=== PATIENT | male | born 1950 | race Hispanic/Latino ===

== ENCOUNTER 2020-05-21 23:24 | Inpatient (IN) | payer MEDICARE ==
[~2020-05-21] VITALS: Ht 182.9 cm; Wt 118.0 kg
[2020-05-22 01:16] LABS: ABG BASE EXCESS 4.6 mmol/L (-2.0-3.0); ABG HCO3 26.5 mmol/L (21.0-28.0); ABG OXYGEN SATURATION 94.3 % (95.0-99.0); ABG PCO2 32 mmHg (35-48)
[2020-05-22 01:19] LABS: CREATININE 1.8 mg/dL (0.5-1.5); POTASSIUM 3.6 mmol/L (3.5-5.1)
[2020-05-22 01:21] LABS: INR 0.93 (0.85-1.15); PARTIAL THROMBOPLASTIN TIME 30.8 SEC (26.3-35.5); PROTHROMBIN TIME 10.1 SEC (9.6-11.6)
[2020-05-22 01:22] LABS: EOSINOPHILS % (AUTO) 0.2 % (0.0-8.0); HEMATOCRIT 43.2 % (42-54); LYMPHOCYTES % (AUTO) 16.3 % (21.0-51.0); MEAN CORPUSCULAR HGB CONC 34.5 g/dL (32.0-36.0); MEAN CORPUSCULAR VOLUME 86.9 fL (79-99); MONOCYTES % (AUTO) 6.4 % (3.0-13.0); NEUTROPHILS % (AUTO) 76.7 % (40.0-77.0); PLATELET COUNT (AUTO) 128 K/uL (130-400); RED BLOOD CELL COUNT(AUTO) 4.97 MIL/uL (4.50-6.20); RED CELL DISTRIBUTION WIDTH 13.4 % (11.0-15.5); WHITE BLOOD COUNT (AUTO) 4.7 K/uL (4.8-10.8)
[2020-05-22 01:23] LABS: ALBUMIN 3.4 g/dL (3.5-5.0); BILIRUBIN,TOTAL 0.7 mg/dL (0.2-1.0); TOTAL PROTEIN, SERUM 7.1 g/dL (6.0-8.3)
[2020-05-22 01:35] LABS: B-TYPE NATRIURETIC PEPTIDE 15 pg/mL (0-100)
[2020-05-22] MEDS ORDERED: CEFTRIAXONE SODIUM 1 GM ONE ×3 (01:58→23:23)
[2020-05-22] MEDS ORDERED: AZITHROMYCIN 500MG+NS 250ML 250 ML IV ONE (01:58)
[2020-05-22] MEDS ORDERED: ONDANSETRON HCL 4 MG/2 ML VIAL IV PRN (02:15)
[2020-05-22] MEDS: CEFTRIAXONE SODIUM 1 GM IVP SCH ×2 (02:15→14:15)
[2020-05-22] MEDS: AZITHROMYCIN 500MG+NS 250ML 250 ML IV SCH (02:15)
[2020-05-22 06:50] LABS: HEMATOCRIT 41.7 % (42-54); MEAN CORPUSCULAR HEMOGLOBIN 29.9 pg (27.0-33.0); MEAN CORPUSCULAR HGB CONC 34.3 g/dL (32.0-36.0); MEAN CORPUSCULAR VOLUME 87.2 fL (79-99); RED BLOOD CELL COUNT(AUTO) 4.78 MIL/uL (4.50-6.20); RED CELL DISTRIBUTION WIDTH 13.5 % (11.0-15.5); WHITE BLOOD COUNT (AUTO) 4.3 K/uL (4.8-10.8)
[2020-05-22 07:09] LABS: ALBUMIN 3.2 g/dL (3.5-5.0); BILIRUBIN,TOTAL 0.6 mg/dL (0.2-1.0); CREATININE 1.7 mg/dL (0.5-1.5); CRP QUANTITATIVE 63.8 mg/L (0.00-9.0); POTASSIUM 3.5 mmol/L (3.5-5.1); TOTAL PROTEIN, SERUM 6.5 g/dL (6.0-8.3)
[2020-05-22] MEDS ORDERED: FAMOTIDINE/PF 20 MG/2 ML VIAL IV ONE (08:52)
[2020-05-22] MEDS: FAMOTIDINE/PF 20 MG/2 ML VIAL IV SCH (09:00)
[2020-05-22] MEDS ORDERED: ERGOCALCIFEROL (VITAMIN D2) 50,000 UNIT CAPSULE PO ONE (09:00)
[2020-05-22] MEDS: ASCORBIC ACID 500 MG TAB PO SCH (09:00)
[2020-05-22] MEDS: ZINC SULFATE 220 CAPSULE PO SCH (09:00)
[2020-05-22 09:26] LABS: APPEARANCE,URINE Clear (CLEAR); BILIRUBIN,URINE Negative (NEGATIVE); COLOR,URINE Dark Yellow (YELLOW); GLUCOSE, URINE (UA) Negative (NEGATIVE); KETONES,URINE Negative (NEGATIVE); LEUKOCYTE ESTERASE ,URINE Negative (NEGATIVE); NITRATE,URINE Negative (NEGATIVE); OCCULT BLOOD,URINE Negative (NEGATIVE); PROTEIN,URINE Trace mg/dL (NEGATIVE)
[2020-05-22] MEDS ORDERED: ENOXAPARIN SODIUM 40 MG/0.4 ML SYRINGE SQ SCH (09:30)
[2020-05-22] MEDS ORDERED: METHYLPREDNISOLONE SOD SUCC 40MG/ML 1ML ONE ×2 (10:31→23:23)
[2020-05-22] MEDS ORDERED: ENOXAPARIN SODIUM 40 MG/0.4 ML SYRINGE SQ ONE (10:48)
--- NOTE | 2020-05-22 13:34 | NUR ---
CM NOTE/ASSESSMENT SPOKE TO PATIENT VIA CELL PHONE- STATES PRIOR TO THIS ILLNESS HE WAS ACTIVE, INDPENDENT , NO DME OR SERVICES, DRIVES, RETIRED--LIVES WITH SPOUSE SENTHIL WHO IS SITLL WORKING- BOTH ARE IN THE ER FOR POSSIBLE COVID, STATES SPOUSE ALSO INDPENDENT/ACTIVE. DCP IS HOME CM TO FOLLOW IF SERVICE OR EQUIPMENT NEEDED ON DC
[2020-05-22] MEDS: METHYLPREDNISOLONE SOD SUCC 40MG/ML 1ML IVP SCH ×2 (14:00→21:00)
[2020-05-22] MEDS: ENOXAPARIN SODIUM 60 MG/0.6 ML SQ SCH (16:30)
[2020-05-23 02:00] VITALS: BP 150/88
[2020-05-23] MEDS: CEFTRIAXONE SODIUM 1 GM IVP SCH ×2 (02:15→15:17)
[2020-05-23] MEDS: AZITHROMYCIN 500MG+NS 250ML 250 ML IV SCH (02:15)
[2020-05-23 07:47] LABS: BILIRUBIN,TOTAL 0.5 mg/dL (0.2-1.0); CREATININE 1.6 mg/dL (0.5-1.5); CRP QUANTITATIVE 43.9 mg/L (0.00-9.0); POTASSIUM 3.8 mmol/L (3.5-5.1); TOTAL PROTEIN, SERUM 6.7 g/dL (6.0-8.3)
[2020-05-23 08:00] VITALS: BP 137/86
[2020-05-23 08:29] LABS: HEMATOCRIT 41.6 % (42-54); MEAN CORPUSCULAR HEMOGLOBIN 30.3 pg (27.0-33.0); MEAN CORPUSCULAR HGB CONC 34.6 g/dL (32.0-36.0); MEAN CORPUSCULAR VOLUME 87.4 fL (79-99); RED BLOOD CELL COUNT(AUTO) 4.76 MIL/uL (4.50-6.20); RED CELL DISTRIBUTION WIDTH 13.2 % (11.0-15.5); WHITE BLOOD COUNT (AUTO) 5.3 K/uL (4.8-10.8)
[2020-05-23] MEDS: ENOXAPARIN SODIUM 60 MG/0.6 ML SQ SCH (09:48)
[2020-05-23] MEDS: ZINC SULFATE 220 CAPSULE PO SCH (09:48)
[2020-05-23] MEDS: ASCORBIC ACID 500 MG TAB PO SCH (09:48)
[2020-05-23] MEDS: FAMOTIDINE/PF 20 MG/2 ML VIAL IV SCH (09:48)
[2020-05-23] MEDS: METHYLPREDNISOLONE SOD SUCC 40MG/ML 1ML IVP SCH ×3 (09:48→21:23)
[2020-05-23 11:00] VITALS: BP 124/77
[2020-05-23 16:00] VITALS: BP 116/68
[2020-05-23 20:00] VITALS: BP 137/86
[2020-05-23] MEDS: ACETAMINOPHEN 325 MG TAB PO PRN (21:24)
[2020-05-23 21:29] VITALS: BP 137/86
[2020-05-24] VITALS: BP 132/77
[2020-05-24] MEDS: CEFTRIAXONE SODIUM 1 GM IVP SCH ×2 (02:55→13:09)
[2020-05-24] MEDS: AZITHROMYCIN 500MG+NS 250ML 250 ML IV SCH (02:55)
[2020-05-24 04:00] VITALS: BP 111/72
[2020-05-24] MEDS: ASCORBIC ACID 500 MG TAB PO SCH (07:36)
[2020-05-24] MEDS: METHYLPREDNISOLONE SOD SUCC 40MG/ML 1ML IVP SCH ×3 (07:36→20:38)
[2020-05-24] MEDS: ZINC SULFATE 220 CAPSULE PO SCH (07:36)
[2020-05-24] MEDS: ENOXAPARIN SODIUM 60 MG/0.6 ML SQ SCH (07:37)
[2020-05-24] MEDS: FAMOTIDINE/PF 20 MG/2 ML VIAL IV SCH (07:37)
--- NOTE | 2020-05-24 07:45 | NUR ---
ASSESSMENT PT IS AAOX3 DENIES CP DENIES SOB WHILE AT REST, BREATHING PATTERN IS EVEN AND UNLABORED. NO VISIBLE SIGNS OF DISTRESS NOTED. O2 VIA NC AT 4LPM. SITTING UPRIGHT IN BED, WATCHING TV, AM MEDS GIVEN CALL LIGHT WITHIN REACH.
[2020-05-24 08:53] LABS: HEMATOCRIT 40.5 % (42-54); MEAN CORPUSCULAR HEMOGLOBIN 29.3 pg (27.0-33.0); MEAN CORPUSCULAR HGB CONC 34.3 g/dL (32.0-36.0); MEAN CORPUSCULAR VOLUME 85.3 fL (79-99); RED BLOOD CELL COUNT(AUTO) 4.75 MIL/uL (4.50-6.20); RED CELL DISTRIBUTION WIDTH 12.9 % (11.0-15.5)
--- NOTE | 2020-05-24 09:00 | NUR ---
1 UNIT CONVALESCENT PLASMA STARTED CONTINUING TO MONITOR.
[2020-05-24 09:26] LABS: ALANINE AMINOTRANSFERASE 42 U/L (12-78); ALBUMIN 2.9 g/dL (3.5-5.0); ASPARTATE AMINOTRANSFERASE 36 U/L (10-37); BILIRUBIN,TOTAL 0.5 mg/dL (0.2-1.0); CARBON DIOXIDE 25 mmol/L (21-32); CHLORIDE 106 mmol/L (101-111); CREATININE 1.6 mg/dL (0.5-1.5); GLOMERULAR FILTR. RATE CALC 46 mL/min (>60); GLUCOSE,RANDOM 206 mg/dL (70-105); LACTATE DEHYDROGENASE 254 U/L (81-234); POTASSIUM 3.6 mmol/L (3.5-5.1); SODIUM SERUM 141 mmol/L (136-145); TOTAL PROTEIN, SERUM 6.6 g/dL (6.0-8.3); UREA NITROGEN, BLOOD 35 mg/dL (7-18)
[2020-05-24 11:00] VITALS: BP 137/78
--- NOTE | 2020-05-24 11:15 | NUR ---
1ST UNIT CONV PLASMA FINISHED NO REACTIONS NOTED. VS WNL.
--- NOTE | 2020-05-24 11:45 | NUR ---
2ND UNIT CONV PLASMA STARTED CONTINUING TO MONITOR
--- NOTE | 2020-05-24 13:46 | NUR ---
2ND UNIT CONV PLASMA FINISHED NO TRANSFUSION REACTIONS NOTED. TOLERATED WELL. V/S WL.
[2020-05-24 16:00] VITALS: BP 128/74
--- NOTE | 2020-05-24 17:00 | NUR ---
STATUS RESTING IN BED NO VISIBLE SIGNS OF DISTRESS NOTED. REMAINS ON O2 VIA NC. CALL LIGHT WITHIN REACH.
[2020-05-24] MEDS: ACETAMINOPHEN 325 MG TAB PO PRN ×2 (18:08→22:16)
[2020-05-24 20:04] VITALS: BP 134/58
[2020-05-24 23:28] VITALS: BP 129/73
[2020-05-25] MEDS: CEFTRIAXONE SODIUM 1 GM IVP SCH ×2 (01:51→14:17)
[2020-05-25] MEDS: AZITHROMYCIN 500MG+NS 250ML 250 ML IV SCH (01:51)
[2020-05-25] MEDS: ACETAMINOPHEN 325 MG TAB PO PRN ×2 (02:46→07:04)
[2020-05-25 04:12] VITALS: BP 128/69
[2020-05-25 08:00] VITALS: BP 136/80
[2020-05-25 08:06] LABS: BASOPHILS % (AUTO) 0.1 % (0.0-5.0); HEMATOCRIT 39.4 % (42-54); MEAN CORPUSCULAR HEMOGLOBIN 29.3 pg (27.0-33.0); MEAN CORPUSCULAR HGB CONC 34.5 g/dL (32.0-36.0); MEAN CORPUSCULAR VOLUME 84.9 fL (79-99); MONOCYTES % (AUTO) 2.6 % (3.0-13.0); NEUTROPHILS % (AUTO) 91.3 % (40.0-77.0); PLATELET COUNT (AUTO) 175 K/uL (130-400); RED BLOOD CELL COUNT(AUTO) 4.64 MIL/uL (4.50-6.20); WHITE BLOOD COUNT (AUTO) 13.1 K/uL (4.8-10.8)
[2020-05-25 08:53] LABS: ALBUMIN 2.8 g/dL (3.5-5.0); BILIRUBIN,TOTAL 0.6 mg/dL (0.2-1.0); CREATININE 1.4 mg/dL (0.5-1.5); CRP QUANTITATIVE 49.2 mg/L (0.00-9.0); POTASSIUM 3.5 mmol/L (3.5-5.1); TOTAL PROTEIN, SERUM 6.5 g/dL (6.0-8.3)
[2020-05-25] MEDS: ASCORBIC ACID 500 MG TAB PO SCH (08:59)
[2020-05-25] MEDS: ZINC SULFATE 220 CAPSULE PO SCH (08:59)
[2020-05-25] MEDS: FAMOTIDINE/PF 20 MG/2 ML VIAL IV SCH (09:00)
[2020-05-25] MEDS: ENOXAPARIN SODIUM 60 MG/0.6 ML SQ SCH ×2 (09:00→20:08)
[2020-05-25] MEDS: METHYLPREDNISOLONE SOD SUCC 40MG/ML 1ML IVP SCH ×2 (09:00→14:17)
--- NOTE | 2020-05-25 09:30 | NUR ---
ASSESSMENT PT IS AAOX3 DENIES CP. SITTING UPRIGHT IN BED. AM MEDS GIVEN, STATES HE FEELS SOB ON EXERTION, STATES HE HAS A BAD COUGH. ROBITUSSIN AND CEPACOL GIVEN. PT REMAINS ON O2 VIA NC 3LPM. CALL LIGHT WITHIN REACH.
[2020-05-25] MEDS: BENZOCAINE/MENTH/CETYLPYRD CL 1 EACH LOZENGE MM PRN ×2 (09:47→18:23)
[2020-05-25] MEDS: GUAIFENESIN-DM 200/20 MG 10 ML PO PRN ×2 (09:48→18:23)
[2020-05-25] MEDS: TRAMADOL HCL 50 MG TABLET PO PRN ×2 (10:47→17:09)
[2020-05-25 11:00] VITALS: BP 130/75
[2020-05-25 16:00] VITALS: BP 129/77
--- NOTE | 2020-05-25 18:49 | NUR ---
DR KEBEDE ROUNDED ORDERS RECEIVED
[2020-05-25] MEDS: DEXAMETHASONE 4 MG TAB PO SCH (20:07)
[2020-05-25] MEDS: ACETAMINOPHEN-CODEINE 300/30MG TAB PO PRN (20:08)
[2020-05-25 20:32] VITALS: BP 135/76
[2020-05-26] VITALS (7 sets, daily range): BP systolic 116–166; BP diastolic 61–89
[2020-05-26] MEDS: ACETAMINOPHEN-CODEINE 300/30MG TAB PO PRN ×2 (02:27→08:34)
--- NOTE | 2020-05-26 03:00 | NUR ---
PT C/O HEADACHE. TYLENOL CODEINE GIVEN. CONSTANT PAIN. DOES NOT WANT REGULAR TYLENOL.
[2020-05-26 07:57] LABS: BASOPHILS % (AUTO) 0.1 % (0.0-5.0); HEMATOCRIT 39.5 % (42-54); LYMPHOCYTES % (AUTO) 3.9 % (21.0-51.0); MEAN CORPUSCULAR HEMOGLOBIN 29.3 pg (27.0-33.0); MEAN CORPUSCULAR HGB CONC 34.4 g/dL (32.0-36.0); MEAN CORPUSCULAR VOLUME 85.1 fL (79-99); MONOCYTES % (AUTO) 2.1 % (3.0-13.0); NEUTROPHILS % (AUTO) 92.3 % (40.0-77.0); PLATELET COUNT (AUTO) 179 K/uL (130-400); RED BLOOD CELL COUNT(AUTO) 4.64 MIL/uL (4.50-6.20); WHITE BLOOD COUNT (AUTO) 14.6 K/uL (4.8-10.8)
[2020-05-26] MEDS: ASCORBIC ACID 500 MG TAB PO SCH (08:33)
[2020-05-26] MEDS: FAMOTIDINE/PF 20 MG/2 ML VIAL IV SCH (08:33)
[2020-05-26] MEDS: ENOXAPARIN SODIUM 60 MG/0.6 ML SQ SCH ×2 (08:34→20:45)
[2020-05-26] MEDS: ZINC SULFATE 220 CAPSULE PO SCH (08:34)
[2020-05-26] MEDS: DEXAMETHASONE 4 MG TAB PO SCH (09:34)
[2020-05-26 09:42] LABS: ALBUMIN 2.4 g/dL (3.5-5.0); BILIRUBIN,TOTAL 0.7 mg/dL (0.2-1.0); CREATININE 1.3 mg/dL (0.5-1.5); CRP QUANTITATIVE 147.1 mg/L (0.00-9.0); POTASSIUM 3.8 mmol/L (3.5-5.1); TOTAL PROTEIN, SERUM 6.8 g/dL (6.0-8.3)
[2020-05-26] MEDS: INSULIN HUMULIN R 100 UNIT/ML 3ML SQ SCH ×3 (11:30→20:29)
[2020-05-26] MEDS: BENZOCAINE/MENTH/CETYLPYRD CL 1 EACH LOZENGE MM PRN (13:53)
[2020-05-26] MEDS ORDERED: [UNRECOGNIZED DRUG - OTHER] MISC SCH (18:30)
[2020-05-26] MEDS: DEXAMETHASONE SOD PHOSPHATE 4 MG/ML 1ML VIAL IVP SCH (20:44)
[2020-05-27 03:00] VITALS: BP 113/68
[2020-05-27 04:58] LABS: BASOPHILS % (AUTO) 0.2 % (0.0-5.0); EOSINOPHILS % (AUTO) 0.2 % (0.0-8.0); HEMATOCRIT 39.2 % (42-54); LYMPHOCYTES % (AUTO) 4.4 % (21.0-51.0); MEAN CORPUSCULAR HEMOGLOBIN 29.7 pg (27.0-33.0); MEAN CORPUSCULAR HGB CONC 34.7 g/dL (32.0-36.0); MEAN CORPUSCULAR VOLUME 85.6 fL (79-99); MONOCYTES % (AUTO) 2.5 % (3.0-13.0); NEUTROPHILS % (AUTO) 90.5 % (40.0-77.0); PLATELET COUNT (AUTO) 187 K/uL (130-400); RED BLOOD CELL COUNT(AUTO) 4.58 MIL/uL (4.50-6.20); RED CELL DISTRIBUTION WIDTH 13.1 % (11.0-15.5); WHITE BLOOD COUNT (AUTO) 13.3 K/uL (4.8-10.8)
[2020-05-27 05:09] LABS: ALBUMIN 2.3 g/dL (3.5-5.0); CREATININE 1.1 mg/dL (0.5-1.5); POTASSIUM 3.6 mmol/L (3.5-5.1); TOTAL PROTEIN, SERUM 6.2 g/dL (6.0-8.3)
[2020-05-27 05:45] LABS: CRP QUANTITATIVE 213.4 mg/L (0.00-9.0)
[2020-05-27] MEDS: INSULIN HUMULIN R 100 UNIT/ML 3ML SQ SCH ×4 (06:08→20:01)
[2020-05-27] MEDS: ZINC SULFATE 220 CAPSULE PO SCH (07:49)
[2020-05-27] MEDS: FAMOTIDINE/PF 20 MG/2 ML VIAL IV SCH (07:49)
[2020-05-27] MEDS: ENOXAPARIN SODIUM 60 MG/0.6 ML SQ SCH ×2 (07:49→20:16)
[2020-05-27] MEDS: DEXAMETHASONE SOD PHOSPHATE 4 MG/ML 1ML VIAL IVP SCH ×2 (07:49→20:16)
[2020-05-27] MEDS: ASCORBIC ACID 500 MG TAB PO SCH (07:49)
[2020-05-27 08:00] VITALS: BP 131/60
[2020-05-27 11:30] VITALS: BP 133/62
[2020-05-27 15:30] VITALS: BP 130/69
[2020-05-27 19:00] VITALS: BP 136/74
[2020-05-27 23:00] VITALS: BP 123/64
[2020-05-28 03:00] VITALS: BP 144/85
[2020-05-28 05:31] LABS: BASOPHILS % (AUTO) 0.3 % (0.0-5.0); HEMATOCRIT 41.2 % (42-54); LYMPHOCYTES % (AUTO) 5.5 % (21.0-51.0); MEAN CORPUSCULAR HEMOGLOBIN 28.7 pg (27.0-33.0); MEAN CORPUSCULAR VOLUME 84.6 fL (79-99); MONOCYTES % (AUTO) 3.8 % (3.0-13.0); NEUTROPHILS % (AUTO) 85.8 % (40.0-77.0); PLATELET COUNT (AUTO) 228 K/uL (130-400); RED BLOOD CELL COUNT(AUTO) 4.87 MIL/uL (4.50-6.20); WHITE BLOOD COUNT (AUTO) 11.2 K/uL (4.8-10.8)
[2020-05-28 05:38] LABS: CREATININE 1.1 mg/dL (0.5-1.5); CRP QUANTITATIVE 140.2 mg/L (0.00-9.0); POTASSIUM 3.8 mmol/L (3.5-5.1)
[2020-05-28 05:58] LABS: HEMOGLOBIN A1C 6.3 % (4.0-6.0)
[2020-05-28] MEDS: INSULIN HUMULIN R 100 UNIT/ML 3ML SQ SCH ×4 (06:37→20:58)
[2020-05-28 08:00] VITALS: BP 156/86
[2020-05-28] MEDS: FAMOTIDINE/PF 20 MG/2 ML VIAL IV SCH (08:59)
[2020-05-28] MEDS: ZINC SULFATE 220 CAPSULE PO SCH (08:59)
[2020-05-28] MEDS: ASCORBIC ACID 500 MG TAB PO SCH (09:00)
[2020-05-28] MEDS: ENOXAPARIN SODIUM 60 MG/0.6 ML SQ SCH ×2 (09:00→21:00)
[2020-05-28] MEDS: METHYLPREDNISOLONE SOD SUCC 125MG/2ML VIAL IVP SCH ×3 (09:03→23:54)
[2020-05-28] MEDS ORDERED: INSULIN GLARGINE 100 UNITS/ML 10 ML VIAL SQ SCH (09:30)
[2020-05-28 12:00] VITALS: BP 158/95
--- NOTE | 2020-05-28 12:52 | NUR ---
RD NOTIFICATION Pt admitted with SOB, positive COVID-19. Pt with Heart healthy diet order in place. Attempt to call Pt - No answer. Unknown PO intake. Pt with decreased appetite, Loss of Taste, GBW and fatigue as per EMR. S/p Plasma Tx. Previous smoker. Obesity Class II. Elevated BG, A1C (6.3). Moderated PCM. Recommend Glucerna TID Recommend ProMod QD Recommend 500mg Vitamin C (BID) RD to continue to monitor. Please notify as additional nutrition concerns arise. Thank you.
[2020-05-28 16:00] VITALS: BP 142/65
[2020-05-28 19:30] VITALS: BP 150/83
[2020-05-28] MEDS: INSULIN GLARGINE 100 UNITS/ML 10 ML VIAL SQ SCH (20:57)
[2020-05-28 23:00] VITALS: BP 156/73
[2020-05-29 03:10] VITALS: BP 153/66
[2020-05-29 04:44] LABS: BASOPHILS % (AUTO) 0.2 % (0.0-5.0); HEMATOCRIT 41.3 % (42-54); LYMPHOCYTES % (AUTO) 6.8 % (21.0-51.0); MEAN CORPUSCULAR HEMOGLOBIN 29.7 pg (27.0-33.0); MEAN CORPUSCULAR HGB CONC 34.6 g/dL (32.0-36.0); MEAN CORPUSCULAR VOLUME 85.7 fL (79-99); MONOCYTES % (AUTO) 4.3 % (3.0-13.0); NEUTROPHILS % (AUTO) 84.4 % (40.0-77.0); PLATELET COUNT (AUTO) 263 K/uL (130-400); RED BLOOD CELL COUNT(AUTO) 4.82 MIL/uL (4.50-6.20); RED CELL DISTRIBUTION WIDTH 12.9 % (11.0-15.5); WHITE BLOOD COUNT (AUTO) 11.3 K/uL (4.8-10.8)
[2020-05-29 05:14] LABS: ALBUMIN 2.2 g/dL (3.5-5.0); CREATININE 1.3 mg/dL (0.5-1.5); CRP QUANTITATIVE 57.3 mg/L (0.00-9.0); POTASSIUM 3.8 mmol/L (3.5-5.1); TOTAL PROTEIN, SERUM 6.2 g/dL (6.0-8.3)
[2020-05-29] MEDS: INSULIN HUMULIN R 100 UNIT/ML 3ML SQ SCH (06:26)
[2020-05-29] MEDS: INSULIN GLARGINE 100 UNITS/ML 10 ML VIAL SQ SCH ×3 (06:27→21:37)
[2020-05-29 08:00] VITALS: BP 144/73
[2020-05-29] MEDS ORDERED: REMDESIVIR (INVESTIGATIONAL) 100 MG in SODIUM CHLORIDE 0.9% 250 ML IV SCH (08:30)
[2020-05-29] MEDS: ZINC SULFATE 220 CAPSULE PO SCH (08:59)
[2020-05-29] MEDS: METHYLPREDNISOLONE SOD SUCC 125MG/2ML VIAL IVP SCH ×2 (08:59→17:02)
[2020-05-29] MEDS: ASCORBIC ACID 500 MG TAB PO SCH (08:59)
[2020-05-29] MEDS: FAMOTIDINE/PF 20 MG/2 ML VIAL IV SCH (08:59)
[2020-05-29] MEDS: ENOXAPARIN SODIUM 60 MG/0.6 ML SQ SCH ×2 (09:00→21:35)
[2020-05-29] MEDS ORDERED: REMDESIVIR (INVESTIGATIONAL) 200 MG/250 ML NS IV SCH (09:15)
[2020-05-29] MEDS: INSULIN LISPRO 100 UNIT/ML 3ML SQ SCH ×5 (11:49→21:38)
[2020-05-29 11:50] VITALS: BP 169/95
--- NOTE | 2020-05-29 14:00 | NUR ---
SPOKE EXTENSIVELY WITH PATIENT ABOUT HIS DIET AND WHAT WE COULD GET HIM SO THAT HE WILL EAT SOMETHING. HE STATED THAT IT TAKES TOO MUCH EFFORT TO EAT AND HAS FOUND RELIEF TO HIS MOUTH FROM THINGS COLD. SO I WAS ABLE TO ORDER SOME CLEAR ICE CREAM WELL POPCICLES AND APPLES SAUCE. ORDERED SOFT DIET WITH THESE SPECIFICS ORDERED FROM DIETARY. Addendum: 05/29/20 at 1644 by JACKIE JUARES RN RN Amended: Links added.
[2020-05-29] MEDS ORDERED: COMPOUND IV REFRIGERATED 1 EACH IVSOLN MISC PRN (14:15)
[2020-05-29 16:00] VITALS: BP 160/93
[2020-05-29 20:12] VITALS: BP 156/89
[2020-05-30 00:12] VITALS: BP 150/92
[2020-05-30] MEDS: METHYLPREDNISOLONE SOD SUCC 125MG/2ML VIAL IVP SCH ×4 (00:33→23:52)
[2020-05-30 04:12] VITALS: BP 155/94
[2020-05-30] MEDS: INSULIN LISPRO 100 UNIT/ML 3ML SQ SCH ×7 (06:35→20:54)
[2020-05-30 07:33] LABS: BASOPHILS % (AUTO) 0.2 % (0.0-5.0); HEMATOCRIT 43.3 % (42-54); LYMPHOCYTES % (AUTO) 5.1 % (21.0-51.0); MEAN CORPUSCULAR HEMOGLOBIN 29.2 pg (27.0-33.0); MEAN CORPUSCULAR HGB CONC 33.9 g/dL (32.0-36.0); MEAN CORPUSCULAR VOLUME 85.9 fL (79-99); MONOCYTES % (AUTO) 3.7 % (3.0-13.0); NEUTROPHILS % (AUTO) 87.6 % (40.0-77.0); PLATELET COUNT (AUTO) 318 K/uL (130-400); RED BLOOD CELL COUNT(AUTO) 5.04 MIL/uL (4.50-6.20); RED CELL DISTRIBUTION WIDTH 13.2 % (11.0-15.5); WHITE BLOOD COUNT (AUTO) 15.8 K/uL (4.8-10.8)
[2020-05-30] MEDS: ASCORBIC ACID 500 MG TAB PO SCH (07:47)
[2020-05-30] MEDS: FAMOTIDINE/PF 20 MG/2 ML VIAL IV SCH (07:47)
[2020-05-30] MEDS: ENOXAPARIN SODIUM 60 MG/0.6 ML SQ SCH ×2 (07:47→20:59)
[2020-05-30] MEDS: ZINC SULFATE 220 CAPSULE PO SCH (07:47)
[2020-05-30] MEDS: REMDESIVIR (INVESTIGATIONAL) 100 MG/250ML NS IV SCH (07:48)
[2020-05-30 08:00] VITALS: BP 147/87
--- NOTE | 2020-05-30 08:00 | NUR ---
EDUCATED PATIENT ON PRONE POSITION AND IT'S BENEFITS FOR EFFECTIVE BREATHING PATTERN AND OXIGENATION. PATIENT WAS ABLE TO STAY IN PRONE POSITION FOR 5 MINUTES, THEN HE MOVED BACK TO HIS SIDE STATING AND BEING IN PRONE POSITION IN TOO UNCOMFORTABLE FOR HIM. PATIENT VERBALIZED UNDERSTANDING OF ALL EDUCATION GIVEN VIA TEACH BACK. WILL CONTINUE TO MONITOR CLOSELY.
[2020-05-30 08:04] LABS: CREATININE 1.5 mg/dL (0.5-1.5); CRP QUANTITATIVE 29.5 mg/L (0.00-9.0)
[2020-05-30] MEDS ORDERED: ENAL20TA PO (10:19)
[2020-05-30] MEDS ORDERED: HYDR12.54 PO (10:19)
[2020-05-30] MEDS ORDERED: ATOR10 PO (10:19)
[2020-05-30] MEDS ORDERED: OMEP-420 PO (10:19)
[2020-05-30] MEDS ORDERED: ALLO300T2 PO (10:19)
[2020-05-30 11:18] VITALS: BP 151/79
[2020-05-30 15:50] VITALS: BP 138/87
[2020-05-30 20:34] VITALS: BP 147/71
[2020-05-30] MEDS: INSULIN GLARGINE 100 UNITS/ML 10 ML VIAL SQ SCH (20:53)
[2020-05-30] MEDS ORDERED: ENALAPRIL MALEATE 10 MG TABLET PO SCH (21:00)
[2020-05-31 00:23] VITALS: BP 144/72
[2020-05-31 04:53] VITALS: BP 144/86
[2020-05-31 05:57] LABS: HEMATOCRIT 41.3 % (42-54); MEAN CORPUSCULAR HGB CONC 35.1 g/dL (32.0-36.0); MEAN CORPUSCULAR VOLUME 85.3 fL (79-99); PLATELET COUNT (AUTO) 288 K/uL (130-400); RED BLOOD CELL COUNT(AUTO) 4.84 MIL/uL (4.50-6.20); RED CELL DISTRIBUTION WIDTH 13.2 % (11.0-15.5); WHITE BLOOD COUNT (AUTO) 18.2 K/uL (4.8-10.8)
[2020-05-31 05:59] LABS: ALBUMIN 2.3 g/dL (3.5-5.0); BILIRUBIN,TOTAL 1.1 mg/dL (0.2-1.0); CREATININE 1.3 mg/dL (0.5-1.5); CRP QUANTITATIVE 16.3 mg/L (0.00-9.0); POTASSIUM 3.7 mmol/L (3.5-5.1); TOTAL PROTEIN, SERUM 5.9 g/dL (6.0-8.3)
[2020-05-31] MEDS: INSULIN LISPRO 100 UNIT/ML 3ML SQ SCH ×7 (06:25→21:21)
[2020-05-31 07:33] LABS: BAND NEUTROPHILS % (MANUAL) 2 % (0-2); LYMPHOCYTES % (MANUAL) 3 % (22-44); MAN.DIFF COMMENT-IMPRESSION MANUAL DIFFERENTIAL; MONOCYTES % (MANUAL) 4 % (2-9); SEGMENTED NEUTROPHILS % 91 % (40-70)
[2020-05-31 07:34] LABS: PLATELET MORPHOLOGY COMMENT ADEQUATE
[2020-05-31 08:00] VITALS: BP 136/81
[2020-05-31] MEDS: ALLOPURINOL 300 MG TABLET PO SCH (09:12)
[2020-05-31] MEDS: ASCORBIC ACID 500 MG TAB PO SCH (09:12)
[2020-05-31] MEDS: ZINC SULFATE 220 CAPSULE PO SCH (09:12)
[2020-05-31] MEDS: ENOXAPARIN SODIUM 60 MG/0.6 ML SQ SCH ×2 (09:12→21:18)
[2020-05-31] MEDS: HYDROCHLOROTHIAZIDE 25 MG TABLET PO SCH (09:12)
[2020-05-31] MEDS: METHYLPREDNISOLONE SOD SUCC 125MG/2ML VIAL IVP SCH ×3 (09:13→23:41)
[2020-05-31] MEDS: FAMOTIDINE/PF 20 MG/2 ML VIAL IV SCH (09:13)
[2020-05-31] MEDS: REMDESIVIR (INVESTIGATIONAL) 100 MG/250ML NS IV SCH (09:13)
[2020-05-31 11:28] VITALS: BP 146/66
[2020-05-31 16:00] VITALS: BP 143/95
[2020-05-31 20:00] VITALS: BP 145/93
[2020-05-31] MEDS: ENALAPRIL MALEATE 10 MG TABLET PO SCH (21:17)
[2020-05-31] MEDS: INSULIN GLARGINE 100 UNITS/ML 10 ML VIAL SQ SCH (21:19)
[2020-06-01] VITALS (7 sets, daily range): BP systolic 125–160; BP diastolic 68–100
[2020-06-01 05:30] LABS: BASOPHILS % (AUTO) 0.2 % (0.0-5.0); HEMATOCRIT 41.8 % (42-54); LYMPHOCYTES % (AUTO) 3.6 % (21.0-51.0); MEAN CORPUSCULAR HEMOGLOBIN 28.9 pg (27.0-33.0); MEAN CORPUSCULAR VOLUME 85.1 fL (79-99); MONOCYTES % (AUTO) 2.6 % (3.0-13.0); NEUTROPHILS % (AUTO) 90.2 % (40.0-77.0); PLATELET COUNT (AUTO) 282 K/uL (130-400); RED BLOOD CELL COUNT(AUTO) 4.91 MIL/uL (4.50-6.20); RED CELL DISTRIBUTION WIDTH 13.2 % (11.0-15.5); WHITE BLOOD COUNT (AUTO) 18.3 K/uL (4.8-10.8)
[2020-06-01 06:01] LABS: ALANINE AMINOTRANSFERASE 59 U/L (12-78); ALBUMIN 2.3 g/dL (3.5-5.0); ASPARTATE AMINOTRANSFERASE 21 U/L (10-37); BILIRUBIN,TOTAL 1.3 mg/dL (0.2-1.0); CARBON DIOXIDE 23 mmol/L (21-32); CHLORIDE 107 mmol/L (101-111); CREATININE 1.2 mg/dL (0.5-1.5); GLOMERULAR FILTR. RATE CALC 64 mL/min (>60); GLUCOSE,RANDOM 248 mg/dL (70-105); LACTATE DEHYDROGENASE 461 U/L (81-234); POTASSIUM 3.8 mmol/L (3.5-5.1); SODIUM SERUM 141 mmol/L (136-145); TOTAL PROTEIN, SERUM 5.9 g/dL (6.0-8.3); UREA NITROGEN, BLOOD 41 mg/dL (7-18)
[2020-06-01] MEDS: INSULIN LISPRO 100 UNIT/ML 3ML SQ SCH ×7 (06:21→20:56)
[2020-06-01] MEDS: ZINC SULFATE 220 CAPSULE PO SCH (09:17)
[2020-06-01] MEDS: FAMOTIDINE/PF 20 MG/2 ML VIAL IV SCH (09:17)
[2020-06-01] MEDS: HYDROCHLOROTHIAZIDE 25 MG TABLET PO SCH (09:17)
[2020-06-01] MEDS: ENALAPRIL MALEATE 10 MG TABLET PO SCH ×2 (09:17→20:53)
[2020-06-01] MEDS: ASCORBIC ACID 500 MG TAB PO SCH (09:17)
[2020-06-01] MEDS: ALLOPURINOL 300 MG TABLET PO SCH (09:17)
[2020-06-01] MEDS: METHYLPREDNISOLONE SOD SUCC 125MG/2ML VIAL IVP SCH ×3 (09:17→23:33)
[2020-06-01] MEDS: ENOXAPARIN SODIUM 60 MG/0.6 ML SQ SCH ×2 (09:18→20:53)
[2020-06-01] MEDS: REMDESIVIR (INVESTIGATIONAL) 100 MG/250ML NS IV SCH (09:19)
[2020-06-01] MEDS: INSULIN GLARGINE 100 UNITS/ML 10 ML VIAL SQ SCH (20:54)
[2020-06-02 03:26] VITALS: BP 142/67
[2020-06-02 04:55] LABS: BASOPHILS % (AUTO) 0.1 % (0.0-5.0); HEMATOCRIT 41.4 % (42-54); MEAN CORPUSCULAR HEMOGLOBIN 29.8 pg (27.0-33.0); MEAN CORPUSCULAR HGB CONC 34.8 g/dL (32.0-36.0); MEAN CORPUSCULAR VOLUME 85.5 fL (79-99); NEUTROPHILS % (AUTO) 92.4 % (40.0-77.0); PLATELET COUNT (AUTO) 241 K/uL (130-400); RED BLOOD CELL COUNT(AUTO) 4.84 MIL/uL (4.50-6.20); RED CELL DISTRIBUTION WIDTH 13.2 % (11.0-15.5); WHITE BLOOD COUNT (AUTO) 13.8 K/uL (4.8-10.8)
[2020-06-02 05:19] LABS: ALANINE AMINOTRANSFERASE 53 U/L (12-78); ALBUMIN 2.2 g/dL (3.5-5.0); ASPARTATE AMINOTRANSFERASE 19 U/L (10-37); BILIRUBIN,TOTAL 1.3 mg/dL (0.2-1.0); CARBON DIOXIDE 23 mmol/L (21-32); CHLORIDE 105 mmol/L (101-111); CREATININE 1.1 mg/dL (0.5-1.5); GLOMERULAR FILTR. RATE CALC 71 mL/min (>60); GLUCOSE,RANDOM 237 mg/dL (70-105); LACTATE DEHYDROGENASE 434 U/L (81-234); POTASSIUM 3.8 mmol/L (3.5-5.1); SODIUM SERUM 139 mmol/L (136-145); TOTAL PROTEIN, SERUM 5.6 g/dL (6.0-8.3); UREA NITROGEN, BLOOD 36 mg/dL (7-18)
[2020-06-02] MEDS: INSULIN LISPRO 100 UNIT/ML 3ML SQ SCH ×7 (07:30→20:33)
[2020-06-02 08:27] VITALS: BP 132/87
[2020-06-02] MEDS: FAMOTIDINE/PF 20 MG/2 ML VIAL IV SCH (09:33)
[2020-06-02] MEDS: METHYLPREDNISOLONE SOD SUCC 125MG/2ML VIAL IVP SCH ×3 (09:33→23:21)
[2020-06-02] MEDS: ZINC SULFATE 220 CAPSULE PO SCH (09:33)
[2020-06-02] MEDS: ENOXAPARIN SODIUM 60 MG/0.6 ML SQ SCH ×2 (09:33→20:29)
[2020-06-02] MEDS: ENALAPRIL MALEATE 10 MG TABLET PO SCH ×2 (09:34→20:30)
[2020-06-02] MEDS: ALLOPURINOL 300 MG TABLET PO SCH (09:34)
[2020-06-02] MEDS: ASCORBIC ACID 500 MG TAB PO SCH (09:34)
[2020-06-02] MEDS: HYDROCHLOROTHIAZIDE 25 MG TABLET PO SCH (09:36)
[2020-06-02 11:55] VITALS: BP 121/68
[2020-06-02] MEDS: REMDESIVIR (INVESTIGATIONAL) 100 MG/250ML NS IV SCH (13:04)
--- NOTE | 2020-06-02 14:33 | NUR ---
PHONE CALL Family updated.
[2020-06-02 16:11] VITALS: BP 134/66
[2020-06-02 20:00] VITALS: BP 134/85
[2020-06-02] MEDS: INSULIN GLARGINE 100 UNITS/ML 10 ML VIAL SQ SCH (20:32)
[2020-06-02 23:52] VITALS: BP 174/88
[2020-06-03 04:00] VITALS: BP 123/69
[2020-06-03 05:42] LABS: BASOPHILS % (AUTO) 0.1 % (0.0-5.0); HEMATOCRIT 42.4 % (42-54); LYMPHOCYTES % (AUTO) 2.9 % (21.0-51.0); MEAN CORPUSCULAR HEMOGLOBIN 29.1 pg (27.0-33.0); MEAN CORPUSCULAR VOLUME 85.7 fL (79-99); MONOCYTES % (AUTO) 2.5 % (3.0-13.0); NEUTROPHILS % (AUTO) 91.9 % (40.0-77.0); PLATELET COUNT (AUTO) 250 K/uL (130-400); RED BLOOD CELL COUNT(AUTO) 4.95 MIL/uL (4.50-6.20); RED CELL DISTRIBUTION WIDTH 13.2 % (11.0-15.5); WHITE BLOOD COUNT (AUTO) 15.6 K/uL (4.8-10.8)
[2020-06-03 06:06] LABS: ALANINE AMINOTRANSFERASE 46 U/L (12-78); ALBUMIN 2.2 g/dL (3.5-5.0); ASPARTATE AMINOTRANSFERASE 18 U/L (10-37); BILIRUBIN,TOTAL 1.3 mg/dL (0.2-1.0); CARBON DIOXIDE 26 mmol/L (21-32); CHLORIDE 105 mmol/L (101-111); CREATININE 1.1 mg/dL (0.5-1.5); GLOMERULAR FILTR. RATE CALC 71 mL/min (>60); GLUCOSE,RANDOM 263 mg/dL (70-105); LACTATE DEHYDROGENASE 406 U/L (81-234); POTASSIUM 4.1 mmol/L (3.5-5.1); SODIUM SERUM 138 mmol/L (136-145); TOTAL PROTEIN, SERUM 5.6 g/dL (6.0-8.3); UREA NITROGEN, BLOOD 41 mg/dL (7-18)
[2020-06-03] MEDS: INSULIN LISPRO 100 UNIT/ML 3ML SQ SCH ×7 (06:19→20:55)
[2020-06-03 08:00] VITALS: BP 128/76
[2020-06-03] MEDS: FAMOTIDINE/PF 20 MG/2 ML VIAL IV SCH (09:18)
[2020-06-03] MEDS: METHYLPREDNISOLONE SOD SUCC 125MG/2ML VIAL IVP SCH ×3 (09:18→23:36)
[2020-06-03] MEDS: ASCORBIC ACID 500 MG TAB PO SCH (09:20)
[2020-06-03] MEDS: ALLOPURINOL 300 MG TABLET PO SCH (09:20)
[2020-06-03] MEDS: ZINC SULFATE 220 CAPSULE PO SCH (09:20)
[2020-06-03] MEDS: ENALAPRIL MALEATE 10 MG TABLET PO SCH ×2 (09:20→20:48)
[2020-06-03] MEDS: ENOXAPARIN SODIUM 60 MG/0.6 ML SQ SCH ×2 (09:21→20:47)
[2020-06-03] MEDS: HYDROCHLOROTHIAZIDE 25 MG TABLET PO SCH (09:21)
[2020-06-03 12:08] VITALS: BP 123/62
--- NOTE | 2020-06-03 14:50 | NUR ---
SPOKE WITH DR. REYNOSO VIA TELEMEDICINE RE:PT. STATUS AND QUESTIONS ANSWERED; VERBALIZED UNDERSTANDING.
[2020-06-03 16:28] VITALS: BP 147/88
[2020-06-03] MEDS ORDERED: INSULIN LISPRO 100 UNIT/ML 3ML SQ SCH (17:00)
[2020-06-03 19:30] VITALS: BP 133/72
[2020-06-03] MEDS: INSULIN GLARGINE 100 UNITS/ML 10 ML VIAL SQ SCH (20:53)
[2020-06-04] VITALS: BP 132/77
[2020-06-04 04:00] VITALS: BP 126/74
[2020-06-04 05:38] LABS: HEMATOCRIT 42.9 % (42-54); MEAN CORPUSCULAR HEMOGLOBIN 29.2 pg (27.0-33.0); MEAN CORPUSCULAR HGB CONC 33.8 g/dL (32.0-36.0); MEAN CORPUSCULAR VOLUME 86.3 fL (79-99); PLATELET COUNT (AUTO) 246 K/uL (130-400); RED BLOOD CELL COUNT(AUTO) 4.97 MIL/uL (4.50-6.20); RED CELL DISTRIBUTION WIDTH 13.2 % (11.0-15.5)
[2020-06-04 05:48] LABS: LYMPHOCYTES % (MANUAL) 4 % (22-44); MAN.DIFF COMMENT-IMPRESSION MANUAL DIFFERENTIAL; MONOCYTES % (MANUAL) 3 % (2-9); PLATELET MORPHOLOGY COMMENT ADEQUATE; SEGMENTED NEUTROPHILS % 93 % (40-70)
[2020-06-04 05:50] LABS: ALANINE AMINOTRANSFERASE 49 U/L (12-78); ALBUMIN 2.2 g/dL (3.5-5.0); ASPARTATE AMINOTRANSFERASE 14 U/L (10-37); BILIRUBIN,TOTAL 1.3 mg/dL (0.2-1.0); CARBON DIOXIDE 23 mmol/L (21-32); CHLORIDE 102 mmol/L (101-111); CREATININE 1.2 mg/dL (0.5-1.5); GLOMERULAR FILTR. RATE CALC 64 mL/min (>60); GLUCOSE,RANDOM 281 mg/dL (70-105); LACTATE DEHYDROGENASE 358 U/L (81-234); POTASSIUM 3.8 mmol/L (3.5-5.1); SODIUM SERUM 136 mmol/L (136-145); TOTAL PROTEIN, SERUM 5.4 g/dL (6.0-8.3); UREA NITROGEN, BLOOD 38 mg/dL (7-18)
[2020-06-04] MEDS: INSULIN LISPRO 100 UNIT/ML 3ML SQ SCH ×6 (06:29→21:25)
[2020-06-04 08:15] VITALS: BP 117/78
[2020-06-04] MEDS: ENALAPRIL MALEATE 10 MG TABLET PO SCH ×2 (09:41→21:20)
[2020-06-04] MEDS: METHYLPREDNISOLONE SOD SUCC 125MG/2ML VIAL IVP SCH ×2 (09:42→17:13)
[2020-06-04] MEDS: HYDROCHLOROTHIAZIDE 25 MG TABLET PO SCH (09:42)
[2020-06-04] MEDS: ASCORBIC ACID 500 MG TAB PO SCH (09:42)
[2020-06-04] MEDS: ALLOPURINOL 300 MG TABLET PO SCH (09:42)
[2020-06-04] MEDS: FAMOTIDINE/PF 20 MG/2 ML VIAL IV SCH (09:42)
[2020-06-04] MEDS: ENOXAPARIN SODIUM 60 MG/0.6 ML SQ SCH ×2 (09:42→21:22)
[2020-06-04] MEDS: ZINC SULFATE 220 CAPSULE PO SCH (09:42)
--- NOTE | 2020-06-04 11:30 | NUR ---
UPDATED DR. SALMON, AT NURSE'S STATION, ON PT. STATUS AND PULSE OXIMETRY ON NRB. VERBALIZED UNDERSTANDING. NO NEW ORDERS RECEIVED AT THIS TIME.
--- NOTE | 2020-06-04 11:45 | NUR ---
PHONE CALL Patient's , Trudi Preciado was updated and given opportunity to ask questions.
[2020-06-04 12:22] VITALS: BP 103/71
--- NOTE | 2020-06-04 16:22 | NUR ---
SPOKE WITH DR. REYNOSO VIA TELEMEDICINE. UPDATED ON STATUS AND QUESTIONS ANSWERED.
[2020-06-04 16:31] VITALS: BP 111/70
[2020-06-04] MEDS ORDERED: INSULIN LISPRO 100 UNIT/ML 3ML SQ SCH (17:00)
--- NOTE | 2020-06-04 18:49 | NUR ---
UPDATED PT.'S DAUGHTER, SUZAN, ON PT.'S STATUS. QUESTIONS ANSWERED AND VERBALIZED UNDERSTANDING.
[2020-06-04 19:51] VITALS: BP 120/65
[2020-06-04] MEDS: INSULIN GLARGINE 100 UNITS/ML 10 ML VIAL SQ SCH (21:25)
[2020-06-05] VITALS (7 sets, daily range): BP systolic 115–129; BP diastolic 64–78
[2020-06-05] MEDS: METHYLPREDNISOLONE SOD SUCC 125MG/2ML VIAL IVP SCH (01:40)
[2020-06-05] MEDS: ENOXAPARIN SODIUM 60 MG/0.6 ML SQ SCH ×2 (10:16→21:47)
[2020-06-05] MEDS: ZINC SULFATE 220 CAPSULE PO SCH (10:17)
[2020-06-05] MEDS: ASCORBIC ACID 500 MG TAB PO SCH (10:17)
[2020-06-05] MEDS: ALLOPURINOL 300 MG TABLET PO SCH (10:17)
[2020-06-05] MEDS: ENALAPRIL MALEATE 10 MG TABLET PO SCH ×2 (10:18→21:46)
[2020-06-05] MEDS: FAMOTIDINE/PF 20 MG/2 ML VIAL IV SCH ×2 (10:19→10:26)
[2020-06-05] MEDS: HYDROCHLOROTHIAZIDE 25 MG TABLET PO SCH (10:19)
[2020-06-05] MEDS: METHYLPREDNISOLONE SOD SUCC 40MG/ML 1ML IVP SCH ×2 (10:37→17:30)
[2020-06-05] MEDS: INSULIN LISPRO 100 UNIT/ML 3ML SQ SCH ×6 (11:22→21:49)
[2020-06-05] MEDS: INSULIN GLARGINE 100 UNITS/ML 10 ML VIAL SQ SCH (21:49)
[2020-06-06] VITALS (7 sets, daily range): BP systolic 103–130; BP diastolic 60–73
[2020-06-06] MEDS: METHYLPREDNISOLONE SOD SUCC 40MG/ML 1ML IVP SCH ×3 (01:41→18:04)
[2020-06-06] MEDS: INSULIN LISPRO 100 UNIT/ML 3ML SQ SCH ×6 (06:28→21:03)
[2020-06-06 08:24] LABS: BASOPHILS % (AUTO) 0.1 % (0.0-5.0); EOSINOPHILS % (AUTO) 0.1 % (0.0-8.0); HEMATOCRIT 43.6 % (42-54); LYMPHOCYTES % (AUTO) 2.6 % (21.0-51.0); MEAN CORPUSCULAR HEMOGLOBIN 29.7 pg (27.0-33.0); MEAN CORPUSCULAR HGB CONC 34.6 g/dL (32.0-36.0); MEAN CORPUSCULAR VOLUME 85.8 fL (79-99); MONOCYTES % (AUTO) 3.2 % (3.0-13.0); NEUTROPHILS % (AUTO) 92.9 % (40.0-77.0); PLATELET COUNT (AUTO) 206 K/uL (130-400); RED BLOOD CELL COUNT(AUTO) 5.08 MIL/uL (4.50-6.20); RED CELL DISTRIBUTION WIDTH 13.4 % (11.0-15.5); WHITE BLOOD COUNT (AUTO) 17.7 K/uL (4.8-10.8)
[2020-06-06 08:51] LABS: LACTATE DEHYDROGENASE 335 U/L (81-234)
[2020-06-06 08:58] LABS: CRP QUANTITATIVE < 2.00 mg/L (0.00-9.0)
[2020-06-06] MEDS: ENALAPRIL MALEATE 10 MG TABLET PO SCH ×2 (09:00→19:58)
[2020-06-06] MEDS: HYDROCHLOROTHIAZIDE 25 MG TABLET PO SCH (10:18)
[2020-06-06] MEDS: ALLOPURINOL 300 MG TABLET PO SCH (10:18)
[2020-06-06] MEDS: ZINC SULFATE 220 CAPSULE PO SCH (10:18)
[2020-06-06] MEDS: ASCORBIC ACID 500 MG TAB PO SCH (10:18)
[2020-06-06] MEDS: ENOXAPARIN SODIUM 60 MG/0.6 ML SQ SCH ×2 (10:19→20:59)
[2020-06-06] MEDS: INSULIN GLARGINE 100 UNITS/ML 10 ML VIAL SQ SCH (21:01)
[2020-06-07] MEDS: METHYLPREDNISOLONE SOD SUCC 40MG/ML 1ML IVP SCH ×4 (00:52→21:03)
[2020-06-07 03:00] VITALS: BP 120/69
[2020-06-07 06:03] LABS: BASOPHILS % (AUTO) 0.1 % (0.0-5.0); HEMATOCRIT 45.5 % (42-54); LYMPHOCYTES % (AUTO) 2.8 % (21.0-51.0); MEAN CORPUSCULAR HEMOGLOBIN 29.4 pg (27.0-33.0); MEAN CORPUSCULAR HGB CONC 33.4 g/dL (32.0-36.0); MONOCYTES % (AUTO) 3.5 % (3.0-13.0); NEUTROPHILS % (AUTO) 92.2 % (40.0-77.0); PLATELET COUNT (AUTO) 192 K/uL (130-400); RED BLOOD CELL COUNT(AUTO) 5.17 MIL/uL (4.50-6.20); RED CELL DISTRIBUTION WIDTH 13.5 % (11.0-15.5); WHITE BLOOD COUNT (AUTO) 15.5 K/uL (4.8-10.8)
[2020-06-07] MEDS: INSULIN LISPRO 100 UNIT/ML 3ML SQ SCH ×8 (06:10→21:06)
[2020-06-07 06:28] LABS: CREATININE 1.1 mg/dL (0.5-1.5); POTASSIUM 4.6 mmol/L (3.5-5.1)
[2020-06-07 06:45] LABS: B-TYPE NATRIURETIC PEPTIDE 22 pg/mL (0-100)
[2020-06-07 07:30] VITALS: BP 125/81
[2020-06-07] MEDS: FAMOTIDINE/PF 20 MG/2 ML VIAL IV SCH (08:54)
[2020-06-07] MEDS: ASCORBIC ACID 500 MG TAB PO SCH (08:55)
[2020-06-07] MEDS: ENALAPRIL MALEATE 10 MG TABLET PO SCH ×2 (08:55→21:05)
[2020-06-07] MEDS: ALLOPURINOL 300 MG TABLET PO SCH (08:55)
[2020-06-07] MEDS: ZINC SULFATE 220 CAPSULE PO SCH (08:55)
[2020-06-07] MEDS: HYDROCHLOROTHIAZIDE 25 MG TABLET PO SCH (08:56)
[2020-06-07] MEDS: ENOXAPARIN SODIUM 60 MG/0.6 ML SQ SCH ×2 (08:57→21:03)
[2020-06-07 11:00] VITALS: BP 128/75
--- NOTE | 2020-06-07 11:43 | NUR ---
PHYSICIAN ROUNDS DR ISAURO BOX ROUNDED ON PATIENT
--- NOTE | 2020-06-07 14:44 | NUR ---
Family status update Daughter and on phone, updated them on patient status, o2 sat, labs and medications.
[2020-06-07 15:30] VITALS: BP 125/71
[2020-06-07 19:00] VITALS: BP 116/60
[2020-06-07] MEDS: INSULIN GLARGINE 100 UNITS/ML 10 ML VIAL SQ SCH (21:05)
[2020-06-07 23:00] VITALS: BP 114/65
[2020-06-08 03:00] VITALS: BP 125/75
[2020-06-08 05:39] LABS: BASOPHILS % (AUTO) 0.1 % (0.0-5.0); EOSINOPHILS % (AUTO) 0.1 % (0.0-8.0); HEMATOCRIT 44.3 % (42-54); LYMPHOCYTES % (AUTO) 2.5 % (21.0-51.0); MEAN CORPUSCULAR HEMOGLOBIN 29.8 pg (27.0-33.0); MEAN CORPUSCULAR HGB CONC 33.9 g/dL (32.0-36.0); MEAN CORPUSCULAR VOLUME 88.1 fL (79-99); MONOCYTES % (AUTO) 3.4 % (3.0-13.0); NEUTROPHILS % (AUTO) 92.7 % (40.0-77.0); PLATELET COUNT (AUTO) 172 K/uL (130-400); RED BLOOD CELL COUNT(AUTO) 5.03 MIL/uL (4.50-6.20); RED CELL DISTRIBUTION WIDTH 13.8 % (11.0-15.5); WHITE BLOOD COUNT (AUTO) 15.5 K/uL (4.8-10.8)
[2020-06-08] MEDS: INSULIN LISPRO 100 UNIT/ML 3ML SQ SCH ×8 (05:52→21:13)
[2020-06-08 05:55] LABS: CREATININE 1.2 mg/dL (0.5-1.5); POTASSIUM 4.3 mmol/L (3.5-5.1)
[2020-06-08 07:30] VITALS: BP 116/68
[2020-06-08] MEDS: ENALAPRIL MALEATE 10 MG TABLET PO SCH ×2 (08:06→21:11)
[2020-06-08] MEDS: HYDROCHLOROTHIAZIDE 25 MG TABLET PO SCH (08:07)
[2020-06-08] MEDS: ALLOPURINOL 300 MG TABLET PO SCH (08:08)
[2020-06-08] MEDS: FAMOTIDINE/PF 20 MG/2 ML VIAL IV SCH (08:08)
[2020-06-08] MEDS: ASCORBIC ACID 500 MG TAB PO SCH (08:08)
[2020-06-08] MEDS: ZINC SULFATE 220 CAPSULE PO SCH (08:09)
[2020-06-08] MEDS: ENOXAPARIN SODIUM 60 MG/0.6 ML SQ SCH ×2 (08:22→21:11)
[2020-06-08] MEDS: METHYLPREDNISOLONE SOD SUCC 40MG/ML 1ML IVP SCH ×2 (08:22→21:11)
[2020-06-08 11:30] VITALS: BP 105/51
[2020-06-08 15:30] VITALS: BP 114/74
[2020-06-08 20:00] VITALS: BP 119/68
[2020-06-08] MEDS: INSULIN GLARGINE 100 UNITS/ML 10 ML VIAL SQ SCH (21:13)
[2020-06-09] VITALS (7 sets, daily range): BP systolic 105–132; BP diastolic 66–77
[2020-06-09 04:46] LABS: BASOPHILS % (AUTO) 0.2 % (0.0-5.0); EOSINOPHILS % (AUTO) 0.1 % (0.0-8.0); HEMATOCRIT 46.8 % (42-54); LYMPHOCYTES % (AUTO) 1.9 % (21.0-51.0); MEAN CORPUSCULAR HGB CONC 34.2 g/dL (32.0-36.0); MEAN CORPUSCULAR VOLUME 87.8 fL (79-99); MONOCYTES % (AUTO) 3.4 % (3.0-13.0); NEUTROPHILS % (AUTO) 93.4 % (40.0-77.0); PLATELET COUNT (AUTO) 135 K/uL (130-400); RED BLOOD CELL COUNT(AUTO) 5.33 MIL/uL (4.50-6.20); RED CELL DISTRIBUTION WIDTH 13.7 % (11.0-15.5); WHITE BLOOD COUNT (AUTO) 19.4 K/uL (4.8-10.8)
[2020-06-09 05:52] LABS: B-TYPE NATRIURETIC PEPTIDE 20 pg/mL (0-100)
[2020-06-09] MEDS: INSULIN LISPRO 100 UNIT/ML 3ML SQ SCH ×7 (05:55→19:57)
[2020-06-09 06:10] LABS: CREATININE 1.1 mg/dL (0.5-1.5); POTASSIUM 4.4 mmol/L (3.5-5.1)
--- NOTE | 2020-06-09 08:00 | NUR ---
AM ASSESSMENT PT AWAKE AND ALERT, DENIES CHEST PAIN, NO LABORED RESPIRATIONS. O2 PER NON-REBREATHER, O2 SAT 92%. CALL LIGHT WITHIN REACH.
[2020-06-09] MEDS: ENALAPRIL MALEATE 10 MG TABLET PO SCH ×2 (08:45→20:39)
[2020-06-09] MEDS: ALLOPURINOL 300 MG TABLET PO SCH (08:45)
[2020-06-09] MEDS: METHYLPREDNISOLONE SOD SUCC 40MG/ML 1ML IVP SCH ×2 (08:45→20:38)
[2020-06-09] MEDS: ZINC SULFATE 220 CAPSULE PO SCH (08:45)
[2020-06-09] MEDS: ASCORBIC ACID 500 MG TAB PO SCH (08:45)
[2020-06-09] MEDS: HYDROCHLOROTHIAZIDE 25 MG TABLET PO SCH (08:45)
[2020-06-09] MEDS: FAMOTIDINE/PF 20 MG/2 ML VIAL IV SCH (08:45)
[2020-06-09] MEDS: ENOXAPARIN SODIUM 60 MG/0.6 ML SQ SCH ×2 (08:46→20:39)
[2020-06-09] MEDS: LACTULOSE 20 GM/30 ML UDCUP PO PRN (18:01)
[2020-06-09] MEDS: INSULIN GLARGINE 100 UNITS/ML 10 ML VIAL SQ SCH (20:41)
[2020-06-10 04:15] VITALS: BP 117/73
[2020-06-10 04:59] LABS: BASOPHILS % (AUTO) 0.1 % (0.0-5.0); EOSINOPHILS % (AUTO) 0.1 % (0.0-8.0); LYMPHOCYTES % (AUTO) 2.5 % (21.0-51.0); MEAN CORPUSCULAR HEMOGLOBIN 29.7 pg (27.0-33.0); MEAN CORPUSCULAR HGB CONC 34.3 g/dL (32.0-36.0); MEAN CORPUSCULAR VOLUME 86.4 fL (79-99); MONOCYTES % (AUTO) 3.3 % (3.0-13.0); NEUTROPHILS % (AUTO) 92.8 % (40.0-77.0); PLATELET COUNT (AUTO) 166 K/uL (130-400); RED BLOOD CELL COUNT(AUTO) 5.09 MIL/uL (4.50-6.20); RED CELL DISTRIBUTION WIDTH 13.5 % (11.0-15.5); WHITE BLOOD COUNT (AUTO) 17.7 K/uL (4.8-10.8)
[2020-06-10] MEDS: INSULIN LISPRO 100 UNIT/ML 3ML SQ SCH ×7 (05:25→20:42)
[2020-06-10 05:29] LABS: ALBUMIN 2.1 g/dL (3.5-5.0); BILIRUBIN,TOTAL 1.4 mg/dL (0.2-1.0); CRP QUANTITATIVE 14.6 mg/L (0.00-9.0); POTASSIUM 4.1 mmol/L (3.5-5.1); TOTAL PROTEIN, SERUM 5.6 g/dL (6.0-8.3)
[2020-06-10 08:00] VITALS: BP 115/63
[2020-06-10] MEDS ORDERED: DEXAMETHASONE SOD PHOSPHATE 4 MG/ML 1ML VIAL IM SCH (09:00)
[2020-06-10] MEDS: ALLOPURINOL 300 MG TABLET PO SCH (09:37)
[2020-06-10] MEDS: FAMOTIDINE/PF 20 MG/2 ML VIAL IV SCH (09:37)
[2020-06-10] MEDS: ENALAPRIL MALEATE 10 MG TABLET PO SCH ×2 (09:37→20:42)
[2020-06-10] MEDS: ZINC SULFATE 220 CAPSULE PO SCH (09:37)
[2020-06-10] MEDS: ASCORBIC ACID 500 MG TAB PO SCH (09:37)
[2020-06-10] MEDS: HYDROCHLOROTHIAZIDE 25 MG TABLET PO SCH (09:37)
[2020-06-10] MEDS: ENOXAPARIN SODIUM 60 MG/0.6 ML SQ SCH ×2 (09:38→20:41)
[2020-06-10] MEDS: DEXAMETHASONE 4 MG TAB PO SCH ×3 (09:42→20:41)
[2020-06-10 12:00] VITALS: BP 121/76
[2020-06-10] MEDS: LACTULOSE 20 GM/30 ML UDCUP PO PRN (12:51)
[2020-06-10] MEDS: ZOSYN 3.375GM+NS 50ML 50 ML IV SCH ×2 (12:51→20:40)
[2020-06-10 15:30] VITALS: BP 103/70
--- NOTE | 2020-06-10 18:41 | NUR ---
AAOx4. RESTING QUIETLY IN BED AT THIS TIME. COVID+, ISOLATION PRECAUTIONS MAINTAINED. RESPIRATIONS EVEN AND UNLABORED AT REST. O2 AT 12L NRB, O2 SAT 93-94%. STRONLY ENCOURAGED TO PRONE THROUGHOUT THE DAY BUT STATED IT HURTS AND IS VERY UNCOMFORTABLE. PT REPORTS DECREASED APPETITE. PRN LACTULOSE ADMINISTERED FOR NO BM IN 5 DAYS PER PATIENT, NO RESULTS. WILL CONT TO MONITOR. SAFETY MEASURES IN PLACE.
[2020-06-10 20:11] VITALS: BP 111/64
[2020-06-10] MEDS ORDERED: INSULIN GLARGINE 100 UNITS/ML 10 ML VIAL SQ SCH (21:00)
[2020-06-10 23:20] VITALS: BP 121/65
[2020-06-11 03:53] VITALS: BP 109/61
[2020-06-11 05:11] LABS: BASOPHILS % (AUTO) 0.2 % (0.0-5.0); EOSINOPHILS % (AUTO) 0.1 % (0.0-8.0); HEMATOCRIT 43.8 % (42-54); LYMPHOCYTES % (AUTO) 3.2 % (21.0-51.0); MEAN CORPUSCULAR HEMOGLOBIN 29.8 pg (27.0-33.0); MEAN CORPUSCULAR HGB CONC 34.5 g/dL (32.0-36.0); MEAN CORPUSCULAR VOLUME 86.4 fL (79-99); MONOCYTES % (AUTO) 2.8 % (3.0-13.0); NEUTROPHILS % (AUTO) 92.5 % (40.0-77.0); PLATELET COUNT (AUTO) 148 K/uL (130-400); RED BLOOD CELL COUNT(AUTO) 5.07 MIL/uL (4.50-6.20); RED CELL DISTRIBUTION WIDTH 13.6 % (11.0-15.5); WHITE BLOOD COUNT (AUTO) 16.1 K/uL (4.8-10.8)
[2020-06-11] MEDS: INSULIN LISPRO 100 UNIT/ML 3ML SQ SCH ×6 (05:22→20:26)
[2020-06-11 05:32] LABS: CREATININE 1.1 mg/dL (0.5-1.5); CRP QUANTITATIVE 14.9 mg/L (0.00-9.0); POTASSIUM 4.4 mmol/L (3.5-5.1)
[2020-06-11] MEDS: ZOSYN 3.375GM+NS 50ML 50 ML IV SCH ×3 (05:47→20:29)
[2020-06-11] MEDS: FAMOTIDINE/PF 20 MG/2 ML VIAL IV SCH (07:30)
[2020-06-11] MEDS: DEXAMETHASONE 4 MG TAB PO SCH ×2 (07:31→13:12)
[2020-06-11] MEDS: ASCORBIC ACID 500 MG TAB PO SCH (07:31)
[2020-06-11] MEDS: ENALAPRIL MALEATE 10 MG TABLET PO SCH ×2 (07:31→20:25)
[2020-06-11] MEDS: ZINC SULFATE 220 CAPSULE PO SCH (07:31)
[2020-06-11] MEDS: ALLOPURINOL 300 MG TABLET PO SCH (07:31)
[2020-06-11] MEDS: HYDROCHLOROTHIAZIDE 25 MG TABLET PO SCH (07:32)
[2020-06-11] MEDS: ENOXAPARIN SODIUM 60 MG/0.6 ML SQ SCH ×2 (07:32→20:31)
[2020-06-11 08:00] VITALS: BP 127/74
--- NOTE | 2020-06-11 08:00 | NUR ---
ASSESSMENT PT IS AAOX3 DENIES CP DENIES SOB DENIES NV WHILE AT REST. SITTING UPRIGHT IN BED, HOB UP AT 35 DEGREES. CURRENTLY ON NONREBREATHER MASK 12LPM. AM MEDS GIVEN AND TOLERATED. CALL LIGHT WITHIN REACH.
[2020-06-11] MEDS ORDERED: MAGNESIUM CITRATE 296 ML SOLUTION PO SCH (10:30)
--- NOTE | 2020-06-11 10:30 | NUR ---
PT HAS NOT HAD BM MAG CITRATE PO GIVEN.
[2020-06-11 11:30] VITALS: BP 112/72
--- NOTE | 2020-06-11 15:26 | NUR ---
DC Plan Met with patient to inform of MD recommendation for LTACH. Patient in agreement to plan and gave verbal consent. CM offered to call Trudi and update of plan. Patient gave CM permission to update . CM spoke to Trudi who is also in agreement to plan. Referral faxed with confirmation received. Possible dc tomorrow if patient remains afebrile. Addendum: 06/11/20 at 1533 by DANNY TURPIN CM Amended: Links added.
[2020-06-11 16:50] VITALS: BP 118/61
[2020-06-11] MEDS: METFORMIN HCL 500 MG TABLET PO SCH (17:17)
--- NOTE | 2020-06-11 17:30 | NUR ---
DR REYNOSO CALLED UPDATES GIVEN. OK TO GIVE OTC FLEETS ENEMA
--- NOTE | 2020-06-11 18:30 | NUR ---
FLEETS GIVEN PATIENT HOLDING FLEETS
[2020-06-11 21:39] VITALS: BP 116/71
[2020-06-12 01:18] VITALS: BP 117/54
[2020-06-12 04:24] VITALS: BP 114/70
[2020-06-12] MEDS: ZOSYN 3.375GM+NS 50ML 50 ML IV SCH ×2 (05:06→12:06)
[2020-06-12 05:16] LABS: HEMATOCRIT 44.1 % (42-54); MEAN CORPUSCULAR HEMOGLOBIN 29.3 pg (27.0-33.0); MEAN CORPUSCULAR HGB CONC 33.3 g/dL (32.0-36.0); PLATELET COUNT (AUTO) 143 K/uL (130-400); RED BLOOD CELL COUNT(AUTO) 5.01 MIL/uL (4.50-6.20); RED CELL DISTRIBUTION WIDTH 13.9 % (11.0-15.5); WHITE BLOOD COUNT (AUTO) 15.6 K/uL (4.8-10.8)
[2020-06-12 05:41] LABS: CREATININE 1.2 mg/dL (0.5-1.5); MAGNESIUM 2.5 mg/dL (1.80-2.40); PHOSPHORUS 4.1 mg/dL (2.5-4.9); POTASSIUM 4.2 mmol/L (3.5-5.1)
[2020-06-12] MEDS: INSULIN LISPRO 100 UNIT/ML 3ML SQ SCH ×3 (05:49→16:30)
[2020-06-12 07:30] VITALS: BP 111/72
[2020-06-12] MEDS: FAMOTIDINE/PF 20 MG/2 ML VIAL IV SCH (07:41)
[2020-06-12] MEDS: ENALAPRIL MALEATE 10 MG TABLET PO SCH (07:42)
[2020-06-12] MEDS: METFORMIN HCL 500 MG TABLET PO SCH ×3 (07:42→17:09)
[2020-06-12] MEDS: HYDROCHLOROTHIAZIDE 25 MG TABLET PO SCH (07:42)
[2020-06-12] MEDS: ZINC SULFATE 220 CAPSULE PO SCH (07:42)
[2020-06-12] MEDS: ASCORBIC ACID 500 MG TAB PO SCH (07:43)
[2020-06-12] MEDS: ALLOPURINOL 300 MG TABLET PO SCH (07:43)
[2020-06-12] MEDS: ENOXAPARIN SODIUM 60 MG/0.6 ML SQ SCH (07:44)
--- NOTE | 2020-06-12 08:00 | NUR ---
ASSESSMENT PT IS AAOX3 DENIES CP DENIES SOB WHILE SITTING UPRIGHT IN BED CURRENTLY ON NON REBREATHER MASK. BREATHING PATTERN IS EVEN AND UNLABORED WHILE AT REST. AM MEDS GIVEN. CALL LIGHT WITHIN REACH. PT STATES HE HAD BM LAST NIGHT AFTER FLEETS ENEMA AND STATES HE FEELS MUCH RELIEF.
[2020-06-12 08:02] LABS: LYMPHOCYTES % (MANUAL) 4 % (22-44); MAN.DIFF COMMENT-IMPRESSION MANUAL DIFFERENTIAL; MONOCYTES % (MANUAL) 2 % (2-9); PLATELET MORPHOLOGY COMMENT ADEQUATE; SEGMENTED NEUTROPHILS % 94 % (40-70)
[2020-06-12] MEDS ORDERED: DEXAMETHASONE 4 MG TAB PO SCH (09:00)
--- NOTE | 2020-06-12 10:56 | NUR ---
RD FOLLOW UP Pt tolerating GI Soft/[place] diet order, No report of GI distress, PO intake at 75%. Improved Work of breathing.Continues with NRB per EMR. S/p Plasma Tx, Remdesivir, Vit C, Zinc, Piperacillin in place. WBC 15.6, Mg 2.50, Alb 2.1. Recommend Ensure QD Recommend continue current diet order RD to continue to monitor. Please notify as additional nutrition concerns arise. Thank you.
[2020-06-12 11:30] VITALS: BP 105/54
--- NOTE | 2020-06-12 13:58 | NUR ---
DC Plan Trudi aware of dc plan. Informed CM attempted to notify patient, but informed by nurse patient requested to be left alone. aware of transport today. EMS set up and scheduled for 1729. MOT completed and in chart. CD Addendum: 06/12/20 at 1359 by DANNY TURPIN CM Amended: Links added.
--- NOTE | 2020-06-12 14:28 | NUR ---
REPORT GIVEN TO SARAH OSCAR AT [facility] AWAITING EMS [facility]
--- NOTE | 2020-06-12 17:00 | NUR ---
CALLED EMS AGAIN EMS STATES PATIENT REMAINS ON LIST FOR TRANSPORT
--- NOTE | 2020-06-12 18:11 | NUR ---
EMS PICKED UP PATIENT ALL BELONGINGS TAKEN WITH EMS, DC PACKET TAKEN WELL
== END 2020-06-12 18:00 | DRG 177 ==
LOC: EDH 23:24 → EDHIP 05-22 02:05 → 4DH 05-23 00:51 → 2AH 05-26 18:40
PROVIDERS: ADMIT Internal Medicine; ATTEND Internal Medicine
PROC: 30233K1 Transfusion of Nonautologous Frozen Plasma into Peripheral Vein, Percutaneous Approach (ICD-10-PCS; principal; 2020-05-24)
DX: U07.1 COVID-19 (principal); J96.01 Acute respiratory failure with hypoxia; J12.89 Other viral pneumonia; E87.1 Hypo-osmolality and hyponatremia; N17.9 Acute kidney failure, unspecified; I10 Essential (primary) hypertension; E87.6 Hypokalemia; D72.828 Other elevated white blood cell count; E11.65 Type 2 diabetes mellitus with hyperglycemia; E66.01 Morbid (severe) obesity due to excess calories; E78.00 Pure hypercholesterolemia, unspecified; E78.5 Hyperlipidemia, unspecified; E87.8 Other disorders of electrolyte and fluid balance, not elsewhere classified; K21.9 Gastro-esophageal reflux disease without esophagitis; Z68.35 Body mass index [BMI] 35.0-35.9, adult; Z79.4 Long term (current) use of insulin; Z87.891 Personal history of nicotine dependence; Z99.81 Dependence on supplemental oxygen
CPT/HCPCS: 0099U; 36415; 36430; 36600; 71045; 80048; 80053; 81003; 82550; 82728; 82803; 82948; 83036; 83605; 83615; 83735; 83880; 84100; 84145; 84484; 85025; 85027; 85378; 85384; 85610; 85730; 86140; 86850; 86900; 86901; 86927; 87804; 93005; G0378; J0456; J0696; J1100; J1650; J1815; J2405; J2543; J2920; J2930; J3490; J7050; J8540; P9017; U0003

== ENCOUNTER 2025-03-21 12:38 | Inpatient (IN) | payer MEDICARE ==
[~2025-03-21] VITALS: Ht 182.9 cm; Wt 131.5 kg
[~2025-03-21 12:38] MED LIST: ALLO300T2 PO; ATOR10 PO; ENAL-91 PO; HYDR12.54 PO; OMEP-420 PO
[2025-03-21 13:04] LABS: BASOPHILS # (AUTO) 0.03 K/uL (0.00-0.20); BASOPHILS % (AUTO) 0.2 % (0.0-5.0); EOSINOPHILS # (AUTO) 0.23 K/uL (0.00-0.70); EOSINOPHILS % (AUTO) 1.7 % (0.0-8.0); HEMATOCRIT 40.7 % (42-54); IMMATURE GRANULOCYTE ABSOLUTE 0.07 K/uL (0-1); LYMPHOCYTES # (AUTO) 1.4 K/uL (1.0-4.8); LYMPHOCYTES % (AUTO) 10.5 % (21.0-51.0); MEAN CORPUSCULAR HEMOGLOBIN 29.5 pg (27.0-33.0); MEAN CORPUSCULAR HGB CONC 33.7 g/dL (32.0-36.0); MEAN CORPUSCULAR VOLUME 87.5 fL (79-99); MONOCYTES % (AUTO) 7.7 % (3.0-13.0); NEUTROPHILS # (AUTO) 10.8 K/uL (1.8-7.7); NEUTROPHILS % (AUTO) 79.4 % (40.0-77.0); PLATELET COUNT (AUTO) 287 K/uL (130-400); RED BLOOD CELL COUNT(AUTO) 4.65 MIL/uL (4.50-6.20); RED CELL DISTRIBUTION WIDTH 13.7 % (11.0-15.5); WHITE BLOOD COUNT (AUTO) 13.6 K/uL (4.8-10.8)
[2025-03-21] MEDS ORDERED: LACTATED RINGERS 1000ML 1,000 ML IV STA (13:13)
[2025-03-21 13:15] LABS: ALBUMIN 3.4 g/dL (3.5-5.0); CREATININE 1.6 mg/dL (0.5-1.3); POTASSIUM 3.6 mmol/L (3.5-5.1)
[2025-03-21 13:17] LABS: TOTAL PROTEIN, SERUM 7.3 g/dL (6.0-8.3)
[2025-03-21] MEDS: LACTATED RINGERS 1000ML 1,000 ML IV ONE (13:26)
[2025-03-21] MEDS ORDERED: IOHEXOL-350 75 ML VIAL IV ONE (13:43)
--- NOTE | 2025-03-21 14:17 | HMCIMG ---
CT ABDOMEN/PELVIS W/CONTRAST HISTORY: Abdominal pain COMPARISON: 10/11/2012 TECHNIQUE: Multiple sequential axial images of the abdomen and pelvis were obtained from the dome of the diaphragm through symphysis pubis. Patient was not given contrast through intravenous route. Oral contrast was not given. FINDINGS: No pleural effusion is seen bilaterally. There is no evidence of parenchymal disease or pulmonary nodule of the visualized lower lungs. Degenerative changes of the thoracolumbar spine are present. The heart is not enlarged. Coronary artery calcifications are seen. Gallbladder is distended. Liver is enlarged measuring 18 cm. There is left renal cyst measuring 10 cm. There is roughening and cyst measures 6.3 cm. There is right adrenal mass measuring 6 x 5.4 cm. There are extensive retroperitoneal adenopathy and mesenteric adenopathy. Neoplastic process is suspected. There are perinephric nodular densities bilaterally. The liver, spleen, adrenal glands and pancreas are unremarkable. There is no evidence of hydronephrosis bilaterally. No evidence of renal stone is seen. Fecal material is seen in the colon. There are normal size retroperitoneal and mesenteric lymph nodes. No ascites is seen. Atherosclerotic changes are present. Pelvic sidewalls are symmetric bilaterally. Bladder is poorly distended. There is left inguinal hernia with fat content. IMPRESSION: 1. Right adrenal mass measuring 6 x 5.4 cm. 2. Retroperitoneal and mesenteric adenopathy suspicious for neoplastic process. Nodular densities are seen bilaterally. Bilateral renal cysts. 3. Distended gallbladder. CT was performed with one or more following dose reduction techniques: automated exposure control, adjustment of the mA and kv according to patient's size, or use of a iterative reconstruction technique.
--- NOTE | 2025-03-21 14:37 | HMCIMG ---
CHEST 1VW HISTORY: Chest pain COMPARISON: None FINDINGS: A frontal projection of the chest was obtained. Mild bilateral pulmonary infiltrates are seen may be related to mild pulmonary vascular congestion with possible superimposed pneumonitis. The heart is borderline enlarged. Degenerative changes are seen. No evidence of aortic calcification is seen. IMPRESSION: 1. Mild bilateral pulmonary infiltrates are seen may be related to mild pulmonary vascular congestion with possible superimposed pneumonitis.
[2025-03-21] MEDS: morPHINE 2 MG SYG IVP STA (14:46)
--- NOTE | 2025-03-21 15:36 | NUR ---
[facility] TO REQUEST MEDICAL RECORDS FROM [facility] [place]
--- NOTE | 2025-03-21 15:40 | ERN ---
ED Note History of Present Illness Stated Complaint: ABDOOMINAL PAIN Chief Complaint: Abdominal Pain Time Seen by MD: 12:51 Time Seen by Midlevel: 12:55 Dictation: 74-YEAR-OLD MALE WITH A HISTORY OF HYPERTENSION, DIABETES, CHOLESTEROL, GERD AND A PROSTATE CANCER WITH TURP COMING IN COMPLAINING OF GENERALIZED BODY WEAKNESS, LOSS OF APPETITE, AND LOWER ABDOMINAL PAIN. PATIENT STATES HE WAS ADMITTED YESTERDAY WEEKEND TO [facility] FOR SAME COMPLAINTS, THEY DID A COLONOSCOPY AND IT WAS NORMAL AND CT SCAN SHOWED A MASS ON HIS ADRENAL GLANDS WHERE THEY DID A BIOPSY AND THEY ARE PENDING THE OFFICIAL RESULTS. STATES THEY WERE TAKING TOO LONG AT [facility] SO DECIDED TO LEAVE AMA ON TUESDAY. IN HIS HERE TODAY FOR RE-EVALUATION OF SAME COMPLAINTS. Allergies: Coded Allergies: No Known Drug Allergies (Verified Adverse Reaction, Unknown, 05/22/20) Home Meds Reported Medications Aspirin (ASPIRIN 81MG CHEW TAB) 81 Mg Tab.chew, 1 TAB PO DAILY for 30 Days, #30 TAB 0 Refills 03/21/25 Metformin HCl (Metformin HCl) 500 Mg Tablet, 1 TAB PO BID for 30 Days, #60 TAB 0 Refills 03/21/25 Pioglitazone HCl (Pioglitazone HCl) 30 Mg Tablet, 1 TAB PO DAILY for 30 Days, #30 TAB 0 Refills 03/21/25 Amlodipine Besylate (Amlodipine Besylate) 10 Mg Tablet, 10 MG PO DAILY for 30 Days, #30 TAB 0 Refills 03/21/25 Metoprolol Succinate (Metoprolol Succinate) 100 Mg Tab.er.24h, 100 MG PO AM, TAB 03/21/25 Valsartan (Valsartan) 160 Mg Tablet, 1 TAB PO DAILY for 30 Days, #30 TAB 0 Refills 03/21/25 Atorvastatin Calcium (LIPITOR) 20 Mg Tab, 20 MG PO HS, TAB 05/30/20 Omeprazole (Omeprazole) 20 Mg Tab.rap.dr, 20 MG PO DAILY 05/30/20 Enalapril Maleate (Enalapril Maleate) 20 Mg Tablet, 20 MG PO BID, TAB 05/30/20 Allopurinol (Allopurinol) 300 Mg Tablet, 300 MG PO DAILY, TAB 05/30/20 Hydrochlorothiazide (Hydrochlorothiazide) 12.5 Mg Tablet, 12.5 MG PO DAILY, TAB 7/10/20 Past Medical History Past Medical History: Diabetes-Type II, GERD, High Cholesterol, Hypertension Surgical History: Other Surgical History Other: BIOPSY , COLONOSCOPY, Review of System Dictation CONSTITUTIONAL: NEGATIVE FOR FEVER,CHILLS, AND WEIGHT LOSS EYES: NEGATIVE FOR INJURY, PAIN,REDNESS, AND DISCHARGE ENT: NEGATIVE FOR INJURY,PAIN OR SWELLING CARDIOVASCULAR: NEGATIVE FOR CHEST PAIN, PALPITATIONS, AND EDEMA RESPIRATORY: NEGATIVE FOR SHORTNESS OF BREATH, COUGH, AND WHEEZING, ABDOMEN/GI: COMPLAINING OF LOWER ABDOMINAL PAIN, NO NAUSEA, NO VOMITING, NO DIARRHEA, AND NO CONSTIPATION BACK: NEGATIVE FOR INJURY AND PAIN : NEGATIVE FOR INJURY, BLEEDING AND DISCHARGE MS/EXTREMITY: NEGATIVE FOR INJURY AND DEFORMITY SKIN: NEGATIVE FOR RASH, AND DISCOLORATION NEURO: NEGATIVE FOR HEADACHE, WEAKNESS, NUMBNESS, TINGLING, AND SEIZURE PSYCH: NEGATIVE FOR SUICIDE IDEATION, HOMICIDAL IDEATION, AND HALLUCINATIONS Review of Systems: was completed Initial Vital Sign VS Vital Signs Date Time Temp Pulse Resp B/P (MAP) Pulse Ox O2 Delivery O2 Flow Rate FiO2 03/21/25 12:40 98.8 97 20 103/61 96 Room Air 0 03/21/25 13:04 21 Physical Exam Dictation GENERAL: AWAKE, ALERT, NAD HEAD/FACE: NORMOCEPHALIC, ATRAUMATIC EYES: PERRL, EOMI, VISION AT BASELINE ENT: ORAL CAVITY CLEAR, TMS CLEAR, NO SIGNS OF INFECTION NECK: TRACHEA MIDLINE, SUPPLE, NO NUCHAL RIGIDITY CARDIOVASCULAR: RRR, NORMAL S1/S2, NO MRGS, NO JVD RESPIRATORY: CTAB, NO RESPIRATORY DISTRESS, NO RALES OR WHEEZES ABDOMEN: SOFT, NON-TENDER, NON-DISTENDED, NORMAL BOWEL SOUNDS, NO GUARDING OR REBOUND. SKIN: WARM, DRY, NORMAL TURGOR, NO RASH MS/EXTREMITY: PULSES EQUAL, NO CYANOSIS, NEUROVASCULAR INTACT, FROM NEURO: COAX4, GCS 15, STRENGTH 5/5, CN 2-12 INTACT, NORMAL CEREBELLAR EXAM, NORMAL GAIT, PSYCH: NORMAL BEHAVIOR, MOOD, AND AFFECT NORMAL Results (Laboratory/Radiology) Laboratory/Radiology Laboratory Tests Test 03/21/25 12:54 03/21/25 16:10 03/21/25 16:44 03/21/25 16:47 White Blood Count 13.6 K/uL (4.8-10.8) H Red Blood Count 4.65 MIL/uL (4.50-6.20) Hemoglobin 13.7 g/dL (14.0-18.0) L Hematocrit 40.7 % (42-54) L Mean Corpuscular Volume 87.5 fL (79-99) Mean Corpuscular Hemoglobin 29.5 pg (27.0-33.0) Mean Corpuscular Hemoglobin Concent 33.7 g/dL (32.0-36.0) Red Cell Distribution Width 13.7 % (11.0-15.5) Platelet Count 287 K/uL (130-400) Mean Platelet Volume 10.6 fL (7.5-10.5) H Immature Granulocyte % (Auto) 0.5 % (0-1) Neutrophils (%) (Auto) 79.4 % (40.0-77.0) H Lymphocytes (%) (Auto) 10.5 % (21.0-51.0) L Monocytes (%) (Auto) 7.7 % (3.0-13.0) Eosinophils (%) (Auto) 1.7 % (0.0-8.0) Basophils (%) (Auto) 0.2 % (0.0-5.0) Neutrophils # (Auto) 10.8 K/uL (1.8-7.7) H Lymphocytes # (Auto) 1.4 K/uL (1.0-4.8) Monocytes # (Auto) 1.0 K/uL (0.1-1.0) Eosinophils # (Auto) 0.23 K/uL (0.00-0.70) Basophils # (Auto) 0.03 K/uL (0.00-0.20) Absolute Immature Granulocyte (auto 0.07 K/uL (0-1) Nucleated Red Blood Cells 0.0 % (0.0-0.19) Sodium Level 136 mmol/L (136-145) Potassium Level 3.6 mmol/L (3.5-5.1) Chloride Level 100 mmol/L (101-111) L Carbon Dioxide Level 30 mmol/L (21-32) Blood Urea Nitrogen 22 mg/dL (7-18) H Creatinine 1.6 mg/dL (0.5-1.3) H Glomerular Filtration Rate Calc 46 mL/min (>90) Random Glucose 115 mg/dL (70-105) H Lactic Acid Level 2.2 mmol/L (0.8-2.5) 1.7 mmol/L (0.8-2.5) Total Calcium 16.3 mg/dL (8.5-10.1) *H Total Bilirubin 1.0 mg/dL (0.2-1.0) Aspartate Amino Transf (AST/SGOT) 42 U/L (10-37) H Alanine Aminotransferase (ALT/SGPT) 64 U/L (12-78) Alkaline Phosphatase 72 U/L (50-136) Total Creatine Kinase 64 U/L (21-232) # Troponin I High Sensitivity 73 ng/L (4-75) Total Protein 7.3 g/dL (6.0-8.3) Albumin 3.4 g/dL (3.5-5.0) L Lipase 12 U/L (16-77) L Procalcitonin 0.27 ng/mL (0.05-0.5) Influenza Type A Antigen Negative For Type A Influenza Type B Antigen Negative For Type B SARS-CoV-2 Antigen (Rapid) PRESUMPTIVE NEGATIVE Whole Blood Glucose 110 MG/DL (70-110) Test 03/21/25 17:57 03/21/25 19:29 03/22/25 04:27 03/22/25 04:58 Urine Color LIGHT-YELLOW (YELLOW) Urine Appearance CLEAR (CLEAR) Urine pH 5.5 (5.0-8.0) Urine Specific [place] 1.032 (1.001-1.031) Urine Protein 30 mg/dL (NEGATIVE) H Urine Glucose (UA) NEGATIVE mg/dL (NEGATIVE) Urine Ketones NEGATIVE mg/dL (NEGATIVE) Urine Occult Blood NEGATIVE (NEGATIVE) Urine Nitrate NEGATIVE (NEGATIVE) Urine Bilirubin NEGATIVE mg/dL (NEGATIVE) Urine Urobilinogen 0.2 mg/dL (0.2-1.0) Urine Leukocyte Esterase NEGATIVE Kai/uL Urine RBC 2-5 /HPF (0-1) H Urine WBC 6-10 /HPF (0-1) H Urine Squamous Epithelial Cells RARE /HPF (0-2) Urine Bacteria RARE /HPF (None Seen) Whole Blood Glucose 98 MG/DL (70-110) 100 MG/DL (70-110) White Blood Count 9.5 K/uL (4.8-10.8) # Red Blood Count 4.16 MIL/uL (4.50-6.20) L Hemoglobin 12.4 g/dL (14.0-18.0) L Hematocrit 36.7 % (42-54) L Mean Corpuscular Volume 88.2 fL (79-99) Mean Corpuscular Hemoglobin 29.8 pg (27.0-33.0) Mean Corpuscular Hemoglobin Concent 33.8 g/dL (32.0-36.0) Red Cell Distribution Width 13.5 % (11.0-15.5) Platelet Count 210 K/uL (130-400) # Mean Platelet Volume 10.7 fL (7.5-10.5) H Immature Granulocyte % (Auto) 0.6 % (0-1) Neutrophils (%) (Auto) 79.0 % (40.0-77.0) H Lymphocytes (%) (Auto) 10.0 % (21.0-51.0) L Monocytes (%) (Auto) 8.3 % (3.0-13.0) Eosinophils (%) (Auto) 1.8 % (0.0-8.0) Basophils (%) (Auto) 0.3 % (0.0-5.0) Neutrophils # (Auto) 7.5 K/uL (1.8-7.7) Lymphocytes # (Auto) 1.0 K/uL (1.0-4.8) Monocytes # (Auto) 0.8 K/uL (0.1-1.0) Eosinophils # (Auto) 0.17 K/uL (0.00-0.70) Basophils # (Auto) 0.03 K/uL (0.00-0.20) Absolute Immature Granulocyte (auto 0.06 K/uL (0-1) Nucleated Red Blood Cells 0.0 % (0.0-0.19) White Cell Morphology Comment See comments Prothrombin Time 11.5 SEC (9.6-11.6) Prothromb Time International Ratio 1.09 (0.85-1.15) Sodium Level 140 mmol/L (136-145) Potassium Level 3.5 mmol/L (3.5-5.1) Chloride Level 104 mmol/L (101-111) Carbon Dioxide Level 29 mmol/L (21-32) Blood Urea Nitrogen 23 mg/dL (7-18) H Creatinine 1.8 mg/dL (0.5-1.3) H Glomerular Filtration Rate Calc 40 mL/min (>90) Random Glucose 98 mg/dL (70-105) Hemoglobin A1c 5.6 % (4.0-6.0) Estimated Average Glucose (eAG) 114 mg/dL (70-126) Lactic Acid Level 1.7 mmol/L (0.8-2.5) Total Calcium 15.1 mg/dL (8.5-10.1) *H Magnesium Level 1.30 mg/dL (1.80-2.40) L Total Bilirubin 0.9 mg/dL (0.2-1.0) Direct Bilirubin 0.2 mg/dL (0.0-0.3) Aspartate Amino Transf (AST/SGOT) 30 U/L (10-37) Alanine Aminotransferase (ALT/SGPT) 46 U/L (12-78) # Alkaline Phosphatase 64 U/L (50-136) Ammonia < 10 umol/L (11-32) L Total Creatine Kinase 36 U/L (21-232) # C-Reactive Protein, Quantitative 26.40 mg/L (0.5-3.0) H B-Type Natriuretic Peptide 98 pg/mL (0-100) Total Protein 6.0 g/dL (6.0-8.3) Albumin 2.8 g/dL (3.5-5.0) L Procalcitonin 0.27 ng/mL (0.05-0.5) Labs Reviewed?: Yes X-RAY Comment: [place] [id number] [address] IMAGING REPORT Signed PATIENT: PAVEL SOLOMON MR#: [id number] : 1950 SEX: M AGE: 74 LOCATION: [facility] ORDER 47 STATUS: [facility] REPORT#: [id number] SERVICE 46 REASON: chest pain ORDERING PHYSICIAN: JYOTHI MERCHANT DO PROCEDURE: CXR1VW - CHEST 1VW CHEST 1VW HISTORY: Chest pain COMPARISON: None FINDINGS: A frontal projection of the chest was obtained. Mild bilateral pulmonary infiltrates are seen may be related to mild pulmonary vascular congestion with possible superimposed pneumonitis. The heart is borderline enlarged. Degenerative changes are seen. No evidence of aortic calcification is seen. IMPRESSION: 1. Mild bilateral pulmonary infiltrates are seen may be related to mild pulmonary vascular congestion with possible superimposed pneumonitis. DICTATED BY: NARAYAN OLSEN MD DATE: 03/21/251433 ELECTRONICALLY SIGNED BY: NARAYAN OLSEN MD DATE: 03/21/251436 CT Scan Comment: [place] [id number] [place] [address] IMAGING REPORT Signed PATIENT: PAVEL SOLOMON MR#: [id number] : 1950 SEX: M AGE: 74 LOCATION: [facility] ORDER 1248 STATUS: REG REPORT#: [id number] SERVICE 46 REASON: Abdominal Pain ORDERING PHYSICIAN: JYOTHI MERCHANT DO PROCEDURE: ABD PEL W - CT ABDOMEN/PELVIS W/CONTRAST CT ABDOMEN/PELVIS W/CONTRAST HISTORY: Abdominal pain COMPARISON: 10/11/2012 TECHNIQUE: Multiple sequential axial images of the abdomen and pelvis were obtained from the dome of the diaphragm through symphysis pubis. Patient was not given contrast through intravenous route. Oral contrast was not given. FINDINGS: No pleural effusion is seen bilaterally. There is no evidence of parenchymal disease or pulmonary nodule of the visualized lower lungs. Degenerative changes of the thoracolumbar spine are present. The heart is not enlarged. Coronary artery calcifications are seen. Gallbladder is distended. Liver is enlarged measuring 18 cm. There is left renal cyst measuring 10 cm. There is roughening and cyst measures 6.3 cm. There is right adrenal mass measuring 6 x 5.4 cm. There are extensive retroperitoneal adenopathy and mesenteric adenopathy. Neoplastic process is suspected. There are perinephric nodular densities bilaterally. The liver, spleen, adrenal glands and pancreas are unremarkable. There is no evidence of hydronephrosis bilaterally. No evidence of renal stone is seen. Fecal material is seen in the colon. There are normal size retroperitoneal and mesenteric lymph nodes. No ascites is seen. Atherosclerotic changes are present. Pelvic sidewalls are symmetric bilaterally. Bladder is poorly distended. There is left inguinal hernia with fat content. IMPRESSION: 1. Right adrenal mass measuring 6 x 5.4 cm. 2. Retroperitoneal and mesenteric adenopathy suspicious for neoplastic process. Nodular densities are seen bilaterally. Bilateral renal cysts. 3. Distended gallbladder. CT was performed with one or more following dose reduction techniques: automated exposure control, adjustment of the mA and kv according to patient's size, or use of a iterative reconstruction technique. DICTATED BY: NARAYAN OLSEN MD DATE: 03/21/25 141 ELECTRONICALLY SIGNED BY: NARAYAN OLSEN MD DATE: 03/21/25 141 ED Course ED Course Orders Procedure Category Date Status Time Cbc With Differential LAB 03/21/25 Complete 12:47 Comprehensive LAB 03/21/25 Complete Metabolic Panel 12:47 Troponin I High LAB 03/21/25 Complete Sensitivity 12:47 Ct Abdomen/Pelvis CT 03/21/25 Resulted W/Contrast 12:47 Creatine Kinase, Total LAB 03/21/25 Complete 12:47 Chest 1vw RAD 03/21/25 Resulted 12:47 Lipase LAB 03/21/25 Complete 12:47 Basic Metabolic Panel LAB 03/21/25 Complete 12:47 Lactic Acid LAB 03/21/25 Complete 12:47 Procalcitonin LAB 03/21/25 Complete 12:47 Lactated Ringers PHA 03/21/25 Complete 1000ml (Lactated 13:13 Lactated Ringers PHA 03/21/25 Complete 1000ml (Lactated 13:30 Iohexol (Omnipaque) PHA 03/21/25 Complete 13:43 Morphine 2mg Syg PHA 03/21/25 Complete (Morphine 2mg Syg) 14:27 *Nursing CPOE 03/21/25 Transmitted Communication: 15:33 Initiate DENISA 03/21/25 In Process Hyperglycemia Protoco 15:31 Insulin Regular, PHA 03/21/25 In Process Human 3ml (Humulin R 16:30 Initiate Hypoglycemia DENISA 03/21/25 In Process Protocol 15:31 Dextrose 50%-Water PHA 03/21/25 In Process (D50w) 16:00 Glucagon 1mg Kit PHA 03/21/25 In Process (Glucagon 1mg Kit) 16:00 Magnesium 2gm Premix PHA 03/21/25 In Process 50ml (Magnesium 2gm 16:00 B-Type Natriuretic LAB 03/22/25 Complete Peptide 04:00 Cbc With Differential LAB 03/22/25 Complete 04:00 Covid19 (Sars Antigen LAB 03/21/25 Complete Rapid) 15:31 Creatine Kinase, Total LAB 03/22/25 Complete 04:00 Hemoglobin A1c LAB 03/22/25 Complete 04:00 Hepatic Function Panel LAB 03/22/25 Complete 04:00 Influenza Type A & B, LAB 03/21/25 Complete Rapid 15:31 Lactic Acid LAB 03/22/25 Complete 04:00 Procalcitonin LAB 03/22/25 Complete 04:00 Prothrombin Time With LAB 03/22/25 Complete INR 04:00 Vital Signs(Adult CPOE 03/21/25 Transmitted Hospitalist) 15:31 Daily Weights CPOE 03/21/25 Transmitted 15:31 I&O Q Shift CPOE 03/21/25 Transmitted 15:31 Fever: Blood Cx X 2 CPOE 03/21/25 Transmitted 15:31 Diphenhydramine Hcl PHA 03/21/25 In Process (Benadryl Inj) 16:00 Acetaminophen 325 Tab PHA 03/21/25 In Process (Tylenol 325mg Tab 16:00 Acetaminophen 325 Tab PHA 03/21/25 In Process (Tylenol 325mg Tab 16:00 Ondansetron 4mg Inj PHA 03/21/25 In Process (Zofran 4mg Inj) 16:00 Zolpidem Tartrate 5 PHA 03/21/25 In Process Mg Tab (Ambien) 16:00 Mag/Alum/Simeth 30ml PHA 03/21/25 In Process (Maalox Plus 30ml) 16:00 Lactulose 20 Gm/30 Ml PHA 03/21/25 In Process Udcup (Constulose 16:00 Nitroglycerin 0.4mg PHA 03/21/25 In Process Sl Tab (Nitrostat) 16:00 Guaifenesin-Dm PHA 03/21/25 In Process 200/20mg 10ml 16:00 Famotidine 20mg Vial PHA 03/21/25 Complete (Pepcid 20mg Vial) 16:00 Nurse To Enter Home CPOE 03/21/25 Transmitted Medication 15:31 Admit Orders ADM 03/21/25 Transmitted 15:31 Activity: Ad Alma CPOE 03/21/25 Transmitted 15:31 Heart Healthy Diet DIET 03/21/25 Transmitted Dinner Heparin 5,000 Unit PHA 03/21/25 In Process Vial (Heparin 5,000 U 21:00 Apply Scds CPOE 03/21/25 Transmitted 15:31 Acetaminophen 325 Tab PHA 03/21/25 Complete (Tylenol 325mg Tab 16:00 Ketorolac PHA 03/21/25 In Process Tromethamine 15mg/Ml 16:00 Oxycodone/Acetamin PHA 03/21/25 Complete 5/325mg Tab (Percocet 16:00 Morphine 2mg Syg PHA 03/21/25 In Process (Morphine 2mg Syg) 16:00 Urinalysis LAB 03/21/25 Complete W/Microscopic 15:31 Blood Cult SUDEEP 03/21/25 In Process 15:31 Culture Urine SUDEEP 03/21/25 In Process 15:31 Case Management CM 03/21/25 Transmitted Evaluation 15:31 Pt Eval Request PT 03/21/25 Transmitted 15:31 Zosyn 3.375gm+Ns 50ml PHA 03/21/25 In Process (Zosyn 3.375gm+Ns 21:00 0.9%Nacl 1000ml (Ns PHA 03/21/25 In Process 1000ml) 16:00 Hydralazine 20mg Inj PHA 03/21/25 In Process (Apresoline 20mg In 16:00 Gastroenterology CONPHYSVC 03/21/25 Transmitted Consult 15:31 Admit Orders ADM 03/21/25 Transmitted 15:40 Famotidine 20mg Vial PHA 03/22/25 In Process (Pepcid 20mg Vial) 09:00 Lactic Acid (Removed) LAB 03/21/25 Complete 16:10 Oncology Consult CONPHYSVC 03/21/25 Transmitted 17:52 Urology Consult CONPHYSVC 03/21/25 Transmitted 18:02 Dietary Cons For DIETOTHR 03/21/25 Transmitted Malnutrition 18:02 Ammonia LAB 03/22/25 Complete 04:00 Basic Metabolic Panel LAB 03/22/25 Complete 04:00 Magnesium LAB 03/22/25 Complete 04:00 Echo 2-D Complete ECHO 03/22/25 Taken 15:31 Crp Quantitative LAB 03/22/25 Complete 08:02 Vitamin D, 25-Hydroxy LAB 03/22/25 In Process 08:02 Parathyroid Hormone LAB 03/22/25 In Process (Intact) 08:02 Pharmacy PHA 03/22/25 Complete Communication 09:00 Parathyroid Related LAB 03/22/25 Logged Peptide 09:15 Calcitonin 400 Unit PHA 03/22/25 Logged Vial (Miacalcin 400 09:30 Current Medications Medications (Trade) Dose Ordered Sig/Katie Route PRN Reason Start Time Stop Time Status Last Admin Dose Admin Iohexol (Omnipaque) 75 ml STK-MED ONCE IV 03/21/25 13:43 03/21/25 13:43 DC Lactated Ringer's 1,000 ml @ 0 mls/hr Q0M ONCE IV 03/21/25 13:30 03/21/25 13:31 DC 03/21/25 13:26 Lactated Ringer's 1,000 ml @ 100 mls/hr Q10H STAT IV 03/21/25 13:13 03/21/25 13:22 DC Morphine Sulfate (morPHINE 2MG SYG) 2 mg ONCE STAT IVP 03/21/25 14:27 03/21/25 14:31 DC 03/21/25 14:46 Vital Signs Date Time Temp Pulse Resp B/P (MAP) Pulse Ox O2 Delivery O2 Flow Rate FiO2 03/22/25 08:32 98.1 102 20 139/58 95 Room Air 03/22/25 03:26 98.6 60 20 149/73 93 Room Air 03/22/25 00:30 96 Room Air* 0 03/22/25 00:00 98.2 90 22 148/80 96 Room Air 03/21/25 23:07 98.2 85 18 133/55 96 Room Air* 0 03/21/25 20:00 98.8 88 18 128/60 96 Room Air* 0 03/21/25 17:28 80 18 130/65 97 Room Air* 0 03/21/25 14:51 91 14 134/79 94 Room Air* 0 03/21/25 13:04 97 14 110/62 95 Room Air* 0 03/21/25 12:40 98.8 97 20 103/61 96 Room Air 0 Medical Decision Making MDM MDM: 74-YEAR-OLD MALE WITH A HISTORY OF HYPERTENSION, DIABETES, CHOLESTEROL, GERD AND A PROSTATE CANCER WITH TURP COMING IN COMPLAINING OF GENERALIZED BODY WEAKNESS, LOSS OF APPETITE, AND LOWER ABDOMINAL PAIN. PATIENT STATES HE WAS ADMITTED YESTERDAY WEEKEND TO [facility] FOR SAME COMPLAINTS, THEY DID A COLONOSCOPY AND IT WAS NORMAL AND CT SCAN SHOWED A MASS ON HIS ADRENAL GLANDS WHERE THEY DID A BIOPSY AND THEY ARE PENDING THE OFFICIAL RESULTS. STATES THEY WERE TAKING TOO LONG AT [facility] SO DECIDED TO LEAVE AMA ON THURSDAY. IN HIS HERE TODAY FOR RE-EVALUATION OF SAME COMPLAINTS.CBC SHOWS LEUKOCYTOSIS OF 13, MILD NORMOCYTIC ANEMIA HEMOGLOBIN IS 13 HEMATOCRIT IS 40. NO THROMBOCYTOPENIA. CHEMISTRY SHOWS ELEVATED BUN AND CREATININE, COULD BE RELATED TO DEHYDRATION, LACTIC LEVEL WITHIN NORMAL RANGE. AND HYPERCALCEMIA AT 16.3. LR IN HIS SHE HAD IN THE EMERGENCY ROOM, 1 L. NO TRANSAMINITIS AND LIPASE WITHIN NORMAL RANGE. CT SCAN SHOWS RETROPERITONEAL OR MESENTERIC ADENOPATHY SUSPICIOUS FOR NEOPLASTIC PROCESS. IN A RIGHT ADRENAL MASS MEASURING SIX BY ICE 5.4 CM. DIFFERENTIAL DIAGNOSIS: METASTASIS, SBO, DEHYDRATION, RATIONALE: TESTS CONSIDERED AND ORDERED SECONDARY TO SHARED DECISION MAKING INCLUDE: LABS, ECG AND RADIOLOGY PREVIOUS OUTSIDE RECORDS REVIEWED: OLD ER VISITS. RISK OF COMPLICATION AND/OR MORBIDITY OR MORTALITY OF PATIENT MANAGEMENT: NONE MEDICATIONS-PER MEDICATION RECONCILIATION NEED FOR HOSPITALIZATION: PATIENT DOES MEET CRITERIA FOR HOSPITALIZATION. NEED FOR EMERGENCY MAJOR/MINOR SURGERY: NO THERE ARE NO SOCIAL CONCERNS WITH THIS PATIENT. PRESCRIPTION DRUG MANAGEMENT PRESCRIPTIONS WILL INCLUDE SYMPTOMATIC CARE PATIENT'S PRIOR EXTERNAL MEDICAL RECORDS FROM OTHER ER VISITS WERE REVIEWED BY ME INDICATED. PRIOR TESTING AND RESULTS FROM PREVIOUS VISITS WERE REVIEWED. PRIOR TESTS WERE TAKEN INTO ACCOUNT WITH MEDICAL DECISION MAKING AND RESOURCE UTILIZATION, INDEPENDENT HISTORIAN/HISTORIANS WERE USED TO OBTAIN COMPLETE MEDICAL HISTORY. I INDEPENDENTLY INTERPRETED THE TEST THAT WERE PERFORMED, RESULTS WERE REVIEWED BY ME AND CONSIDERED FINDINGS ON RADIOLOGY IF ORDERED. MEDICAL MANAGEMENT AND EXAMINATION INTERPRETATION DISCUSSIONS WERE HAD BY ME WITH OTHER QUALIFIED HEALTHCARE PROFESSIONALS INDICATED FOR THE PATIENT'S CARE. DX & DISP Disposition: Inpatient Departure Impression: Primary Impression: Generalized weakness Additional Impressions: Dehydration, Hypercalcemia, Metastasis of unknown origin Condition: Stable Referrals: INESSA GARCIA (PCP) Time of Disposition: 15:38 I have reviewed the case, and I agree with, Diagnosis and Plan I performed a substantive portion of the visit. I have reviewed and personally made and approve the management plan that is documented in the notes by myself with LO/resident. I acknowledged full responsibility for the patient's management plan. THONG EASLEY NP March 21, 2025 15:40 JYOTHI MERCHANT DO March 22, 2025 09:24
--- NOTE | 2025-03-21 15:45 | NUR ---
GI CONSULT: PATIENT REPORT GIVEN TO STACIE VALDIVIA
--- NOTE | 2025-03-21 15:51 | NUR ---
ONCOLOGY CONSULT: PATIENT REPORT GIVEN TO DR RIVERA
[2025-03-21] MEDS ORDERED: hydrALAZine 20MG/ML VIAL IV PRN (16:00)
[2025-03-21] MEDS ORDERED: oxyCODONE/aceTAMIN 5/325MG TAB PO PRN (16:00)
[2025-03-21] MEDS ORDERED: NITROGLYCERIN 0.4 MG SL TAB SL PRN (16:00)
[2025-03-21] MEDS ORDERED: acetaMINOPHEN 325 MG TAB PO PRN ×2 (16:00)
[2025-03-21] MEDS ORDERED: FAMOTIDINE 20MG VIAL IV PRN (16:00)
[2025-03-21] MEDS ORDERED: MAG/ALUM/SIMETH 30 ML UDCUP PO PRN (16:00)
[2025-03-21] MEDS ORDERED: ZOLPidem TARTrate 5 MG TAB PO PRN (16:00)
[2025-03-21] MEDS ORDERED: ondanSETRON 4MG INJ IV PRN (16:00)
[2025-03-21] MEDS ORDERED: DEXTROSE 50%-WATER 50 ML DISP.SYRIN IV PRN (16:00)
[2025-03-21] MEDS ORDERED: GLUCAGON 1MG KIT 1 MG ML IM PRN (16:00)
[2025-03-21] MEDS ORDERED: guaiFENesin-DM 200/20MG 10ML PO PRN (16:00)
[2025-03-21] MEDS: INSULIN humuLIN R 100 UNIT/ML 3ML SQ SCH (16:30)
[2025-03-21] MEDS: 0.9%NACL 1000ML 1,000 ML IV SCH (16:36)
[2025-03-21 16:41] LABS: COVID19 (SARS ANTIGEN RAPID) PRESUMPTIVE NEGATIVE (NEGATIVE); INFLUENZA TYPE A Negative For Type A (NEGATIVE); INFLUENZA TYPE B Negative For Type B (NEGATIVE)
[2025-03-21 18:12] LABS: APPEARANCE,URINE CLEAR (CLEAR); BACTERIA,URINE RARE /HPF (None Seen); BILIRUBIN,URINE NEGATIVE (NEGATIVE); COLOR,URINE LIGHT-YELLOW (YELLOW); GLUCOSE, URINE (UA) NEGATIVE (NEGATIVE); KETONES,URINE NEGATIVE (NEGATIVE); LEUKOCYTE ESTERASE ,URINE NEGATIVE Leu/uL (NEGATIVE); MUCUS,URINE RARE LPF (None Seen); NITRATE,URINE NEGATIVE (NEGATIVE); OCCULT BLOOD,URINE NEGATIVE (NEGATIVE); PH,URINE 5.5 (5.0-8.0); PROTEIN,URINE 30 mg/dL (NEGATIVE); SQUAMOUS EPITHELIAL CELL,UR RARE /HPF (0-2); UROBILINOGEN,URINE 0.2 mg/dL (0.2-1.0)
--- NOTE | 2025-03-21 18:24 | HP ---
[facility] HISTORY AND PHYSICAL Date of Service: March 21, 2025 Time of Service: 18:07 PCP:Dr Jade Eduardo Admitting: Dr Williamson, Allergies: No Allergy Information Available, No Known Drug Allergies HISTORY OF PRESENT ILLNESS: [ Patient is 74 years old male with a past medical history of hypertension, diabetes, cholesterol, GERD, prostate cancer with to, obstructive sleep apnea, COVID, who came to emergency department with a complaining of generalized body weakness, loss of appetite and lower abdominal pain since last hospitalization or at [facility] in [place]. Patient's was sleeps all the information were obtained from the daughter at the bedside. As per daughter he was admitted to [facility] for the same complaint stated above. During hospitalization it was found that patient had bilateral renal masses versus cyst, right adrenal mass. 03/13/2025 CTA was performed and showed an adrenal mass and then on 03/13/2025 biopsy was performed of lymph nodes and was sent for the pathology. 03/14/2025 colonoscopy was performed by GI and supposedly was negative. The family and the patient was frustrated with the care at [facility] and for patient to be on clear liquid diet for about five days days decided to go home and day left against medical advice. Patient went home and on the next day became very weak and he lost and appetite. Daughter stated that by looking just as how he looks you could tell that he eats a lot but then now he eats almost nothing and they were concerned that he has been doing nothing but sleeping. They decided to bring patient to the hospital here at [facility] even if the primary doctor does not come here. Family member also requested to consult , instead of who was taking care of the patient at [facility]. As per surgical pathology report of the biopsy from [facility] comment said (diffuse groups of malignant cells are identified with fibrosis and lymphoid tissue. They are arranged into small nests. There is a high nuclear systolic plasma thick ratio. Hyperchromatic nuclei and large nuclei bolus. The infiltrated fibrosis stoma shows mucinoid changes. The lymphoid tissue appear mature. Possible for immuno peroxidase CD45. Immunoperoxidase epithelial markers markers CK7 and CK20 are negative. Lung marker TTF one and prostate PSA are negative. Neuroendocrine markers chromogranin and synaptophysin are also negative. Proliferative markers Ki-67 is positive with a moderate to high act. The biopsy will be submitted to reference lab for consultation. An additional report we will follow. Specimen source lymph nodes biopsy Most recent vital signs temperature 98.8� pulse 80 respiration 18 blood pressure 130/65. Patient is on room air satting 97%. WBC 13.6 hemoglobin 13.7 hemato crit 40.7 platelets 287. Sodium 136 potassium 3.6 CO2 30 BUN 22 creatinine 1.6 GFR 46 random glucose 115 lactic 2.2 total calcium 16.3 bilirubin 1.0 AST 42 ALT 64 CK 64 troponin 3.4 lipase 12 procalcitonin negative lactic acid repeated 1.7.. CT abdomen/pelvis showed right adrenal mass measuring 6 x 5.4 cm. Retroperitoneal and mesenteric adenopathy suspicious for neoplastic process. Nodular density are seen bilaterally. Bilateral renal cyst. Distended gallbladder. Chest x-ray showed mild bilateral pulmonary infiltrate are seen may be related to bilateral pulmonary vascular congestion with a possible superimposed pneumonitis. Patient will be admitted under hospitalist care for further evaluation/recommendations. A.m. labs] REVIEW OF SYSTEMS CONSTITUTIONAL: Denies fevers, chills, or night sweats. No unintentional weight loss reported. NEUROLOGICAL: Denies headache, amaurosis fugax, motor weakness, sensory deficit, vertigo/spinning sensation, gait abnormalities, or tremors. ENT: No hearing loss, otalgia, otorrhea, rhinitis, rhinorrhea, hoarseness, or sore throat. CARDIOVASCULAR: Denies any exertional angina, dyspnea on exertion, orthopnea, paroxysmal nocturnal dyspnea, palpitations, life-threatening arrhythmias, claudication. PULMONARY: Denies any shortness of breath, cough, phlegm/sputum, hemoptysis, pleuritic chest pain. SLEEP: Denies morning headaches, daytime somnolence or napping. Denies difficulty falling asleep, staying asleep, waking from sleep. Denies knowledge of snoring. Patient complains of constant weakness/sleepiness GASTROINTESTINAL: Denies any type of dysphagia to either liquids or solids. Denies nausea, vomiting, pyrosis, early satiety, diarrhea, constipation, or changes in stool consistency or caliber. Denies coffee-ground emesis, hematemesis, hematochezia, or melanotic stools. Patient complains of abdominal pain GENITOURINARY: Denies frequency, urgency, nocturia, hematuria or incontinence (Storage/Irritative symptoms.) Low urinary stream, straining to void, urinary intermittency or hesitancy, splitting of the voiding stream, terminal dribbling. ENDOCRINOLOGIC: Denies polyuria, polydipsia, polyphagia or heat/cold intolerances. HEMATOLOGIC: Denies thrombophilia/previous clots, or coagulopathy/bleeding disorders. ONCOLOGIC: Denies personal history of malignancy. DERMATOLOGIC: Denies rashes or pruritus. PSYCHIATRIC: Denies any suicidal or homicidal ideation. Denies hallucinations. PAST MEDICAL HISTORY: [ Hypertension, hyperlipidemia, COVID, diabetes, right adrenal mass, bilateral renal cysts, GERD, Coronary Artery Disease, hyperlipidemia, BPH, obesity] PAST SURGICAL HISTORY: [ 03/13 biopsy performed of lymph nodes, 03/14 colonoscopy] PAST SOCIAL HISTORY: [ Patient stated that he quit smoking about 16 years ago. Patient denies any alcohol use. Patient denied any drug use ] FAMILY HISTORY: [ Patient lives at home with the family members and the daughter.] Coded Allergies: No Known Drug Allergies (Verified Adverse Reaction, Unknown, 05/22/20) PHYSICAL EXAM GENERAL APPEARANCE: The patient is awake, alert, and oriented, in no acute cardiopulmonary distress. NEUROLOGICAL: Cranial nerves II-XII grossly intact. Motor is 5/5 in bilateral upper and lower extremities proximal to distal. No sensory deficits. HEENT: Face is symmetric. Pupils are equal and reactive. Extraocular movements are intact. NECK: Supple. No JVD. No thyromegaly. No submental, submandibular, pre- /postauricular, occipital or supraclavicular lymphadenopathy. CHEST: Normal chest expansion. No Telemetry. LUNGS: Absence of any rales, rhonchi or any wheezing. CARDIOVASCULAR: Regular. S1 and S2 normal. No appreciable rubs, murmurs or gallops. ABDOMEN: Soft, nontender, and nondistended. There is no rebound, voluntary guarding, or rigidity. : Deferred. No Gonzáles. EXTREMITIES: Non-edematous and not cyanotic. No clubbing. Good capillary refill. SKIN: No skin breakdown. Vital Sign (Last 24 Hours) 03/21/25 03/21/25 12:40 17:28 Temp 98.8 Pulse 80 Resp 18 B/P (MAP) 130/65 Pulse Ox 97 O2 Delivery Room Air* O2 Flow Rate 0 FiO2 21 LABS: Laboratory: Test 03/21/25 16:47 03/21/25 16:44 03/21/25 16:10 03/21/25 12:54 Range/Units Lactic Acid Level 1.7 0.8-2.5 mmol/L Whole Blood Glucose 110 70-110 MG/DL Influenza Type A Antigen Negative For Type A NEGATIVE Influenza Type B Antigen Negative For Type B NEGATIVE SARS-CoV-2 Antigen (Rapid) PRESUMPTIVE NEGATIVE NEGATIVE White Blood Count 13.6 H 4.8-10.8 K/uL Red Blood Count 4.65 4.50-6.20 MIL/uL Hemoglobin 13.7 L 14.0-18.0 g/dL Hematocrit 40.7 L 42-54 % Mean Corpuscular Volume 87.5 79-99 fL Mean Corpuscular Hemoglobin 29.5 27.0-33.0 pg Mean Corpuscular Hemoglobin Concent 33.7 32.0-36.0 g/dL Red Cell Distribution Width 13.7 11.0-15.5 % Platelet Count 287 130-400 K/uL Mean Platelet Volume 10.6 H 7.5-10.5 fL Immature Granulocyte % (Auto) 0.5 0-1 % Neutrophils (%) (Auto) 79.4 H 40.0-77.0 % Lymphocytes (%) (Auto) 10.5 L 21.0-51.0 % Monocytes (%) (Auto) 7.7 3.0-13.0 % Eosinophils (%) (Auto) 1.7 0.0-8.0 % Basophils (%) (Auto) 0.2 0.0-5.0 % Neutrophils # (Auto) 10.8 H 1.8-7.7 K/uL Lymphocytes # (Auto) 1.4 1.0-4.8 K/uL Monocytes # (Auto) 1.0 0.1-1.0 K/uL Eosinophils # (Auto) 0.23 0.00-0.70 K/uL Basophils # (Auto) 0.03 0.00-0.20 K/uL Absolute Immature Granulocyte (auto 0.07 0-1 K/uL Nucleated Red Blood Cells 0.0 0.0-0.19 % Sodium Level 136 136-145 mmol/L Potassium Level 3.6 3.5-5.1 mmol/L Chloride Level 100 L 101-111 mmol/L Carbon Dioxide Level 30 21-32 mmol/L Blood Urea Nitrogen 22 H 7-18 mg/dL Creatinine 1.6 H 0.5-1.3 mg/dL Glomerular Filtration Rate Calc 46 >90 mL/min Random Glucose 115 H 70-105 mg/dL Total Calcium 16.3 *H 8.5-10.1 mg/dL Total Bilirubin 1.0 0.2-1.0 mg/dL Aspartate Amino Transf (AST/SGOT) 42 H 10-37 U/L Alanine Aminotransferase (ALT/SGPT) 64 12-78 U/L Alkaline Phosphatase 72 50-136 U/L Total Creatine Kinase 64 # 21-232 U/L Troponin I High Sensitivity 73 4-75 ng/L Total Protein 7.3 6.0-8.3 g/dL Albumin 3.4 L 3.5-5.0 g/dL Lipase 12 L 16-77 U/L Procalcitonin 0.27 0.05-0.5 ng/mL Current Medications Medications (Trade) Dose Ordered Sig/Katie Route PRN Reason Start Time Stop Time Status Last Admin Dose Admin Acetaminophen (TYLenol 325MG TAB) 650 mg Q4H PRN PO MILD PAIN (1-3) 03/21/25 16:00 04/20/25 15:59 Acetaminophen (TYLenol 325MG TAB) 650 mg Q6H PRN PO MILD PAIN (1-3) 03/21/25 16:00 03/21/25 15:51 DC Acetaminophen (TYLenol 325MG TAB) 650 mg Q6H PRN PO TEMPERATURE GREATER THAN 101.5 03/21/25 16:00 04/20/25 15:59 Al Hydroxide/Mg Hydroxide (MAALox PLUS 30ML) 30 ml Q6H PRN PO INDIGESTION 03/21/25 16:00 04/20/25 15:59 Dextrose (D50w) 50 ml AD PRN IV HYPOGLYCEMIA PROTOCOL 03/21/25 16:00 04/20/25 15:59 Diphenhydramine HCl (BENAdryl INJ) 25 mg Q6H PRN IV SEVERE ITCHING/RASH 03/21/25 16:00 04/20/25 15:59 Famotidine (Pepcid 20mg Vial) 20 mg BID PRN IV NAUSEA/VOMITING 03/21/25 16:00 03/21/25 15:51 DC Famotidine (Pepcid 20mg Vial) 20 mg DAILY IV 03/22/25 09:00 04/21/25 08:59 Glucagon (Glucagon 1mg Kit) 1 mg AD PRN IM HYPOGLYCEMIA PROTOCOL 03/21/25 16:00 04/20/25 15:59 Guaifenesin/ Dextromethorphan (RobiTUSSin DM 200/20MG 10ML) 10 ml Q4H PRN PO COUGH 03/21/25 16:00 04/20/25 15:59 Heparin Sodium (Porcine) (HEParin 5,000 UNIT VIAL) 5,000 unit BID SQ 03/21/25 21:00 04/20/25 20:59 Hydralazine HCl (APRESOLine 20MG INJ) 10 mg Q6H PRN IV For:SBP above 160;DBP above 90 03/21/25 16:00 04/20/25 15:59 Insulin Human Regular (humuLIN R 100 UNIT/ML 3ML) INSULIN SLIDING SCAL... ACHS SQ 03/21/25 16:30 04/20/25 16:29 Ketorolac Tromethamine (toRADol) 15 mg Q8H PRN IV MODERATE PAIN (4-6) 03/21/25 16:00 03/26/25 15:59 Lactated Ringer's 1,000 ml @ 100 mls/hr Q10H STAT IV 03/21/25 13:13 03/21/25 13:22 DC Lactulose (Constulose 20gm/ 30ml Udcup) 20 gm BID PRN PO CONSTIPATION 03/21/25 16:00 04/20/25 15:59 Magnesium Sulfate 50 ml @ 0 mls/hr PROTOCOL PRN IV other 03/21/25 16:00 04/20/25 15:59 Morphine Sulfate (morPHINE 2MG SYG) 1 mg Q4H PRN IVP SEVERE PAIN (7-10) 03/21/25 16:00 03/28/25 15:59 Morphine Sulfate (morPHINE 2MG SYG) 2 mg ONCE STAT IVP 03/21/25 14:27 03/21/25 14:31 DC 03/21/25 14:46 2 MG Nitroglycerin (Nitrostat) 0.4 mg PROTOCOL PRN SL CHEST PAIN 03/21/25 16:00 04/20/25 15:59 Ondansetron HCl (zoFRAN 4MG INJ) 4 mg Q6H PRN IV NAUSEA/VOMITING 03/21/25 16:00 04/20/25 15:59 Oxycodone/ Acetaminophen (perCOCET) 1 tab Q6H PRN PO SEVERE PAIN (7-10) 03/21/25 16:00 03/28/25 15:59 Piperacillin Sod/ Tazobactam Sod 50 ml @ 12.5 mls/hr ZOSY8 IV 03/21/25 21:00 03/31/25 20:59 Sodium Chloride 1,000 ml @ 100 mls/hr Q10H IV 03/21/25 16:00 04/20/25 15:59 03/21/25 16:36 100 MLS/HR Zolpidem Tartrate (AmbIEN) 5 mg HS PRN PO INSOMNIA 03/21/25 16:00 04/20/25 15:59 DIAGNOSTICS / RADIOLOGY: [ ] ASSESSMENT: [ Intractable abdominal pain POA Acute dehydration POA Failure to thrive POA Acute metabolic encephalopathy POA Severe malnutrition POA Acute kidney injury POA Uncontrolled hypertension POA Leukocytosis WBC 13.6 POA Multifactorial anemia POA Uncontrolled diabetes mellitus type 2 with hypoglycemia POA Hyperlipidemia POA Right adrenal mass measuring 6 x 5.[address] abdomen/pelvis Bilateral renal cysts as per CT abdomen/pelvis Retroperitoneal and mesenteric adenopathy suspicious for neoplastic process per CT abdomen/pelvis POA Prostate cancer POA Recent lymph node biopsy 03/13/2025 GERD POA Coronary Artery Disease POA Morbid obesity POA History of COVID POA ] PLAN: [ Admit to: Medical-surgical Consults: GI, oncologist, urologist Antibiotics: Zosyn Tests: 2D echo NEURO: Minimize central acting medications as possible. Fall Precautions. Well lighted room through the day and minimize interruptions through the night to prevent acute delirium. PULMONARY: Chest x-ray mild bilateral pulmonary infiltrate are seen may be related to mild pulmonary vascular congestion with possible superimposed pneumonitis Supplemental 02 as needed BiPAP as necessary, for respiratory distress Titrate Fio2 to keep Spo2 > or = 90% DuoNeb�s and CPT as needed IS hourly while awake for pulmonary hygiene Out of bed to chair as tolerated VAP Bundle Maintain aspiration precautions at all times CARDIOVASCULAR: Follow hemodynamics. Vital signs per facility protocol GI & NUTRITION: CT abdomen/pelvis showed right adrenal mass measuring 6 x 5.4 cm. Retroperitoneal mesenteric adenopathy suspicious for neoplastic process. Nodular density as seen bilateral. Bilateral renal cysts. Distended gallbladder. Continue nutritional support Aspirations precautions Prokinetic agents and laxatives as needed KIDNEYS & ELECTROLYTES: Strict monitoring of intake and output Daily weights Avoid nephrotoxic agents Monitor electrolytes and replace as needed Goal urine output of 30mL/hr or 0.5mL/kg/hr Medications to be dosed according to renal function. Avoid contrast if possible ENDOCRINE: Maintain blood glucose between 100-180 at all times. Insulin sliding scale for blood glucose management Hypoglycemia and hyperglycemia protocol in place INFECTIOUS DISEASE: Trend temperature, WBC and procalcitonin level Follow cultures, deescalate antibiotics as soon as possible. Panculture if new onset fever HEMATOLOGY & COAGULATION: Monitor H&H. Keep Hgb > 7 Transfuse 1 unit of PRBC for Hgb < 7 Transfuse 1 pack of platelets of platelets < 20, 000 Watch for any signs and symptoms of bleeding SKIN: Pressure ulcer prevention per facility protocol Specialty mattress as needed Treatment plan discussed with patient and family at the bedside Medications to be reconciled once obtained by patient and/or family and available to be reconciled in computer p.r.n. medication for pain nausea and vomiting Questions were answered We will continue to monitor the patient closely Latin American Studies Director for disposition Rehab: PT/OT GI: PPI DVT: SCD's Code Status: Full Resuscitation Disposition: TBD Prognosis: Guarded ] ADDENDUM: ATTENDING PHYSICIAN ATTESTATION: I have reviewed the [facility]'s plan. I have independently seen, reviewed the chart and made my own assessment of the patient. See my addendum for updates to the [facility] MD CARLOS Levy KATARZYNA B [employer] March 21, 2025 18:24 AAMIR WILLIAMSON MD April 07, 2025 16:06
[2025-03-21] MEDS: ketOROlac 15MG/ML VIAL (15MG/ML) IV PRN (19:36)
--- NOTE | 2025-03-21 20:41 | CONS ---
GASTROENTEROLOGY CONSULTATION NOTE Date of Consultation: March 21, 2025 Time of Consultation: 20:41 History of Present Illness: This is a 74-year-old male with past medical history of hypertension, diabetes, hyperlipidemia, GERD, prostate cancer, obstructive sleep apnea, COVID who presented due to generalized body weakness, poor appetite and lower abdominal pain. Patient was apparently seen at [facility] in [place] and found to have bilateral renal masses versus cysts with right adrenal mass. On 03/13/2025 a CTA performed revealing adrenal mass and biopsy was done of the lymph nodes. 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 On 03/14/2025 he underwent a colonoscopy by Dr. Caraballo which revealed only internal hemorrhoids. Pathology from lymph node biopsy: -Metastatic undifferentiated malignant neoplasm within lymphoid and fibrous tissue. -The few groups of malignant cells are identified within fibrous and lymphoid tissue. There are arranged into small nests. There is a high nuclear cytoplasmic ratio,, hyperchromatic nucleus and large nucleolus. The infiltrated fibrous stroma shows mucinoid changes. The lymphoid tissue appear mature positive for immunoperoxidase CD45. Immunoperoxidase epithelial markers markers CK7 and CK20 are negative. Lung marker TTF-1 and prostate PSA are negative. Neuroendocrine markers chromogranin and synaptophysin are also negative. Proliferative marker Ki-67 is positive with a moderate to high activity Review of Systems: CONSTITUTIONAL: No malaise or change in sensation of wellbeing. ENMT: No rhinorrhea, otorrhea, sinus pain, ear ache. CARDIOVASCULAR: No angina, palpitations, orthopnea or paroxysmal dyspnea. RESPIRATORY: No SOB. GASTROINTESTINAL: No abdominal pain, nausea, vomiting, diarrhea, hematemesis, melena or change in the patient's habitual bowel movements consistency/number. GENITOURINARY: No dysuria, hematuria or change in bladder continence. MUSCULOSKELETAL: No new muscle pain or decrease in muscular strength. No new joint swelling, redness or tenderness. SKIN: No new rash. Past Medical History: [ ] Past Surgical History: [ ] Past Social History: [ ] Family History: [ ] Coded Allergies: No Known Drug Allergies (Verified Adverse Reaction, Unknown, 05/22/20) Physical Exam: GEN: Awake, alert, oriented in person, time and place, and in no acute distress. HEENT: No sinus tenderness. Tympanic membranes were not examined. No rhinorrhea. Oral pharyngeal mucosa is pink, moist and within normal limits. Neck is supple with no cervical lymphadenopathy, thyromegaly or JVD. CHEST: Inspection, palpation and percussion of the chest were unremarkable. Lung auscultation revealed normal breath sounds bilaterally. CARDIAC: PMI is within normal limits. Heart sounds are regular. Normal S1, S2. No gallop or murmur. ABD: Soft, non-tender and not distended. No peritoneal signs on palpation. No organomegaly. Normal bowel sounds. EXT: No cyanosis or clubbing. No edema. SKIN: Intact. No rashes. JOINTS: No evidence of synovitis or acute arthritis. NEURO: Alert and oriented to name, place and person. Cranial nerve examination is unremarkable. No focal motor deficits. Normal speech. Gait is normal. Strength is normal. Vital Sign (Last 24 Hours) 03/21/25 03/21/25 12:40 17:28 Temp 98.8 Pulse 80 Resp 18 B/P (MAP) 130/65 Pulse Ox 97 O2 Delivery Room Air* O2 Flow Rate 0 FiO2 21 Laboratory: [ ] Laboratory: Test 03/21/25 19:29 03/21/25 17:57 03/21/25 16:47 03/21/25 16:10 Range/Units Whole Blood Glucose 98 70-110 MG/DL Urine Color LIGHT-YELLOW YELLOW Urine Appearance CLEAR CLEAR Urine pH 5.5 5.0-8.0 Urine Specific [place] 1.032 H 1.001-1.031 Urine Protein 30 H NEGATIVE mg/dL Urine Glucose (UA) NEGATIVE NEGATIVE mg/dL Urine Ketones NEGATIVE NEGATIVE mg/dL Urine Occult Blood NEGATIVE NEGATIVE Urine Nitrate NEGATIVE NEGATIVE Urine Bilirubin NEGATIVE NEGATIVE mg/dL Urine Urobilinogen 0.2 0.2-1.0 mg/dL Urine Leukocyte Esterase NEGATIVE NEGATIVE Kai/uL Urine RBC 2-5 H 0-1 /HPF Urine WBC 6-10 H 0-1 /HPF Urine Squamous Epithelial Cells RARE 0-2 /HPF Urine Bacteria RARE None Seen /HPF Lactic Acid Level 1.7 0.8-2.5 mmol/L Influenza Type A Antigen Negative For Type A NEGATIVE Influenza Type B Antigen Negative For Type B NEGATIVE SARS-CoV-2 Antigen (Rapid) PRESUMPTIVE NEGATIVE NEGATIVE Test 03/21/25 12:54 Range/Units White Blood Count 13.6 H 4.8-10.8 K/uL Red Blood Count 4.65 4.50-6.20 MIL/uL Hemoglobin 13.7 L 14.0-18.0 g/dL Hematocrit 40.7 L 42-54 % Mean Corpuscular Volume 87.5 79-99 fL Mean Corpuscular Hemoglobin 29.5 27.0-33.0 pg Mean Corpuscular Hemoglobin Concent 33.7 32.0-36.0 g/dL Red Cell Distribution Width 13.7 11.0-15.5 % Platelet Count 287 130-400 K/uL Mean Platelet Volume 10.6 H 7.5-10.5 fL Immature Granulocyte % (Auto) 0.5 0-1 % Neutrophils (%) (Auto) 79.4 H 40.0-77.0 % Lymphocytes (%) (Auto) 10.5 L 21.0-51.0 % Monocytes (%) (Auto) 7.7 3.0-13.0 % Eosinophils (%) (Auto) 1.7 0.0-8.0 % Basophils (%) (Auto) 0.2 0.0-5.0 % Neutrophils # (Auto) 10.8 H 1.8-7.7 K/uL Lymphocytes # (Auto) 1.4 1.0-4.8 K/uL Monocytes # (Auto) 1.0 0.1-1.0 K/uL Eosinophils # (Auto) 0.23 0.00-0.70 K/uL Basophils # (Auto) 0.03 0.00-0.20 K/uL Absolute Immature Granulocyte (auto 0.07 0-1 K/uL Nucleated Red Blood Cells 0.0 0.0-0.19 % Sodium Level 136 136-145 mmol/L Potassium Level 3.6 3.5-5.1 mmol/L Chloride Level 100 L 101-111 mmol/L Carbon Dioxide Level 30 21-32 mmol/L Blood Urea Nitrogen 22 H 7-18 mg/dL Creatinine 1.6 H 0.5-1.3 mg/dL Glomerular Filtration Rate Calc 46 >90 mL/min Random Glucose 115 H 70-105 mg/dL Total Calcium 16.3 *H 8.5-10.1 mg/dL Total Bilirubin 1.0 0.2-1.0 mg/dL Aspartate Amino Transf (AST/SGOT) 42 H 10-37 U/L Alanine Aminotransferase (ALT/SGPT) 64 12-78 U/L Alkaline Phosphatase 72 50-136 U/L Total Creatine Kinase 64 # 21-232 U/L Troponin I High Sensitivity 73 4-75 ng/L Total Protein 7.3 6.0-8.3 g/dL Albumin 3.4 L 3.5-5.0 g/dL Lipase 12 L 16-77 U/L Procalcitonin 0.27 0.05-0.5 ng/mL Current Medications Medications (Trade) Dose Ordered Sig/Katie Route PRN Reason Start Time Stop Time Status Last Admin Dose Admin Acetaminophen (TYLenol 325MG TAB) 650 mg Q4H PRN PO MILD PAIN (1-3) 03/21/25 16:00 04/20/25 15:59 Acetaminophen (TYLenol 325MG TAB) 650 mg Q6H PRN PO MILD PAIN (1-3) 03/21/25 16:00 03/21/25 15:51 DC Acetaminophen (TYLenol 325MG TAB) 650 mg Q6H PRN PO TEMPERATURE GREATER THAN 101.5 03/21/25 16:00 04/20/25 15:59 Al Hydroxide/Mg Hydroxide (MAALox PLUS 30ML) 30 ml Q6H PRN PO INDIGESTION 03/21/25 16:00 04/20/25 15:59 Dextrose (D50w) 50 ml AD PRN IV HYPOGLYCEMIA PROTOCOL 03/21/25 16:00 04/20/25 15:59 Diphenhydramine HCl (BENAdryl INJ) 25 mg Q6H PRN IV SEVERE ITCHING/RASH 03/21/25 16:00 04/20/25 15:59 Famotidine (Pepcid 20mg Vial) 20 mg BID PRN IV NAUSEA/VOMITING 03/21/25 16:00 03/21/25 15:51 DC Famotidine (Pepcid 20mg Vial) 20 mg DAILY IV 03/22/25 09:00 04/21/25 08:59 Glucagon (Glucagon 1mg Kit) 1 mg AD PRN IM HYPOGLYCEMIA PROTOCOL 03/21/25 16:00 04/20/25 15:59 Guaifenesin/ Dextromethorphan (RobiTUSSin DM 200/20MG 10ML) 10 ml Q4H PRN PO COUGH 03/21/25 16:00 04/20/25 15:59 Heparin Sodium (Porcine) (HEParin 5,000 UNIT VIAL) 5,000 unit BID SQ 03/21/25 21:00 04/20/25 20:59 Hydralazine HCl (APRESOLine 20MG INJ) 10 mg Q6H PRN IV For:SBP above 160;DBP above 90 03/21/25 16:00 04/20/25 15:59 Insulin Human Regular (humuLIN R 100 UNIT/ML 3ML) INSULIN SLIDING SCAL... ACHS SQ 03/21/25 16:30 04/20/25 16:29 Ketorolac Tromethamine (toRADol) 15 mg Q8H PRN IV MODERATE PAIN (4-6) 03/21/25 16:00 03/26/25 15:59 03/21/25 19:36 15 MG Lactated Ringer's 1,000 ml @ 100 mls/hr Q10H STAT IV 03/21/25 13:13 03/21/25 13:22 DC Lactulose (Constulose 20gm/ 30ml Udcup) 20 gm BID PRN PO CONSTIPATION 03/21/25 16:00 04/20/25 15:59 Magnesium Sulfate 50 ml @ 0 mls/hr PROTOCOL PRN IV other 03/21/25 16:00 04/20/25 15:59 Morphine Sulfate (morPHINE 2MG SYG) 1 mg Q4H PRN IVP SEVERE PAIN (7-10) 03/21/25 16:00 03/28/25 15:59 Morphine Sulfate (morPHINE 2MG SYG) 2 mg ONCE STAT IVP 03/21/25 14:27 03/21/25 14:31 DC 03/21/25 14:46 2 MG Nitroglycerin (Nitrostat) 0.4 mg PROTOCOL PRN SL CHEST PAIN 03/21/25 16:00 04/20/25 15:59 Ondansetron HCl (zoFRAN 4MG INJ) 4 mg Q6H PRN IV NAUSEA/VOMITING 03/21/25 16:00 04/20/25 15:59 Oxycodone/ Acetaminophen (perCOCET) 1 tab Q6H PRN PO SEVERE PAIN (7-10) 03/21/25 16:00 03/28/25 15:59 Piperacillin Sod/ Tazobactam Sod 50 ml @ 12.5 mls/hr ZOSY8 IV 03/21/25 21:00 03/31/25 20:59 Sodium Chloride 1,000 ml @ 100 mls/hr Q10H IV 03/21/25 16:00 04/20/25 15:59 03/21/25 16:36 100 MLS/HR Zolpidem Tartrate (AmbIEN) 5 mg HS PRN PO INSOMNIA 03/21/25 16:00 04/20/25 15:59 Diagnostics / Radiology: [COPY/PASTE HERE IF NO REPORTS PLEASE DELETE SECTION] Assessment: [ ] Plan: No plan for further endoscopy Follow oncology recommendations AZALEA RICHARDSON COPIER FIELD SERVICE TECHNICIAN March 21, 2025 20:41
[2025-03-21] MEDS: ZOSYN 3.375GM+NS 50ML 50 ML IV SCH (20:57)
[2025-03-21] MEDS: HEParin 5,000 UNIT VIAL SQ SCH (20:58)
[2025-03-21] MEDS ORDERED: METF-444 PO (21:37)
[2025-03-21] MEDS ORDERED: PIOG30TA70 PO (21:37)
[2025-03-21] MEDS ORDERED: VALS160T29 PO (21:37)
[2025-03-21] MEDS ORDERED: AMLO-258 PO (21:37)
[2025-03-21] MEDS ORDERED: ASPI-1005 PO (21:37)
[2025-03-21] MEDS ORDERED: METO-409 PO (21:37)
[2025-03-22] VITALS (9 sets, daily range): BP systolic 120–153; BP diastolic 58–80; PULSE 60–106; RESP 20–22; TEMP 97.9–98.6; O2SAT 95–96
--- NOTE | 2025-03-22 00:05 | NUR ---
INFORMED DAUGHTER STEFANO VIA PHONE CALL THAT PT IS TO BE TRANSFERRED TO ROOM 303
--- NOTE | 2025-03-22 00:06 | NUR ---
TRANSFERRED PT TO FLOOR
--- NOTE | 2025-03-22 00:30 | NUR ---
PATIENT ARRIVED TO FLOOR AAOX2, IV FLUIDS INFUSING.
[2025-03-22 04:35] LABS: BASOPHILS # (AUTO) 0.03 K/uL (0.00-0.20); BASOPHILS % (AUTO) 0.3 % (0.0-5.0); EOSINOPHILS # (AUTO) 0.17 K/uL (0.00-0.70); EOSINOPHILS % (AUTO) 1.8 % (0.0-8.0); HEMATOCRIT 36.7 % (42-54); IMMATURE GRANULOCYTE ABSOLUTE 0.06 K/uL (0-1); MEAN CORPUSCULAR HEMOGLOBIN 29.8 pg (27.0-33.0); MEAN CORPUSCULAR HGB CONC 33.8 g/dL (32.0-36.0); MEAN CORPUSCULAR VOLUME 88.2 fL (79-99); MONOCYTES # (AUTO) 0.8 K/uL (0.1-1.0); MONOCYTES % (AUTO) 8.3 % (3.0-13.0); NEUTROPHILS # (AUTO) 7.5 K/uL (1.8-7.7); PLATELET COUNT (AUTO) 210 K/uL (130-400); RED BLOOD CELL COUNT(AUTO) 4.16 MIL/uL (4.50-6.20); RED CELL DISTRIBUTION WIDTH 13.5 % (11.0-15.5); WHITE BLOOD COUNT (AUTO) 9.5 K/uL (4.8-10.8)
[2025-03-22 04:48] LABS: INR 1.09 (0.85-1.15); PROTHROMBIN TIME 11.5 SEC (9.6-11.6)
[2025-03-22 04:49] LABS: ALANINE AMINOTRANSFERASE 46 U/L (12-78); ALBUMIN 2.8 g/dL (3.5-5.0); AMMONIA < 10 umol/L (11-32); ASPARTATE AMINOTRANSFERASE 30 U/L (10-37); BILIRUBIN,DIRECT 0.2 mg/dL (0.0-0.3); BILIRUBIN,TOTAL 0.9 mg/dL (0.2-1.0); CARBON DIOXIDE 29 mmol/L (21-32); CHLORIDE 104 mmol/L (101-111); CREATINE KINASE, TOTAL 36 U/L (21-232); CREATININE 1.8 mg/dL (0.5-1.3); GLOMERULAR FILTR. RATE CALC 40 mL/min (>90); GLUCOSE,RANDOM 98 mg/dL (70-105); POTASSIUM 3.5 mmol/L (3.5-5.1); SODIUM SERUM 140 mmol/L (136-145); UREA NITROGEN, BLOOD 23 mg/dL (7-18)
[2025-03-22 04:53] LABS: HEMOGLOBIN A1C 5.6 % (4.0-6.0)
[2025-03-22] MEDS: MAGNESIUM 2GM PREMIX 50ML 50 ML IV PRN (06:35)
--- NOTE | 2025-03-22 08:50 | PN ---
GASTROENTEROLOGY PROGRESS NOTE Date of Visit: March 22, 2025 Time of Visit: 08:50 Events / Notes: [ ] Review of Systems: CONSTITUTIONAL: No malaise or change in sensation of wellbeing. ENMT: No rhinorrhea, otorrhea, sinus pain, ear ache. CARDIOVASCULAR: No angina, palpitations, orthopnea or paroxysmal dyspnea. RESPIRATORY: No SOB. GASTROINTESTINAL: No abdominal pain, nausea, vomiting, diarrhea, hematemesis, melena or change in the patient's habitual bowel movements consistency/number. GENITOURINARY: No dysuria, hematuria or change in bladder continence. MUSCULOSKELETAL: No new muscle pain or decrease in muscular strength. No new joint swelling, redness or tenderness. SKIN: No new rash. Physical Exam: GEN: Awake, alert, oriented in person, time and place, and in no acute distress. HEENT: No sinus tenderness. Tympanic membranes were not examined. No rhinorrhea. Oral pharyngeal mucosa is pink, moist and within normal limits. Neck is supple with no cervical lymphadenopathy, thyromegaly or JVD. CHEST: Inspection, palpation and percussion of the chest were unremarkable. Lung auscultation revealed normal breath sounds bilaterally. CARDIAC: PMI is within normal limits. Heart sounds are regular. Normal S1, S2. No gallop or murmur. ABD: Soft, non-tender and not distended. No peritoneal signs on palpation. No organomegaly. Normal bowel sounds. EXT: No cyanosis or clubbing. No edema. SKIN: Intact. No rashes. JOINTS: No evidence of synovitis or acute arthritis. NEURO: Alert and oriented to name, place and person. Cranial nerve examination is unremarkable. No focal motor deficits. Normal speech. Gait is normal. Strength is normal. Vital Signs (last 8hr) Date Time Temp Pulse Resp B/P (MAP) Pulse Ox O2 Delivery O2 Flow Rate FiO2 03/22/25 08:32 98.1 102 20 139/58 95 Room Air 03/22/25 03:26 98.6 60 20 149/73 93 Room Air Laboratory: [ ] Laboratory: Test 03/22/25 04:58 03/22/25 04:27 03/21/25 17:57 03/21/25 16:10 Range/Units Whole Blood Glucose 100 70-110 MG/DL White Blood Count 9.5 # 4.8-10.8 K/uL Red Blood Count 4.16 L 4.50-6.20 MIL/uL Hemoglobin 12.4 L 14.0-18.0 g/dL Hematocrit 36.7 L 42-54 % Mean Corpuscular Volume 88.2 79-99 fL Mean Corpuscular Hemoglobin 29.8 27.0-33.0 pg Mean Corpuscular Hemoglobin Concent 33.8 32.0-36.0 g/dL Red Cell Distribution Width 13.5 11.0-15.5 % Platelet Count 210 # 130-400 K/uL Mean Platelet Volume 10.7 H 7.5-10.5 fL Immature Granulocyte % (Auto) 0.6 0-1 % Neutrophils (%) (Auto) 79.0 H 40.0-77.0 % Lymphocytes (%) (Auto) 10.0 L 21.0-51.0 % Monocytes (%) (Auto) 8.3 3.0-13.0 % Eosinophils (%) (Auto) 1.8 0.0-8.0 % Basophils (%) (Auto) 0.3 0.0-5.0 % Neutrophils # (Auto) 7.5 1.8-7.7 K/uL Lymphocytes # (Auto) 1.0 1.0-4.8 K/uL Monocytes # (Auto) 0.8 0.1-1.0 K/uL Eosinophils # (Auto) 0.17 0.00-0.70 K/uL Basophils # (Auto) 0.03 0.00-0.20 K/uL Absolute Immature Granulocyte (auto 0.06 0-1 K/uL Nucleated Red Blood Cells 0.0 0.0-0.19 % White Cell Morphology Comment See comments Prothrombin Time 11.5 9.6-11.6 SEC Prothromb Time International Ratio 1.09 0.85-1.15 Sodium Level 140 136-145 mmol/L Potassium Level 3.5 3.5-5.1 mmol/L Chloride Level 104 101-111 mmol/L Carbon Dioxide Level 29 21-32 mmol/L Blood Urea Nitrogen 23 H 7-18 mg/dL Creatinine 1.8 H 0.5-1.3 mg/dL Glomerular Filtration Rate Calc 40 >90 mL/min Random Glucose 98 70-105 mg/dL Hemoglobin A1c 5.6 4.0-6.0 % Estimated Average Glucose (eAG) 114 70-126 mg/dL Lactic Acid Level 1.7 0.8-2.5 mmol/L Total Calcium 15.1 *H 8.5-10.1 mg/dL Magnesium Level 1.30 L 1.80-2.40 mg/dL Total Bilirubin 0.9 0.2-1.0 mg/dL Direct Bilirubin 0.2 0.0-0.3 mg/dL Aspartate Amino Transf (AST/SGOT) 30 10-37 U/L Alanine Aminotransferase (ALT/SGPT) 46 # 12-78 U/L Alkaline Phosphatase 64 50-136 U/L Ammonia < 10 L 11-32 umol/L Total Creatine Kinase 36 # 21-232 U/L C-Reactive Protein, Quantitative 26.40 H 0.5-3.0 mg/L B-Type Natriuretic Peptide 98 0-100 pg/mL Total Protein 6.0 6.0-8.3 g/dL Albumin 2.8 L 3.5-5.0 g/dL Procalcitonin 0.27 0.05-0.5 ng/mL Urine Color LIGHT-YELLOW YELLOW Urine Appearance CLEAR CLEAR Urine pH 5.5 5.0-8.0 Urine Specific Robinson 1.032 H 1.001-1.031 Urine Protein 30 H NEGATIVE mg/dL Urine Glucose (UA) NEGATIVE NEGATIVE mg/dL Urine Ketones NEGATIVE NEGATIVE mg/dL Urine Occult Blood NEGATIVE NEGATIVE Urine Nitrate NEGATIVE NEGATIVE Urine Bilirubin NEGATIVE NEGATIVE mg/dL Urine Urobilinogen 0.2 0.2-1.0 mg/dL Urine Leukocyte Esterase NEGATIVE NEGATIVE Kai/uL Urine RBC 2-5 H 0-1 /HPF Urine WBC 6-10 H 0-1 /HPF Urine Squamous Epithelial Cells RARE 0-2 /HPF Urine Bacteria RARE None Seen /HPF Influenza Type A Antigen Negative For Type A NEGATIVE Influenza Type B Antigen Negative For Type B NEGATIVE SARS-CoV-2 Antigen (Rapid) PRESUMPTIVE NEGATIVE NEGATIVE Test 03/21/25 12:54 Range/Units Troponin I High Sensitivity 73 4-75 ng/L Lipase 12 L 16-77 U/L Current Medications Medications (Trade) Dose Ordered Sig/Katie Route PRN Reason Start Time Stop Time Status Last Admin Dose Admin Acetaminophen (TYLenol 325MG TAB) 650 mg Q4H PRN PO MILD PAIN (1-3) 03/21/25 16:00 04/20/25 15:59 Acetaminophen (TYLenol 325MG TAB) 650 mg Q6H PRN PO MILD PAIN (1-3) 03/21/25 16:00 03/21/25 15:51 DC Acetaminophen (TYLenol 325MG TAB) 650 mg Q6H PRN PO TEMPERATURE GREATER THAN 101.5 03/21/25 16:00 04/20/25 15:59 Al Hydroxide/Mg Hydroxide (MAALox PLUS 30ML) 30 ml Q6H PRN PO INDIGESTION 03/21/25 16:00 04/20/25 15:59 Dextrose (D50w) 50 ml AD PRN IV HYPOGLYCEMIA PROTOCOL 03/21/25 16:00 04/20/25 15:59 Diphenhydramine HCl (BENAdryl INJ) 25 mg Q6H PRN IV SEVERE ITCHING/RASH 03/21/25 16:00 04/20/25 15:59 Famotidine (Pepcid 20mg Vial) 20 mg BID PRN IV NAUSEA/VOMITING 03/21/25 16:00 03/21/25 15:51 DC Famotidine (Pepcid 20mg Vial) 20 mg DAILY IV 03/22/25 09:00 04/21/25 08:59 Glucagon (Glucagon 1mg Kit) 1 mg AD PRN IM HYPOGLYCEMIA PROTOCOL 03/21/25 16:00 04/20/25 15:59 Guaifenesin/ Dextromethorphan (RobiTUSSin DM 200/20MG 10ML) 10 ml Q4H PRN PO COUGH 03/21/25 16:00 04/20/25 15:59 Heparin Sodium (Porcine) (HEParin 5,000 UNIT VIAL) 5,000 unit BID SQ 03/21/25 21:00 04/20/25 20:59 03/21/25 20:58 5,000 UNIT Hydralazine HCl (APRESOLine 20MG INJ) 10 mg Q6H PRN IV For:SBP above 160;DBP above 90 03/21/25 16:00 04/20/25 15:59 Insulin Human Regular (humuLIN R 100 UNIT/ML 3ML) INSULIN SLIDING SCAL... ACHS SQ 03/21/25 16:30 04/20/25 16:29 Ketorolac Tromethamine (toRADol) 15 mg Q8H PRN IV MODERATE PAIN (4-6) 03/21/25 16:00 03/26/25 15:59 03/22/25 05:13 15 MG Lactated Ringer's 1,000 ml @ 100 mls/hr Q10H STAT IV 03/21/25 13:13 03/21/25 13:22 DC Lactulose (Constulose 20gm/ 30ml Udcup) 20 gm BID PRN PO CONSTIPATION 03/21/25 16:00 04/20/25 15:59 Magnesium Sulfate 50 ml @ 0 mls/hr PROTOCOL PRN IV other 03/21/25 16:00 04/20/25 15:59 03/22/25 06:35 50 MLS/HR Morphine Sulfate (morPHINE 2MG SYG) 1 mg Q4H PRN IVP SEVERE PAIN (7-10) 03/21/25 16:00 03/28/25 15:59 Morphine Sulfate (morPHINE 2MG SYG) 2 mg ONCE STAT IVP 03/21/25 14:27 03/21/25 14:31 DC 03/21/25 14:46 2 MG Nitroglycerin (Nitrostat) 0.4 mg PROTOCOL PRN SL CHEST PAIN 03/21/25 16:00 04/20/25 15:59 Ondansetron HCl (zoFRAN 4MG INJ) 4 mg Q6H PRN IV NAUSEA/VOMITING 03/21/25 16:00 04/20/25 15:59 Oxycodone/ Acetaminophen (perCOCET) 1 tab Q6H PRN PO SEVERE PAIN (7-10) 03/21/25 16:00 03/28/25 15:59 Pharmacy Profile Note (Pharmacy Communication) 1 each AD MISC 03/22/25 09:00 03/29/25 08:59 UNV Piperacillin Sod/ Tazobactam Sod 50 ml @ 12.5 mls/hr ZOSY8 IV 03/21/25 21:00 03/31/25 20:59 03/22/25 05:07 12.5 MLS/HR Sodium Chloride 1,000 ml @ 100 mls/hr Q10H IV 03/21/25 16:00 04/20/25 15:59 03/22/25 02:00 100 MLS/HR Zolpidem Tartrate (AmbIEN) 5 mg HS PRN PO INSOMNIA 03/21/25 16:00 04/20/25 15:59 Diagnostics / Radiology: [COPY/PASTE HERE IF NO REPORTS PLEASE DELETE SECTION] Assessment: [ ] Plan: No plan for further endoscopy Follow oncology recommendations AZALEA RICHARDSON SILO ERECTOR March 22, 2025 08:50
[2025-03-22] MEDS ORDERED: PHARMACY COMMUNICATION MISC SCH (09:00)
--- NOTE | 2025-03-22 09:02 | CONS ---
REFERRING PHYSICIAN: ____ REASON FOR REFERRAL: Second opinion about metastatic cancer. HISTORY OF PRESENT ILLNESS: A 74-year-old male with hypertension, diabetes, high cholesterol, prostate cancer and COPD, presented to [facility] with weight loss and abdominal pain. He had a CT scan that apparently showed adrenal metastasis. He had a CT-guided biopsy that showed some kind of malignancy. He had all kinds of tests he said over 7-8 days, colonoscopy and other tests. I do not know what was done, I have no records, but he left against medical advice because he felt like they were not taking care of him. He came to this hospital for second opinion to get his disease under control. I do not have any path report verbally that it was malignant, but what it was is unknown to me and nothing is available to me at the moment. Obviously, that is going to be critical. I did review what I know thus far with him and tell him, I will come back and see him once I get everything together pathologically. PAST MEDICAL HISTORY: Hypertension, hyperlipidemia, COVID, diabetes, adrenal metastasis, kidney cyst, GERD, coronary artery disease, hyperlipidemia, and obesity. PAST SURGICAL HISTORY: He has had colonoscopy and CT-guided biopsy. MEDICATIONS: See intake sheet. ALLERGIES: None known. FAMILY HISTORY: Negative for malignancy. SOCIAL HISTORY: He lives with his family. He does not smoke or drink. He did smoke up to 16 years ago. REVIEW OF SYSTEMS: HEENT: Negative. CARDIOVASCULAR: No chest pain, palpitations, or PND. PULMONARY: Have a cough. GASTROINTESTINAL: ____ for abdominal pain. GENITOURINARY: Hematuria. NEUROLOGIC: Weakness and sleepiness. PHYSICAL EXAMINATION: GENERAL: Shows an older man. VITAL SIGNS: Blood pressure 130/65, pulse 80, respirations 20. HEENT: Benign. CHEST: Clear. ABDOMEN: Soft. EXTREMITIES: Show no edema. NEUROLOGIC: Awake and oriented. LABORATORY DATA: Lab reviewed. IMAGING STUDIES: He had a CT here, which showed a right adrenal mass, 6 x 5 cm, retroperitoneal nodes. IMPRESSION: Some kind of adrenal cancer, metastatic, stage 4. I do not have the pathology as number of differentials, distended gallbladder, prostate cancer. Other problems as listed. PLAN: I told him the curry is going to be the pathology and also get him on nutritional support. I agree with your IV fluids and supportive care. Dietitian to see. I will come back and see him. I will go to [facility] myself, get the pathology and come back. TID: [id number] RECEIPT: [id number]
[2025-03-22] MEDS: FAMOTIDINE 20MG VIAL IV SCH (09:09)
[2025-03-22] MEDS: CALCITONIN 400 UNIT VIAL SQ ONE (11:23)
--- NOTE | 2025-03-22 11:59 | NUR ---
Discharge Planning: New admission, failure to thrive, hx of prostate cancer. Pending urology consult with Dr. Thakkar. [place] [facility] [place]
--- NOTE | 2025-03-22 13:10 | NUR ---
Nutritional Note: Pt at bedside, pt sleeping at time of visit. Pt reported pt has not been eating more than 25% of meals since 09 of March. Pt did wake up at time of visit and was upset at questions being asked and wanted salt and icecream. Pt tried Glucerna a few days ago and then became nauseated and vomited as per pt spouse. Pt reported wt loss, amount unknown. Pt showing s/s of severe malnutrition secondary to poor energy intake and reported wt loss amount unknown, advance cancer diagnosis and signs of functional decline. Recommend: -Thiamine 100mg for 5-7days due to prolonged por oral intake. -Liberalized diet, remove heart healthy restrictions unless medically necessary -If unable to meet needs orally evaluate for enteral nutrition NGT vs PEG if GI tract functional and safe - Electrolyte replacements per protocol -Magic Cup 4oz w/ PM tray: Provides 9gm pro/ 290kcal and 20 vitamins and minerals. [place] to serve with meals as a means of adding calories and protein for unintended weight loss. -Monitor feeding tolerance, %, wt, and labs -If No BM >3days consider bowel stimulant. -No fish or jello on diet order. -Schedule outpatient RD f/u for long-term nutrition care. - Notify RD if additional nutrition concerns arise. SEE RD Nutritional Assessment for additional assessment information. Addendum: 03/22/25 at [address] Amended: Links added.
--- NOTE | 2025-03-22 14:40 | HMCSR ---
APPROVED REPORT EXAM: Two-dimensional and M-mode echocardiogram with Doppler and color Doppler. INDICATION ICD: Congetive heart failure 2D Dimensions RVDd3.4 cmLVEF(%)76.2 (>50%)LVED Vol(simp.)68.0 mL IVSd1.1 (0.7-1.1cm)FS(%)45 %LVES Vol(simp.)27.0 mL LVDd4.4 (3.8-5.6cm)LA (2D)4.0 (1.6-4.0cm)LVEF(%, simp.)60 % PWd1.7 (0.7-1.1cm)Ao Root(2D)3.4 (2.0-3.7cm)LA ESV INDEX (BP)16.43 mL/m2 LVDs2.4 (2.5-4.0cm)LVOT diam2.4 (1.8-2.4cm) IVC diam2.5 cm Deformation Strain Apical 4-13.4 % Apical 2-10.9 % Apical 3-18.5 % Global Strain-14.3 % M-Mode Dimensions EPSS1.0 cm LA (MM)5.1 (1.6-4.0cm) Ao Root(MM)3.5 (2.0-3.7cm) Aortic Valve AoV Vmax1.4 m/Haris Peak GR8.2 mmHgLVOT Vmax1.1 m/s AoV VTI0.2 mAo Mean GR5.3 mmHgLVOT VTI0.15 m JOEY (VMAX)3.40 cm2AVA (VTI) 3.4 cm2 Mitral Valve MV E Ztew229.9 cm/sDECEL Snum526 ms MV A Vmax54.7 cm/s E/A ratio2.0 TDI E/E' Klinzf97.8E/E' Eqkxxpi47.8 Lateral E' Peak V8.02 cm/s Pulmonary Valve PV Vmax1.4 m/sPV VTI0.19 mPV Mean GR3.8 mmHg PV Peak GR7.9 mmHg Tricuspid Valve RAP (EST) 8 mmHgRVSP8.0 mmHg Left Ventricle The left ventricle is normal size. Hyperdynamic left ventricular wall motion noted. No regional wall motion abnormalities noted. There is moderate left ventricular wall thickness. LVEF is 60-65%. The LV diastolic function was unable to be assessed due to atrial arrhythmia. Right Ventricle The right ventricle is normal size. There is mild right ventricular wall thickness. Right ventricular systolic function could not be assessed. Atria The left atrium size is normal. The right atrium size is normal. Aortic Valve The aortic valve appears to open well. No aortic regurgitation is present. There is no aortic valvula r stenosis. Mitral Valve Mitral valve is not well visualized. There is no mitral valve regurgitation noted. There is no mitral valve stenosis. Tricuspid Valve The tricuspid valve leaflets appear normal. There is trace of tricuspid valve regurgitation noted. Pulmonic Valve Pulmonic valve is not well visualized. There is no pulmonic valvular regurgitation. Great Vessels The aortic root is normal in size. The IVC is normal in size and collapses <50% with inspiration. Pericardium Epircardial fat noted. Other Information Quality : Technically difficult challenging study due to body habitus Conclusion LVEF is 60-65%. Hyperdynamic left ventricular wall motion noted. No regional wall motion abnormalities noted. The right ventricle is normal size. The aortic root is normal in size.
[2025-03-22 15:13] LABS: CREATININE 1.8 mg/dL (0.5-1.3); POTASSIUM 3.2 mmol/L (3.5-5.1)
--- NOTE | 2025-03-22 17:13 | EKG ---
[facility] Test Date: 2025-03-22 Test Time: 16:10:09 Pat Name: PAVEL SOLOMON Department: [facility] Room: 303 1 Gender: M Photographic Hand Developer: [id number] : 1950 Requested By: LILO REYES Order Number: [id number] Reading MD: Josue Bean Measurements Intervals [place] Rate: 99 P: 96 MI: 238 QRS: -54 QRSD: 110 T: 74 QT: 346 QTc: 444 Interpretive Statements Sinus rhythm with 1st degree AV block with premature supraventricular complexes Pulmonary disease pattern Left anterior fascicular block Compared to ECG 05/22/2020 01:25:56 Atrial premature complex(es) now present First degree AV block now present Electronically Signed On 03-23-2025 12:28:36 CDT by Josue Bean Please click the below link to view image of tracing.
--- NOTE | 2025-03-22 17:30 | PN ---
[facility] PROGRESS NOTE Date of Service: March 22, 2025 Time of Service: 16:46 SUBJECTIVE: 74 years old male with a past medical history of hypertension, diabetes, cholesterol, GERD, prostate cancer with TURP(2008 with normal subsequent PSA levels), obstructive sleep apnea, severe COVID infection, presented to emergency department with complaints of generalized body weakness, loss of appetite and lower abdominal pain since December 2024. He was recently admitted to [facility]. During hospitalization it was found that patient had bilateral renal masses versus cyst, right adrenal mass. 03/13/2025 CTA was performed which showed an adrenal mass, ?lymphadenopathy and a lymph node biopsy was performed . On 03/14/2025 he underwent colonoscopy which was supposedly negative. Patient left against medical advice from the above said hospital . The patient he has been experiencing loss of appetite, dysphagia, dryness of mouth, decrease in body weight, occasional shortness of breath, in creased lethargy since December of this year. As per surgical pathology report of the biopsy from [facility] "Diffuse groups of malignant cells are identified with fibrosis and lymphoid tissue. They are arranged into small nests. There is a high nuclear systolic plasma thick ratio. Hyperchromatic nuclei and large nuclei bolus. The infiltrated fibrosis stoma shows mucinoid changes. The lymphoid tissue appear mature. Possible for immuno peroxidase CD45. Immunoperoxidase epithelial markers markers CK7 and CK20 are negative. Lung marker TTF one and prostate PSA are negative. Neuroendocrine markers chromogranin and synaptophysin are also negative. Proliferative markers Ki-67 is positive . The biopsy will be submitted to reference lab([place]) for consultation. An additional report will follow. Specimen source lymph nodes biopsy" At the time of presentation:vital signs temperature 98.8� pulse 80 respiration 18 blood pressure 130/65. Patient is on room air saturating at 97%. Labs at the time of presentation: WBC 13.6 hemoglobin 13.7 hematocrit 40.7 platelets 287. Sodium 136 potassium 3.6 CO2 30 BUN 22 creatinine 1.6 GFR 46 random glucose 115 lactic 2.2 total calcium 16.3 bilirubin 1.0 AST 42 ALT 64 CK 64 troponin 3.4 lipase 12 procalcitonin negative lactic acid repeated 1.7. CT abdomen/pelvis showed right adrenal mass measuring 6 x 5.4 cm. Retroperitoneal and mesenteric adenopathy suspicious for neoplastic process. Nodular density are seen bilaterally. Bilateral renal cyst. Distended gal lbladder. Chest x-ray showed mild bilateral pulmonary infiltrate are seen may be related to bilateral pulmonary vascular congestion with a possible superimposed pneumonitis. We will admit him for further evaluation and management. 03/22/2025: Patient is seen resting in his room. He appeared drowsy, but is arousable on verbal stimulation, alert oriented x3 and is perceiving and answering questions adequately. He Stated that he feels very tired. His calcium levels remain elevated. We will do PTH level to rule out hyperparathyroidism, vitamin-D25 hydroxy level to rule out hypervitaminosis D, [id number] dihydroxy level to rule out sarcoidosis, parathyroid related peptide. We will check PSA levels, TSH levels. He is being treated with calcitonin and reduced doses of pamidronate given his renal insufficiency. Oncology recommendations appreciated. Nephrology on board. Plan is to monitor calcium levels, keep patient in telemetry. If all the tests are negative, we will consider workup for multiple myeloma. REVIEW OF SYSTEMS CONSTITUTIONAL: Denies fevers, chills, or night sweats. unintentional weight loss reported. NEUROLOGICAL: Denies headache, amaurosis fugax, motor weakness, sensory def icit, vertigo/spinning sensation, gait abnormalities, or tremors. ENT: No hearing loss, otalgia, otorrhea, rhinitis, rhinorrhea, hoarseness, or sore throat. CARDIOVASCULAR: Denies any exertional angina, dyspnea on exertion, orthopnea, paroxysmal nocturnal dyspnea, palpitations, life-threatening arrhythmias, claudication. PULMONARY: Denies any shortness of breath, cough, phlegm/sputum, hemoptysis, pleuritic chest pain. SLEEP: Denies morning headaches, daytime somnolence or napping. Denies difficulty falling asleep, staying asleep, waking from sleep. Denies knowledge of snoring. Patient complains of constant weakness/sleepiness GASTROINTESTINAL: Patient complains of dry mouth and difficulty to swallow at times Denies nausea, vomiting, pyrosis, early satiety, diarrhea, constipation, or changes in stool consistency or caliber. Denies coffee-ground emesis, hematemesis, hematochezia, or melanotic stools. Patient complains of abdominal pain GENITOURINARY: Denies frequency, urgency, nocturia, hematuria or incontinence (Storage/Irritative symptoms.) Low urinary stream, straining to void, urinary intermittency or hesitancy, splitting of the voiding stream, terminal dribbling. ENDOCRINOLOGIC: Denies polyuria, polydipsia, polyphagia or heat/cold intolerances. HEMATOLOGIC: Denies thrombophilia/previous clots, or coagulopathy/bleeding disorders. ONCOLOGIC: Patient has a history of prostate cancer status post TURP DERMATOLOGIC: Denies rashes or pruritus. PSYCHIATRIC: Denies any suicidal or homicidal ideation. Denies hallucinations. PHYSICAL EXAM GENERAL APPEARANCE: Patient appears lethargic The patient is awake, alert, and oriented, in no acute cardiopulmonary distress. NEUROLOGICAL: Cranial nerves II-XII grossly intact. Motor is 5/5 in bilateral upper and lower extremities proximal to distal. No sensory deficits. HEENT: Face is symmetric. Pupils are equal and reactive. Extraocular movements are intact. Dry oral mucosa dry lips NECK: Supple. No JVD. No thyromegaly. No submental, submandibular, pre- /postauricular, occipital or supraclavicular lymphadenopathy. CHEST: Normal chest expansion. No Telemetry. LUNGS: Absence of any rales, rhonchi or any wheezing. CARDIOVASCULAR: Regular. S1 and S2 normal. No appreciable rubs, murmurs or gallops. ABDOMEN: Soft, tender on left upper quadrant mildly distended. There is no rebound, voluntary guarding, or rigidity. : Deferred. No Gonzáles. EXTREMITIES: Non-edematous and not cyanotic. No clubbing. Good capillary refill. SKIN: No skin breakdown. Vital Signs (last 8hr) Date Time Temp Pulse Resp B/P (MAP) Pulse Ox O2 Delivery O2 Flow Rate FiO2 03/22/25 16:36 98.1 106 20 141/60 93 Room Air 03/22/25 12:05 98.1 91 20 129/73 93 Room Air LABS: Laboratory: Test 03/22/25 16:00 03/22/25 14:40 03/22/25 04:27 03/21/25 17:57 Range/Units Whole Blood Glucose 119 H 70-110 MG/DL Sodium Level 138 136-145 mmol/L Potassium Level 3.2 L 3.5-5.1 mmol/L Chloride Level 104 101-111 mmol/L Carbon Dioxide Level 27 21-32 mmol/L Blood Urea Nitrogen 23 H 7-18 mg/dL Creatinine 1.8 H 0.5-1.3 mg/dL Glomerular Filtration Rate Calc 40 >90 mL/min Random Glucose 115 H 70-105 mg/dL Total Calcium 15.1 *H 8.5-10.1 mg/dL White Blood Count 9.5 # 4.8-10.8 K/uL Red Blood Count 4.16 L 4.50-6.20 MIL/uL Hemoglobin 12.4 L 14.0-18.0 g/dL Hematocrit 36.7 L 42-54 % Mean Corpuscular Volume 88.2 79-99 fL Mean Corpuscular Hemoglobin 29.8 27.0-33.0 pg Mean Corpuscular Hemoglobin Concent 33.8 32.0-36.0 g/dL Red Cell Distribution Width 13.5 11.0-15.5 % Platelet Count 210 # 130-400 K/uL Mean Platelet Volume 10.7 H 7.5-10.5 fL Immature Granulocyte % (Auto) 0.6 0-1 % Neutrophils (%) (Auto) 79.0 H 40.0-77.0 % Lymphocytes (%) (Auto) 10.0 L 21.0-51.0 % Monocytes (%) (Auto) 8.3 3.0-13.0 % Eosinophils (%) (Auto) 1.8 0.0-8.0 % Basophils (%) (Auto) 0.3 0.0-5.0 % Neutrophils # (Auto) 7.5 1.8-7.7 K/uL Lymphocytes # (Auto) 1.0 1.0-4.8 K/uL Monocytes # (Auto) 0.8 0.1-1.0 K/uL Eosinophils # (Auto) 0.17 0.00-0.70 K/uL Basophils # (Auto) 0.03 0.00-0.20 K/uL Absolute Immature Granulocyte (auto 0.06 0-1 K/uL Nucleated Red Blood Cells 0.0 0.0-0.19 % White Cell Morphology Comment See comments Prothrombin Time 11.5 9.6-11.6 SEC Prothromb Time International Ratio 1.09 0.85-1.15 Hemoglobin A1c 5.6 4.0-6.0 % Estimated Average Glucose (eAG) 114 70-126 mg/dL Lactic Acid Level 1.7 0.8-2.5 mmol/L Magnesium Level 1.30 L 1.80-2.40 mg/dL Total Bilirubin 0.9 0.2-1.0 mg/dL Direct Bilirubin 0.2 0.0-0.3 mg/dL Aspartate Amino Transf (AST/SGOT) 30 10-37 U/L Alanine Aminotransferase (ALT/SGPT) 46 # 12-78 U/L Alkaline Phosphatase 64 50-136 U/L Ammonia < 10 L 11-32 umol/L Total Creatine Kinase 36 # 21-232 U/L C-Reactive Protein, Quantitative 26.40 H 0.5-3.0 mg/L B-Type Natriuretic Peptide 98 0-100 pg/mL Total Protein 6.0 6.0-8.3 g/dL Albumin 2.8 L 3.5-5.0 g/dL Vitamin D 25-Hydroxy 29.9 30.0-100.0 ng/mL Procalcitonin 0.27 0.05-0.5 ng/mL Parathyroid Hormone (Intact) 5.2 15-65 pg/mL Urine Color LIGHT-YELLOW YELLOW Urine Appearance CLEAR CLEAR Urine pH 5.5 5.0-8.0 Urine Specific Wendell 1.032 H 1.001-1.031 Urine Protein 30 H NEGATIVE mg/dL Urine Glucose (UA) NEGATIVE NEGATIVE mg/dL Urine Ketones NEGATIVE NEGATIVE mg/dL Urine Occult Blood NEGATIVE NEGATIVE Urine Nitrate NEGATIVE NEGATIVE Urine Bilirubin NEGATIVE NEGATIVE mg/dL Urine Urobilinogen 0.2 0.2-1.0 mg/dL Urine Leukocyte Esterase NEGATIVE NEGATIVE Kai/uL Urine RBC 2-5 H 0-1 /HPF Urine WBC 6-10 H 0-1 /HPF Urine Squamous Epithelial Cells RARE 0-2 /HPF Urine Bacteria RARE None Seen /HPF Test 03/21/25 16:10 03/21/25 12:54 Range/Units Influenza Type A Antigen Negative For Type A NEGATIVE Influenza Type B Antigen Negative For Type B NEGATIVE SARS-CoV-2 Antigen (Rapid) PRESUMPTIVE NEGATIVE NEGATIVE Troponin I High Sensitivity 73 4-75 ng/L Lipase 12 L 16-77 U/L Current Medications Medications (Trade) Dose Ordered Sig/Katie Route PRN Reason Start Time Stop Time Status Last Admin Dose Admin Acetaminophen (TYLenol 325MG TAB) 650 mg Q4H PRN PO MILD PAIN (1-3) 03/21/25 16:00 04/20/25 15:59 Acetaminophen (TYLenol 325MG TAB) 650 mg Q6H PRN PO MILD PAIN (1-3) 03/21/25 16:00 03/21/25 15:51 DC Acetaminophen (TYLenol 325MG TAB) 650 mg Q6H PRN PO TEMPERATURE GREATER THAN 101.5 03/21/25 16:00 04/20/25 15:59 Al Hydroxide/Mg Hydroxide (MAALox PLUS 30ML) 30 ml Q6H PRN PO INDIGESTION 03/21/25 16:00 04/20/25 15:59 Dextrose (D50w) 50 ml AD PRN IV HYPOGLYCEMIA PROTOCOL 03/21/25 16:00 04/20/25 15:59 Diphenhydramine HCl (BENAdryl INJ) 25 mg Q6H PRN IV SEVERE ITCHING/RASH 03/21/25 16:00 04/20/25 15:59 Famotidine (Pepcid 20mg Vial) 20 mg BID PRN IV NAUSEA/VOMITING 03/21/25 16:00 03/21/25 15:51 DC Famotidine (Pepcid 20mg Vial) 20 mg DAILY IV 03/22/25 09:00 04/21/25 08:59 03/22/25 09:09 20 MG Glucagon (Glucagon 1mg Kit) 1 mg AD PRN IM HYPOGLYCEMIA PROTOCOL 03/21/25 16:00 04/20/25 15:59 Guaifenesin/ Dextromethorphan (RobiTUSSin DM 200/20MG 10ML) 10 ml Q4H PRN PO COUGH 03/21/25 16:00 04/20/25 15:59 Heparin Sodium (Porcine) (HEParin 5,000 UNIT VIAL) 5,000 unit BID SQ 03/21/25 21:00 04/20/25 20:59 03/22/25 09:14 5,000 UNIT Hydralazine HCl (APRESOLine 20MG INJ) 10 mg Q6H PRN IV For:SBP above 160;DBP above 90 03/21/25 16:00 04/20/25 15:59 Insulin Human Regular (humuLIN R 100 UNIT/ML 3ML) INSULIN SLIDING SCAL... ACHS SQ 03/21/25 16:30 04/20/25 16:29 Ketorolac Tromethamine (toRADol) 15 mg Q8H PRN IV MODERATE PAIN (4-6) 03/21/25 16:00 03/26/25 15:59 03/22/25 14:20 15 MG Lactated Ringer's 1,000 ml @ 100 mls/hr Q10H STAT IV 03/21/25 13:13 03/21/25 13:22 DC Lactulose (Constulose 20gm/ 30ml Udcup) 20 gm BID PRN PO CONSTIPATION 03/21/25 16:00 04/20/25 15:59 Magnesium Sulfate 50 ml @ 0 mls/hr PROTOCOL PRN IV other 03/21/25 16:00 04/20/25 15:59 03/22/25 06:35 50 MLS/HR Morphine Sulfate (morPHINE 2MG SYG) 1 mg Q4H PRN IVP SEVERE PAIN (7-10) 03/21/25 16:00 03/28/25 15:59 Morphine Sulfate (morPHINE 2MG SYG) 2 mg ONCE STAT IVP 03/21/25 14:27 03/21/25 14:31 DC 03/21/25 14:46 2 MG Nitroglycerin (Nitrostat) 0.4 mg PROTOCOL PRN SL CHEST PAIN 03/21/25 16:00 04/20/25 15:59 Ondansetron HCl (zoFRAN 4MG INJ) 4 mg Q6H PRN IV NAUSEA/VOMITING 03/21/25 16:00 04/20/25 15:59 Oxycodone/ Acetaminophen (perCOCET) 1 tab Q6H PRN PO SEVERE PAIN (7-10) 03/21/25 16:00 03/22/25 08:52 DC Pharmacy Profile Note (Pharmacy Communication) 1 each AD MISC 03/22/25 09:00 03/22/25 08:52 DC Piperacillin Sod/ Tazobactam Sod 50 ml @ 12.5 mls/hr ZOSY8 IV 03/21/25 21:00 03/31/25 20:59 03/22/25 12:52 12.5 MLS/HR Sodium Chloride 1,000 ml @ 125 mls/hr Q8H IV 03/21/25 16:00 04/20/25 15:59 03/22/25 12:13 100 MLS/HR Zolpidem Tartrate (AmbIEN) 5 mg HS PRN PO INSOMNIA 03/21/25 16:00 04/20/25 15:59 DIAGNOSTICS / RADIOLOGY: PROCEDURE: ECHO CMP - ECHO 2-D COMPLETE APPROVED REPORT EXAM: Two-dimensional and M-mode echocardiogram with Doppler and color Doppler. INDICATION ICD: Congetive heart failure 2D Dimensions RVDd 3.4 cm LVEF(%) 76.2 (>50%) LVED Vol(simp.) 68.0 mL IVSd 1.1 (0.7-1.1cm) FS(%) 45 % LVES Vol(simp.) 27.0 mL LVDd 4.4 (3.8-5.6cm) LA (2D) 4.0 (1.6-4.0cm) LVEF(%, simp.) 60 % PWd 1.7 (0.7-1.1cm) Ao Root(2D) 3.4 (2.0-3.7cm) LA ESV INDEX (BP) 16.43 mL/m2 LVDs 2.4 (2.5-4.0cm) LVOT diam 2.4 (1.8-2.4cm) IVC diam 2.5 cm Deformation Strain Apical 4 -13.4 % Apical 2 -10.9 % Apical 3 -18.5 % Global Strain -14.3 % M-Mode Dimensions EPSS 1.0 cm LA (MM) 5.1 (1.6-4.0cm) Ao Root(MM) 3.5 (2.0-3.7cm) Aortic Valve AoV Vmax 1.4 m/s Ao Peak GR 8.2 mmHg LVOT Vmax 1.1 m/s AoV VTI 0.2 m Ao Mean GR 5.3 mmHg LVOT VTI 0.15 m JOEY (VMAX) 3.40 cm2 JOEY (VTI) 3.4 cm2 Mitral Valve MV E Vmax 110.9 cm/s DECEL Time 113 ms MV A Vmax 54.7 cm/s E/A ratio 2.0 TDI E/E' Medial 13.8 E/E' Lateral 13.8 Lateral E' Peak V 8.02 cm/s Pulmonary Valve PV Vmax 1.4 m/s PV VTI 0.19 m PV Mean GR 3.8 mmHg PV Peak GR 7.9 mmHg Tricuspid Valve RAP (EST) 8 mmHg RVSP 8.0 mmHg Left Ventricle The left ventricle is normal size. Hyperdynamic left ventricular wall motion noted. No regional wall motion abnormalities noted. There is moderate left ventricular wall thickness. LVEF is 60-65%. The LV diastolic function was unable to be assessed due to atrial arrhythmia. Right Ventricle The right ventricle is normal size. There is mild right ventricular wall thickness. Right ventricular systolic function could not be assessed. Atria The left atrium size is normal. The right atrium size is normal. Aortic Valve The aortic valve appears to open well. No aortic regurgitation is present. There is no aortic valvular stenosis. Mitral Valve Mitral valve is not well visualized. There is no mitral valve regurgitation noted. There is no mitral valve stenosis. Tricuspid Valve The tricuspid valve leaflets appear normal. There is trace of tricuspid valve regurgitation noted. Pulmonic Valve Pulmonic valve is not well visualized. There is no pulmonic valvular regurgitation. Great Vessels The aortic root is normal in size. The IVC is normal in size and collapses <50% with inspiration. Pericardium Epircardial fat noted. Other Information Quality : Technically difficult challenging study due to body habitus Conclusion LVEF is 60-65%. Hyperdynamic left ventricular wall motion noted. No regional wall motion abnormalities noted. The right ventricle is normal size. The aortic root is normal in size. DICTATED BY: MAISHA HOLLOWAY MD DATE: 03/22/25 0710 ELECTRONICALLY SIGNED BY: MAISHA HOLLOWAY MD PROCEDURE: ABD PEL W - CT ABDOMEN/PELVIS W/CONTRAST CT ABDOMEN/PELVIS W/CONTRAST HISTORY: Abdominal pain COMPARISON: 10/11/2012 TECHNIQUE: Multiple sequential axial images of the abdomen and pelvis were obtained from the dome of the diaphragm through symphysis pubis. Patient was not given contrast through intravenous route. Oral contrast was not given. FINDINGS: No pleural effusion is seen bilaterally. There is no evidence of parenchymal disease or pulmonary nodule of the visualized lower lungs. Degenerative changes of the thoracolumbar spine are present. The heart is not enlarged. Coronary artery calcifications are seen. Gallbladder is distended. Liver is enlarged measuring 18 cm. There is left renal cyst measuring 10 cm. There is roughening and cyst measures 6.3 cm. There is right adrenal mass measuring 6 x 5.4 cm. There are extensive retroperitoneal adenopathy and mesenteric adenopathy. Neoplastic process is suspected. There are perinephric nodular densities bilaterally. The liver, spleen, adrenal glands and pancreas are unremarkable. There is no evidence of hydronephrosis bilaterally. No evidence of renal stone is seen. Fecal material is seen in the colon. There are normal size retroperitoneal and mesenteric lymph nodes. No ascites is seen. Atherosclerotic changes are present. Pelvic sidewalls are symmetric bilaterally. Bladder is poorly distended. There is left inguinal hernia with fat content. IMPRESSION: 1. Right adrenal mass measuring 6 x 5.4 cm. 2. Retroperitoneal and mesenteric adenopathy suspicious for neoplastic process. Nodular densities are seen bilaterally. Bilateral renal cysts. 3. Distended gallbladder. CT was performed with one or more following dose reduction techniques: automated exposure control, adjustment of the mA and kv according to patient's size, or use of a iterative reconstruction technique. DICTATED BY: NARAYAN OLSEN MD DATE: 03/21/251410 ELECTRONICALLY SIGNED BY: NARAYAN OLSEN MD DATE: 03/21/25 141 ASSESSMENT: Hypercalcemia POA Right adrenal mass measuring 6 x 5.[address] abdomen/pelvis Retroperitoneal and mesenteric adenopathy suspicious for neoplastic process per CT abdomen/pelvis POARecent lymph node biopsy 03/13/2025 Intractable abdominal pain POA Acute dehydration POA Failure to thrive POA Acute metabolic encephalopathy POA Severe malnutrition POA Acute kidney injury POA Uncontrolled hypertension POA Leukocytosis WBC 13.6 POA Multifactorial anemia POA Bilateral renal cysts as per CT abdomen/pelvis Chronic Problem: Uncontrolled diabetes mellitus type 2 with hypoglycemia POA Hyperlipidemia POA History of Prostate cancer POA GERD POA Coronary Artery Disease POA Morbid obesity POA History of COVID POA PLAN: Admitted to medical floor Hypercalcemia POA Right adrenal mass measuring 6 x 5.[address] abdomen/pelvis Retroperitoneal and mesenteric adenopathy suspicious for neoplastic process per CT abdomen/pelvis POA Recent lymph node biopsy 03/13/2025 Intractable abdominal pain POA Hypercalcemia possibly secondary to underlying unknown malignancy Continue calcitonin and pamidronate Patient has first-degree AV block-possibly secondary to hypercalcemia: we will repeat EKG Oncology recommendations appreciated;Pending lymph node biopsy records from elsewhere Continue telemetry Failure to thrive POA Acute metabolic encephalopathy POA Severe malnutrition POA Acute kidney injury POA Acute dehydration POA Patient with history of dysphagia, dry mouth, decreased appetite, weight loss Continue IV fluids We will request Nephrology consultation We will be monitoring the labs Strict I/O chart Chest x-ray mild bilateral pulmonary infiltrate are seen may be related to mild pulmonary vascular congestion with possible superimposed pneumonitis-obtain a CT chest. Other: Supplemental 02 as needed BiPAP as necessary, for respiratory distress Titrate Fio2 to keep Spo2 > or = 90% DuoNeb�s and CPT as needed Maintain aspiration precautions at all times Vital signs per facility protocol Prokinetic agents and laxatives as needed Daily weights Avoid nephrotoxic agents Monitor electrolytes and replace as needed Goal urine output of 30mL/hr or 0.5mL/kg/hr Medications to be dosed according to renal function. Avoid contrast if possible Maintain blood glucose between 100-180 at all times. Insulin sliding scale for blood glucose management Hypoglycemia and hyperglycemia protocol in place Trend temperature, WBC and procalcitonin level Follow cultures, deescalate antibiotics as soon as possible. Panculture if new onset fever Monitor H&H. Keep Hgb > 7 Pressure ulcer prevention per facility protocol Specialty mattress as needed Treatment plan discussed with patient and family at the bedside Medications to be reconciled once obtained by patient and/or family and available to be reconciled in computer p.r.n. medication for pain nausea and vomiting Back Pad Inspector for disposition Rehab: PT/OT GI: PPI DVT: SCD's Code Status: Full Resuscitation Disposition: TBD Prognosis: Guarded ATTESTATION BY PHYSICIAN I have seen and examined the patient. I reviewed the documentation, medical decision making, and treatment plan as noted by the resident provider above. I agree with the findings and plan of care. LILO JACOBO MD, MD March 22, 2025 17:30
--- NOTE | 2025-03-22 17:30 | NUR ---
Discharge Planning: Pt. states he lives with his spouse Trudi Jose. Contact number is . PCP is Dr. Jayce Haskins in [place], and preferred pharmacy is [facility]. Pt. states he is independent with ADL's. States he has a walker and a cane at home that he does not use. No home health or provider services. DCP is for home depending on patient's progress. No d/c needs at this time. Addendum: 03/22/25 at 1733 by STEPHANIE DAVILA RN CM Amended: Links added.
[2025-03-22] MEDS: PAMIDRONATE DISODIUM 90MG VIAL 90 MG in 0.9%NACL 1000ML 1,000 ML IV ONE (17:36)
[2025-03-22] MEDS ORDERED: PoTASSium chloRIDE 10MEQ/100ML 100 ML IV PRN (18:00)
[2025-03-22] MEDS: PoTASSium chloRIDE 20MEQ ER 20 MEQ ERTAB PO PRN (18:22)
--- NOTE | 2025-03-22 19:09 | HMCIMG ---
CT CHEST W/O CONTRAST HISTORY: Hypercalcemia COMPARISON: 03/21/2005 TECHNIQUE: Multiple sequential axial images of the chest were obtained from the thoracic inlet through upper abdomen. Patient was not given contrast through intravenous route. FINDINGS: Tiny bilateral pleural effusions are seen. There are mild interstitial fibrosis. Coronary arterial calcifications are seen. There is retroperitoneal adenopathy There is no evidence of pneumothorax. There are normal size mediastinal and hilar lymph nodes. The heart is not enlarged. Degenerative changes of the thoracolumbar spine are present. There is right adrenal mass not completely well visualized. IMPRESSION: 1. Tiny bilateral pleural effusions. Mild interstitial fibrosis. Right adrenal mass. CT was performed with one or more following dose reduction techniques: automated exposure control, adjustment of the mA and kv according to patient's size, or use of a iterative reconstruction technique.
--- NOTE | 2025-03-22 22:30 | NUR ---
RADIOLOGY TO RADIOLOGY FOR VQ SCAN ORDERED VIA BED
--- NOTE | 2025-03-22 23:15 | NUR ---
RADIOLOGY BACK FROM RADIOLOGY VIA BED, VQSCAN
--- NOTE | 2025-03-22 23:35 | CONS ---
REASON FOR CONSULTATION: Renal failure, electrolyte problem. HISTORY OF PRESENT ILLNESS: The patient is admitted from the Emergency Room. The patient has underlying diabetes, hypertension, hyperlipidemia, and prostate cancer. The patient has underlying weakness, complaining of abdominal pain. The patient mass was found, right adrenal mass. The patient apparently was getting workup in [facility] for these things. The patient has been followed by oncologist because of abdominal masses. The patient has bilateral renal cysts detected. PAST MEDICAL HISTORY: Diabetes, hypertension, hyperlipidemia, COVID infection, right adrenal mass, renal cyst, GERD, coronary artery disease, hyperlipidemia, BPH, and obesity. PAST SURGICAL HISTORY: Lymph node biopsy, colonoscopy reported. SOCIAL HISTORY: No smoking, alcohol now. Quit smoking several years back. No drug abuse. FAMILY HISTORY: Not pertinent. ALLERGIES: No allergies. REVIEW OF SYSTEMS: CONSTITUTIONAL: Has weakness. No fevers, chills, or rigors. HEENT: With no headache, oral ulcer, sore throat, or difficulty swallowing. No new vision complaints. RESPIRATORY: No cough, expectoration, hemoptysis, or pleuritic pain. CARDIOVASCULAR: Has no orthopnea or PND. GASTROINTESTINAL: Negative for nausea, vomiting, or diarrhea reported. GENITOURINARY: Negative for dysuria or hematuria. DERMATOLOGIC: No rashes, pruritus, or skin lesion. NEUROLOGIC: No seizure or syncope. ENDOCRINE: No polyuria, polydipsia, or polyphagia. PSYCHIATRIC: Negative for anxiety or depression at this time. PHYSICAL EXAMINATION: GENERAL: Lying in bed. VITAL SIGNS: Blood pressure is 130/65, pulse is 80, respiratory rate is 80, afebrile. HEENT: Head is atraumatic, normocephalic. Pupils are round and reactive. Sclerae are anicteric. Conjunctivae are not pale. Oral mucosa is not dry. NECK: Without masses or bruits. Thyroid is palpable. Neck has no bruits. CHEST: Shows equal thoracic percussion note being resonant in all areas. CARDIAC: Regular rhythm. No rub, no S3 or S4, no parasternal heave. ABDOMEN: No guarding, tenderness. Bowel sounds are normoactive. No free fluid. EXTREMITIES: With no edema and no cyanosis or clubbing. BACK: No tenderness or back deformities. LYMPHATIC: With no lymph node swelling in neck or axillary area. LABORATORY DATA: Labs have been reviewed in detail. Hemoglobin is 12.4, hematocrit is 36. Low potassium of 3.2 and old records have been reviewed. Serologies are reviewed. COVID is negative. Influenza negative. Urine has shown mild proteinuria. We have reviewed the calcium level, is high up to 15.1. PTH is low up to 5.2. IMAGING STUDIES: Reviewed personally. Chest CT has been done with no acute findings, with mild interstitial infiltrate and pleural effusion. Echocardiogram has shown normal ejection fraction of 60-65% and old records have been reviewed. [facility] records have been reviewed. On CT scan, right adrenal mass is there. There is some lymphadenopathy present. There are renal cysts detected bilateral. Old records have been reviewed. We have discussed with the team members and imaging studies are personally reviewed. PROBLEMS: * The patient has acute renal failure. * Severe hypercalcemia. * Right adrenal mass with retroperitoneal lymph nodes and mesenteric lymph nodes. * The patient has abdominal pain. * Encephalopathy. * Hypertension. * Diabetes with possibly nephropathy. * Polycystic bilateral renal cyst disease. * Anemia. * The patient has multiple other comorbidities as described above. The patient is critically ill. PLAN: * This patient is being admitted and the patient's plan will be, I have reviewed the labs, x-rays, imaging studies, and echocardiogram personally, interpreted. * The patient will get IV hydration with possibly normal saline. * Has been given pamidronate and calcitonin. * Calcium levels should be closely monitored. * Oncology evaluation is in progress. * Nonsteroidal drug to be avoided. Doses of medicine to be adjusted. * IV Dilaudid 0.5 mg q. 6 can be used for pain. * The patient will continue with supportive care. Continue follow up on renal function. Urine output to be monitored. Intake, output, weight to be monitored. Please avoid contrast and nonsteroidal drug. The patient can get PTH-related peptide, as well as vitamin D level and ionized calcium. We will be following up on renal function, electrolytes, and overall status. Previous records, external records, [facility] records have been reviewed and I will suggest to have a closely monitor on all these issues. Condition is critical and guarded. Thank you for this patient. TID: [id number] RECEIPT: [id number]
[2025-03-22 23:47] LABS: CREATININE,URINE RANDOM 162.47 mg/dL (30-135)
--- NOTE | 2025-03-23 00:24 | HMCIMG ---
NM PULMONARY/LUNG VQ SCAN HISTORY: Shortness of breath COMPARISON: None TECHNIQUE: Ventilation study was performed with 5 mCi of Xenon gas through inhalation route. Perfusion lung imaging study was performed with 5 mCi of technetium macroaggregated through intravenous route. FINDINGS: There is no evidence of segmental or subsegmental perfusion defect. Nonsegmental perfusion defects are also present. IMPRESSION: 1. Low probability for pulmonary embolus.
[2025-03-23 04:00] VITALS: BP 143/75; PULSE 95; RESP 20; TEMP 98.5
[2025-03-23 04:37] LABS: BASOPHILS # (AUTO) 0.03 K/uL (0.00-0.20); BASOPHILS % (AUTO) 0.3 % (0.0-5.0); EOSINOPHILS # (AUTO) 0.08 K/uL (0.00-0.70); EOSINOPHILS % (AUTO) 0.9 % (0.0-8.0); HEMATOCRIT 34.2 % (42-54); IMMATURE GRANULOCYTE ABSOLUTE 0.06 K/uL (0-1); LYMPHOCYTES # (AUTO) 0.8 K/uL (1.0-4.8); LYMPHOCYTES % (AUTO) 8.5 % (21.0-51.0); MEAN CORPUSCULAR HEMOGLOBIN 29.9 pg (27.0-33.0); MEAN CORPUSCULAR HGB CONC 34.8 g/dL (32.0-36.0); MEAN CORPUSCULAR VOLUME 85.9 fL (79-99); MONOCYTES # (AUTO) 0.8 K/uL (0.1-1.0); MONOCYTES % (AUTO) 8.4 % (3.0-13.0); NEUTROPHILS # (AUTO) 7.4 K/uL (1.8-7.7); NEUTROPHILS % (AUTO) 81.2 % (40.0-77.0); PLATELET COUNT (AUTO) 212 K/uL (130-400); RED BLOOD CELL COUNT(AUTO) 3.98 MIL/uL (4.50-6.20); RED CELL DISTRIBUTION WIDTH 13.3 % (11.0-15.5); WHITE BLOOD COUNT (AUTO) 9.2 K/uL (4.8-10.8)
[2025-03-23 04:58] LABS: ALBUMIN 2.8 g/dL (3.5-5.0); BILIRUBIN,TOTAL 0.9 mg/dL (0.2-1.0); CREATININE 1.9 mg/dL (0.5-1.3); MAGNESIUM 1.6 mg/dL (1.80-2.40); PHOSPHORUS 1.3 mg/dL (2.5-4.9); POTASSIUM 3.4 mmol/L (3.5-5.1); TOTAL PROTEIN, SERUM 6.1 g/dL (6.0-8.3); URIC ACID 9.1 mg/dL (2.6-7.2)
[2025-03-23 07:59] VITALS: BP 150/91; PULSE 102; RESP 20; TEMP 98
[2025-03-23 08:00] VITALS: O2SAT 95
[2025-03-23] MEDS: Vitamin B Complex/Vit C/Folic Acid PO SCH (09:47)
--- NOTE | 2025-03-23 10:15 | PN ---
NEPHROLOGY PROGRESS NOTE Date/Time Patient Seen: March 23, 2025 SUBJECTIVE: This is a 74 years old male with a past medical history of hypertension, diabetes, cholesterol, GERD, prostate cancer with to, obstructive sleep apnea, COVID. He presented to the emergency department with a complaining of generalized body weakness, loss of appetite and lower abdominal pain. The patient was found to have adrenal mass, right adrenal mass. The patient has been followed by oncologist because of abdominal masses. The patient has bilateral renal cysts detected. He was noted with hypercalcemia and renal failure Renal function remains elevated He has received one dose of has been ordered and calcitonin. Calcium level today is 14.6 mg/dL He continues on gentle IV hydration Continues to be followed by Oncology. Nurse and family at the bedside reports loss of appetite and altered mental status. He was seen in the medical floor Family at the bedside REVIEW OF SYSTEMS: Unable to obtain due to patient's status Vital Signs (last 8hr) Date Time Temp Pulse Resp B/P (MAP) Pulse Ox O2 Delivery O2 Flow Rate FiO2 03/23/25 07:59 98.1 102 20 150/91 95 Room Air 03/23/25 04:00 98.4 95 20 143/75 94 Room Air PHYSICAL EXAM: GENERAL: Lethargic, pale. No acute distress. Well-nourished. EYES: EOMI. Anicteric. HENT: Moist mucous membranes. No scleral icterus. No cervical lymphadenopathy. LUNGS: Clear to auscultation bilaterally. No accessory muscle use. CARDIOVASCULAR: Regular rate and rhythm. No murmur. No JVD. ABDOMEN: Soft, non-tender and non-distended. No palpable masses. EXTREMITIES: No edema. Non-tender. SKIN: No rashes or lesions. Warm. NEUROLOGIC: No focal neurological deficits. CN II-XII grossly intact, but not individually tested. PSYCHIATRIC: Cooperative. Appropriate mood and affect. Current Medications Medications (Trade) Dose Ordered Sig/Katie Route PRN Reason Start Time Stop Time Status Last Admin Dose Admin Acetaminophen (TYLenol 325MG TAB) 650 mg Q4H PRN PO MILD PAIN (1-3) 03/21/25 16:00 04/20/25 15:59 Acetaminophen (TYLenol 325MG TAB) 650 mg Q6H PRN PO MILD PAIN (1-3) 03/21/25 16:00 03/21/25 15:51 DC Acetaminophen (TYLenol 325MG TAB) 650 mg Q6H PRN PO TEMPERATURE GREATER THAN 101.5 03/21/25 16:00 04/20/25 15:59 Al Hydroxide/Mg Hydroxide (MAALox PLUS 30ML) 30 ml Q6H PRN PO INDIGESTION 03/21/25 16:00 04/20/25 15:59 Dextrose (D50w) 50 ml AD PRN IV HYPOGLYCEMIA PROTOCOL 03/21/25 16:00 04/20/25 15:59 Diphenhydramine HCl (BENAdryl INJ) 25 mg Q6H PRN IV SEVERE ITCHING/RASH 03/21/25 16:00 04/20/25 15:59 Famotidine (Pepcid 20mg Vial) 20 mg BID PRN IV NAUSEA/VOMITING 03/21/25 16:00 03/21/25 15:51 DC Famotidine (Pepcid 20mg Vial) 20 mg DAILY IV 03/22/25 09:00 04/21/25 08:59 03/23/25 09:47 20 MG Glucagon (Glucagon 1mg Kit) 1 mg AD PRN IM HYPOGLYCEMIA PROTOCOL 03/21/25 16:00 04/20/25 15:59 Guaifenesin/ Dextromethorphan (RobiTUSSin DM 200/20MG 10ML) 10 ml Q4H PRN PO COUGH 03/21/25 16:00 04/20/25 15:59 Heparin Sodium (Porcine) (HEParin 5,000 UNIT VIAL) 5,000 unit BID SQ 03/21/25 21:00 04/20/25 20:59 03/23/25 09:54 5,000 UNIT Hydralazine HCl (APRESOLine 20MG INJ) 10 mg Q6H PRN IV For:SBP above 160;DBP above 90 03/21/25 16:00 04/20/25 15:59 Insulin Human Regular (humuLIN R 100 UNIT/ML 3ML) INSULIN SLIDING SCAL... ACHS SQ 03/21/25 16:30 04/20/25 16:29 Ketorolac Tromethamine (toRADol) 15 mg Q8H PRN IV MODERATE PAIN (4-6) 03/21/25 16:00 03/26/25 15:59 03/23/25 04:02 15 MG Lactated Ringer's 1,000 ml @ 100 mls/hr Q10H STAT IV 03/21/25 13:13 03/21/25 13:22 DC Lactulose (Constulose 20gm/ 30ml Udcup) 20 gm BID PRN PO CONSTIPATION 03/21/25 16:00 04/20/25 15:59 Magnesium Sulfate 50 ml @ 0 mls/hr PROTOCOL PRN IV other 03/21/25 16:00 04/20/25 15:59 03/23/25 06:09 25 MLS/HR Morphine Sulfate (morPHINE 2MG SYG) 1 mg Q4H PRN IVP SEVERE PAIN (7-10) 03/21/25 16:00 03/28/25 15:59 Morphine Sulfate (morPHINE 2MG SYG) 2 mg ONCE STAT IVP 03/21/25 14:27 03/21/25 14:31 DC 03/21/25 14:46 2 MG Nitroglycerin (Nitrostat) 0.4 mg PROTOCOL PRN SL CHEST PAIN 03/21/25 16:00 04/20/25 15:59 Ondansetron HCl (zoFRAN 4MG INJ) 4 mg Q6H PRN IV NAUSEA/VOMITING 03/21/25 16:00 04/20/25 15:59 Oxycodone/ Acetaminophen (perCOCET) 1 tab Q6H PRN PO SEVERE PAIN (7-10) 03/21/25 16:00 03/22/25 08:52 DC Pharmacy Profile Note (Pharmacy Communication) 1 each AD MISC 03/22/25 09:00 03/22/25 08:52 DC Piperacillin Sod/ Tazobactam Sod 50 ml @ 12.5 mls/hr ZOSY8 IV 03/21/25 21:00 03/31/25 20:59 03/23/25 04:04 12.5 MLS/HR Potassium Chloride 100 ml @ 100 mls/hr AD PRN IV POTASSIUM PROTOCOL 03/22/25 18:00 04/21/25 17:59 Potassium Chloride (K-Dur/Klor-Con 20meq) 10 meq AD PRN PO POTASSIUM PROTOCOL 03/22/25 18:30 04/21/25 18:29 03/23/25 06:08 10 MEQ Potassium Chloride (KCl 10% Elixir 20meq/15ml) 10 meq AD PRN PO POTASSIUM PROTOCOL 03/22/25 18:30 04/21/25 18:29 Sodium Chloride 1,000 ml @ 125 mls/hr Q8H IV 03/21/25 16:00 04/20/25 15:59 03/23/25 03:57 125 MLS/HR Vitamin B Complex/ Vit C/Folic Acid (Nephrovite Tablet) 1 cap DAILY PO 03/23/25 09:00 04/22/25 08:59 03/23/25 09:47 1 CAP Zolpidem Tartrate (AmbIEN) 5 mg HS PRN PO INSOMNIA 03/21/25 16:00 04/20/25 15:59 LABORATORY: [ ] Hematology Labs: Test 03/23/25 04:21 03/22/25 04:27 Range/Units White Blood Count 9.2 4.8-10.8 K/uL Red Blood Count 3.98 L 4.50-6.20 MIL/uL Hemoglobin 11.9 L 14.0-18.0 g/dL Hematocrit 34.2 L 42-54 % Mean Corpuscular Volume 85.9 79-99 fL Mean Corpuscular Hemoglobin 29.9 27.0-33.0 pg Mean Corpuscular Hemoglobin Concent 34.8 32.0-36.0 g/dL Red Cell Distribution Width 13.3 11.0-15.5 % Platelet Count 212 130-400 K/uL Mean Platelet Volume 10.6 H 7.5-10.5 fL Immature Granulocyte % (Auto) 0.7 0-1 % Neutrophils (%) (Auto) 81.2 H 40.0-77.0 % Lymphocytes (%) (Auto) 8.5 L 21.0-51.0 % Monocytes (%) (Auto) 8.4 3.0-13.0 % Eosinophils (%) (Auto) 0.9 0.0-8.0 % Basophils (%) (Auto) 0.3 0.0-5.0 % Neutrophils # (Auto) 7.4 1.8-7.7 K/uL Lymphocytes # (Auto) 0.8 L 1.0-4.8 K/uL Monocytes # (Auto) 0.8 0.1-1.0 K/uL Eosinophils # (Auto) 0.08 0.00-0.70 K/uL Basophils # (Auto) 0.03 0.00-0.20 K/uL Absolute Immature Granulocyte (auto 0.06 0-1 K/uL Nucleated Red Blood Cells 0.0 0.0-0.19 % White Cell Morphology Comment See comments Chemistry Labs: Test 03/23/25 05:15 03/23/25 04:21 03/22/25 15:00 03/22/25 14:40 Range/Units Whole Blood Glucose 109 70-110 MG/DL Sodium Level 140 136-145 mmol/L Potassium Level 3.4 L 3.5-5.1 mmol/L Chloride Level 106 101-111 mmol/L Carbon Dioxide Level 27 21-32 mmol/L Blood Urea Nitrogen 24 H 7-18 mg/dL Creatinine 1.9 H 0.5-1.3 mg/dL Glomerular Filtration Rate Calc 37 >90 mL/min Random Glucose 120 H 70-105 mg/dL Lactic Acid Level 1.8 0.8-2.5 mmol/L Uric Acid 9.1 H 2.6-7.2 mg/dL Total Calcium 14.6 *H 8.5-10.1 mg/dL Phosphorus Level 1.3 L 2.5-4.9 mg/dL Magnesium Level 1.60 L 1.80-2.40 mg/dL Total Bilirubin 0.9 0.2-1.0 mg/dL Aspartate Amino Transf (AST/SGOT) 29 10-37 U/L Alanine Aminotransferase (ALT/SGPT) 41 12-78 U/L Alkaline Phosphatase 60 50-136 U/L C-Reactive Protein, Quantitative 25.60 H 0.5-3.0 mg/L Total Protein 6.1 6.0-8.3 g/dL Albumin 2.8 L 3.5-5.0 g/dL Troponin I High Sensitivity 66 4-75 ng/L Thyroid Stimulating Hormone (TSH) 2.11 0.36-3.74 uIU/mL Test 03/22/25 04:27 03/21/25 12:54 Range/Units Hemoglobin A1c 5.6 4.0-6.0 % Estimated Average Glucose (eAG) 114 70-126 mg/dL Direct Bilirubin 0.2 0.0-0.3 mg/dL Ammonia < 10 L 11-32 umol/L Total Creatine Kinase 36 # 21-232 U/L B-Type Natriuretic Peptide 98 0-100 pg/mL Vitamin D 25-Hydroxy 29.9 30.0-100.0 ng/mL Procalcitonin 0.27 0.05-0.5 ng/mL Parathyroid Hormone (Intact) 5.2 15-65 pg/mL Lipase 12 L 16-77 U/L Coagulation Labs: Test 03/22/25 04:27 Range/Units Prothrombin Time 11.5 9.6-11.6 SEC Prothromb Time International Ratio 1.09 0.85-1.15 DIAGNOSTICS / RADIOLOGY: REASON: SOB , HYPERCALCEMIA, H/O PROSTATE CA ORDERING PHYSICIAN: LILO REYES MD PROCEDURE: PULM VQ - NM PULMONARY/LUNG VQ SCAN NM PULMONARY/LUNG VQ SCAN HISTORY: Shortness of breath COMPARISON: None TECHNIQUE: Ventilation study was performed with 5 mCi of Xenon gas through inhalation route. Perfusion lung imaging study was performed with 5 mCi of technetium macroaggregated through intravenous route. FINDINGS: There is no evidence of segmental or subsegmental perfusion defect. Nonsegmental perfusion defects are also present. IMPRESSION: 1. Low probability for pulmonary embolus. DICTATED BY: NARAYAN OLSEN MD DATE: 03/23/25 0019 REASON: HYPERCALCEMIA, LUNG INFILTRATES ON CXR ORDERING PHYSICIAN: LILO REYES MD PROCEDURE: CHEST WO - CT CHEST W/O CONTRAST CT CHEST W/O CONTRAST HISTORY: Hypercalcemia COMPARISON: 03/21/2005 TECHNIQUE: Multiple sequential axial images of the chest were obtained from the thoracic inlet through upper abdomen. Patient was not given contrast through intravenous route. FINDINGS: Tiny bilateral pleural effusions are seen. There are mild interstitial fibrosis. Coronary arterial calcifications are seen. There is retroperitoneal adenopathy There is no evidence of pneumothorax. There are normal size mediastinal and hilar lymph nodes. The heart is not enlarged. Degenerative changes of the thoracolumbar spine are present. There is right adrenal mass not completely well visualized. IMPRESSION: 1. Tiny bilateral pleural effusions. Mild interstitial fibrosis. Right adrenal mass. CT was performed with one or more following dose reduction techniques: automated exposure control, adjustment of the mA and kv according to patient's size, or use of a iterative reconstruction technique. DICTATED BY: NARAYAN OLSEN MD DATE: 03/22/25 190 REASON: chf ORDERING PHYSICIAN: IGNACIO GONZALEZ APRN PROCEDURE: ECHO CMP - ECHO 2-D COMPLETE APPROVED REPORT EXAM: Two-dimensional and M-mode echocardiogram with Doppler and color Doppler. INDICATION ICD: Congetive heart failure 2D Dimensions RVDd 3.4 cm LVEF(%) 76.2 (>50%) LVED Vol(simp.) 68.0 mL IVSd 1.1 (0.7-1.1cm) FS(%) 45 % LVES Vol(simp.) 27.0 mL LVDd 4.4 (3.8-5.6cm) LA (2D) 4.0 (1.6-4.0cm) LVEF(%, simp.) 60 % PWd 1.7 (0.7-1.1cm) Ao Root(2D) 3.4 (2.0-3.7cm) LA ESV INDEX (BP) 16.43 mL/m2 LVDs 2.4 (2.5-4.0cm) LVOT diam 2.4 (1.8-2.4cm) IVC diam 2.5 cm Deformation Strain Apical 4 -13.4 % Apical 2 -10.9 % Apical 3 -18.5 % Global Strain -14.3 % M-Mode Dimensions EPSS 1.0 cm LA (MM) 5.1 (1.6-4.0cm) Ao Root(MM) 3.5 (2.0-3.7cm) Aortic Valve AoV Vmax 1.4 m/s Ao Peak GR 8.2 mmHg LVOT Vmax 1.1 m/s AoV VTI 0.2 m Ao Mean GR 5.3 mmHg LVOT VTI 0.15 m JOEY (VMAX) 3.40 cm2 JOEY (VTI) 3.4 cm2 Mitral Valve MV E Vmax 110.9 cm/s DECEL Time 113 ms MV A Vmax 54.7 cm/s E/A ratio 2.0 TDI E/E' Medial 13.8 E/E' Lateral 13.8 Lateral E' Peak V 8.02 cm/s Pulmonary Valve PV Vmax 1.4 m/s PV VTI 0.19 m PV Mean GR 3.8 mmHg PV Peak GR 7.9 mmHg Tricuspid Valve RAP (EST) 8 mmHg RVSP 8.0 mmHg Left Ventricle The left ventricle is normal size. Hyperdynamic left ventricular wall motion noted. No regional wall motion abnormalities noted. There is moderate left ventricular wall thickness. LVEF is 60-65%. The LV diastolic function was unable to be assessed due to atrial arrhythmia. Right Ventricle The right ventricle is normal size. There is mild right ventricular wall thickness. Right ventricular systolic function could not be assessed. Atria The left atrium size is normal. The right atrium size is normal. Aortic Valve The aortic valve appears to open well. No aortic regurgitation is present. There is no aortic valvular stenosis. Mitral Valve Mitral valve is not well visualized. There is no mitral valve regurgitation noted. There is no mitral valve stenosis. Tricuspid Valve The tricuspid valve leaflets appear normal. There is trace of tricuspid valve regurgitation noted. Pulmonic Valve Pulmonic valve is not well visualized. There is no pulmonic valvular re gurgitation. Great Vessels The aortic root is normal in size. The IVC is normal in size and collapses <50% with inspiration. Pericardium Epircardial fat noted. Other Information Quality : Technically difficult challenging study due to body habitus Conclusion LVEF is 60-65%. Hyperdynamic left ventricular wall motion noted. No regional wall motion abnormalities noted. The right ventricle is normal size. The aortic root is normal in size. DICTATED BY: MAISHA HOLLOWAY MD DATE: 03/22/25 0710 REASON: chest pain ORDERING PHYSICIAN: JYOTHI MERCHANT DO PROCEDURE: CXR1VW - CHEST 1VW CHEST 1VW HISTORY: Chest pain COMPARISON: None FINDINGS: A frontal projection of the chest was obtained. Mild bilateral pulmonary infiltrates are seen may be related to mild pulmonary vascular congestion with possible superimposed pneumonitis. The heart is borderline enlarged. Degenerative changes are seen. No evidence of aortic calcification is seen. IMPRESSION: 1. Mild bilateral pulmonary infiltrates are seen may be related to mild pulmonary vascular congestion with possible superimposed pneumonitis. DICTATED BY: NARAYAN OLSEN MD DATE: 03/21/25 1434 REASON: Abdominal Pain ORDERING PHYSICIAN: JYOTHI MERCHANT DO PROCEDURE: ABD PEL W - CT ABDOMEN/PELVIS W/CONTRAST CT ABDOMEN/PELVIS W/CONTRAST HISTORY: Abdominal pain COMPARISON: 10/11/2012 TECHNIQUE: Multiple sequential axial images of the abdomen and pelvis were obtained from the dome of the diaphragm through symphysis pubis. Patient was not given contrast through intravenous route. Oral contrast was not given. FINDINGS: No pleural effusion is seen bilaterally. There is no evidence of parenchymal disease or pulmonary nodule of the visualized lower lungs. Degenerative changes of the thoracolumbar spine are present. The heart is not enlarged. Coronary artery calcifications are seen. Gallbladder is distended. Liver is enlarged measuring 18 cm. There is left renal cyst measuring 10 cm. There is roughening and cyst measures 6.3 cm. There is right adrenal mass measuring 6 x 5.4 cm. There are extensive retroperitoneal adenopathy and mesenteric adenopathy. Neoplastic process is suspected. There are perinephric nodular densities bilaterally. The liver, spleen, adrenal glands and pancreas are unremarkable. There is no evidence of hydronephrosis bilaterally. No evidence of renal stone is seen. Fecal material is seen in the colon. There are normal size retroperitoneal and mesenteric lymph nodes. No ascites is seen. Atherosclerotic changes are present. Pelvic sidewalls are symmetric bilaterally. Bladder is poorly distended. There is left inguinal hernia with fat content. IMPRESSION: 1. Right adrenal mass measuring 6 x 5.4 cm. 2. Retroperitoneal and mesenteric adenopathy suspicious for neoplastic process. Nodular densities are seen bilaterally. Bilateral renal cysts. 3. Distended gallbladder. CT was performed with one or more following dose reduction techniques: automated exposure control, adjustment of the mA and kv according to patient's size, or use of a iterative reconstruction technique. DICTATED BY: NARAYAN OLSEN MD DATE: 03/21/25 1411 ASSESSMENT: Hypercalcemia Right adrenal mass measuring 6 x 5.[address] abdomen/pelvis Retroperitoneal and mesenteric adenopathy suspicious for neoplastic process per CT abdomen/pelvis POARecent lymph node biopsy 03/13/2025 Intractable abdominal pain POA Acute dehydration POA Failure to thrive POA Acute metabolic encephalopathy POA Severe malnutrition POA Acute kidney injury POA Uncontrolled hypertension POA Leukocytosis WBC 13.6 POA Multifactorial anemia POA Bilateral renal cysts as per CT abdomen/pelvis Uncontrolled diabetes mellitus type 2 Hyperlipidemia POA History of Prostate cancer POA GERD POA Coronary Artery Disease POA Morbid obesity POA PLAN: Labs, diagnostic, radiologic exams reviewed and interpreted by myself and supervising physician. We have reviewed external records in detail Increase normal saline to 150 mL/hr Give one dose of Lasix 40 mg IV Start thiamine and Nephro-Ramya daily. Start calcitonin 400 mcg subQ b.i.d. Frequent BNP q.12 hours with ionized calcium Please obtain pathology results from [facility] Require close monitoring of renal function and electrolytes Order CBC, CMP, ionized calcium, uric acid, and electrolytes in am BiPAP as necessary, for respiratory distress Monitor blood pressure adjust medication doses as needed Avoid hypotensive episodes May use Dilaudid 0.5 mg IV every 6 hours as needed for severe pain Monitor blood sugars Strict intake, output, and daily weight should be monitored Please renally adjust medications Avoid nephrotoxic and nonsteroidal drugs Avoid contrast if possible Will continue to monitor renal function, anemia, electrolytes Treatment plan discussed with patient Questions were answered We have discussed with the other team physicians in detail about the care plan We will continue to monitor the patient closely ATTESTATION BY PHYSICIAN I have seen and examined the patient. I reviewed the documentation, medical decision making, and treatment plan as noted by the mid-level provider above. I agree with the findings and plan of care. LELAND BAEZ MD, [facility] March 23, 2025 10:15
--- NOTE | 2025-03-23 10:25 | NUR ---
Pt refused PT today. Vesna from nursing was notified.
[2025-03-23] MEDS: morPHINE 2 MG SYG IVP PRN (11:15)
[2025-03-23 11:52] VITALS: BP 135/65; PULSE 100; RESP 20; TEMP 98.1
[2025-03-23 12:42] LABS: ABG BASE EXCESS 2.5 mmol/L (-2.0-3.0); ABG HCO3 25.5 mmol/L (21.0-28.0); ABG OXYGEN SATURATION 93.7 % (94.0-98.0); ABG PCO2 35 mmHg (35-48); ABG PH 7.483 (7.350-7.450); PO2, ARTERIAL BG 62.7 mmHg (83.0-108.0); VENT MODE, BG RA (ROOM AIR)
--- NOTE | 2025-03-23 12:43 | NUR ---
NURSE WILL BRING PATIENT TO CT DEPT FOR CT EXAM.
--- NOTE | 2025-03-23 13:37 | HMCIMG ---
CT HEAD/BRAIN W/O CONTRAST HISTORY: Altered mental status COMPARISON: None TECHNIQUE: Multiple sequential axial images of the head were obtained from the base of the skull through vertex. Patient was not given contrast through intravenous route. FINDINGS: The ventricles and extraventricular CSF spaces are dilated consistent with cerebral atrophy. Nonspecific white matter changes seen. There is no midline shift, mass effect or herniation. No acute intracranial bleed is seen. Visualized portion of the paranasal sinuses are grossly within normal limits. IMPRESSION: 1. No acute intracranial bleed is seen. 2. Atrophy with white matter changes. CT was performed with one or more following dose reduction techniques: automated exposure control, adjustment of the mA and kv according to patient's size, or use of a iterative reconstruction technique.
[2025-03-23] MEDS: THIAMINE HCL 100 MG/ML 2ML VIAL IVP SCH (15:09)
[2025-03-23] MEDS: furoSEMIDE 40MG VIAL IV ONE (15:11)
[2025-03-23] MEDS: CALCITONIN 400 UNIT VIAL SQ SCH (15:27)
--- NOTE | 2025-03-23 16:06 | PN ---
[facility] PROGRESS NOTE Date of Service: March 23, 2025 Time of Service: 16:05 SUBJECTIVE: 74 years old male with a past medical history of hypertension, diabetes, cholesterol, GERD, prostate cancer with TURP(2008 with normal subsequent PSA levels), obstructive sleep apnea, severe COVID infection, presented to emergency department with complaints of generalized body weakness, loss of appetite and lower abdominal pain since December 2024. He was recently admitted to [facility]. During hospitalization it was found that patient had bilateral renal masses versus cyst, right adrenal mass. 03/13/2025 CTA was performed which showed an adrenal mass, ?lymphadenopathy and a lymph node biopsy was performed . On 03/14/2025 he underwent colonoscopy which was supposedly negative. Patient left against medical advice from the above said hospital . The patient he has been experiencing loss of appetite, dysphagia, dryness of mouth, decrease in body weight, occasional shortness of breath, in creased lethargy since December of this year. As per surgical pathology report of the biopsy from [facility] "Diffuse groups of malignant cells are identified with fibrosis and lymphoid tissue. They are arranged into small nests. There is a high nuclear systolic plasma thick ratio. Hyperchromatic nuclei and large nuclei bolus. The infiltrated fibrosis stoma shows mucinoid changes. The lymphoid tissue appear mature. Possible for immuno peroxidase CD45. Immunoperoxidase epithelial markers markers CK7 and CK20 are negative. Lung marker TTF one and prostate PSA are negative. Neuroendocrine markers chromogranin and synaptophysin are also negative. Proliferative markers Ki-67 is positive . The biopsy will be submitted to reference lab([place]) for consultation. An additional report will follow. Specimen source lymph nodes biopsy" At the time of presentation:vital signs temperature 98.8� pulse 80 respiration 18 blood pressure 130/65. Patient is on room air saturating at 97%. Labs at the time of presentation: WBC 13.6 hemoglobin 13.7 hematocrit 40.7 platelets 287. Sodium 136 potassium 3.6 CO2 30 BUN 22 creatinine 1.6 GFR 46 random glucose 115 lactic 2.2 total calcium 16.3 bilirubin 1.0 AST 42 ALT 64 CK 64 troponin 3.4 lipase 12 procalcitonin negative lactic acid repeated 1.7. CT abdomen/pelvis showed right adrenal mass measuring 6 x 5.4 cm. Retroperitoneal and mesenteric adenopathy suspicious for neoplastic process. Nodular density are seen bilaterally. Bilateral renal cyst. Distended gal lbladder. Chest x-ray showed mild bilateral pulmonary infiltrate are seen may be related to bilateral pulmonary vascular congestion with a possible superimposed pneumonitis. We will admit him for further evaluation and management. 03/22/2025: Patient is seen resting in his room. He appeared drowsy, but is arousable on verbal stimulation, alert oriented x3 and is perceiving and answering questions adequately. He Stated that he feels very tired. His calcium levels remain elevated. We will do PTH level to rule out hyperparathyroidism, vitamin-D25 hydroxy level to rule out hypervitaminosis D, [id number] dihydroxy level to rule out sarcoidosis, parathyroid related peptide. We will check PSA levels, TSH levels. He is being treated with calcitonin and reduced doses of pamidronate given his renal insufficiency. Oncology recommendations appreciated. Nephrology on board. Plan is to monitor calcium levels, keep patient in telemetry. If all the tests are negative, we will consider workup for multiple myeloma. 03/23/25 patient was seen and examined. Case discussed with RN and family by the bedside. He is hallucinating and confused he was calcium levels remain elevated. Nephrology ordered calcitonin he is continuing with IV fluids. REVIEW OF SYSTEMS CONSTITUTIONAL: Denies fevers, chills, or night sweats. unintentional weight loss reported. NEUROLOGICAL: Denies headache, amaurosis fugax, motor weakness, sensory deficit, vertigo/spinning sensation, gait abnormalities, or tremors. ENT: No hearing loss, otalgia, otorrhea, rhinitis, rhinorrhea, hoarseness, or sore throat. CARDIOVASCULAR: Denies any exertional angina, dyspnea on exertion, orthopnea, paroxysmal nocturnal dyspnea, palpitations, life-threatening arrhythmias, claudication. PULMONARY: Denies any shortness of breath, cough, phlegm/sputum, hemoptysis, pleuritic chest pain. SLEEP: Denies morning headaches, daytime somnolence or napping. Denies difficulty falling asleep, staying asleep, waking from sleep. Denies knowledge of snoring. Patient complains of constant weakness/sleepiness GASTROINTESTINAL: Patient complains of dry mouth and difficulty to swallow at times Denies nausea, vomiting, pyrosis, early satiety, diarrhea, constipation, or changes in stool consistency or caliber. Denies coffee-ground emesis, hematemesis, hematochezia, or melanotic stools. Patient complains of abdominal pain GENITOURINARY: Denies frequency, urgency, nocturia, hematuria or incontinence (Storage/Irritative symptoms.) Low urinary stream, straining to void, urinary intermittency or hesitancy, splitting of the voiding stream, terminal dribbling. ENDOCRINOLOGIC: Denies polyuria, polydipsia, polyphagia or heat/cold intolerances. HEMATOLOGIC: Denies thrombophilia/previous clots, or coagulopathy/bleeding disorders. ONCOLOGIC: Patient has a history of prostate cancer status post TURP DERMATOLOGIC: Denies rashes or pruritus. PSYCHIATRIC: Denies any suicidal or homicidal ideation. Denies hallucinations. PHYSICAL EXAM GENERAL APPEARANCE: Patient appears lethargic The patient is awake, alert, and oriented, in no acute cardiopulmonary distress. NEUROLOGICAL: Cranial nerves II-XII grossly intact. Motor is 5/5 in bilateral upper and lower extremities proximal to distal. No sensory deficits. HEENT: Face is symmetric. Pupils are equal and reactive. Extraocular movements are intact. Dry oral mucosa dry lips NECK: Supple. No JVD. No thyromegaly. No submental, submandibular, pre- /postauricular, occipital or supraclavicular lymphadenopathy. CHEST: Normal chest expansion. No Telemetry. LUNGS: Absence of any rales, rhonchi or any wheezing. CARDIOVASCULAR: Regular. S1 and S2 normal. No appreciable rubs, murmurs or gallops. ABDOMEN: Soft, tender on left upper quadrant mildly distended. There is no rebound, voluntary guarding, or rigidity. : Deferred. No Gonzáles. EXTREMITIES: Non-edematous and not cyanotic. No clubbing. Good capillary refill. SKIN: No skin breakdown. Vital Signs (last 8hr) Date Time Temp Pulse Resp B/P (MAP) Pulse Ox O2 Delivery O2 Flow Rate FiO2 03/23/25 11:52 98.1 100 20 135/65 98 Room Air LABS: Laboratory: Test 03/23/25 15:33 03/23/25 12:40 03/23/25 04:21 03/22/25 19:35 Range/Units Whole Blood Glucose 125 H 70-110 MG/DL Blood Gas Specimen Type Arterial Arterial Blood pH 7.483 H 7.350-7.450 Arterial Blood Partial Pressure CO2 35 35-48 mmHg Arterial Blood Partial Pressure O2 62.7 L 83.0-108.0 mmHg Arterial Blood HCO3 25.5 21.0-28.0 mmol/L Arterial Blood Oxygen Saturation 93.7 L 94.0-98.0 % Arterial Blood Base Excess 2.5 -2.0-3.0 mmol/L Blood Gas Temperature 37.0 35.5-37.0 CELSIUS Blood Gas Vent Mode RA ROOM AIR FiO2 21.0 % Blood Gas Specimen Comment DR RAM White Blood Count 9.2 4.8-10.8 K/uL Red Blood Count 3.98 L 4.50-6.20 MIL/uL Hemoglobin 11.9 L 14.0-18.0 g/dL Hematocrit 34.2 L 42-54 % Mean Corpuscular Volume 85.9 79-99 fL Mean Corpuscular Hemoglobin 29.9 27.0-33.0 pg Mean Corpuscular Hemoglobin Concent 34.8 32.0-36.0 g/dL Red Cell Distribution Width 13.3 11.0-15.5 % Platelet Count 212 130-400 K/uL Mean Platelet Volume 10.6 H 7.5-10.5 fL Immature Granulocyte % (Auto) 0.7 0-1 % Neutrophils (%) (Auto) 81.2 H 40.0-77.0 % Lymphocytes (%) (Auto) 8.5 L 21.0-51.0 % Monocytes (%) (Auto) 8.4 3.0-13.0 % Eosinophils (%) (Auto) 0.9 0.0-8.0 % Basophils (%) (Auto) 0.3 0.0-5.0 % Neutrophils # (Auto) 7.4 1.8-7.7 K/uL Lymphocytes # (Auto) 0.8 L 1.0-4.8 K/uL Monocytes # (Auto) 0.8 0.1-1.0 K/uL Eosinophils # (Auto) 0.08 0.00-0.70 K/uL Basophils # (Auto) 0.03 0.00-0.20 K/uL Absolute Immature Granulocyte (auto 0.06 0-1 K/uL Nucleated Red Blood Cells 0.0 0.0-0.19 % Sodium Level 140 136-145 mmol/L Potassium Level 3.4 L 3.5-5.1 mmol/L Chloride Level 106 101-111 mmol/L Carbon Dioxide Level 27 21-32 mmol/L Blood Urea Nitrogen 24 H 7-18 mg/dL Creatinine 1.9 H 0.5-1.3 mg/dL Glomerular Filtration Rate Calc 37 >90 mL/min Random Glucose 120 H 70-105 mg/dL Lactic Acid Level 1.8 0.8-2.5 mmol/L Uric Acid 9.1 H 2.6-7.2 mg/dL Total Calcium 14.6 *H 8.5-10.1 mg/dL Phosphorus Level 1.3 L 2.5-4.9 mg/dL Magnesium Level 1.60 L 1.80-2.40 mg/dL Total Bilirubin 0.9 0.2-1.0 mg/dL Aspartate Amino Transf (AST/SGOT) 29 10-37 U/L Alanine Aminotransferase (ALT/SGPT) 41 12-78 U/L Alkaline Phosphatase 60 50-136 U/L C-Reactive Protein, Quantitative 25.60 H 0.5-3.0 mg/L Total Protein 6.1 6.0-8.3 g/dL Albumin 2.8 L 3.5-5.0 g/dL Urine Random Creatinine 162.47 H 30-135 mg/dL Urine Random Sodium 30 L 40-220 mmol/l Urine Random Potassium 34 25-125 mmol/L Urine Random Chloride 62 L 110-250 mmol/L Test 03/22/25 15:00 03/22/25 14:40 03/22/25 04:27 03/21/25 17:57 Range/Units Troponin I High Sensitivity 66 4-75 ng/L Thyroid Stimulating Hormone (TSH) 2.11 0.36-3.74 uIU/mL White Cell Morphology Comment See comments Prothrombin Time 11.5 9.6-11.6 SEC Prothromb Time International Ratio 1.09 0.85-1.15 Hemoglobin A1c 5.6 4.0-6.0 % Estimated Average Glucose (eAG) 114 70-126 mg/dL Direct Bilirubin 0.2 0.0-0.3 mg/dL Ammonia < 10 L 11-32 umol/L Total Creatine Kinase 36 # 21-232 U/L B-Type Natriuretic Peptide 98 0-100 pg/mL Vitamin D 25-Hydroxy 29.9 30.0-100.0 ng/mL Procalcitonin 0.27 0.05-0.5 ng/mL Parathyroid Hormone (Intact) 5.2 15-65 pg/mL Urine Color LIGHT-YELLOW YELLOW Urine Appearance CLEAR CLEAR Urine pH 5.5 5.0-8.0 Urine Specific Devers 1.032 H 1.001-1.031 Urine Protein 30 H NEGATIVE mg/dL Urine Glucose (UA) NEGATIVE NEGATIVE mg/dL Urine Ketones NEGATIVE NEGATIVE mg/dL Urine Occult Blood NEGATIVE NEGATIVE Urine Nitrate NEGATIVE NEGATIVE Urine Bilirubin NEGATIVE NEGATIVE mg/dL Urine Urobilinogen 0.2 0.2-1.0 mg/dL Urine Leukocyte Esterase NEGATIVE NEGATIVE Kai/uL Urine RBC 2-5 H 0-1 /HPF Urine WBC 6-10 H 0-1 /HPF Urine Squamous Epithelial Cells RARE 0-2 /HPF Urine Bacteria RARE None Seen /HPF Test 03/21/25 16:10 Range/Units Influenza Type A Antigen Negative For Type A NEGATIVE Influenza Type B Antigen Negative For Type B NEGATIVE SARS-CoV-2 Antigen (Rapid) PRESUMPTIVE NEGATIVE NEGATIVE Current Medications Medications (Trade) Dose Ordered Sig/Katie Route PRN Reason Start Time Stop Time Status Last Admin Dose Admin Acetaminophen (TYLenol 325MG TAB) 650 mg Q4H PRN PO MILD PAIN (1-3) 03/21/25 16:00 04/20/25 15:59 Acetaminophen (TYLenol 325MG TAB) 650 mg Q6H PRN PO MILD PAIN (1-3) 03/21/25 16:00 03/21/25 15:51 DC Acetaminophen (TYLenol 325MG TAB) 650 mg Q6H PRN PO TEMPERATURE GREATER THAN 101.5 03/21/25 16:00 04/20/25 15:59 Al Hydroxide/Mg Hydroxide (MAALox PLUS 30ML) 30 ml Q6H PRN PO INDIGESTION 03/21/25 16:00 04/20/25 15:59 Calcitonin (Miacalcin 400 Unit Inj) 400 units BID SQ 03/23/25 15:00 04/22/25 14:59 03/23/25 15:27 400 UNITS Dextrose (D50w) 50 ml AD PRN IV HYPOGLYCEMIA PROTOCOL 03/21/25 16:00 04/20/25 15:59 Diphenhydramine HCl (BENAdryl INJ) 25 mg Q6H PRN IV SEVERE ITCHING/RASH 03/21/25 16:00 04/20/25 15:59 Famotidine (Pepcid 20mg Vial) 20 mg BID PRN IV NAUSEA/VOMITING 03/21/25 16:00 03/21/25 15:51 DC Famotidine (Pepcid 20mg Vial) 20 mg DAILY IV 03/22/25 09:00 04/21/25 08:59 03/23/25 09:47 20 MG Glucagon (Glucagon 1mg Kit) 1 mg AD PRN IM HYPOGLYCEMIA PROTOCOL 03/21/25 16:00 04/20/25 15:59 Guaifenesin/ Dextromethorphan (RobiTUSSin DM 200/20MG 10ML) 10 ml Q4H PRN PO COUGH 03/21/25 16:00 04/20/25 15:59 Heparin Sodium (Porcine) (HEParin 5,000 UNIT VIAL) 5,000 unit BID SQ 03/21/25 21:00 04/20/25 20:59 03/23/25 09:54 5,000 UNIT Hydralazine HCl (APRESOLine 20MG INJ) 10 mg Q6H PRN IV For:SBP above 160;DBP above 90 03/21/25 16:00 04/20/25 15:59 Insulin Human Regular (humuLIN R 100 UNIT/ML 3ML) INSULIN SLIDING SCAL... ACHS SQ 03/21/25 16:30 04/20/25 16:29 Ketorolac Tromethamine (toRADol) 15 mg Q8H PRN IV MODERATE PAIN (4-6) 03/21/25 16:00 03/26/25 15:59 03/23/25 15:10 15 MG Lactated Ringer's 1,000 ml @ 100 mls/hr Q10H STAT IV 03/21/25 13:13 03/21/25 13:22 DC Lactulose (Constulose 20gm/ 30ml Udcup) 20 gm BID PRN PO CONSTIPATION 03/21/25 16:00 04/20/25 15:59 Magnesium Sulfate 50 ml @ 0 mls/hr PROTOCOL PRN IV other 03/21/25 16:00 04/20/25 15:59 03/23/25 06:09 25 MLS/HR Morphine Sulfate (morPHINE 2MG SYG) 1 mg Q4H PRN IVP SEVERE PAIN (7-10) 03/21/25 16:00 03/28/25 15:59 03/23/25 11:15 1 MG Morphine Sulfate (morPHINE 2MG SYG) 2 mg ONCE STAT IVP 03/21/25 14:27 03/21/25 14:31 DC 03/21/25 14:46 2 MG Nitroglycerin (Nitrostat) 0.4 mg PROTOCOL PRN SL CHEST PAIN 03/21/25 16:00 04/20/25 15:59 Ondansetron HCl (zoFRAN 4MG INJ) 4 mg Q6H PRN IV NAUSEA/VOMITING 03/21/25 16:00 03/23/25 12:26 DC Ondansetron HCl (zoFRAN 4MG INJ) 4 mg Q6H PRN IVP NAUSEA/VOMITING 03/23/25 12:30 04/22/25 12:29 Oxycodone/ Acetaminophen (perCOCET) 1 tab Q6H PRN PO SEVERE PAIN (7-10) 03/21/25 16:00 03/22/25 08:52 DC Pharmacy Profile Note (Pharmacy Communication) 1 each AD MISC 03/22/25 09:00 03/22/25 08:52 DC Piperacillin Sod/ Tazobactam Sod 50 ml @ 12.5 mls/hr ZOSY8 IV 03/21/25 21:00 03/31/25 20:59 03/23/25 15:08 12.5 MLS/HR Potassium Chloride 100 ml @ 100 mls/hr AD PRN IV POTASSIUM PROTOCOL 03/22/25 18:00 04/21/25 17:59 Potassium Chloride (K-Dur/Klor-Con 20meq) 10 meq AD PRN PO POTASSIUM PROTOCOL 03/22/25 18:30 04/21/25 18:29 03/23/25 11:15 10 MEQ Potassium Chloride (KCl 10% Elixir 20meq/15ml) 10 meq AD PRN PO POTASSIUM PROTOCOL 03/22/25 18:30 04/21/25 18:29 Sodium Chloride 1,000 ml @ 150 mls/hr Q6H40M IV 03/21/25 16:00 04/20/25 15:59 03/23/25 12:18 125 MLS/HR Thiamine HCl (Vitamin B-1) 100 mg DAILY IVP 03/23/25 13:30 04/22/25 13:29 03/23/25 15:09 100 MG Vitamin B Complex/ Vit C/Folic Acid (Nephrovite Tablet) 1 cap DAILY PO 03/23/25 09:00 04/22/25 08:59 03/23/25 09:47 1 CAP Zolpidem Tartrate (AmbIEN) 5 mg HS PRN PO INSOMNIA 03/21/25 16:00 04/20/25 15:59 DIAGNOSTICS / RADIOLOGY: [ ] ASSESSMENT: Hypercalcemia POA Right adrenal mass measuring 6 x 5.[address] abdomen/pelvis Retroperitoneal and mesenteric adenopathy suspicious for neoplastic process per CT abdomen/pelvis POARecent lymph node biopsy 03/13/2025 Intractable abdominal pain POA Acute dehydration POA Failure to thrive POA Acute metabolic encephalopathy POA Severe malnutrition POA Acute kidney injury POA Uncontrolled hypertension POA Leukocytosis WBC 13.6 POA Multifactorial anemia POA Bilateral renal cysts as per CT abdomen/pelvis Chronic Problem: Uncontrolled diabetes mellitus type 2 with hypoglycemia POA Hyperlipidemia POA History of Prostate cancer POA GERD POA Coronary Artery Disease POA Morbid obesity POA History of COVID POA PLAN: Admitted to medical floor Hypercalcemia POA Right adrenal mass measuring 6 x 5.[address] abdomen/pelvis Retroperitoneal and mesenteric adenopathy suspicious for neoplastic process per CT abdomen/pelvis POA Recent lymph node biopsy 03/13/2025 Intractable abdominal pain POA Hypercalcemia possibly secondary to underlying unknown malignancy Continue calcitonin and pamidronate Patient has first-degree AV block-possibly secondary to hypercalcemia: we will repeat EKG Oncology recommendations appreciated;Pending lymph node biopsy records from elsewhere Continue telemetry Failure to thrive POA Acute metabolic encephalopathy POA Severe malnutrition POA Acute kidney injury POA Acute dehydration POA Patient with history of dysphagia, dry mouth, decreased appetite, weight loss Continue IV fluids We will request Nephrology consultation We will be monitoring the labs Strict I/O chart Chest x-ray mild bilateral pulmonary infiltrate are seen may be related to mild pulmonary vascular congestion with possible superimposed pneumonitis-obtain a CT chest. Other: Supplemental 02 as needed BiPAP as necessary, for respiratory distress Titrate Fio2 to keep Spo2 > or = 90% DuoNeb�s and CPT as needed Maintain aspiration precautions at all times Vital signs per facility protocol Prokinetic agents and laxatives as needed Daily weights Avoid nephrotoxic agents Monitor electrolytes and replace as needed Goal urine output of 30mL/hr or 0.5mL/kg/hr Medications to be dosed according to renal function. Avoid contrast if possible Maintain blood glucose between 100-180 at all times. Insulin sliding scale for blood glucose management Hypoglycemia and hyperglycemia protocol in place Trend temperature, WBC and procalcitonin level Follow cultures, deescalate antibiotics as soon as possible. Panculture if new onset fever Monitor H&H. Keep Hgb > 7 Pressure ulcer prevention per facility protocol Specialty mattress as needed Treatment plan discussed with patient and family at the bedside Medications to be reconciled once obtained by patient and/or family and available to be reconciled in computer p.r.n. medication for pain nausea and vomiting Carcass Splitter for disposition Rehab: PT/OT GI: PPI DVT: SCD's Code Status: Full Resuscitation Disposition: TBD Prognosis: Guarded LENNY RAM MD March 23, 2025 16:06
[2025-03-23 16:27] VITALS: BP 120/75; PULSE 120; RESP 20; TEMP 98.9
--- NOTE | 2025-03-23 17:10 | PN ---
Patient remains confused, altered. Daughter is at the bedside. He is complaining of pain all over, requiring significant amount of pain medicine. Last bowel movement was 4 days ago. He has been urinating. Physical examination: Patient is altered, delirious. HEENT. Head is atraumatic, pupils are reactive to light, extraocular muscles are intact. Mucous membranes are severely dry. Neck. Supple, no lymphadenopathy. Chest. Poor effort, no abnormal breath sounds heard. Abdomen. Soft, nondistended, nontender, bowel sounds are present. Extremities. No edema. Neurological exam. Patient is lethargic, delirious, able to answer questions appropriately. No focal neurological deficit. Impression plan: 1. History of prostate cancer. 2. Malignant hypercalcemia. 3. CAROLYN, secondary to 2. 4. Malignant cells on biopsy, performed at [facility]. Awaiting immunostains. Calcium is not coming down significantly, he remains altered, he has acute kidney injury which has not improved significantly. I will stop Toradol. We will order multiple myeloma workup, since patient is complaining of bone pain. Other possibility could be underlying lymphoma. Since biopsy has been obtained, I will give 1 dose of dexamethasone 40 mg. We will check uric acid level stat, skeletal survey. Hydration is being continued. Pamidronate has been given today. Since patient has CAROLYN, we will discontinue Toradol. Vitals/Labs Vital Signs Date Time Temp Pulse Resp B/P (MAP) Pulse Ox O2 Delivery O2 Flow Rate FiO2 03/23/25 16:27 99.0 120 20 120/75 93 Room Air 03/22/25 20:00 0 21 Laboratory Tests 03/23/25 04:21 Medications Current Medications Lactated Ringer's 1,000 ml @ 100 mls/hr Q10H STAT IV; Start 03/21/25 at 13:13; Stop 03/21/25 at 13:22; Status DC Lactated Ringer's 1,000 ml @ 0 mls/hr Q0M ONCE IV Last administered on 03/21/25at 13:26; Start 03/21/25 at 13:30; Stop 03/21/25 at 13:31; Status DC Iohexol 75 ml STK-MED ONCE IV; Start 03/21/25 at 13:43; Stop 03/21/25 at 13:43; Status DC Morphine Sulfate 2 mg ONCE STAT IVP Last administered on 03/21/25at 14:46; Start 03/21/25 at 14:27; Stop 03/21/25 at 14:31; Status DC Insulin Human Regular INSULIN SLIDING SCAL... ACHS SQ; Start 03/21/25 at 16:30; Stop 04/20/25 at 16:29 Dextrose 50 ml AD PRN IV; Start 03/21/25 at 16:00; Stop 04/20/25 at 15:59 Glucagon 1 mg AD PRN IM; Start 03/21/25 at 16:00; Stop 04/20/25 at 15:59 Magnesium Sulfate 50 ml @ 0 mls/hr PROTOCOL PRN IV Last administered on 03/23/25at 06:09; Start 03/21/25 at 16:00; Stop 04/20/25 at 15:59 Diphenhydramine HCl 25 mg Q6H PRN IV; Start 03/21/25 at 16:00; Stop 04/20/25 at 15:59 Acetaminophen 650 mg Q6H PRN PO; Start 03/21/25 at 16:00; Stop 04/20/25 at 15:59 Acetaminophen 650 mg Q4H PRN PO; Start 03/21/25 at 16:00; Stop 04/20/25 at 15:59 Ondansetron HCl 4 mg Q6H PRN IV; Start 03/21/25 at 16:00; Stop 03/23/25 at 12:26; Status DC Zolpidem Tartrate 5 mg HS PRN PO; Start 03/21/25 at 16:00; Stop 04/20/25 at 15:59 Al Hydroxide/Mg Hydroxide 30 ml Q6H PRN PO; Start 03/21/25 at 16:00; Stop 04/20/25 at 15:59 Lactulose 20 gm BID PRN PO; Start 03/21/25 at 16:00; Stop 04/20/25 at 15:59 Nitroglycerin 0.4 mg PROTOCOL PRN SL; Start 03/21/25 at 16:00; Stop 04/20/25 at 15:59 Guaifenesin/ Dextromethorphan 10 ml Q4H PRN PO; Start 03/21/25 at 16:00; Stop 04/20/25 at 15:59 Famotidine 20 mg BID PRN IV; Start 03/21/25 at 16:00; Stop 03/21/25 at 15:51; Status DC Heparin Sodium (Porcine) 5,000 unit BID SQ Last administered on 03/23/25at 09:54; Start 03/21/25 at 21:00; Stop 04/20/25 at 20:59 Acetaminophen 650 mg Q6H PRN PO; Start 03/21/25 at 16:00; Stop 03/21/25 at 15:51; Status DC Ketorolac Tromethamine 15 mg Q8H PRN IV Last administered on 03/23/25at 15:10; Start 03/21/25 at 16:00; Stop 03/23/25 at 16:59; Status DC Oxycodone/ Acetaminophen 1 tab Q6H PRN PO; Start 03/21/25 at 16:00; Stop 03/22/25 at 08:52; Status DC Morphine Sulfate 1 mg Q4H PRN IVP Last administered on 03/23/25at 11:15; Start 03/21/25 at 16:00; Stop 03/28/25 at 15:59 Piperacillin Sod/ Tazobactam Sod 50 ml @ 12.5 mls/hr ZOSY8 IV Last administered on 03/23/25at 15:08; Start 03/21/25 at 21:00; Stop 03/31/25 at 20:59 Sodium Chloride 1,000 ml @ 150 mls/hr Q6H40M IV Last administered on 03/23/25at 12:18; Start 03/21/25 at 16:00; Stop 04/20/25 at 15:59 Hydralazine HCl 10 mg Q6H PRN IV; Start 03/21/25 at 16:00; Stop 04/20/25 at 15:59 Famotidine 20 mg DAILY IV Last administered on 03/23/25at 09:47; Start 03/22/25 at 09:00; Stop 04/21/25 at 08:59 Pharmacy Profile Note 1 each AD MISC; Start 03/22/25 at 09:00; Stop 03/22/25 at 08:52; Status DC Calcitonin 400 units ONCE ONCE SQ Last administered on 03/22/25at 11:23; Start 03/22/25 at 09:30; Stop 03/22/25 at 09:31; Status DC Pamidronate Disodium 90 mg/ Sodium Chloride 1,000 ml @ 41.667 mls/ hr ONCE ONCE IV Last administered on 03/22/25at 17:36; Start 03/22/25 at 16:30; Stop 03/23/25 at 16:29; Status DC Potassium Chloride 100 ml @ 100 mls/hr AD PRN IV; Start 03/22/25 at 18:00; Stop 04/21/25 at 17:59 Potassium Chloride 10 meq AD PRN PO; Start 03/22/25 at 18:30; Stop 04/21/25 at 18:29 Potassium Chloride 10 meq AD PRN PO Last administered on 03/23/25at 11:15; Start 03/22/25 at 18:30; Stop 04/21/25 at 18:29 Vitamin B Complex/ Vit C/Folic Acid 1 cap DAILY PO Last administered on 03/23/25at 09:47; Start 03/23/25 at 09:00; Stop 04/22/25 at 08:59 Ondansetron HCl 4 mg Q6H PRN IVP; Start 03/23/25 at 12:30; Stop 04/22/25 at 12:29 Calcitonin 400 units BID SQ Last administered on 03/23/25at 15:27; Start 03/23/25 at 15:00; Stop 04/22/25 at 14:59 Thiamine HCl 100 mg DAILY IVP Last administered on 03/23/25at 15:09; Start 03/23/25 at 13:30; Stop 04/22/25 at 13:29 Furosemide 40 mg ONCE ONCE IV Last administered on 03/23/25at 15:11; Start 03/23/25 at 15:00; Stop 03/23/25 at 15:01; Status DC Pantoprazole Sodium 40 mg DAILY PO; Start 03/23/25 at 17:00; Stop 04/22/25 at 16:59; Status UNV Dexamethasone 40 mg ONCE PO; Start 03/23/25 at 17:00; Stop 04/22/25 at 16:59; Status UMESH RIVERA MD March 23, 2025 17:10
[2025-03-23] MEDS: dexaMETHasone 4 MG TAB PO SCH (17:27)
[2025-03-23] MEDS: alloPURInol 300 MG TABLET PO STA (17:27)
[2025-03-23] MEDS: PANTOPrazole 40 MG TAB DR PO SCH (17:29)
[2025-03-23 19:00] VITALS: BP 132/66; PULSE 111; RESP 24; TEMP 98.6
[2025-03-23 21:15] LABS: CREATININE 2.1 mg/dL (0.5-1.3); POTASSIUM 3.7 mmol/L (3.5-5.1)
--- NOTE | 2025-03-23 22:18 | NUR ---
PER SELIN CASTILLO M.Herlinda AT 6:12 PM HE SPOKE W/ NURSE DESIREE REGARDING PT XRAYS, RN WAS INFORMED PT'S ASKED TO HOLD OFF ON X-RAYS DUE TO PATIENTS LIMITED MOBILITY AND BODY WEAKNESS. CELESTINA RAMÍREZ STATED SHE WOULD CONTACT THE DR AND CALL TECH WITH UPDATE. RN DID NOT CALL BACK SELIN CASTILLO M.S. CALLED RN (NEXT SHIFT) RN INFORMED COMMUNITY DEVELOPMENT DIRECTOR THAT THE DR HAS NOT RETURN THE CALL IN REGARDS TO XRAY EXAM. EXAM STILL PENDING
[2025-03-24] VITALS (8 sets, daily range): BP systolic 107–154; BP diastolic 59–102; PULSE 75–113; RESP 18–24; TEMP 97.9–98.9; O2SAT 95–96
[2025-03-24 05:57] LABS: BASOPHILS # (AUTO) 0.01 K/uL (0.00-0.20); BASOPHILS % (AUTO) 0.1 % (0.0-5.0); HEMATOCRIT 34.1 % (42-54); IMMATURE GRANULOCYTE ABSOLUTE 0.05 K/uL (0-1); LYMPHOCYTES # (AUTO) 0.6 K/uL (1.0-4.8); LYMPHOCYTES % (AUTO) 7.2 % (21.0-51.0); MEAN CORPUSCULAR HEMOGLOBIN 30.5 pg (27.0-33.0); MEAN CORPUSCULAR HGB CONC 35.2 g/dL (32.0-36.0); MEAN CORPUSCULAR VOLUME 86.8 fL (79-99); MONOCYTES # (AUTO) 0.1 K/uL (0.1-1.0); MONOCYTES % (AUTO) 1.4 % (3.0-13.0); NEUTROPHILS # (AUTO) 7.1 K/uL (1.8-7.7); NEUTROPHILS % (AUTO) 90.7 % (40.0-77.0); PLATELET COUNT (AUTO) 216 K/uL (130-400); RED BLOOD CELL COUNT(AUTO) 3.93 MIL/uL (4.50-6.20); RED CELL DISTRIBUTION WIDTH 13.4 % (11.0-15.5); WHITE BLOOD COUNT (AUTO) 7.8 K/uL (4.8-10.8)
[2025-03-24 06:44] LABS: ALBUMIN 2.8 g/dL (3.5-5.0); BILIRUBIN,TOTAL 0.7 mg/dL (0.2-1.0); CREATININE 2.1 mg/dL (0.5-1.3); POTASSIUM 3.5 mmol/L (3.5-5.1); TOTAL PROTEIN, SERUM 6.2 g/dL (6.0-8.3)
--- NOTE | 2025-03-24 09:14 | NUR ---
CALLED CELESTINA RAMÍREZ AND ASKED IF EXAM COULD BE DONE , SHE SAID SHE WAS GOING TO ASK THE MD IF IT COULD BE DONE.
--- NOTE | 2025-03-24 09:30 | PN ---
Patient remains confused but significantly better, improved attention but has tangential talk. Overall much better than yesterday. His is at the bedside. Physical examination: Patient is alert, oriented to place and person. HEENT. Head is atraumatic, pupils are reactive to light, extraocular muscles are intact. Mucous membranes are severely dry. Neck. Supple, no lymphadenopathy. Chest. Poor effort, no abnormal breath sounds heard. Abdomen. Soft, nondistended, nontender, bowel sounds are present. Extremities. No edema. Neurological exam. Patient is lethargic, delirious, able to answer questions appropriately. No focal neurological deficit. Impression plan: 1. History of prostate cancer. 2. Malignant hypercalcemia. 3. CAROLYN, secondary to 2. 4. Malignant cells on biopsy, performed at [facility]. Awaiting immunostains. Patient could not tolerate skeletal survey, he could not stand up. CTs performed showed no bone lesions therefore skeletal survey can be discontinued. Calcitonin is not available. His calcium is slowly improving. Renal function has not improved yet. We will give normal saline bolus today. May consider Nephrology consult if renal function does not improve. Await path report. We will not give further steroids, in case if we are dealing with lymphoproliferative disorder, it can mask the diagnosis, especially previous biopsy does not give definitive diagnosis. Vitals/Labs Vital Signs Date Time Temp Pulse Resp B/P (MAP) Pulse Ox O2 Delivery O2 Flow Rate FiO2 03/24/25 08:04 98.1 75 19 138/75 03/24/25 04:00 93 Room Air 03/23/25 20:00 0 21 Laboratory Tests 03/23/25 20:50 03/24/25 05:20 Medications Current Medications Lactated Ringer's 1,000 ml @ 100 mls/hr Q10H STAT IV; Start 03/21/25 at 13:13; Stop 03/21/25 at 13:22; Status DC Lactated Ringer's 1,000 ml @ 0 mls/hr Q0M ONCE IV Last administered on 03/21/25at 13:26; Start 03/21/25 at 13:30; Stop 03/21/25 at 13:31; Status DC Iohexol 75 ml STK-MED ONCE IV; Start 03/21/25 at 13:43; Stop 03/21/25 at 13:43; Status DC Morphine Sulfate 2 mg ONCE STAT IVP Last administered on 03/21/25at 14:46; Start 03/21/25 at 14:27; Stop 03/21/25 at 14:31; Status DC Insulin Human Regular INSULIN SLIDING SCAL... ACHS SQ; Start 03/21/25 at 16:30; Stop 04/20/25 at 16:29 Dextrose 50 ml AD PRN IV; Start 03/21/25 at 16:00; Stop 04/20/25 at 15:59 Glucagon 1 mg AD PRN IM; Start 03/21/25 at 16:00; Stop 04/20/25 at 15:59 Magnesium Sulfate 50 ml @ 0 mls/hr PROTOCOL PRN IV Last administered on 03/23/25at 06:09; Start 03/21/25 at 16:00; Stop 04/20/25 at 15:59 Diphenhydramine HCl 25 mg Q6H PRN IV; Start 03/21/25 at 16:00; Stop 04/20/25 at 15:59 Acetaminophen 650 mg Q6H PRN PO; Start 03/21/25 at 16:00; Stop 04/20/25 at 15:59 Acetaminophen 650 mg Q4H PRN PO; Start 03/21/25 at 16:00; Stop 04/20/25 at 15:59 Ondansetron HCl 4 mg Q6H PRN IV; Start 03/21/25 at 16:00; Stop 03/23/25 at 12:26; Status DC Zolpidem Tartrate 5 mg HS PRN PO; Start 03/21/25 at 16:00; Stop 04/20/25 at 15:59 Al Hydroxide/Mg Hydroxide 30 ml Q6H PRN PO; Start 03/21/25 at 16:00; Stop 04/20/25 at 15:59 Lactulose 20 gm BID PRN PO; Start 03/21/25 at 16:00; Stop 04/20/25 at 15:59 Nitroglycerin 0.4 mg PROTOCOL PRN SL; Start 03/21/25 at 16:00; Stop 04/20/25 at 15:59 Guaifenesin/ Dextromethorphan 10 ml Q4H PRN PO; Start 03/21/25 at 16:00; Stop 04/20/25 at 15:59 Famotidine 20 mg BID PRN IV; Start 03/21/25 at 16:00; Stop 03/21/25 at 15:51; Status DC Heparin Sodium (Porcine) 5,000 unit BID SQ Last administered on 03/23/25at 19:37; Start 03/21/25 at 21:00; Stop 04/20/25 at 20:59 Acetaminophen 650 mg Q6H PRN PO; Start 03/21/25 at 16:00; Stop 03/21/25 at 15:51; Status DC Ketorolac Tromethamine 15 mg Q8H PRN IV Last administered on 03/23/25at 15:10; Start 03/21/25 at 16:00; Stop 03/23/25 at 16:59; Status DC Oxycodone/ Acetaminophen 1 tab Q6H PRN PO; Start 03/21/25 at 16:00; Stop 03/22/25 at 08:52; Status DC Morphine Sulfate 1 mg Q4H PRN IVP Last administered on 03/23/25at 22:06; Start 03/21/25 at 16:00; Stop 03/28/25 at 15:59 Piperacillin Sod/ Tazobactam Sod 50 ml @ 12.5 mls/hr ZOSY8 IV Last administered on 03/24/25at 04:37; Start 03/21/25 at 21:00; Stop 03/31/25 at 20:59 Sodium Chloride 1,000 ml @ 150 mls/hr Q6H40M IV Last administered on 03/24/25at 02:35; Start 03/21/25 at 16:00; Stop 04/20/25 at 15:59 Hydralazine HCl 10 mg Q6H PRN IV; Start 03/21/25 at 16:00; Stop 04/20/25 at 15:59 Famotidine 20 mg DAILY IV Last administered on 03/23/25at 09:47; Start 03/22/25 at 09:00; Stop 04/21/25 at 08:59 Pharmacy Profile Note 1 each AD MISC; Start 03/22/25 at 09:00; Stop 03/22/25 at 08:52; Status DC Calcitonin 400 units ONCE ONCE SQ Last administered on 03/22/25at 11:23; Start 03/22/25 at 09:30; Stop 03/22/25 at 09:31; Status DC Pamidronate Disodium 90 mg/ Sodium Chloride 1,000 ml @ 41.667 mls/ hr ONCE ONCE IV Last administered on 03/22/25at 17:36; Start 03/22/25 at 16:30; Stop 03/23/25 at 16:29; Status DC Potassium Chloride 100 ml @ 100 mls/hr AD PRN IV; Start 03/22/25 at 18:00; Stop 04/21/25 at 17:59 Potassium Chloride 10 meq AD PRN PO; Start 03/22/25 at 18:30; Stop 04/21/25 at 18:29 Potassium Chloride 10 meq AD PRN PO Last administered on 03/23/25at 11:15; Start 03/22/25 at 18:30; Stop 04/21/25 at 18:29 Vitamin B Complex/ Vit C/Folic Acid 1 cap DAILY PO Last administered on 03/23/25at 09:47; Start 03/23/25 at 09:00; Stop 04/22/25 at 08:59 Ondansetron HCl 4 mg Q6H PRN IVP; Start 03/23/25 at 12:30; Stop 04/22/25 at 12:29 Calcitonin 400 units BID SQ Last administered on 03/23/25at 15:27; Start 03/23/25 at 15:00; Stop 04/22/25 at 14:59 Thiamine HCl 100 mg DAILY IVP Last administered on 03/23/25at 15:09; Start 03/23/25 at 13:30; Stop 04/22/25 at 13:29 Furosemide 40 mg ONCE ONCE IV Last administered on 03/23/25at 15:11; Start 03/23/25 at 15:00; Stop 03/23/25 at 15:01; Status DC Pantoprazole Sodium 40 mg DAILY PO Last administered on 03/23/25at 17:29; Start 03/23/25 at 17:00; Stop 04/22/25 at 16:59 Dexamethasone 40 mg ONCE PO Last administered on 03/23/25at 17:27; Start 03/23/25 at 17:00; Stop 04/22/25 at 16:59 Allopurinol 300 mg BID STAT PO Last administered on 03/23/25at 17:27; Start 03/23/25 at 17:05; Stop 03/23/25 at 17:20; Status DC UMESH JACOBS MD March 24, 2025 09:30
[2025-03-24 09:41] LABS: CREATININE 2.2 mg/dL (0.5-1.3); POTASSIUM 3.3 mmol/L (3.5-5.1)
--- NOTE | 2025-03-24 10:13 | PN ---
NEPHROLOGY PROGRESS NOTE Date/Time Patient Seen: March 24, 2025 SUBJECTIVE: This is a 74 years old male with a past medical history of hypertension, diabetes, cholesterol, GERD, prostate cancer with to, obstructive sleep apnea, COVID. He presented to the emergency department with a complaining of generalized body weakness, loss of appetite and lower abdominal pain. The patient was found to have adrenal mass, right adrenal mass. The patient has been followed by oncologist because of abdominal masses. The patient has bilateral renal cysts detected. He was noted with hypercalcemia and renal failure Renal function remains elevated He has received one dose of pamidronate and calcitonin. Calcium level today is 13.3 mg/dL Calcitonin not available at this time. He continues on gentle IV hydration Continues to be followed by Oncology. Family at the bedside reports patient is having trouble swallowing He was seen in the medical floor Family at the bedside REVIEW OF SYSTEMS: Unable to obtain due to patient's status Vital Signs (last 8hr) Date Time Temp Pulse Resp B/P (MAP) Pulse Ox O2 Delivery O2 Flow Rate FiO2 03/23/25 07:59 98.1 102 20 150/91 95 Room Air 03/23/25 04:00 98.4 95 20 143/75 94 Room Air PHYSICAL EXAM: GENERAL: Lethargic, pale. No acute distress. Well-nourished. EYES: EOMI. Anicteric. HENT: Moist mucous membranes. No scleral icterus. No cervical lymphadenopathy. LUNGS: Clear to auscultation bilaterally. No accessory muscle use. CARDIOVASCULAR: Regular rate and rhythm. No murmur. No JVD. ABDOMEN: Soft, non-tender and non-distended. No palpable masses. EXTREMITIES: No edema. Non-tender. SKIN: No rashes or lesions. Warm. NEUROLOGIC: No focal neurological deficits. CN II-XII grossly intact, but not individually tested. PSYCHIATRIC: Cooperative. Appropriate mood and affect. Current Medications Medications (Trade) Dose Ordered Sig/Katie Route PRN Reason Start Time Stop Time Status Last Admin Dose Admin Acetaminophen (TYLenol 325MG TAB) 650 mg Q4H PRN PO MILD PAIN (1-3) 03/21/25 16:00 04/20/25 15:59 Acetaminophen (TYLenol 325MG TAB) 650 mg Q6H PRN PO MILD PAIN (1-3) 03/21/25 16:00 03/21/25 15:51 DC Acetaminophen (TYLenol 325MG TAB) 650 mg Q6H PRN PO TEMPERATURE GREATER THAN 101.5 03/21/25 16:00 04/20/25 15:59 Al Hydroxide/Mg Hydroxide (MAALox PLUS 30ML) 30 ml Q6H PRN PO INDIGESTION 03/21/25 16:00 04/20/25 15:59 Dextrose (D50w) 50 ml AD PRN IV HYPOGLYCEMIA PROTOCOL 03/21/25 16:00 04/20/25 15:59 Diphenhydramine HCl (BENAdryl INJ) 25 mg Q6H PRN IV SEVERE ITCHING/RASH 03/21/25 16:00 04/20/25 15:59 Famotidine (Pepcid 20mg Vial) 20 mg BID PRN IV NAUSEA/VOMITING 03/21/25 16:00 03/21/25 15:51 DC Famotidine (Pepcid 20mg Vial) 20 mg DAILY IV 03/22/25 09:00 04/21/25 08:59 03/23/25 09:47 20 MG Glucagon (Glucagon 1mg Kit) 1 mg AD PRN IM HYPOGLYCEMIA PROTOCOL 03/21/25 16:00 04/20/25 15:59 Guaifenesin/ Dextromethorphan (RobiTUSSin DM 200/20MG 10ML) 10 ml Q4H PRN PO COUGH 03/21/25 16:00 04/20/25 15:59 Heparin Sodium (Porcine) (HEParin 5,000 UNIT VIAL) 5,000 unit BID SQ 03/21/25 21:00 04/20/25 20:59 03/23/25 09:54 5,000 UNIT Hydralazine HCl (APRESOLine 20MG INJ) 10 mg Q6H PRN IV For:SBP above 160;DBP above 90 03/21/25 16:00 04/20/25 15:59 Insulin Human Regular (humuLIN R 100 UNIT/ML 3ML) INSULIN SLIDING SCAL... ACHS SQ 03/21/25 16:30 04/20/25 16:29 Ketorolac Tromethamine (toRADol) 15 mg Q8H PRN IV MODERATE PAIN (4-6) 03/21/25 16:00 03/26/25 15:59 03/23/25 04:02 15 MG Lactated Ringer's 1,000 ml @ 100 mls/hr Q10H STAT IV 03/21/25 13:13 03/21/25 13:22 DC Lactulose (Constulose 20gm/ 30ml Udcup) 20 gm BID PRN PO CONSTIPATION 03/21/25 16:00 04/20/25 15:59 Magnesium Sulfate 50 ml @ 0 mls/hr PROTOCOL PRN IV other 03/21/25 16:00 04/20/25 15:59 03/23/25 06:09 25 MLS/HR Morphine Sulfate (morPHINE 2MG SYG) 1 mg Q4H PRN IVP SEVERE PAIN (7-10) 03/21/25 16:00 03/28/25 15:59 Morphine Sulfate (morPHINE 2MG SYG) 2 mg ONCE STAT IVP 03/21/25 14:27 03/21/25 14:31 DC 03/21/25 14:46 2 MG Nitroglycerin (Nitrostat) 0.4 mg PROTOCOL PRN SL CHEST PAIN 03/21/25 16:00 04/20/25 15:59 Ondansetron HCl (zoFRAN 4MG INJ) 4 mg Q6H PRN IV NAUSEA/VOMITING 03/21/25 16:00 04/20/25 15:59 Oxycodone/ Acetaminophen (perCOCET) 1 tab Q6H PRN PO SEVERE PAIN (7-10) 03/21/25 16:00 03/22/25 08:52 DC Pharmacy Profile Note (Pharmacy Communication) 1 each AD MISC 03/22/25 09:00 03/22/25 08:52 DC Piperacillin Sod/ Tazobactam Sod 50 ml @ 12.5 mls/hr ZOSY8 IV 03/21/25 21:00 03/31/25 20:59 03/23/25 04:04 12.5 MLS/HR Potassium Chloride 100 ml @ 100 mls/hr AD PRN IV POTASSIUM PROTOCOL 03/22/25 18:00 04/21/25 17:59 Potassium Chloride (K-Dur/Klor-Con 20meq) 10 meq AD PRN PO POTASSIUM PROTOCOL 03/22/25 18:30 04/21/25 18:29 03/23/25 06:08 10 MEQ Potassium Chloride (KCl 10% Elixir 20meq/15ml) 10 meq AD PRN PO POTASSIUM PROTOCOL 03/22/25 18:30 04/21/25 18:29 Sodium Chloride 1,000 ml @ 125 mls/hr Q8H IV 03/21/25 16:00 04/20/25 15:59 03/23/25 03:57 125 MLS/HR Vitamin B Complex/ Vit C/Folic Acid (Nephrovite Tablet) 1 cap DAILY PO 03/23/25 09:00 04/22/25 08:59 03/23/25 09:47 1 CAP Zolpidem Tartrate (AmbIEN) 5 mg HS PRN PO INSOMNIA 03/21/25 16:00 04/20/25 15:59 LABORATORY: [ ] Hematology Labs: Test 03/24/25 05:20 Range/Units White Blood Count 7.8 4.8-10.8 K/uL Red Blood Count 3.93 L 4.50-6.20 MIL/uL Hemoglobin 12.0 L 14.0-18.0 g/dL Hematocrit 34.1 L 42-54 % Mean Corpuscular Volume 86.8 79-99 fL Mean Corpuscular Hemoglobin 30.5 27.0-33.0 pg Mean Corpuscular Hemoglobin Concent 35.2 32.0-36.0 g/dL Red Cell Distribution Width 13.4 11.0-15.5 % Platelet Count 216 130-400 K/uL Mean Platelet Volume 11.1 H 7.5-10.5 fL Immature Granulocyte % (Auto) 0.6 0-1 % Neutrophils (%) (Auto) 90.7 H 40.0-77.0 % Lymphocytes (%) (Auto) 7.2 L 21.0-51.0 % Monocytes (%) (Auto) 1.4 L 3.0-13.0 % Eosinophils (%) (Auto) 0.0 0.0-8.0 % Basophils (%) (Auto) 0.1 0.0-5.0 % Neutrophils # (Auto) 7.1 1.8-7.7 K/uL Lymphocytes # (Auto) 0.6 L 1.0-4.8 K/uL Monocytes # (Auto) 0.1 0.1-1.0 K/uL Eosinophils # (Auto) 0.00 0.00-0.70 K/uL Basophils # (Auto) 0.01 0.00-0.20 K/uL Absolute Immature Granulocyte (auto 0.05 0-1 K/uL Nucleated Red Blood Cells 0.0 0.0-0.19 % Chemistry Labs: Test 03/24/25 09:14 03/24/25 05:20 03/24/25 05:19 03/23/25 04:21 Range/Units Sodium Level 140 136-145 mmol/L Potassium Level 3.3 L 3.5-5.1 mmol/L Chloride Level 107 101-111 mmol/L Carbon Dioxide Level 25 21-32 mmol/L Blood Urea Nitrogen 27 H 7-18 mg/dL Creatinine 2.2 H 0.5-1.3 mg/dL Glomerular Filtration Rate Calc 31 >90 mL/min Random Glucose 168 H 70-105 mg/dL Total Calcium 13.3 *H 8.5-10.1 mg/dL Ionized Calcium 1.76 H 1.15-1.33 MMOL/L Phosphorus Level 1.0 *L 2.5-4.9 mg/dL Total Bilirubin 0.7 0.2-1.0 mg/dL Aspartate Amino Transf (AST/SGOT) 24 10-37 U/L Alanine Aminotransferase (ALT/SGPT) 34 12-78 U/L Alkaline Phosphatase 56 50-136 U/L B-Type Natriuretic Peptide 267 H 0-100 pg/mL Total Protein 6.2 6.0-8.3 g/dL Albumin 2.8 L 3.5-5.0 g/dL Whole Blood Glucose 165 H 70-110 MG/DL Lactic Acid Level 1.8 0.8-2.5 mmol/L Uric Acid 9.1 H 2.6-7.2 mg/dL Magnesium Level 1.60 L 1.80-2.40 mg/dL C-Reactive Protein, Quantitative 25.60 H 0.5-3.0 mg/L Test 03/22/25 15:00 03/22/25 14:40 Range/Units Troponin I High Sensitivity 66 4-75 ng/L Thyroid Stimulating Hormone (TSH) 2.11 0.36-3.74 uIU/mL DIAGNOSTICS / RADIOLOGY: REASON: ALTERED MENTAL STATUS ORDERING PHYSICIAN: LENNY RAM MD PROCEDURE: HEAD WO - CT HEAD/BRAIN W/O CONTRAST CT HEAD/BRAIN W/O CONTRAST HISTORY: Altered mental status COMPARISON: None TECHNIQUE: Multiple sequential axial images of the head were obtained from the base of the skull through vertex. Patient was not given contrast through intravenous route. FINDINGS: The ventricles and extraventricular CSF spaces are dilated consistent with cerebral atrophy. Nonspecific white matter changes seen. There is no midline shift, mass effect or herniation. No acute intracranial bleed is seen. Visualized portion of the paranasal sinuses are grossly within normal limits. IMPRESSION: 1. No acute intracranial bleed is seen. 2. Atrophy with white matter changes. CT was performed with one or more following dose reduction techniques: automated exposure control, adjustment of the mA and kv according to patient's size, or use of a iterative reconstruction technique. DICTATED BY: NARAYAN OLSEN MD DATE: 03/23/25 1334 REASON: SOB , HYPERCALCEMIA, H/O PROSTATE CA ORDERING PHYSICIAN: LILO REYES MD PROCEDURE: PULM VQ - NM PULMONARY/LUNG VQ SCAN NM PULMONARY/LUNG VQ SCAN HISTORY: Shortness of breath COMPARISON: None TECHNIQUE: Ventilation study was performed with 5 mCi of Xenon gas through inhalation route. Perfusion lung imaging study was performed with 5 mCi of technetium macroaggregated through intravenous route. FINDINGS: There is no evidence of segmental or subsegmental perfusion defect. Nonsegmental perfusion defects are also present. IMPRESSION: 1. Low probability for pulmonary embolus. DICTATED BY: NARAYAN OLSEN MD DATE: 03/23/25 0019 REASON: HYPERCALCEMIA, LUNG INFILTRATES ON CXR ORDERING PHYSICIAN: LILO REYES MD PROCEDURE: CHEST WO - CT CHEST W/O CONTRAST CT CHEST W/O CONTRAST HISTORY: Hypercalcemia COMPARISON: 03/21/2005 TECHNIQUE: Multiple sequential axial images of the chest were obtained from the thoracic inlet through upper abdomen. Patient was not given contrast through intravenous route. FINDINGS: Tiny bilateral pleural effusions are seen. There are mild interstitial fibrosis. Coronary arterial calcifications are seen. There is retroperitoneal adenopathy There is no evidence of pneumothorax. There are normal size mediastinal and hilar lymph nodes. The heart is not enlarged. Degenerative changes of the thoracolumbar spine are present. There is right adrenal mass not completely well visualized. IMPRESSION: 1. Tiny bilateral pleural effusions. Mild interstitial fibrosis. Right adrenal mass. CT was performed with one or more following dose reduction techniques: automated exposure control, adjustment of the mA and kv according to patient's size, or use of a iterative reconstruction technique. DICTATED BY: NARAYAN OLSEN MD DATE: 03/22/251903 REASON: chf ORDERING PHYSICIAN: IGNACIO GONZALEZ APRN PROCEDURE: ECHO CMP - ECHO 2-D COMPLETE APPROVED REPORT EXAM: Two-dimensional and M-mode echocardiogram with Doppler and color Doppler. INDICATION ICD: Congetive heart failure 2D Dimensions RVDd 3.4 cm LVEF(%) 76.2 (>50%) LVED Vol(simp.) 68.0 mL IVSd 1.1 (0.7-1.1cm) FS(%) 45 % LVES Vol(simp.) 27.0 mL LVDd 4.4 (3.8-5.6cm) LA (2D) 4.0 (1.6-4.0cm) LVEF(%, simp.) 60 % PWd 1.7 (0.7-1.1cm) Ao Root(2D) 3.4 (2.0-3.7cm) LA ESV INDEX (BP) 16.43 mL/m2 LVDs 2.4 (2.5-4.0cm) LVOT diam 2.4 (1.8-2.4cm) IVC diam 2.5 cm Deformation Strain Apical 4 -13.4 % Apical 2 -10.9 % Apical 3 -18.5 % Global Strain -14.3 % M-Mode Dimensions EPSS 1.0 cm LA (MM) 5.1 (1.6-4.0cm) Ao Root(MM) 3.5 (2.0-3.7cm) Aortic Valve AoV Vmax 1.4 m/s Ao Peak GR 8.2 mmHg LVOT Vmax 1.1 m/s AoV VTI 0.2 m Ao Mean GR 5.3 mmHg LVOT VTI 0.15 m JOEY (VMAX) 3.40 cm2 JOEY (VTI) 3.4 cm2 Mitral Valve MV E Vmax 110.9 cm/s DECEL Time 113 ms MV A Vmax 54.7 cm/s E/A ratio 2.0 TDI E/E' Medial 13.8 E/E' Lateral 13.8 Lateral E' Peak V 8.02 cm/s Pulmonary Valve PV Vmax 1.4 m/s PV VTI 0.19 m PV Mean GR 3.8 mmHg PV Peak GR 7.9 mmHg Tricuspid Valve RAP (EST) 8 mmHg RVSP 8.0 mmHg Left Ventricle The left ventricle is normal size. Hyperdynamic left ventricular wall motion noted. No regional wall motion abnormalities noted. There is moderate left ventricular wall thickness. LVEF is 60-65%. The LV diastolic function was unable to be assessed due to atrial arrhythmia. Right Ventricle The right ventricle is normal size. There is mild right ventricular wall thickness. Right ventricular systolic function could not be assessed. Atria The left atrium size is normal. The right atrium size is normal. Aortic Valve The aortic valve appears to open well. No aortic regurgitation is present. There is no aortic valvular stenosis. Mitral Valve Mitral valve is not well visualized. There is no mitral valve regurgitation noted. There is no mitral valve stenosis. Tricuspid Valve The tricuspid valve leaflets appear normal. There is trace of tricuspid valve regurgitation noted. Pulmonic Valve Pulmonic valve is not well visualized. There is no pulmonic valvular regurgitation. Great Vessels The aortic root is normal in size. The IVC is normal in size and collapses <50% with inspiration. Pericardium Epircardial fat noted. Other Information Quality : Technically difficult challenging study due to body habitus Conclusion LVEF is 60-65%. Hyperdynamic left ventricular wall motion noted. No regional wall motion abnormalities noted. The right ventricle is normal size. The aortic root is normal in size. DICTATED BY: MAISHA HOLLOWAY MD DATE: 03/22/25 0710 REASON: chest pain ORDERING PHYSICIAN: JYOTHI MERCHANT DO PROCEDURE: CXR1VW - CHEST 1VW CHEST 1VW HISTORY: Chest pain COMPARISON: None FINDINGS: A frontal projection of the chest was obtained. Mild bilateral pulmonary infiltrates are seen may be related to mild pulmonary vascular congestion with possible superimposed pneumonitis. The heart is borderline enlarged. Degenerative changes are seen. No evidence of aortic calcification is seen. IMPRESSION: 1. Mild bilateral pulmonary infiltrates are seen may be related to mild pulmonary vascular congestion with possible superimposed pneumonitis. DICTATED BY: NARAYAN OLSEN MD DATE: 03/21/25 1434 REASON: Abdominal Pain ORDERING PHYSICIAN: JYOTHI MERCHANT DO PROCEDURE: ABD PEL W - CT ABDOMEN/PELVIS W/CONTRAST CT ABDOMEN/PELVIS W/CONTRAST HISTORY: Abdominal pain COMPARISON: 10/11/2012 TECHNIQUE: Multiple sequential axial images of the abdomen and pelvis were obtained from the dome of the diaphragm through symphysis pubis. Patient was not given contrast through intravenous route. Oral contrast was not given. FINDINGS: No pleural effusion is seen bilaterally. There is no evidence of parenchymal disease or pulmonary nodule of the visualized lower lungs. Degenerative changes of the thoracolumbar spine are present. The heart is not enlarged. Coronary artery calcifications are seen. Gallbladder is distended. Liver is enlarged measuring 18 cm. There is left renal cyst measuring 10 cm. There is roughening and cyst measures 6.3 cm. There is right adrenal mass measuring 6 x 5.4 cm. There are extensive retroperitoneal adenopathy and mesenteric adenopathy. Neoplastic process is suspected. There are perinephric nodular densities bilaterally. The liver, spleen, adrenal glands and pancreas are unremarkable. There is no evidence of hydronephrosis bilaterally. No evidence of renal stone is seen. Fecal material is seen in the colon. There are normal size retroperitoneal and mesenteric lymph nodes. No ascites is seen. Atherosclerotic changes are present. Pelvic sidewalls are symmetric bilaterally. Bladder is poorly distended. There is left inguinal hernia with fat content. IMPRESSION: 1. Right adrenal mass measuring 6 x 5.4 cm. 2. Retroperitoneal and mesenteric adenopathy suspicious for neoplastic process. Nodular densities are seen bilaterally. Bilateral renal cysts. 3. Distended gallbladder. CT was performed with one or more following dose reduction techniques: automated exposure control, adjustment of the mA and kv according to patient's size, or use of a iterative reconstruction technique. DICTATED BY: NARAYAN OLSEN MD DATE: 03/21/25 1411 ASSESSMENT: Hypercalcemia Right adrenal mass measuring 6 x 5.[address] abdomen/pelvis Retroperitoneal and mesenteric adenopathy suspicious for neoplastic process per CT abdomen/pelvis POARecent lymph node biopsy 03/13/2025 Intractable abdominal pain POA Acute dehydration POA Failure to thrive POA Acute metabolic encephalopathy POA Severe malnutrition POA Acute kidney injury POA Uncontrolled hypertension POA Leukocytosis WBC 13.6 POA Multifactorial anemia POA Bilateral renal cysts as per CT abdomen/pelvis Uncontrolled diabetes mellitus type 2 Hyperlipidemia POA History of Prostate cancer POA GERD POA Coronary Artery Disease POA Morbid obesity POA PLAN: Labs, diagnostic, radiologic exams reviewed and interpreted by myself and supervising physician. We have reviewed external records in detail Continue with IV hydration Pending speech evaluation. Calcitonin can be held if calcium is <13 mg/dL Frequent BNP q.12 hours Please obtain pathology results from [facility] Require close monitoring of renal function and electrolytes Order CBC, CMP, ionized calcium, uric acid, and electrolytes in am BiPAP as necessary, for respiratory distress Monitor blood pressure adjust medication doses as needed Avoid hypotensive episodes May use Dilaudid 0.5 mg IV every 6 hours as needed for severe pain Monitor blood sugars Strict intake, output, and daily weight should be monitored Please renally adjust medications Avoid nephrotoxic and nonsteroidal drugs Avoid contrast if possible Will continue to monitor renal function, anemia, electrolytes Treatment plan discussed with patient Questions were answered We have discussed with the other team physicians in detail about the care plan We will continue to monitor the patient closely ATTESTATION BY PHYSICIAN I have seen and examined the patient. I reviewed the documentation, medical decision making, and treatment plan as noted by the mid-level provider above. I agree with the findings and plan of care. LELAND BAEZ MD, [facility] March 24, 2025 10:12
[2025-03-24] MEDS: 0.9%NACL 1000ML 1,000 ML IV ONE (10:22)
--- NOTE | 2025-03-24 13:57 | PN ---
[facility] PROGRESS NOTE Date of Service: March 24, 2025 Time of Service: 13:56 SUBJECTIVE: 74 years old male with a past medical history of hypertension, diabetes, cholesterol, GERD, prostate cancer with TURP(2008 with normal subsequent PSA levels), obstructive sleep apnea, severe COVID infection, presented to emergency department with complaints of generalized body weakness, loss of appetite and lower abdominal pain since December 2024. He was recently admitted to [facility]. During hospitalization it was found that patient had bilateral renal masses versus cyst, right adrenal mass. 03/13/2025 CTA was performed which showed an adrenal mass, ?lymphadenopathy and a lymph node biopsy was performed . On 03/14/2025 he underwent colonoscopy which was supposedly negative. Patient left against medical advice from the above said hospital . The patient he has been experiencing loss of appetite, dysphagia, dryness of mouth, decrease in body weight, occasional shortness of breath, in creased lethargy since December of this year. As per surgical pathology report of the biopsy from [facility] "Diffuse groups of malignant cells are identified with fibrosis and lymphoid tissue. They are arranged into small nests. There is a high nuclear systolic plasma thick ratio. Hyperchromatic nuclei and large nuclei bolus. The infiltrated fibrosis stoma shows mucinoid changes. The lymphoid tissue appear mature. Possible for immuno peroxidase CD45. Immunoperoxidase epithelial markers markers CK7 and CK20 are negative. Lung marker TTF one and prostate PSA are negative. Neuroendocrine markers chromogranin and synaptophysin are also negative. Proliferative markers Ki-67 is positive . The biopsy will be submitted to reference lab([place]) for consultation. An additional report will follow. Specimen source lymph nodes biopsy" At the time of presentation:vital signs temperature 98.8� pulse 80 respiration 18 blood pressure 130/65. Patient is on room air saturating at 97%. Labs at the time of presentation: WBC 13.6 hemoglobin 13.7 hematocrit 40.7 platelets 287. Sodium 136 potassium 3.6 CO2 30 BUN 22 creatinine 1.6 GFR 46 random glucose 115 lactic 2.2 total calcium 16.3 bilirubin 1.0 AST 42 ALT 64 CK 64 troponin 3.4 lipase 12 procalcitonin negative lactic acid repeated 1.7. CT abdomen/pelvis showed right adrenal mass measuring 6 x 5.4 cm. Retroperitoneal and mesenteric adenopathy suspicious for neoplastic process. Nodular density are seen bilaterally. Bilateral renal cyst. Distended gal lbladder. Chest x-ray showed mild bilateral pulmonary infiltrate are seen may be related to bilateral pulmonary vascular congestion with a possible superimposed pneumonitis. We will admit him for further evaluation and management. 03/22/2025: Patient is seen resting in his room. He appeared drowsy, but is arousable on verbal stimulation, alert oriented x3 and is perceiving and answering questions adequately. He Stated that he feels very tired. His calcium levels remain elevated. We will do PTH level to rule out hyperparathyroidism, vitamin-D25 hydroxy level to rule out hypervitaminosis D, [id number] dihydroxy level to rule out sarcoidosis, parathyroid related peptide. We will check PSA levels, TSH levels. He is being treated with calcitonin and reduced doses of pamidronate given his renal insufficiency. Oncology recommendations appreciated. Nephrology on board. Plan is to monitor calcium levels, keep patient in telemetry. If all the tests are negative, we will consider workup for multiple myeloma. 03/23/25 patient was seen and examined. Case discussed with RN and family by the bedside. He is hallucinating and confused he was calcium levels remain elevated. Nephrology ordered calcitonin he is continuing with IV fluids. 03/24/25 patient was seen and examined. Case discussed with the RN and family by the bedside. He has hallucination is slightly better but he is still confused. Calcium level is 13.2. Phosphorus is one. He has been treated appropriately. Nephrology and Oncology are following the patient. We will continue to follow the labs REVIEW OF SYSTEMS CONSTITUTIONAL: Denies fevers, chills, or night sweats. unintentional weight loss reported. NEUROLOGICAL: Denies headache, amaurosis fugax, motor weakness, sensory deficit, vertigo/spinning sensation, gait abnormalities, or tremors. ENT: No hearing loss, otalgia, otorrhea, rhinitis, rhinorrhea, hoarseness, or sore throat. CARDIOVASCULAR: Denies any exertional angina, dyspnea on exertion, orthopnea, paroxysmal nocturnal dyspnea, palpitations, life-threatening arrhythmias, claudication. PULMONARY: Denies any shortness of breath, cough, phlegm/sputum, hemoptysis, pleuritic chest pain. SLEEP: Denies morning headaches, daytime somnolence or napping. Denies difficulty falling asleep, staying asleep, waking from sleep. Denies knowledge of snoring. Patient complains of constant weakness/sleepiness GASTROINTESTINAL: Patient complains of dry mouth and difficulty to swallow at times Denies nausea, vomiting, pyrosis, early satiety, diarrhea, constipation, or changes in stool consistency or caliber. Denies coffee-ground emesis, hematemesis, hematochezia, or melanotic stools. Patient complains of abdominal pain GENITOURINARY: Denies frequency, urgency, nocturia, hematuria or incontinence (Storage/Irritative symptoms.) Low urinary stream, straining to void, urinary intermittency or hesitancy, splitting of the voiding stream, terminal dribbling. ENDOCRINOLOGIC: Denies polyuria, polydipsia, polyphagia or heat/cold intolerances. HEMATOLOGIC: Denies thrombophilia/previous clots, or coagulopathy/bleeding disorders. ONCOLOGIC: Patient has a history of prostate cancer status post TURP DERMATOLOGIC: Denies rashes or pruritus. PSYCHIATRIC: Denies any suicidal or homicidal ideation. Denies hallucinations. PHYSICAL EXAM GENERAL APPEARANCE: Patient appears lethargic The patient is awake, alert, and oriented, in no acute cardiopulmonary distress. NEUROLOGICAL: Cranial nerves II-XII grossly intact. Motor is 5/5 in bilateral upper and lower extremities proximal to distal. No sensory deficits. HEENT: Face is symmetric. Pupils are equal and reactive. Extraocular movements are intact. Dry oral mucosa dry lips NECK: Supple. No JVD. No thyromegaly. No submental, submandibular, pre-/postauricular, occipital or supraclavicular lymphadenopathy. CHEST: Normal chest expansion. No Telemetry. LUNGS: Absence of any rales, rhonchi or any wheezing. CARDIOVASCULAR: Regular. S1 and S2 normal. No appreciable rubs, murmurs or gallops. ABDOMEN: Soft, tender on left upper quadrant mildly distended. There is no rebound, voluntary guarding, or rigidity. : Deferred. No Gonzáles. EXTREMITIES: Non-edematous and not cyanotic. No clubbing. Good capillary refill. SKIN: No skin breakdown. Vital Signs (last 8hr) Date Time Temp Pulse Resp B/P (MAP) Pulse Ox O2 Delivery O2 Flow Rate FiO2 03/24/25 11:53 98.2 75 18 150/102 93 Room Air 03/24/25 08:04 98.1 75 19 138/75 LABS: Laboratory: Test 03/24/25 10:24 03/24/25 09:14 03/24/25 05:20 03/23/25 12:40 Range/Units Whole Blood Glucose 192 H 70-110 MG/DL Sodium Level 140 136-145 mmol/L Potassium Level 3.3 L 3.5-5.1 mmol/L Chloride Level 107 101-111 mmol/L Carbon Dioxide Level 25 21-32 mmol/L Blood Urea Nitrogen 27 H 7-18 mg/dL Creatinine 2.2 H 0.5-1.3 mg/dL Glomerular Filtration Rate Calc 31 >90 mL/min Random Glucose 168 H 70-105 mg/dL Total Calcium 13.3 *H 8.5-10.1 mg/dL White Blood Count 7.8 4.8-10.8 K/uL Red Blood Count 3.93 L 4.50-6.20 MIL/uL Hemoglobin 12.0 L 14.0-18.0 g/dL Hematocrit 34.1 L 42-54 % Mean Corpuscular Volume 86.8 79-99 fL Mean Corpuscular Hemoglobin 30.5 27.0-33.0 pg Mean Corpuscular Hemoglobin Concent 35.2 32.0-36.0 g/dL Red Cell Distribution Width 13.4 11.0-15.5 % Platelet Count 216 130-400 K/uL Mean Platelet Volume 11.1 H 7.5-10.5 fL Immature Granulocyte % (Auto) 0.6 0-1 % Neutrophils (%) (Auto) 90.7 H 40.0-77.0 % Lymphocytes (%) (Auto) 7.2 L 21.0-51.0 % Monocytes (%) (Auto) 1.4 L 3.0-13.0 % Eosinophils (%) (Auto) 0.0 0.0-8.0 % Basophils (%) (Auto) 0.1 0.0-5.0 % Neutrophils # (Auto) 7.1 1.8-7.7 K/uL Lymphocytes # (Auto) 0.6 L 1.0-4.8 K/uL Monocytes # (Auto) 0.1 0.1-1.0 K/uL Eosinophils # (Auto) 0.00 0.00-0.70 K/uL Basophils # (Auto) 0.01 0.00-0.20 K/uL Absolute Immature Granulocyte (auto 0.05 0-1 K/uL Nucleated Red Blood Cells 0.0 0.0-0.19 % Ionized Calcium 1.76 H 1.15-1.33 MMOL/L Phosphorus Level 1.0 *L 2.5-4.9 mg/dL Total Bilirubin 0.7 0.2-1.0 mg/dL Aspartate Amino Transf (AST/SGOT) 24 10-37 U/L Alanine Aminotransferase (ALT/SGPT) 34 12-78 U/L Alkaline Phosphatase 56 50-136 U/L B-Type Natriuretic Peptide 267 H 0-100 pg/mL Total Protein 6.2 6.0-8.3 g/dL Albumin 2.8 L 3.5-5.0 g/dL Blood Gas Specimen Type Arterial Arterial Blood pH 7.483 H 7.350-7.450 Arterial Blood Partial Pressure CO2 35 35-48 mmHg Arterial Blood Partial Pressure O2 62.7 L 83.0-108.0 mmHg Arterial Blood HCO3 25.5 21.0-28.0 mmol/L Arterial Blood Oxygen Saturation 93.7 L 94.0-98.0 % Arterial Blood Base Excess 2.5 -2.0-3.0 mmol/L Blood Gas Temperature 37.0 35.5-37.0 CELSIUS Blood Gas Vent Mode RA ROOM AIR FiO2 21.0 % Blood Gas Specimen Comment DR RAM Test 03/23/25 04:21 03/22/25 19:35 03/22/25 15:00 03/22/25 14:40 Range/Units Lactic Acid Level 1.8 0.8-2.5 mmol/L Uric Acid 9.1 H 2.6-7.2 mg/dL Magnesium Level 1.60 L 1.80-2.40 mg/dL C-Reactive Protein, Quantitative 25.60 H 0.5-3.0 mg/L Urine Osmolality 422 50-1200 mOsm/kg Urine Random Creatinine 162.47 H 30-135 mg/dL Urine Random Sodium 30 L 40-220 mmol/l Urine Random Potassium 34 25-125 mmol/L Urine Random Chloride 62 L 110-250 mmol/L Troponin I High Sensitivity 66 4-75 ng/L Thyroid Stimulating Hormone (TSH) 2.11 0.36-3.74 uIU/mL Current Medications Medications (Trade) Dose Ordered Sig/Katie Route PRN Reason Start Time Stop Time Status Last Admin Dose Admin Acetaminophen (TYLenol 325MG TAB) 650 mg Q4H PRN PO MILD PAIN (1-3) 03/21/25 16:00 04/20/25 15:59 Acetaminophen (TYLenol 325MG TAB) 650 mg Q6H PRN PO MILD PAIN (1-3) 03/21/25 16:00 03/21/25 15:51 DC Acetaminophen (TYLenol 325MG TAB) 650 mg Q6H PRN PO TEMPERATURE GREATER THAN 101.5 03/21/25 16:00 04/20/25 15:59 Al Hydroxide/Mg Hydroxide (MAALox PLUS 30ML) 30 ml Q6H PRN PO INDIGESTION 03/21/25 16:00 04/20/25 15:59 Allopurinol (ZYLOprim 300MG) 300 mg BID STAT PO 03/23/25 17:05 03/23/25 17:20 DC 03/23/25 17:27 300 MG Calcitonin (Miacalcin 400 Unit Inj) 400 units BID SQ 03/23/25 15:00 03/26/25 14:59 03/23/25 15:27 400 UNITS Dexamethasone (DeCADron 4 mg TAB) 40 mg ONCE PO 03/23/25 17:00 03/24/25 13:22 DC 03/23/25 17:27 40 MG Dextrose (D50w) 50 ml AD PRN IV HYPOGLYCEMIA PROTOCOL 03/21/25 16:00 04/20/25 15:59 Diphenhydramine HCl (BENAdryl INJ) 25 mg Q6H PRN IV SEVERE ITCHING/RASH 03/21/25 16:00 04/20/25 15:59 Famotidine (Pepcid 20mg Vial) 20 mg BID PRN IV NAUSEA/VOMITING 03/21/25 16:00 03/21/25 15:51 DC Famotidine (Pepcid 20mg Vial) 20 mg DAILY IV 03/22/25 09:00 03/24/25 13:22 DC 03/24/25 10:23 20 MG Glucagon (Glucagon 1mg Kit) 1 mg AD PRN IM HYPOGLYCEMIA PROTOCOL 03/21/25 16:00 04/20/25 15:59 Guaifenesin/ Dextromethorphan (RobiTUSSin DM 200/20MG 10ML) 10 ml Q4H PRN PO COUGH 03/21/25 16:00 04/20/25 15:59 Heparin Sodium (Porcine) (HEParin 5,000 UNIT VIAL) 5,000 unit BID SQ 03/21/25 21:00 04/20/25 20:59 03/24/25 10:42 5,000 UNIT Hydralazine HCl (APRESOLine 20MG INJ) 10 mg Q6H PRN IV For:SBP above 160;DBP above 90 03/21/25 16:00 04/20/25 15:59 Insulin Human Regular (humuLIN R 100 UNIT/ML 3ML) INSULIN SLIDING SCAL... ACHS SQ 03/21/25 16:30 04/20/25 16:29 Ketorolac Tromethamine (toRADol) 15 mg Q8H PRN IV MODERATE PAIN (4-6) 03/21/25 16:00 03/23/25 16:59 DC 03/23/25 15:10 15 MG Lactated Ringer's 1,000 ml @ 100 mls/hr Q10H STAT IV 03/21/25 13:13 03/21/25 13:22 DC Lactulose (Constulose 20gm/ 30ml Udcup) 20 gm BID PRN PO CONSTIPATION 03/21/25 16:00 04/20/25 15:59 Magnesium Sulfate 50 ml @ 0 mls/hr PROTOCOL PRN IV other 03/21/25 16:00 04/20/25 15:59 03/23/25 06:09 25 MLS/HR Morphine Sulfate (morPHINE 2MG SYG) 1 mg Q4H PRN IVP SEVERE PAIN (7-10) 03/21/25 16:00 03/28/25 15:59 03/23/25 22:06 1 MG Morphine Sulfate (morPHINE 2MG SYG) 2 mg ONCE STAT IVP 03/21/25 14:27 03/21/25 14:31 DC 03/21/25 14:46 2 MG Nitroglycerin (Nitrostat) 0.4 mg PROTOCOL PRN SL CHEST PAIN 03/21/25 16:00 04/20/25 15:59 Ondansetron HCl (zoFRAN 4MG INJ) 4 mg Q6H PRN IV NAUSEA/VOMITING 03/21/25 16:00 03/23/25 12:26 DC Ondansetron HCl (zoFRAN 4MG INJ) 4 mg Q6H PRN IVP NAUSEA/VOMITING 03/23/25 12:30 04/22/25 12:29 Oxycodone/ Acetaminophen (perCOCET) 1 tab Q6H PRN PO SEVERE PAIN (7-10) 03/21/25 16:00 03/22/25 08:52 DC Pantoprazole Sodium (PROTonix 40MG TAB) 40 mg DAILY PO 03/23/25 17:00 04/22/25 16:59 03/24/25 10:26 40 MG Pharmacy Profile Note (Pharmacy Communication) 1 each AD MISC 03/22/25 09:00 03/22/25 08:52 DC Piperacillin Sod/ Tazobactam Sod 50 ml @ 12.5 mls/hr ZOSY8 IV 03/21/25 21:00 03/31/25 20:59 03/24/25 13:55 12.5 MLS/HR Potassium Chloride 100 ml @ 100 mls/hr AD PRN IV POTASSIUM PROTOCOL 03/22/25 18:00 04/21/25 17:59 Potassium Chloride (K-Dur 10meq Sr Tab) 10 meq AD PRN PO POTASSIUM PROTOCOL 03/24/25 13:30 04/21/25 18:29 Potassium Chloride (K-Dur/Klor-Con 20meq) 10 meq AD PRN PO POTASSIUM PROTOCOL 03/22/25 18:30 03/24/25 13:23 DC 03/23/25 11:15 10 MEQ Potassium Chloride (KCl 10% Elixir 20meq/15ml) 10 meq AD PRN PO POTASSIUM PROTOCOL 03/22/25 18:30 04/21/25 18:29 Sodium Chloride 1,000 ml @ 150 mls/hr Q6H40M IV 03/21/25 16:00 04/20/25 15:59 03/24/25 13:55 150 MLS/HR Thiamine HCl (Vitamin B-1) 100 mg DAILY IVP 03/23/25 13:30 04/22/25 13:29 03/24/25 10:24 100 MG Vitamin B Complex/ Vit C/Folic Acid (Nephrovite Tablet) 1 cap DAILY PO 03/23/25 09:00 04/22/25 08:59 03/24/25 10:25 1 CAP Zolpidem Tartrate (AmbIEN) 5 mg HS PRN PO INSOMNIA 03/21/25 16:00 04/20/25 15:59 DIAGNOSTICS / RADIOLOGY: [ ] ASSESSMENT: Hypercalcemia POA Right adrenal mass measuring 6 x 5.[address] abdomen/pelvis Retroperitoneal and mesenteric adenopathy suspicious for neoplastic process per CT abdomen/pelvis POARecent lymph node biopsy 03/13/2025 Intractable abdominal pain POA Acute dehydration POA Failure to thrive POA Acute metabolic encephalopathy POA Severe malnutrition POA Acute kidney injury POA Uncontrolled hypertension POA Leukocytosis WBC 13.6 POA Multifactorial anemia POA Bilateral renal cysts as per CT abdomen/pelvis Chronic Problem: Uncontrolled diabetes mellitus type 2 with hypoglycemia POA Hyperlipidemia POA History of Prostate cancer POA GERD POA Coronary Artery Disease POA Morbid obesity POA History of COVID POA PLAN: Admitted to medical floor Hypercalcemia POA Right adrenal mass measuring 6 x 5.[address] abdomen/pelvis Retroperitoneal and mesenteric adenopathy suspicious for neoplastic process per CT abdomen/pelvis POA Recent lymph node biopsy 03/13/2025 Intractable abdominal pain POA Hypercalcemia possibly secondary to underlying unknown malignancy Continue calcitonin and pamidronate Patient has first-degree AV block-possibly secondary to hypercalcemia: we will repeat EKG Oncology recommendations appreciated;Pending lymph node biopsy records from elsewhere Continue telemetry Failure to thrive POA Acute metabolic encephalopathy POA Severe malnutrition POA Acute kidney injury POA Acute dehydration POA Patient with history of dysphagia, dry mouth, decreased appetite, weight loss Continue IV fluids We will request Nephrology consultation We will be monitoring the labs Strict I/O chart Chest x-ray mild bilateral pulmonary infiltrate are seen may be related to mild pulmonary vascular congestion with possible superimposed pneumonitis-obtain a CT chest. Other: Supplemental 02 as needed BiPAP as necessary, for respiratory distress Titrate Fio2 to keep Spo2 > or = 90% DuoNeb�s and CPT as needed Maintain aspiration precautions at all times Vital signs per facility protocol Prokinetic agents and laxatives as needed Daily weights Avoid nephrotoxic agents Monitor electrolytes and replace as needed Goal urine output of 30mL/hr or 0.5mL/kg/hr Medications to be dosed according to renal function. Avoid contrast if possible Maintain blood glucose between 100-180 at all times. Insulin sliding scale for blood glucose management Hypoglycemia and hyperglycemia protocol in place Trend temperature, WBC and procalcitonin level Follow cultures, deescalate antibiotics as soon as possible. Panculture if new onset fever Monitor H&H. Keep Hgb > 7 Pressure ulcer prevention per facility protocol Specialty mattress as needed Treatment plan discussed with patient and family at the bedside Medications to be reconciled once obtained by patient and/or family and available to be reconciled in computer p.r.n. medication for pain nausea and vomiting Concrete Technician for disposition Rehab: PT/OT GI: PPI DVT: SCD's Code Status: Full Resuscitation Disposition: TBD Prognosis: Guarded LENNY RAM MD March 24, 2025 13:57
--- NOTE | 2025-03-24 16:00 | NUR ---
BEDSIDE SWALLOW EVAL COMPLETED. + s/s of oral dysphagia. Recommend modified diet of easy to chew solids and thin liquids, with side of gravy and/or soup for added moisture. COMPENSATORY STRATEGIES 1. Sit upright 2. slow oral intake 3. Alt liquids and solids AUTO TRANSPORT DRIVER reviewed results and recommendations with patient, family, and nurse Vesna. AUTO TRANSPORT DRIVER educated patient/family on risk and consequences of aspiration. Speech therapy warranted at this time to address dysphagia. All questions answered. RECOMMENDATIONS: Dysphagia therapy 1-3x week to improve oral function of swallow and consume safest/least restrictive diet: LTG#1: Pt will tolerate least restrictive diet to meet nutrition/hydration with no s/s of aspiration. LTG#2: Skilled education Pt/family/staff STG#1: Pt will participate in oral stimulation exercises with 90% accuracy. STG#2: Pt will participate in oral motor exercises STG#3: Pt will complete safe swallow compensatory strategies with 90% accuracy with min asst. STG#4 Pt will tolerate a modified diet of easy to chew solids with 0% oral residue. STG#5 Pt will participate in therapeutic trials of regular solids and thin liquids with symptoms of oral dysphagia. STG#6: Skilled education with pt/family/staff Addendum: 03/24/25 at 1807 by CALOS MARTINEZ Amended: Links added.
[2025-03-24] MEDS ORDERED: PHARMACY COMMUNICATION MISC SCH (19:30)
[2025-03-24 20:42] LABS: CREATININE 2.1 mg/dL (0.5-1.3); POTASSIUM 3.3 mmol/L (3.5-5.1)
[2025-03-24] MEDS: POTASSIUM PHOSP IV ONE (21:02)
[2025-03-24] MEDS: NACL 0.9% IV ONE (21:02)
[2025-03-24 21:08] LABS: PROTEIN/CREATININE RATIO 408 mg/g creat (0-200)
--- NOTE | 2025-03-24 21:11 | NUR ---
PER SELIN CASTILLO M.S. @ 20:30 HE SPOKE TO CELESTINA WOOD RN STATED SHE WILL CANCEL THE BONE SURVEY X-RAY EXAM.
[2025-03-25] VITALS (7 sets, daily range): BP systolic 108–145; BP diastolic 60–91; PULSE 84–101; RESP 17–22; TEMP 97.7–98.2; O2SAT 90–93
[2025-03-25] MEDS: ondanSETRON 4MG INJ IVP PRN (01:39)
[2025-03-25 04:24] LABS: HEMATOCRIT 31.3 % (42-54); MEAN CORPUSCULAR HEMOGLOBIN 29.8 pg (27.0-33.0); MEAN CORPUSCULAR HGB CONC 34.2 g/dL (32.0-36.0); MEAN CORPUSCULAR VOLUME 87.2 fL (79-99); RED BLOOD CELL COUNT(AUTO) 3.59 MIL/uL (4.50-6.20); RED CELL DISTRIBUTION WIDTH 13.6 % (11.0-15.5); WHITE BLOOD COUNT (AUTO) 13.9 K/uL (4.8-10.8)
[2025-03-25 05:12] LABS: ALBUMIN 2.5 g/dL (3.5-5.0); BILIRUBIN,TOTAL 0.5 mg/dL (0.2-1.0); MAGNESIUM 1.6 mg/dL (1.80-2.40); PHOSPHORUS 2.6 mg/dL (2.5-4.9); POTASSIUM 3.5 mmol/L (3.5-5.1); TOTAL PROTEIN, SERUM 5.6 g/dL (6.0-8.3)
--- NOTE | 2025-03-25 08:20 | PN ---
GASTROENTEROLOGY PROGRESS NOTE Date of Visit: March 25, 2025 Time of Visit: 08:20 Events / Notes: [ ] Review of Systems: CONSTITUTIONAL: No malaise or change in sensation of wellbeing. ENMT: No rhinorrhea, otorrhea, sinus pain, ear ache. CARDIOVASCULAR: No angina, palpitations, orthopnea or paroxysmal dyspnea. RESPIRATORY: No SOB. GASTROINTESTINAL: No abdominal pain, nausea, vomiting, diarrhea, hematemesis, melena or change in the patient's habitual bowel movements consistency/number. GENITOURINARY: No dysuria, hematuria or change in bladder continence. MUSCULOSKELETAL: No new muscle pain or decrease in muscular strength. No new joint swelling, redness or tenderness. SKIN: No new rash. Physical Exam: GEN: Awake, alert, oriented in person, time and place, and in no acute distress. HEENT: No sinus tenderness. Tympanic membranes were not examined. No rhinorrhea. Oral pharyngeal mucosa is pink, moist and within normal limits. Neck is supple with no cervical lymphadenopathy, thyromegaly or JVD. CHEST: Inspection, palpation and percussion of the chest were unremarkable. Lung auscultation revealed normal breath sounds bilaterally. CARDIAC: PMI is within normal limits. Heart sounds are regular. Normal S1, S2. No gallop or murmur. ABD: Soft, non-tender and not distended. No peritoneal signs on palpation. No organomegaly. Normal bowel sounds. EXT: No cyanosis or clubbing. No edema. SKIN: Intact. No rashes. JOINTS: No evidence of synovitis or acute arthritis. NEURO: Alert and oriented to name, place and person. Cranial nerve examination is unremarkable. No focal motor deficits. Normal speech. Gait is normal. Strength is normal. Vital Signs (last 8hr) Date Time Temp Pulse Resp B/P (MAP) Pulse Ox O2 Delivery O2 Flow Rate FiO2 03/25/25 07:54 97.7 85 17 145/77 90 Room Air 03/25/25 04:00 98.2 101 20 132/77 93 Room Air Laboratory: [ ] Laboratory: Test 03/25/25 05:52 03/25/25 04:08 03/24/25 22:05 03/24/25 05:20 Range/Units Whole Blood Glucose 120 H 70-110 MG/DL White Blood Count 13.9 #H 4.8-10.8 K/uL Red Blood Count 3.59 L 4.50-6.20 MIL/uL Hemoglobin 10.7 L 14.0-18.0 g/dL Hematocrit 31.3 L 42-54 % Mean Corpuscular Volume 87.2 79-99 fL Mean Corpuscular Hemoglobin 29.8 27.0-33.0 pg Mean Corpuscular Hemoglobin Concent 34.2 32.0-36.0 g/dL Red Cell Distribution Width 13.6 11.0-15.5 % Platelet Count 219 130-400 K/uL Mean Platelet Volume 10.3 7.5-10.5 fL Nucleated Red Blood Cells 0.0 0.0-0.19 % Sodium Level 143 136-145 mmol/L Potassium Level 3.5 3.5-5.1 mmol/L Chloride Level 109 101-111 mmol/L Carbon Dioxide Level 25 21-32 mmol/L Blood Urea Nitrogen 33 H 7-18 mg/dL Creatinine 1.0 0.5-1.3 mg/dL Glomerular Filtration Rate Calc 80 >90 mL/min Random Glucose 127 H 70-105 mg/dL Total Calcium 11.5 H 8.5-10.1 mg/dL Phosphorus Level 2.6 2.5-4.9 mg/dL Magnesium Level 1.60 L 1.80-2.40 mg/dL Total Bilirubin 0.5 # 0.2-1.0 mg/dL Aspartate Amino Transf (AST/SGOT) 25 10-37 U/L Alanine Aminotransferase (ALT/SGPT) 37 12-78 U/L Alkaline Phosphatase 44 L 50-136 U/L Total Protein 5.6 L 6.0-8.3 g/dL Albumin 2.5 L 3.5-5.0 g/dL B-Type Natriuretic Peptide 290 H 0-100 pg/mL Immature Granulocyte % (Auto) 0.6 0-1 % Neutrophils (%) (Auto) 90.7 H 40.0-77.0 % Lymphocytes (%) (Auto) 7.2 L 21.0-51.0 % Monocytes (%) (Auto) 1.4 L 3.0-13.0 % Eosinophils (%) (Auto) 0.0 0.0-8.0 % Basophils (%) (Auto) 0.1 0.0-5.0 % Neutrophils # (Auto) 7.1 1.8-7.7 K/uL Lymphocytes # (Auto) 0.6 L 1.0-4.8 K/uL Monocytes # (Auto) 0.1 0.1-1.0 K/uL Eosinophils # (Auto) 0.00 0.00-0.70 K/uL Basophils # (Auto) 0.01 0.00-0.20 K/uL Absolute Immature Granulocyte (auto 0.05 0-1 K/uL Ionized Calcium 1.76 H 1.15-1.33 MMOL/L Test 03/23/25 12:40 Range/Units Blood Gas Specimen Type Arterial Arterial Blood pH 7.483 H 7.350-7.450 Arterial Blood Partial Pressure CO2 35 35-48 mmHg Arterial Blood Partial Pressure O2 62.7 L 83.0-108.0 mmHg Arterial Blood HCO3 25.5 21.0-28.0 mmol/L Arterial Blood Oxygen Saturation 93.7 L 94.0-98.0 % Arterial Blood Base Excess 2.5 -2.0-3.0 mmol/L Blood Gas Temperature 37.0 35.5-37.0 CELSIUS Blood Gas Vent Mode RA ROOM AIR FiO2 21.0 % Blood Gas Specimen Comment DR RAM Current Medications Medications (Trade) Dose Ordered Sig/Katie Route PRN Reason Start Time Stop Time Status Last Admin Dose Admin Acetaminophen (TYLenol 325MG TAB) 650 mg Q4H PRN PO MILD PAIN (1-3) 03/21/25 16:00 04/20/25 15:59 Acetaminophen (TYLenol 325MG TAB) 650 mg Q6H PRN PO MILD PAIN (1-3) 03/21/25 16:00 03/21/25 15:51 DC Acetaminophen (TYLenol 325MG TAB) 650 mg Q6H PRN PO TEMPERATURE GREATER THAN 101.5 03/21/25 16:00 04/20/25 15:59 Al Hydroxide/Mg Hydroxide (MAALox PLUS 30ML) 30 ml Q6H PRN PO INDIGESTION 03/21/25 16:00 04/20/25 15:59 Allopurinol (ZYLOprim 300MG) 300 mg BID STAT PO 03/23/25 17:05 03/23/25 17:20 DC 03/23/25 17:27 300 MG Amlodipine Besylate (NorvASC 5MG TAB) 10 mg DAILY PO 03/25/25 09:00 04/24/25 08:59 Aspirin (Aspirin 81mg Chew Tab) 81 mg DAILY PO 03/25/25 09:00 04/24/25 08:59 Calcitonin (Miacalcin 400 Unit Inj) 400 units BID SQ 03/23/25 15:00 03/26/25 14:59 03/23/25 15:27 400 UNITS Dexamethasone (DeCADron 4 mg TAB) 40 mg ONCE PO 03/23/25 17:00 03/24/25 13:22 DC 03/23/25 17:27 40 MG Dextrose (D50w) 50 ml AD PRN IV HYPOGLYCEMIA PROTOCOL 03/21/25 16:00 04/20/25 15:59 Diphenhydramine HCl (BENAdryl INJ) 25 mg Q6H PRN IV SEVERE ITCHING/RASH 03/21/25 16:00 04/20/25 15:59 Famotidine (Pepcid 20mg Vial) 20 mg BID PRN IV NAUSEA/VOMITING 03/21/25 16:00 03/21/25 15:51 DC Famotidine (Pepcid 20mg Vial) 20 mg DAILY IV 03/22/25 09:00 03/24/25 13:22 DC 03/24/25 10:23 20 MG Glucagon (Glucagon 1mg Kit) 1 mg AD PRN IM HYPOGLYCEMIA PROTOCOL 03/21/25 16:00 04/20/25 15:59 Guaifenesin/ Dextromethorphan (RobiTUSSin DM 200/20MG 10ML) 10 ml Q4H PRN PO COUGH 03/21/25 16:00 04/20/25 15:59 Heparin Sodium (Porcine) (HEParin 5,000 UNIT VIAL) 5,000 unit BID SQ 03/21/25 21:00 04/20/25 20:59 03/24/25 21:04 5,000 UNIT Hydralazine HCl (APRESOLine 20MG INJ) 10 mg Q6H PRN IV For:SBP above 160;DBP above 90 03/21/25 16:00 04/20/25 15:59 Insulin Human Regular (humuLIN R 100 UNIT/ML 3ML) INSULIN SLIDING SCAL... ACHS SQ 03/21/25 16:30 04/20/25 16:29 Ketorolac Tromethamine (toRADol) 15 mg Q8H PRN IV MODERATE PAIN (4-6) 03/21/25 16:00 03/23/25 16:59 DC 03/23/25 15:10 15 MG Lactated Ringer's 1,000 ml @ 100 mls/hr Q10H STAT IV 03/21/25 13:13 03/21/25 13:22 DC Lactulose (Constulose 20gm/ 30ml Udcup) 20 gm BID PRN PO CONSTIPATION 03/21/25 16:00 04/20/25 15:59 Magnesium Sulfate 50 ml @ 0 mls/hr PROTOCOL PRN IV other 03/21/25 16:00 04/20/25 15:59 03/23/25 06:09 25 MLS/HR Morphine Sulfate (morPHINE 2MG SYG) 1 mg Q4H PRN IVP SEVERE PAIN (7-10) 03/21/25 16:00 03/28/25 15:59 03/25/25 01:45 1 MG Morphine Sulfate (morPHINE 2MG SYG) 2 mg ONCE STAT IVP 03/21/25 14:27 03/21/25 14:31 DC 03/21/25 14:46 2 MG Nitroglycerin (Nitrostat) 0.4 mg PROTOCOL PRN SL CHEST PAIN 03/21/25 16:00 04/20/25 15:59 Ondansetron HCl (zoFRAN 4MG INJ) 4 mg Q6H PRN IV NAUSEA/VOMITING 03/21/25 16:00 03/23/25 12:26 DC Ondansetron HCl (zoFRAN 4MG INJ) 4 mg Q6H PRN IVP NAUSEA/VOMITING 03/23/25 12:30 04/22/25 12:29 03/25/25 01:39 4 MG Oxycodone/ Acetaminophen (perCOCET) 1 tab Q6H PRN PO SEVERE PAIN (7-10) 03/21/25 16:00 03/22/25 08:52 DC Pantoprazole Sodium (PROTonix 40MG TAB) 40 mg DAILY PO 03/23/25 17:00 04/22/25 16:59 03/24/25 10:26 40 MG Pharmacy Profile Note (Pharmacy Communication) 1 each AD MISC 03/22/25 09:00 03/22/25 08:52 DC Pharmacy Profile Note (Pharmacy Communication) 1 each ONCE MISC 03/24/25 19:30 03/24/25 19:21 DC Piperacillin Sod/ Tazobactam Sod 50 ml @ 12.5 mls/hr [id number] IV 03/21/25 21:00 03/31/25 20:59 03/25/25 05:19 12.5 MLS/HR Potassium Chloride 100 ml @ 100 mls/hr AD PRN IV POTASSIUM PROTOCOL 03/22/25 18:00 04/21/25 17:59 Potassium Chloride (K-Dur 10meq Sr Tab) 10 meq AD PRN PO POTASSIUM PROTOCOL 03/24/25 13:30 04/21/25 18:29 Potassium Chloride (K-Dur/Klor-Con 20meq) 10 meq AD PRN PO POTASSIUM PROTOCOL 03/22/25 18:30 03/24/25 13:23 DC 03/23/25 11:15 10 MEQ Potassium Chloride (KCl 10% Elixir 20meq/15ml) 10 meq AD PRN PO POTASSIUM PROTOCOL 03/22/25 18:30 04/21/25 18:29 Sodium Chloride 1,000 ml @ 150 mls/hr Q6H40M IV 03/21/25 16:00 04/20/25 15:59 03/24/25 13:55 150 MLS/HR Thiamine HCl (Vitamin B-1) 100 mg DAILY IVP 03/23/25 13:30 04/22/25 13:29 03/24/25 10:24 100 MG Vitamin B Complex/ Vit C/Folic Acid (Nephrovite Tablet) 1 cap DAILY PO 03/23/25 09:00 04/22/25 08:59 03/24/25 10:25 1 CAP Zolpidem Tartrate (AmbIEN) 5 mg HS PRN PO INSOMNIA 03/21/25 16:00 04/20/25 15:59 Diagnostics / Radiology: [COPY/PASTE HERE IF NO REPORTS PLEASE DELETE SECTION] Assessment: [ ] Plan: No plan for further endoscopy Follow oncology recommendations AZALEA RICHARDSON CLINICAL INVESTIGATOR March 25, 2025 08:20
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
[2025-03-25] MEDS: HALOPERIDOL INJ 5 MG/ML VIAL IV PRN (10:54)
[2025-03-25] MEDS: amLODIPine 5 MG TAB PO SCH (12:08)
[2025-03-25] MEDS: ASPIRIN 81MG CHEW TAB PO SCH (12:08)
[2025-03-25] MEDS: DiphenhydrAMINE HCL 50 MG/ML VIAL IV PRN (12:09)
--- NOTE | 2025-03-25 12:44 | NUR ---
Discharge Planning: Patient placed on 1:1 observation d/t confusion and anxiety. Dr. Gloria is following, pending records including pathology from [facility] [place]. CT shows adrenal metastasis.
--- NOTE | 2025-03-25 13:25 | PN ---
NEPHROLOGY PROGRESS NOTE Date/Time Patient Seen: March 25, 2025 SUBJECTIVE: This is a 74 years old male with a past medical history of hypertension, diabetes, cholesterol, GERD, prostate cancer with to, obstructive sleep apnea, COVID. He presented to the emergency department with a complaining of generalized body weakness, loss of appetite and lower abdominal pain. The patient was found to have adrenal mass, right adrenal mass. The patient has been followed by oncologist because of abdominal masses. The patient has bilateral renal cysts detected. He was noted with hypercalcemia and renal failure Renal function remains elevated He has received one dose of pamidronate and calcitonin. Calcium level today is 11.5 mg/dL He continues on gentle IV hydration Continues to be followed by Oncology. Family at the bedside reports patient is having trouble swallowing He was seen in the medical floor Family at the bedside REVIEW OF SYSTEMS: Unable to obtain due to patient's status Vital Signs (last 8hr) Date Time Temp Pulse Resp B/P (MAP) Pulse Ox O2 Delivery O2 Flow Rate FiO2 03/23/25 07:59 98.1 102 20 150/91 95 Room Air 03/23/25 04:00 98.4 95 20 143/75 94 Room Air PHYSICAL EXAM: GENERAL: Lethargic, pale. No acute distress. Well-nourished. EYES: EOMI. Anicteric. HENT: Moist mucous membranes. No scleral icterus. No cervical lymphadenopathy. LUNGS: Clear to auscultation bilaterally. No accessory muscle use. CARDIOVASCULAR: Regular rate and rhythm. No murmur. No JVD. ABDOMEN: Soft, non-tender and non-distended. No palpable masses. EXTREMITIES: No edema. Non-tender. SKIN: No rashes or lesions. Warm. NEUROLOGIC: No focal neurological deficits. CN II-XII grossly intact, but not individually tested. PSYCHIATRIC: Cooperative. Appropriate mood and affect. Current Medications Medications (Trade) Dose Ordered Sig/Katie Route PRN Reason Start Time Stop Time Status Last Admin Dose Admin Acetaminophen (TYLenol 325MG TAB) 650 mg Q4H PRN PO MILD PAIN (1-3) 03/21/25 16:00 04/20/25 15:59 Acetaminophen (TYLenol 325MG TAB) 650 mg Q6H PRN PO MILD PAIN (1-3) 03/21/25 16:00 03/21/25 15:51 DC Acetaminophen (TYLenol 325MG TAB) 650 mg Q6H PRN PO TEMPERATURE GREATER THAN 101.5 03/21/25 16:00 04/20/25 15:59 Al Hydroxide/Mg Hydroxide (MAALox PLUS 30ML) 30 ml Q6H PRN PO INDIGESTION 03/21/25 16:00 04/20/25 15:59 Dextrose (D50w) 50 ml AD PRN IV HYPOGLYCEMIA PROTOCOL 03/21/25 16:00 04/20/25 15:59 Diphenhydramine HCl (BENAdryl INJ) 25 mg Q6H PRN IV SEVERE ITCHING/RASH 03/21/25 16:00 04/20/25 15:59 Famotidine (Pepcid 20mg Vial) 20 mg BID PRN IV NAUSEA/VOMITING 03/21/25 16:00 03/21/25 15:51 DC Famotidine (Pepcid 20mg Vial) 20 mg DAILY IV 03/22/25 09:00 04/21/25 08:59 03/23/25 09:47 20 MG Glucagon (Glucagon 1mg Kit) 1 mg AD PRN IM HYPOGLYCEMIA PROTOCOL 03/21/25 16:00 04/20/25 15:59 Guaifenesin/ Dextromethorphan (RobiTUSSin DM 200/20MG 10ML) 10 ml Q4H PRN PO COUGH 03/21/25 16:00 04/20/25 15:59 Heparin Sodium (Porcine) (HEParin 5,000 UNIT VIAL) 5,000 unit BID SQ 03/21/25 21:00 04/20/25 20:59 03/23/25 09:54 5,000 UNIT Hydralazine HCl (APRESOLine 20MG INJ) 10 mg Q6H PRN IV For:SBP above 160;DBP above 90 03/21/25 16:00 04/20/25 15:59 Insulin Human Regular (humuLIN R 100 UNIT/ML 3ML) INSULIN SLIDING SCAL... ACHS SQ 03/21/25 16:30 04/20/25 16:29 Ketorolac Tromethamine (toRADol) 15 mg Q8H PRN IV MODERATE PAIN (4-6) 03/21/25 16:00 03/26/25 15:59 03/23/25 04:02 15 MG Lactated Ringer's 1,000 ml @ 100 mls/hr Q10H STAT IV 03/21/25 13:13 03/21/25 13:22 DC Lactulose (Constulose 20gm/ 30ml Udcup) 20 gm BID PRN PO CONSTIPATION 03/21/25 16:00 04/20/25 15:59 Magnesium Sulfate 50 ml @ 0 mls/hr PROTOCOL PRN IV other 03/21/25 16:00 04/20/25 15:59 03/23/25 06:09 25 MLS/HR Morphine Sulfate (morPHINE 2MG SYG) 1 mg Q4H PRN IVP SEVERE PAIN (7-10) 03/21/25 16:00 03/28/25 15:59 Morphine Sulfate (morPHINE 2MG SYG) 2 mg ONCE STAT IVP 03/21/25 14:27 03/21/25 14:31 DC 03/21/25 14:46 2 MG Nitroglycerin (Nitrostat) 0.4 mg PROTOCOL PRN SL CHEST PAIN 03/21/25 16:00 04/20/25 15:59 Ondansetron HCl (zoFRAN 4MG INJ) 4 mg Q6H PRN IV NAUSEA/VOMITING 03/21/25 16:00 04/20/25 15:59 Oxycodone/ Acetaminophen (perCOCET) 1 tab Q6H PRN PO SEVERE PAIN (7-10) 03/21/25 16:00 03/22/25 08:52 DC Pharmacy Profile Note (Pharmacy Communication) 1 each AD MISC 03/22/25 09:00 03/22/25 08:52 DC Piperacillin Sod/ Tazobactam Sod 50 ml @ 12.5 mls/hr ZOSY8 IV 03/21/25 21:00 03/31/25 20:59 03/23/25 04:04 12.5 MLS/HR Potassium Chloride 100 ml @ 100 mls/hr AD PRN IV POTASSIUM PROTOCOL 03/22/25 18:00 04/21/25 17:59 Potassium Chloride (K-Dur/Klor-Con 20meq) 10 meq AD PRN PO POTASSIUM PROTOCOL 03/22/25 18:30 04/21/25 18:29 03/23/25 06:08 10 MEQ Potassium Chloride (KCl 10% Elixir 20meq/15ml) 10 meq AD PRN PO POTASSIUM PROTOCOL 03/22/25 18:30 04/21/25 18:29 Sodium Chloride 1,000 ml @ 125 mls/hr Q8H IV 03/21/25 16:00 04/20/25 15:59 03/23/25 03:57 125 MLS/HR Vitamin B Complex/ Vit C/Folic Acid (Nephrovite Tablet) 1 cap DAILY PO 03/23/25 09:00 04/22/25 08:59 03/23/25 09:47 1 CAP Zolpidem Tartrate (AmbIEN) 5 mg HS PRN PO INSOMNIA 03/21/25 16:00 04/20/25 15:59 LABORATORY: [ ] Hematology Labs: Test 03/25/25 04:08 03/24/25 05:20 Range/Units White Blood Count 13.9 #H 4.8-10.8 K/uL Red Blood Count 3.59 L 4.50-6.20 MIL/uL Hemoglobin 10.7 L 14.0-18.0 g/dL Hematocrit 31.3 L 42-54 % Mean Corpuscular Volume 87.2 79-99 fL Mean Corpuscular Hemoglobin 29.8 27.0-33.0 pg Mean Corpuscular Hemoglobin Concent 34.2 32.0-36.0 g/dL Red Cell Distribution Width 13.6 11.0-15.5 % Platelet Count 219 130-400 K/uL Mean Platelet Volume 10.3 7.5-10.5 fL Nucleated Red Blood Cells 0.0 0.0-0.19 % Immature Granulocyte % (Auto) 0.6 0-1 % Neutrophils (%) (Auto) 90.7 H 40.0-77.0 % Lymphocytes (%) (Auto) 7.2 L 21.0-51.0 % Monocytes (%) (Auto) 1.4 L 3.0-13.0 % Eosinophils (%) (Auto) 0.0 0.0-8.0 % Basophils (%) (Auto) 0.1 0.0-5.0 % Neutrophils # (Auto) 7.1 1.8-7.7 K/uL Lymphocytes # (Auto) 0.6 L 1.0-4.8 K/uL Monocytes # (Auto) 0.1 0.1-1.0 K/uL Eosinophils # (Auto) 0.00 0.00-0.70 K/uL Basophils # (Auto) 0.01 0.00-0.20 K/uL Absolute Immature Granulocyte (auto 0.05 0-1 K/uL Chemistry Labs: Test 03/25/25 11:52 03/25/25 04:08 03/24/25 22:05 03/24/25 05:20 Range/Units Whole Blood Glucose 113 H 70-110 MG/DL Sodium Level 143 136-145 mmol/L Potassium Level 3.5 3.5-5.1 mmol/L Chloride Level 109 101-111 mmol/L Carbon Dioxide Level 25 21-32 mmol/L Blood Urea Nitrogen 33 H 7-18 mg/dL Creatinine 1.0 0.5-1.3 mg/dL Glomerular Filtration Rate Calc 80 >90 mL/min Random Glucose 127 H 70-105 mg/dL Total Calcium 11.5 H 8.5-10.1 mg/dL Phosphorus Level 2.6 2.5-4.9 mg/dL Magnesium Level 1.60 L 1.80-2.40 mg/dL Total Bilirubin 0.5 # 0.2-1.0 mg/dL Aspartate Amino Transf (AST/SGOT) 25 10-37 U/L Alanine Aminotransferase (ALT/SGPT) 37 12-78 U/L Alkaline Phosphatase 44 L 50-136 U/L Total Protein 5.6 L 6.0-8.3 g/dL Albumin 2.5 L 3.5-5.0 g/dL B-Type Natriuretic Peptide 290 H 0-100 pg/mL Ionized Calcium 1.76 H 1.15-1.33 MMOL/L DIAGNOSTICS / RADIOLOGY: REASON: ALTERED MENTAL STATUS ORDERING PHYSICIAN: LENNY RAM MD PROCEDURE: HEAD WO - CT HEAD/BRAIN W/O CONTRAST CT HEAD/BRAIN W/O CONTRAST HISTORY: Altered mental status COMPARISON: None TECHNIQUE: Multiple sequential axial images of the head were obtained from the base of the skull through vertex. Patient was not given contrast through intravenous route. FINDINGS: The ventricles and extraventricular CSF spaces are dilated consistent with cerebral atrophy. Nonspecific white matter changes seen. There is no midline shift, mass effect or herniation. No acute intracranial bleed is seen. Visualized portion of the paranasal sinuses are grossly within normal limits. IMPRESSION: 1. No acute intracranial bleed is seen. 2. Atrophy with white matter changes. CT was performed with one or more following dose reduction techniques: automated exposure control, adjustment of the mA and kv according to patient's size, or use of a iterative reconstruction technique. DICTATED BY: NARAYAN OLSEN MD DATE: 03/23/25 1334 REASON: SOB , HYPERCALCEMIA, H/O PROSTATE CA ORDERING PHYSICIAN: LILO REYES MD PROCEDURE: PULM VQ - NM PULMONARY/LUNG VQ SCAN NM PULMONARY/LUNG VQ SCAN HISTORY: Shortness of breath COMPARISON: None TECHNIQUE: Ventilation study was performed with 5 mCi of Xenon gas through inhalation route. Perfusion lung imaging study was performed with 5 mCi of technetium macroaggregated through intravenous route. FINDINGS: There is no evidence of segmental or subsegmental perfusion defect. Nonsegmental perfusion defects are also present. IMPRESSION: 1. Low probability for pulmonary embolus. DICTATED BY: NARAYAN OLSEN MD DATE: 03/23/25 0019 REASON: HYPERCALCEMIA, LUNG INFILTRATES ON CXR ORDERING PHYSICIAN: LILO REYES MD PROCEDURE: CHEST WO - CT CHEST W/O CONTRAST CT CHEST W/O CONTRAST HISTORY: Hypercalcemia COMPARISON: 03/21/2005 TECHNIQUE: Multiple sequential axial images of the chest were obtained from the thoracic inlet through upper abdomen. Patient was not given contrast through intravenous route. FINDINGS: Tiny bilateral pleural effusions are seen. There are mild interstitial fibrosis. Coronary arterial calcifications are seen. There is retroperitoneal adenopathy There is no evidence of pneumothorax. There are normal size mediastinal and hilar lymph nodes. The heart is not enlarged. Degenerative changes of the thoracolumbar spine are present. There is right adrenal mass not completely well visualized. IMPRESSION: 1. Tiny bilateral pleural effusions. Mild interstitial fibrosis. Right adrenal mass. CT was performed with one or more following dose reduction techniques: automated exposure control, adjustment of the mA and kv according to patient's size, or use of a iterative reconstruction technique. DICTATED BY: NARAYAN OLSEN MD DATE: 03/22/25 1904 REASON: chf ORDERING PHYSICIAN: IGNACIO GONZALEZ APRN PROCEDURE: ECHO CMP - ECHO 2-D COMPLETE APPROVED REPORT EXAM: Two-dimensional and M-mode echocardiogram with Doppler and color Doppler. INDICATION ICD: Congetive heart failure 2D Dimensions RVDd 3.4 cm LVEF(%) 76.2 (>50%) LVED Vol(simp.) 68.0 mL IVSd 1.1 (0.7-1.1cm) FS(%) 45 % LVES Vol(simp.) 27.0 mL LVDd 4.4 (3.8-5.6cm) LA (2D) 4.0 (1.6-4.0cm) LVEF(%, simp.) 60 % PWd 1.7 (0.7-1.1cm) Ao Root(2D) 3.4 (2.0-3.7cm) LA ESV INDEX (BP) 16.43 mL/m2 LVDs 2.4 (2.5-4.0cm) LVOT diam 2.4 (1.8-2.4cm) IVC diam 2.5 cm Deformation Strain Apical 4 -13.4 % Apical 2 -10.9 % Apical 3 -18.5 % Global Strain -14.3 % M-Mode Dimensions EPSS 1.0 cm LA (MM) 5.1 (1.6-4.0cm) Ao Root(MM) 3.5 (2.0-3.7cm) Aortic Valve AoV Vmax 1.4 m/s Ao Peak GR 8.2 mmHg LVOT Vmax 1.1 m/s AoV VTI 0.2 m Ao Mean GR 5.3 mmHg LVOT VTI 0.15 m JOEY (VMAX) 3.40 cm2 JOEY (VTI) 3.4 cm2 Mitral Valve MV E Vmax 110.9 cm/s DECEL Time 113 ms MV A Vmax 54.7 cm/s E/A ratio 2.0 TDI E/E' Medial 13.8 E/E' Lateral 13.8 Lateral E' Peak V 8.02 cm/s Pulmonary Valve PV Vmax 1.4 m/s PV VTI 0.19 m PV Mean GR 3.8 mmHg PV Peak GR 7.9 mmHg Tricuspid Valve RAP (EST) 8 mmHg RVSP 8.0 mmHg Left Ventricle The left ventricle is normal size. Hyperdynamic left ventricular wall motion noted. No regional wall motion abnormalities noted. There is moderate left ventricular wall thickness. LVEF is 60-65%. The LV diastolic function was unable to be assessed due to atrial arrhythmia. Right Ventricle The right ventricle is normal size. There is mild right ventricular wall thickness. Right ventricular systolic function could not be assessed. Atria The left atrium size is normal. The right atrium size is normal. Aortic Valve The aortic valve appears to open well. No aortic regurgitation is present. There is no aortic valvular stenosis. Mitral Valve Mitral valve is not well visualized. There is no mitral valve regurgitation noted. There is no mitral valve stenosis. Tricuspid Valve The tricuspid valve leaflets appear normal. There is trace of tricuspid valve regurgitation noted. Pulmonic Valve Pulmonic valve is not well visualized. There is no pulmonic valvular regurgitation. Great Vessels The aortic root is normal in size. The IVC is normal in size and collapses <50% with inspiration. Pericardium Epircardial fat noted. Other Information Quality : Technically difficult challenging study due to body habitus Conclusion LVEF is 60-65%. Hyperdynamic left ventricular wall motion noted. No regional wall motion abnormalities noted. The right ventricle is normal size. The aortic root is normal in size. DICTATED BY: MAISHA HOLLOWAY MD DATE: 03/22/25 0710 REASON: chest pain ORDERING PHYSICIAN: JYOTHI MERCHANT DO PROCEDURE: CXR1VW - CHEST 1VW CHEST 1VW HISTORY: Chest pain COMPARISON: None FINDINGS: A frontal projection of the chest was obtained. Mild bilateral pulmonary infiltrates are seen may be related to mild pulmonary vascular congestion with possible superimposed pneumonitis. The heart is borderline enlarged. Degenerative changes are seen. No evidence of aortic calcification is seen. IMPRESSION: 1. Mild bilateral pulmonary infiltrates are seen may be related to mild pulmonary vascular congestion with possible superimposed pneumonitis. DICTATED BY: NARAYAN OLSEN MD DATE: 03/21/25 1434 REASON: Abdominal Pain ORDERING PHYSICIAN: JYOTHI MERCHANT DO PROCEDURE: ABD PEL W - CT ABDOMEN/PELVIS W/CONTRAST CT ABDOMEN/PELVIS W/CONTRAST HISTORY: Abdominal pain COMPARISON: 10/11/2012 TECHNIQUE: Multiple sequential axial images of the abdomen and pelvis were obtained from the dome of the diaphragm through symphysis pubis. Patient was not given contrast through intravenous route. Oral contrast was not given. FINDINGS: No pleural effusion is seen bilaterally. There is no evidence of parenchymal disease or pulmonary nodule of the visualized lower lungs. Degenerative changes of the thoracolumbar spine are present. The heart is not enlarged. Coronary artery calcifications are seen. Gallbladder is distended. Liver is enlarged measuring 18 cm. There is left renal cyst measuring 10 cm. There is roughening and cyst measures 6.3 cm. There is right adrenal mass measuring 6 x 5.4 cm. There are extensive retroperitoneal adenopathy and mesenteric adenopathy. Neoplastic process is suspected. There are perinephric nodular densities bilaterally. The liver, spleen, adrenal glands and pancreas are unremarkable. There is no evidence of hydronephrosis bilaterally. No evidence of renal stone is seen. Fecal material is seen in the colon. There are normal size retroperitoneal and mesenteric lymph nodes. No ascites is seen. Atherosclerotic changes are present. Pelvic sidewalls are symmetric bilaterally. Bladder is poorly distended. There is left inguinal hernia with fat content. IMPRESSION: 1. Right adrenal mass measuring 6 x 5.4 cm. 2. Retroperitoneal and mesenteric adenopathy suspicious for neoplastic process. Nodular densities are seen bilaterally. Bilateral renal cysts. 3. Distended gallbladder. CT was performed with one or more following dose reduction techniques: automated exposure control, adjustment of the mA and kv according to patient's size, or use of a iterative reconstruction technique. DICTATED BY: NARAYAN OLSEN MD DATE: 03/21/25 1411 ASSESSMENT: Hypercalcemia Right adrenal mass measuring 6 x 5.[address] abdomen/pelvis Retroperitoneal and mesenteric adenopathy suspicious for neoplastic process per CT abdomen/pelvis POARecent lymph node biopsy 03/13/2025 Intractable abdominal pain POA Acute dehydration POA Failure to thrive POA Acute metabolic encephalopathy POA Severe malnutrition POA Acute kidney injury POA Uncontrolled hypertension POA Leukocytosis WBC 13.6 POA Multifactorial anemia POA Bilateral renal cysts as per CT abdomen/pelvis Uncontrolled diabetes mellitus type 2 Hyperlipidemia POA History of Prostate cancer POA GERD POA Coronary Artery Disease POA Morbid obesity POA PLAN: Labs, diagnostic, radiologic exams reviewed and interpreted by myself and supervising physician. We have reviewed external records in detail Continue with IV hydration Discontinue Calcitonin Frequent BNP q.12 hours Please obtain pathology results from [facility] Require close monitoring of renal function and electrolytes Order CBC, CMP, ionized calcium, uric acid, and electrolytes in am BiPAP as necessary, for respiratory distress Monitor blood pressure adjust medication doses as needed Avoid hypotensive episodes May use Dilaudid 0.5 mg IV every 6 hours as needed for severe pain Monitor blood sugars Strict intake, output, and daily weight should be monitored Please renally adjust medications Avoid nephrotoxic and nonsteroidal drugs Avoid contrast if possible Will continue to monitor renal function, anemia, electrolytes Treatment plan discussed with patient Questions were answered We have discussed with the other team physicians in detail about the care plan We will continue to monitor the patient closely ATTESTATION BY PHYSICIAN I have seen and examined the patient. I reviewed the documentation, medical decision making, and treatment plan as noted by the mid-level provider above. I agree with the findings and plan of care. LELAND BAEZ MD, [facility] March 25, 2025 13:25
--- NOTE | 2025-03-25 15:46 | PN ---
[facility] PROGRESS NOTE Date of Service: March 25, 2025 Time of Service: 15:34 SUBJECTIVE: 74 years old male with a past medical history of hypertension, diabetes, cholesterol, GERD, prostate cancer with TURP(2008 with normal subsequent PSA levels), obstructive sleep apnea, severe COVID infection, presented to emergency department with complaints of generalized body weakness, loss of appetite and lower abdominal pain since December 2024. He was recently admitted to [facility]. During hospitalization it was found that patient had bilateral renal masses versus cyst, right adrenal mass. 03/13/2025 CTA was performed which showed an adrenal mass, ?lymphadenopathy and a lymph node biopsy was performed . On 03/14/2025 he underwent colonoscopy which was supposedly negative. Patient left against medical advice from the above said hospital . The patient he has been experiencing loss of appetite, dysphagia, dryness of mouth, decrease in body weight, occasional shortness of breath, in creased lethargy since December of this year. As per surgical pathology report of the biopsy from [facility] "Diffuse groups of malignant cells are identified with fibrosis and lymphoid tissue. They are arranged into small nests. There is a high nuclear systolic plasma thick ratio. Hyperchromatic nuclei and large nuclei bolus. The infiltrated fibrosis stoma shows mucinoid changes. The lymphoid tissue appear mature. Possible for immuno peroxidase CD45. Immunoperoxidase epithelial markers markers CK7 and CK20 are negative. Lung marker TTF one and prostate PSA are negative. Neuroendocrine markers chromogranin and synaptophysin are also negative. Proliferative markers Ki-67 is positive . The biopsy will be submitted to reference lab([place]) for consultation. An additional report will follow. Specimen source lymph nodes biopsy" At the time of presentation:vital signs temperature 98.8� pulse 80 respiration 18 blood pressure 130/65. Patient is on room air saturating at 97%. Labs at the time of presentation: WBC 13.6 hemoglobin 13.7 hematocrit 40.7 platelets 287. Sodium 136 potassium 3.6 CO2 30 BUN 22 creatinine 1.6 GFR 46 random glucose 115 lactic 2.2 total calcium 16.3 bilirubin 1.0 AST 42 ALT 64 CK 64 troponin 3.4 lipase 12 procalcitonin negative lactic acid repeated 1.7. CT abdomen/pelvis showed right adrenal mass measuring 6 x 5.4 cm. Retroperitoneal and mesenteric adenopathy suspicious for neoplastic process. Nodular density are seen bilaterally. Bilateral renal cyst. Distended gal lbladder. Chest x-ray showed mild bilateral pulmonary infiltrate are seen may be related to bilateral pulmonary vascular congestion with a possible superimposed pneumonitis. We will admit him for further evaluation and management. 03/22/2025: Patient is seen resting in his room. He appeared drowsy, but is arousable on verbal stimulation, alert oriented x3 and is perceiving and answering questions adequately. He Stated that he feels very tired. His calcium levels remain elevated. We will do PTH level to rule out hyperparathyroidism, vitamin-D25 hydroxy level to rule out hypervitaminosis D, [id number] dihydroxy level to rule out sarcoidosis, parathyroid related peptide. We will check PSA levels, TSH levels. He is being treated with calcitonin and reduced doses of pamidronate given his renal insufficiency. Oncology recommendations appreciated. Nephrology on board. Plan is to monitor calcium levels, keep patient in telemetry. If all the tests are negative, we will consider workup for multiple myeloma. 03/23/25 patient was seen and examined. Case discussed with RN and family by the bedside. He is hallucinating and confused he was calcium levels remain elevated. Nephrology ordered calcitonin he is continuing with IV fluids. 03/24/25 patient was seen and examined. Case discussed with the RN and family by the bedside. He has hallucination is slightly better but he is still confused. Calcium level is 13.2. Phosphorus is one. He has been treated appropriately. Nephrology and Oncology are following the patient. We will continue to follow the labs 03/25/2025: Patient seen in room-confused and hallucinating. Patient stated th at slight are jets are approaching the hospital and he is being targeted. He was treated with IV haloperidol time dose and his mental status is improving. His calcium is down to 11.5. He is not on calcitonin or pamidronate. Magnesium is being replaced. Pending recommendations from Oncology. REVIEW OF SYSTEMS CONSTITUTIONAL: Denies fevers, chills, or night sweats. unintentional weight loss reported. NEUROLOGICAL: Denies headache, amaurosis fugax, motor weakness, sensory deficit, vertigo/spinning sensation, gait abnormalities, or tremors. ENT: No hearing loss, otalgia, otorrhea, rhinitis, rhinorrhea, hoarseness, or sore throat. CARDIOVASCULAR: Denies any exertional angina, dyspnea on exertion, orthopnea, paroxysmal nocturnal dyspnea, palpitations, life-threatening arrhythmias, claudication. PULMONARY: Denies any shortness of breath, cough, phlegm/sputum, hemoptysis, pleuritic chest pain. SLEEP: Denies morning headaches, daytime somnolence or napping. Denies d ifficulty falling asleep, staying asleep, waking from sleep. Denies knowledge of snoring. Patient complains of constant weakness/sleepiness GASTROINTESTINAL: Patient complains of dry mouth and difficulty to swallow at times Denies nausea, vomiting, pyrosis, early satiety, diarrhea, constipation, or changes in stool consistency or caliber. Denies coffee-ground emesis, hematemesis, hematochezia, or melanotic stools. Patient complains of abdominal pain GENITOURINARY: Denies frequency, urgency, nocturia, hematuria or incontinence (Storage/Irritative symptoms.) Low urinary stream, straining to void, urinary intermittency or hesitancy, splitting of the voiding stream, terminal dribbling. ENDOCRINOLOGIC: Denies polyuria, polydipsia, polyphagia or heat/cold intolerances. HEMATOLOGIC: Denies thrombophilia/previous clots, or coagulopathy/bleeding disorders. ONCOLOGIC: Patient has a history of prostate cancer status post TURP DERMATOLOGIC: Denies rashes or pruritus. PSYCHIATRIC: Denies any suicidal or homicidal ideation. Denies hallucinations. PHYSICAL EXAM GENERAL APPEARANCE: Patient appears lethargic The patient is awake, alert, and oriented, in no acute cardiopulmonary distress. NEUROLOGICAL: Cranial nerves II-XII grossly intact. Motor is 5/5 in bilateral upper and lower extremities proximal to distal. No sensory deficits. HEENT: Face is symmetric. Pupils are equal and reactive. Extraocular movements are intact. Dry oral mucosa dry lips NECK: Supple. No JVD. No thyromegaly. No submental, submandibular, pre- /postauricular, occipital or supraclavicular lymphadenopathy. CHEST: Normal chest expansion. No Telemetry. LUNGS: Absence of any rales, rhonchi or any wheezing. CARDIOVASCULAR: Regular. S1 and S2 normal. No appreciable rubs, murmurs or gallops. ABDOMEN: Soft, tender on left upper quadrant mildly distended. There is no rebound, voluntary guarding, or rigidity. : Deferred. No Gonzáles. EXTREMITIES: Non-edematous and not cyanotic. No clubbing. Good capillary refill. SKIN: No skin breakdown. Vital Signs (last 8hr) Date Time Temp Pulse Resp B/P (MAP) Pulse Ox O2 Delivery O2 Flow Rate FiO2 03/25/25 12:03 97.7 100 20 136/79 90 Room Air 03/25/25 11:20 90 Room Air* 0 21 03/25/25 07:54 97.7 85 17 145/77 90 Room Air LABS: Laboratory: Test 03/25/25 11:52 03/25/25 04:08 03/24/25 22:05 03/24/25 09:14 Range/Units Whole Blood Glucose 113 H 70-110 MG/DL White Blood Count 13.9 #H 4.8-10.8 K/uL Red Blood Count 3.59 L 4.50-6.20 MIL/uL Hemoglobin 10.7 L 14.0-18.0 g/dL Hematocrit 31.3 L 42-54 % Mean Corpuscular Volume 87.2 79-99 fL Mean Corpuscular Hemoglobin 29.8 27.0-33.0 pg Mean Corpuscular Hemoglobin Concent 34.2 32.0-36.0 g/dL Red Cell Distribution Width 13.6 11.0-15.5 % Platelet Count 219 130-400 K/uL Mean Platelet Volume 10.3 7.5-10.5 fL Nucleated Red Blood Cells 0.0 0.0-0.19 % Sodium Level 143 136-145 mmol/L Potassium Level 3.5 3.5-5.1 mmol/L Chloride Level 109 101-111 mmol/L Carbon Dioxide Level 25 21-32 mmol/L Blood Urea Nitrogen 33 H 7-18 mg/dL Creatinine 1.0 0.5-1.3 mg/dL Glomerular Filtration Rate Calc 80 >90 mL/min Random Glucose 127 H 70-105 mg/dL Total Calcium 11.5 H 8.5-10.1 mg/dL Phosphorus Level 2.6 2.5-4.9 mg/dL Magnesium Level 1.60 L 1.80-2.40 mg/dL Total Bilirubin 0.5 # 0.2-1.0 mg/dL Aspartate Amino Transf (AST/SGOT) 25 10-37 U/L Alanine Aminotransferase (ALT/SGPT) 37 12-78 U/L Alkaline Phosphatase 44 L 50-136 U/L Total Protein 5.6 L 6.0-8.3 g/dL Albumin 2.5 L 3.5-5.0 g/dL B-Type Natriuretic Peptide 290 H 0-100 pg/mL Prostate Specific Ag, Ultra-Sensitv 6.670 H 0.000-4.000 ng/mL Test 03/24/25 05:20 Range/Units Immature Granulocyte % (Auto) 0.6 0-1 % Neutrophils (%) (Auto) 90.7 H 40.0-77.0 % Lymphocytes (%) (Auto) 7.2 L 21.0-51.0 % Monocytes (%) (Auto) 1.4 L 3.0-13.0 % Eosinophils (%) (Auto) 0.0 0.0-8.0 % Basophils (%) (Auto) 0.1 0.0-5.0 % Neutrophils # (Auto) 7.1 1.8-7.7 K/uL Lymphocytes # (Auto) 0.6 L 1.0-4.8 K/uL Monocytes # (Auto) 0.1 0.1-1.0 K/uL Eosinophils # (Auto) 0.00 0.00-0.70 K/uL Basophils # (Auto) 0.01 0.00-0.20 K/uL Absolute Immature Granulocyte (auto 0.05 0-1 K/uL Ionized Calcium 1.76 H 1.15-1.33 MMOL/L Current Medications Medications (Trade) Dose Ordered Sig/Katie Route PRN Reason Start Time Stop Time Status Last Admin Dose Admin Acetaminophen (TYLenol 325MG TAB) 650 mg Q4H PRN PO MILD PAIN (1-3) 03/21/25 16:00 04/20/25 15:59 Acetaminophen (TYLenol 325MG TAB) 650 mg Q6H PRN PO MILD PAIN (1-3) 03/21/25 16:00 03/21/25 15:51 DC Acetaminophen (TYLenol 325MG TAB) 650 mg Q6H PRN PO TEMPERATURE GREATER THAN 101.5 03/21/25 16:00 04/20/25 15:59 Al Hydroxide/Mg Hydroxide (MAALox PLUS 30ML) 30 ml Q6H PRN PO INDIGESTION 03/21/25 16:00 04/20/25 15:59 Allopurinol (ZYLOprim 300MG) 300 mg BID STAT PO 03/23/25 17:05 03/23/25 17:20 DC 03/23/25 17:27 300 MG Amlodipine Besylate (NorvASC 5MG TAB) 10 mg DAILY PO 03/25/25 09:00 04/24/25 08:59 03/25/25 12:08 10 MG Aspirin (Aspirin 81mg Chew Tab) 81 mg DAILY PO 03/25/25 09:00 04/24/25 08:59 03/25/25 12:08 81 MG Calcitonin (Miacalcin 400 Unit Inj) 400 units BID SQ 03/23/25 15:00 03/26/25 14:59 03/25/25 12:13 400 UNITS Dexamethasone (DeCADron 4 mg TAB) 40 mg ONCE PO 03/23/25 17:00 03/24/25 13:22 DC 03/23/25 17:27 40 MG Dextrose (D50w) 50 ml AD PRN IV HYPOGLYCEMIA PROTOCOL 03/21/25 16:00 04/20/25 15:59 Diphenhydramine HCl (BENAdryl INJ) 25 mg Q6H PRN IV SEVERE ITCHING/RASH 03/21/25 16:00 04/20/25 15:59 03/25/25 12:09 25 MG Famotidine (Pepcid 20mg Vial) 20 mg BID PRN IV NAUSEA/VOMITING 03/21/25 16:00 03/21/25 15:51 DC Famotidine (Pepcid 20mg Vial) 20 mg DAILY IV 03/22/25 09:00 03/24/25 13:22 DC 03/24/25 10:23 20 MG Glucagon (Glucagon 1mg Kit) 1 mg AD PRN IM HYPOGLYCEMIA PROTOCOL 03/21/25 16:00 04/20/25 15:59 Guaifenesin/ Dextromethorphan (RobiTUSSin DM 200/20MG 10ML) 10 ml Q4H PRN PO COUGH 03/21/25 16:00 04/20/25 15:59 Haloperidol Lactate (Haldol Inj) 2 mg Q4H PRN IV ANXIETY/AGITATION 03/25/25 11:00 04/24/25 10:59 03/25/25 10:54 2 MG Heparin Sodium (Porcine) (HEParin 5,000 UNIT VIAL) 5,000 unit BID SQ 03/21/25 21:00 04/20/25 20:59 03/25/25 12:20 5,000 UNIT Hydralazine HCl (APRESOLine 20MG INJ) 10 mg Q6H PRN IV For:SBP above 160;DBP above 90 03/21/25 16:00 04/20/25 15:59 Insulin Human Regular (humuLIN R 100 UNIT/ML 3ML) INSULIN SLIDING SCAL... ACHS SQ 03/21/25 16:30 04/20/25 16:29 Ketorolac Tromethamine (toRADol) 15 mg Q8H PRN IV MODERATE PAIN (4-6) 03/21/25 16:00 03/23/25 16:59 DC 03/23/25 15:10 15 MG Lactated Ringer's 1,000 ml @ 100 mls/hr Q10H STAT IV 03/21/25 13:13 03/21/25 13:22 DC Lactulose (Constulose 20gm/ 30ml Udcup) 20 gm BID PRN PO CONSTIPATION 03/21/25 16:00 04/20/25 15:59 Magnesium Sulfate 50 ml @ 0 mls/hr PROTOCOL PRN IV other 03/21/25 16:00 04/20/25 15:59 03/25/25 12:10 25 MLS/HR Morphine Sulfate (morPHINE 2MG SYG) 1 mg Q4H PRN IVP SEVERE PAIN (7-10) 03/21/25 16:00 03/28/25 15:59 03/25/25 01:45 1 MG Morphine Sulfate (morPHINE 2MG SYG) 2 mg ONCE STAT IVP 03/21/25 14:27 03/21/25 14:31 DC 03/21/25 14:46 2 MG Nitroglycerin (Nitrostat) 0.4 mg PROTOCOL PRN SL CHEST PAIN 03/21/25 16:00 04/20/25 15:59 Ondansetron HCl (zoFRAN 4MG INJ) 4 mg Q6H PRN IV NAUSEA/VOMITING 03/21/25 16:00 03/23/25 12:26 DC Ondansetron HCl (zoFRAN 4MG INJ) 4 mg Q6H PRN IVP NAUSEA/VOMITING 03/23/25 12:30 04/22/25 12:29 03/25/25 01:39 4 MG Oxycodone/ Acetaminophen (perCOCET) 1 tab Q6H PRN PO SEVERE PAIN (7-10) 03/21/25 16:00 03/22/25 08:52 DC Pantoprazole Sodium (PROTonix 40MG TAB) 40 mg DAILY PO 03/23/25 17:00 04/22/25 16:59 03/25/25 12:08 40 MG Pharmacy Profile Note (Pharmacy Communication) 1 each AD MISC 03/22/25 09:00 03/22/25 08:52 DC Pharmacy Profile Note (Pharmacy Communication) 1 each ONCE MISC 03/24/25 19:30 03/24/25 19:21 DC Piperacillin Sod/ Tazobactam Sod 50 ml @ 12.5 mls/hr ZOSY8 IV 03/21/25 21:00 03/31/25 20:59 03/25/25 12:12 12.5 MLS/HR Potassium Chloride 100 ml @ 100 mls/hr AD PRN IV POTASSIUM PROTOCOL 03/22/25 18:00 04/21/25 17:59 Potassium Chloride (K-Dur 10meq Sr Tab) 10 meq AD PRN PO POTASSIUM PROTOCOL 03/24/25 13:30 04/21/25 18:29 Potassium Chloride (K-Dur/Klor-Con 20meq) 10 meq AD PRN PO POTASSIUM PROTOCOL 03/22/25 18:30 03/24/25 13:23 DC 03/23/25 11:15 10 MEQ Potassium Chloride (KCl 10% Elixir 20meq/15ml) 10 meq AD PRN PO POTASSIUM PROTOCOL 03/22/25 18:30 04/21/25 18:29 Sodium Chloride 1,000 ml @ 150 mls/hr Q6H40M IV 03/21/25 16:00 04/20/25 15:59 03/25/25 12:20 150 MLS/HR Thiamine HCl (Vitamin B-1) 100 mg DAILY IVP 03/23/25 13:30 04/22/25 13:29 03/25/25 12:09 100 MG Vitamin B Complex/ Vit C/Folic Acid (Nephrovite Tablet) 1 cap DAILY PO 03/23/25 09:00 04/22/25 08:59 03/25/25 12:07 1 CAP Zolpidem Tartrate (AmbIEN) 5 mg HS PRN PO INSOMNIA 03/21/25 16:00 04/20/25 15:59 DIAGNOSTICS / RADIOLOGY: [ ] ASSESSMENT: Hypercalcemia POA Right adrenal mass measuring 6 x 5.[address] abdomen/pelvis Retroperitoneal and mesenteric adenopathy suspicious for neoplastic process per CT abdomen/pelvis POA Recent lymph node biopsy 03/13/2025 Intractable abdominal pain POA Acute dehydration POA Failure to thrive POA Acute metabolic encephalopathy POA Severe malnutrition POA Acute kidney injury POA Uncontrolled hypertension POA Leukocytosis WBC 13.6 POA Multifactorial anemia POA Bilateral renal cysts as per CT abdomen/pelvis Chronic Problem: Uncontrolled diabetes mellitus type 2 with hypoglycemia POA Hyperlipidemia POA History of Prostate cancer POA GERD POA Coronary Artery Disease POA Morbid obesity POA History of COVID POA PLAN: Admitted to medical floor Hypercalcemia POA Right adrenal mass measuring 6 x 5.[address] abdomen/pelvis Retroperitoneal and mesenteric adenopathy suspicious for neoplastic process per CT abdomen/pelvis POA Recent lymph node biopsy 03/13/2025 Intractable abdominal pain POA secondary to retroperitoneal and mesenteric adenopathy. Hypercalcemia possibly secondary to underlying unknown malignancy Continue calcitonin and pamidronate Patient has first-degree AV block-possibly secondary to hypercalcemia: we will repeat EKG Oncology recommendations appreciated;Pending lymph node biopsy records from elsewhere Continue telemetry Failure to thrive POA Acute metabolic encephalopathy POA Severe malnutrition POA Acute kidney injury POA - prerenal etiology Acute dehydration POA Patient with acute delirium-treated with1 dose of IV haloperidol Patient with history of dysphagia, dry mouth, decreased appetite, weight loss Continue IV fluids FeNA less than1 : Nephrology on board We will be monitoring the labs Strict I/O chart Chest x-ray mild bilateral pulmonary infiltrate are seen may be related to mild pulmonary vascular congestion with possible superimposed pneumonitis-CT chest unremarkable Other: Supplemental 02 as needed BiPAP as necessary, for respiratory distress Titrate Fio2 to keep Spo2 > or = 90% DuoNeb�s and CPT as needed Maintain aspiration precautions at all times Vital signs per facility protocol Prokinetic agents and laxatives as needed Daily weights Avoid nephrotoxic agents Monitor electrolytes and replace as needed Goal urine output of 30mL/hr or 0.5mL/kg/hr Medications to be dosed according to renal function. Avoid contrast if possible Maintain blood glucose between 100-180 at all times. Insulin sliding scale for blood glucose management Hypoglycemia and hyperglycemia protocol in place Trend temperature, WBC and procalcitonin level Follow cultures, deescalate antibiotics as soon as possible. Panculture if new onset fever Monitor H&H. Keep Hgb > 7 Pressure ulcer prevention per facility protocol Specialty mattress as needed Treatment plan discussed with patient and family at the bedside Medications to be reconciled once obtained by patient and/or family and available to be reconciled in computer p.r.n. medication for pain nausea and vomiting Marking Machine Tender for disposition Rehab: PT/OT GI: PPI DVT: SCD's Code Status: Full Resuscitation Disposition: TBD Prognosis: Guarded ATTESTATION BY PHYSICIAN I have seen and examined the patient. I reviewed the documentation, medical decision making, and treatment plan as noted by the resident provider above. I agree with the findings and plan of care. Jin Sweeney MD, ANCHU A MD March 25, 2025 15:46
--- NOTE | 2025-03-25 17:30 | NUR ---
REPORT RECEIVED FROM CELESTINA ORO. PT IN ROOM 415 GROGGY BUT WAS AROUSABLE WITH 1:1 SITTER AT SITE. NO S/S OF DISTRESS. 18G TO RAC AND 20G TO RW. BED LOW AND LOCKED, SIDERAILS X3 UP, CALL LIGHT WITHIN REACH.
--- NOTE | 2025-03-25 21:45 | NUR ---
PATIENT BEHAVIOR PATIENT WOKE UP AT 2100 AND IMMEDIATELY PULLED BOTH IV'S ON RIGHT FOREARM. ASSESSED PATIENT'S MENTAL STATE, PATIENT IS ORIENTED TO SELF, BUT NOT TO SITUATION OR TIME. PATIENT BELIEVES HE'S BEING HELD IN A PLACE THAT, ACCORDING TO PATIENT, "MAKES IT LOOK LIKE A HOSPITAL BUT IS NOT A HOSPITAL." PATIENT IS CONFUSED TO SITUATION. PATIENT ASKED WHAT CITY HE'S IN, [place] PATIENT ASKED IF HE KNOWS WHERE HE'S AT, PATIENT STATES HES IN "[facility]". PATIENT HAS A 2:1 OBSERVER OUTSIDE OF DOOR. PATIENT UNPREDICTABLE, BUT REDIRECTABLE. NOT PHYSICALLY AGGRESSIVE BUT PATIENT CAN BE VERBALLY AGGRESSIVE.
[2025-03-25] MEDS: HALOPERIDOL INJ 5 MG/ML VIAL IM ONE (23:50)
[2025-03-25] MEDS: DiphenhydrAMINE HCL 50 MG/ML VIAL IM ONE (23:50)
[2025-03-26] VITALS (9 sets, daily range): BP systolic 137–159; BP diastolic 52–91; PULSE 73–100; RESP 18–20; TEMP 97.4–97.9; O2SAT 99
--- NOTE | 2025-03-26 08:58 | PN ---
LOCATION: [facility]. SUBJECTIVE: He is moved one-on-one seater now. He is quite confused and tearing out his IVs. He claims he thinks people are poisoning him, very disoriented this morning. PHYSICAL EXAMINATION: GENERAL: Shows an older man. VITAL SIGNS: Blood pressure 142/76, pulse 86, respirations 20. HEENT: Benign. CHEST: Clear. ABDOMEN: Soft. EXTREMITIES: Show no edema. IMPRESSION: * Malignant hyperglycemia, metastatic cancer of unknown primary. Have reached out to Dr. Luis Rodriguez, the pathologist at [facility] again yesterday and again ____, will keep an eye on it. * Renal failure. * Leukocytosis. * Other problems as listed. PLAN: Continue medical management. My associate ordered calcitonin. I do not know if the hospital is able to get that, but that certainly would help lower the calcium. Continue his fluids. Continue one-on-one seater. TID: [id number] RECEIPT: [id number]
[2025-03-26 09:15] LABS: BASOPHILS # (AUTO) 0.01 K/uL (0.00-0.20); BASOPHILS % (AUTO) 0.1 % (0.0-5.0); EOSINOPHILS # (AUTO) 0.03 K/uL (0.00-0.70); EOSINOPHILS % (AUTO) 0.3 % (0.0-8.0); HEMATOCRIT 32.6 % (42-54); IMMATURE GRANULOCYTE ABSOLUTE 0.09 K/uL (0-1); LYMPHOCYTES # (AUTO) 0.6 K/uL (1.0-4.8); LYMPHOCYTES % (AUTO) 7.4 % (21.0-51.0); MEAN CORPUSCULAR HEMOGLOBIN 29.5 pg (27.0-33.0); MEAN CORPUSCULAR HGB CONC 33.7 g/dL (32.0-36.0); MEAN CORPUSCULAR VOLUME 87.4 fL (79-99); MONOCYTES # (AUTO) 0.7 K/uL (0.1-1.0); MONOCYTES % (AUTO) 7.8 % (3.0-13.0); NEUTROPHILS # (AUTO) 7.2 K/uL (1.8-7.7); NEUTROPHILS % (AUTO) 83.4 % (40.0-77.0); PLATELET COUNT (AUTO) 218 K/uL (130-400); RED BLOOD CELL COUNT(AUTO) 3.73 MIL/uL (4.50-6.20); RED CELL DISTRIBUTION WIDTH 13.9 % (11.0-15.5); WHITE BLOOD COUNT (AUTO) 8.7 K/uL (4.8-10.8)
[2025-03-26 09:29] LABS: CREATININE 1.7 mg/dL (0.5-1.3); MAGNESIUM 1.8 mg/dL (1.80-2.40); PHOSPHORUS 1.8 mg/dL (2.5-4.9); POTASSIUM 3.3 mmol/L (3.5-5.1)
--- NOTE | 2025-03-26 10:02 | EKG ---
[facility] Test Date: 2025-03-26 Test Time: 09:44:03 Pat Name: PAVEL SOLOMON Department: [facility] Room: 415 1 Gender: M Physician Office Specialist: [id number] : 1950 Requested By: LILO REYES Order Number: [id number] Reading MD: Yanet Patten Measurements Intervals [place] Rate: 97 P: 0 ME: 208 QRS: 225 QRSD: 110 T: 122 QT: 356 QTc: 452 Interpretive Statements Sinus rhythm with premature atrial complexes Right superior axis deviation Pulmonary disease pattern Compared to ECG 03/22/2025 16:10:09 Right superior axis now present First degree AV block no longer present Left anterior fascicular block no longer present Electronically Signed On 03-27-2025 09:19:01 CDT by Yanet Patten Please click the below link to view image of tracing.
[2025-03-26] MEDS: PoTASSium chloRIDE 10MEQ SR 10 MEQ/TAB TAB.SR.24H PO PRN (10:18)
--- NOTE | 2025-03-26 10:21 | NUR ---
BEHAVIOR UPON ASSESSING PT AND TO ADMINISTER PO MEDICATION AND IV, PT STATE HE WANTS VANITA TO BE PRESENT IN ORDER TO RECEIVE ANY INJECTIONS, VANITA IS A FRIEND FROM THE AND HE WONT LISTEN TO ANYONE OR WANT ANYTHING TO BE DONE IF VANITA IS NOT PRESENT. FAMILY AT BEDSIDE AND CONVINCE HIM TO TAKE PO MEDICATION AND PT AGREED,BUT STILL DENIES TO FOR US TO ATTEMPT TO INSERT AN IV AND GIVE SQ INJECTIONS.
--- NOTE | 2025-03-26 12:24 | PN ---
[facility] PROGRESS NOTE Date of Service: March 26, 2025 Time of Service: 12:18 SUBJECTIVE: 74 years old male with a past medical history of hypertension, diabetes, cholesterol, GERD, prostate cancer with TURP(2008 with normal subsequent PSA levels), obstructive sleep apnea, severe COVID infection, presented to emergency department with complaints of generalized body weakness, loss of appetite and lower abdominal pain since December 2024. He was recently admitted to [facility]. During hospitalization it was found that patient had bilateral renal masses versus cyst, right adrenal mass. 03/13/2025 CTA was performed which showed an adrenal mass, ?lymphadenopathy and a lymph node biopsy was performed . On 03/14/2025 he underwent colonoscopy which was supposedly negative. Patient left against medical advice from the above said hospital . The patient he has been experiencing loss of appetite, dysphagia, dryness of mouth, decrease in body weight, occasional shortness of breath, in creased lethargy since December of this year. As per surgical pathology report of the biopsy from [facility] "Diffuse groups of malignant cells are identified with fibrosis and lymphoid tissue. They are arranged into small nests. There is a high nuclear systolic plasma thick ratio. Hyperchromatic nuclei and large nuclei bolus. The infiltrated fibrosis stoma shows mucinoid changes. The lymphoid tissue appear mature. Possible for immuno peroxidase CD45. Immunoperoxidase epithelial markers markers CK7 and CK20 are negative. Lung marker TTF one and prostate PSA are negative. Neuroendocrine markers chromogranin and synaptophysin are also negative. Proliferative markers Ki-67 is positive . The biopsy will be submitted to reference lab([place]) for consultation. An additional report will follow. Specimen source lymph nodes biopsy" At the time of presentation:vital signs temperature 98.8� pulse 80 respiration 18 blood pressure 130/65. Patient is on room air saturating at 97%. Labs at the time of presentation: WBC 13.6 hemoglobin 13.7 hematocrit 40.7 platelets 287. Sodium 136 potassium 3.6 CO2 30 BUN 22 creatinine 1.6 GFR 46 random glucose 115 lactic 2.2 total calcium 16.3 bilirubin 1.0 AST 42 ALT 64 CK 64 troponin 3.4 lipase 12 procalcitonin negative lactic acid repeated 1.7. CT abdomen/pelvis showed right adrenal mass measuring 6 x 5.4 cm. Retroperitoneal and mesenteric adenopathy suspicious for neoplastic process. Nodular density are seen bilaterally. Bilateral renal cyst. Distended gal lbladder. Chest x-ray showed mild bilateral pulmonary infiltrate are seen may be related to bilateral pulmonary vascular congestion with a possible superimposed pneumonitis. We will admit him for further evaluation and management. 03/22/2025: Patient is seen resting in his room. He appeared drowsy, but is arousable on verbal stimulation, alert oriented x3 and is perceiving and answering questions adequately. He Stated that he feels very tired. His calcium levels remain elevated. We will do PTH level to rule out hyperparathyroidism, vitamin-D25 hydroxy level to rule out hypervitaminosis D, dihydroxy level to rule out sarcoidosis, parathyroid related peptide. We will check PSA levels, TSH levels. He is being treated with calcitonin and reduced doses of pamidronate given his renal insufficiency. Oncology recommendations appreciated. Nephrology on board. Plan is to monitor calcium levels, keep patient in telemetry. If all the tests are negative, we will consider workup for multiple myeloma. 03/23/25 patient was seen and examined. Case discussed with RN and family by the bedside. He is hallucinating and confused he was calcium levels remain elevated. Nephrology ordered calcitonin he is continuing with IV fluids. 03/24/25 patient was seen and examined. Case discussed with the RN and family by the bedside. He has hallucination is slightly better but he is still confused. Calcium level is 13.2. Phosphorus is one. He has been treated appropriately. Nephrology and Oncology are following the patient. We will continue to follow the labs 03/25/2025: Patient seen in room-confused and hallucinating. Patient stated th at slight are jets are approaching the hospital and he is being targeted. He was treated with IV haloperidol time dose and his mental status is improving. His calcium is down to 11.5. He is not on calcitonin or pamidronate. Magnesium is being replaced. Pending recommendations from Oncology. 03.26.25: Patient is seen in the room-confused and hallucinating with lucid intervals. His mental state is better compared to yesterday as per the family members. As per RN he was wandering outside at night and was given single short of haloperidol 5 mg. His calcium his 10.9 today-improving. Discussed in details with the family members(his daughters) that the delirium might be secondary to malignant hypercalcemia versus organic pathology of brain not limited to Metastasis. They requested MRI brain but we will defer now and order as per Oncology recommendations. Pending discharge recommendations from Oncology. REVIEW OF SYSTEMS CONSTITUTIONAL: Denies fevers, chills, or night sweats. unintentional weight loss reported. NEUROLOGICAL: Denies headache, amaurosis fugax, motor weakness, sensory deficit, vertigo/spinning sensation, gait abnormalities, or tremors. ENT: No hearing loss, otalgia, otorrhea, rhinitis, rhinorrhea, hoarseness, or sore throat. CARDIOVASCULAR: Denies any exertional angina, dyspnea on exertion, orthopnea, paroxysmal nocturnal dyspnea, palpitations, life-threatening arrhythmias, claudication. PULMONARY: Denies any shortness of breath, cough, phlegm/sputum, hemoptysis, pleuritic chest pain. SLEEP: Denies morning headaches, daytime somnolence or napping. Denies difficulty falling asleep, staying asleep, waking from sleep. Denies knowledge of snoring. Patient complains of constant weakness/sleepiness GASTROINTESTINAL: Patient complains of dry mouth and difficulty to swallow at times Denies nausea, vomiting, pyrosis, early satiety, diarrhea, constipation, or changes in stool consistency or caliber. Denies coffee-ground emesis, hematemesis, hematochezia, or melanotic stools. Patient complains of abdominal pain GENITOURINARY: Denies frequency, urgency, nocturia, hematuria or incontinence (Storage/Irritative symptoms.) Low urinary stream, straining to void, urinary intermittency or hesitancy, splitting of the voiding stream, terminal dribbling. ENDOCRINOLOGIC: Denies polyuria, polydipsia, polyphagia or heat/cold intolerances. HEMATOLOGIC: Denies thrombophilia/previous clots, or coagulopathy/bleeding disorders. ONCOLOGIC: Patient has a history of prostate cancer status post TURP DERMATOLOGIC: Denies rashes or pruritus. PSYCHIATRIC: Denies any suicidal or homicidal ideation. Denies hallucinations. PHYSICAL EXAM GENERAL APPEARANCE: Patient appears lethargic The patient is awake, alert, and oriented, in no acute cardiopulmonary distress. NEUROLOGICAL: Cranial nerves II-XII grossly intact. Motor is 5/5 in bilateral upper and lower extremities proximal to distal. No sensory deficits. HEENT: Face is symmetric. Pupils are equal and reactive. Extraocular movements are intact. Dry oral mucosa dry lips NECK: Supple. No JVD. No thyromegaly. No submental, submandibular, pre- /postauricular, occipital or supraclavicular lymphadenopathy. CHEST: Normal chest expansion. No Telemetry. LUNGS: Absence of any rales, rhonchi or any wheezing. CARDIOVASCULAR: Regular. S1 and S2 normal. No appreciable rubs, murmurs or gallops. ABDOMEN: Soft, tender on left upper quadrant mildly distended. There is no rebound, voluntary guarding, or rigidity. : Deferred. No Gonzáles. EXTREMITIES: Non-edematous and not cyanotic. No clubbing. Good capillary refill. SKIN: No skin breakdown. Vital Signs (last 8hr) Date Time Temp Pulse Resp B/P (MAP) Pulse Ox O2 Delivery O2 Flow Rate FiO2 03/26/25 11:51 97.9 91 20 154/91 92 Room Air 03/26/25 08:06 97.3 73 18 137/52 99 Nasal Cannula 2.0 03/26/25 07:57 97.7 92 20 159/85 94 Room Air LABS: Laboratory: Test 03/26/25 11:24 03/26/25 08:49 03/25/25 04:08 03/24/25 22:05 Range/Units Whole Blood Glucose 106 70-110 MG/DL White Blood Count 8.7 4.8-10.8 K/uL Red Blood Count 3.73 L 4.50-6.20 MIL/uL Hemoglobin 11.0 L 14.0-18.0 g/dL Hematocrit 32.6 L 42-54 % Mean Corpuscular Volume 87.4 79-99 fL Mean Corpuscular Hemoglobin 29.5 27.0-33.0 pg Mean Corpuscular Hemoglobin Concent 33.7 32.0-36.0 g/dL Red Cell Distribution Width 13.9 11.0-15.5 % Platelet Count 218 130-400 K/uL Mean Platelet Volume 10.6 H 7.5-10.5 fL Immature Granulocyte % (Auto) 1.0 0-1 % Neutrophils (%) (Auto) 83.4 H 40.0-77.0 % Lymphocytes (%) (Auto) 7.4 L 21.0-51.0 % Monocytes (%) (Auto) 7.8 3.0-13.0 % Eosinophils (%) (Auto) 0.3 0.0-8.0 % Basophils (%) (Auto) 0.1 0.0-5.0 % Neutrophils # (Auto) 7.2 1.8-7.7 K/uL Lymphocytes # (Auto) 0.6 L 1.0-4.8 K/uL Monocytes # (Auto) 0.7 0.1-1.0 K/uL Eosinophils # (Auto) 0.03 0.00-0.70 K/uL Basophils # (Auto) 0.01 0.00-0.20 K/uL Absolute Immature Granulocyte (auto 0.09 0-1 K/uL Nucleated Red Blood Cells 0.0 0.0-0.19 % Sodium Level 143 136-145 mmol/L Potassium Level 3.3 L 3.5-5.1 mmol/L Chloride Level 110 101-111 mmol/L Carbon Dioxide Level 26 21-32 mmol/L Blood Urea Nitrogen 33 H 7-18 mg/dL Creatinine 1.7 H 0.5-1.3 mg/dL Glomerular Filtration Rate Calc 42 >90 mL/min Random Glucose 107 H 70-105 mg/dL Total Calcium 10.9 H 8.5-10.1 mg/dL Ionized Calcium 1.52 H 1.15-1.33 MMOL/L Phosphorus Level 1.8 L 2.5-4.9 mg/dL Magnesium Level 1.80 1.80-2.40 mg/dL Total Bilirubin 0.5 # 0.2-1.0 mg/dL Aspartate Amino Transf (AST/SGOT) 25 10-37 U/L Alanine Aminotransferase (ALT/SGPT) 37 12-78 U/L Alkaline Phosphatase 44 L 50-136 U/L Total Protein 5.6 L 6.0-8.3 g/dL Albumin 2.5 L 3.5-5.0 g/dL B-Type Natriuretic Peptide 290 H 0-100 pg/mL Current Medications Medications (Trade) Dose Ordered Sig/Katie Route PRN Reason Start Time Stop Time Status Last Admin Dose Admin Acetaminophen (TYLenol 325MG TAB) 650 mg Q4H PRN PO MILD PAIN (1-3) 03/21/25 16:00 04/20/25 15:59 Acetaminophen (TYLenol 325MG TAB) 650 mg Q6H PRN PO MILD PAIN (1-3) 03/21/25 16:00 03/21/25 15:51 DC Acetaminophen (TYLenol 325MG TAB) 650 mg Q6H PRN PO TEMPERATURE GREATER THAN 101.5 03/21/25 16:00 04/20/25 15:59 Al Hydroxide/Mg Hydroxide (MAALox PLUS 30ML) 30 ml Q6H PRN PO INDIGESTION 03/21/25 16:00 04/20/25 15:59 Allopurinol (ZYLOprim 300MG) 300 mg BID STAT PO 03/23/25 17:05 03/23/25 17:20 DC 03/23/25 17:27 300 MG Amlodipine Besylate (NorvASC 5MG TAB) 10 mg DAILY PO 03/25/25 09:00 04/24/25 08:59 03/26/25 10:18 10 MG Aspirin (Aspirin 81mg Chew Tab) 81 mg DAILY PO 03/25/25 09:00 04/24/25 08:59 03/26/25 10:18 81 MG Calcitonin (Miacalcin 400 Unit Inj) 400 units BID SQ 03/23/25 15:00 03/26/25 14:59 03/25/25 12:13 400 UNITS Dexamethasone (DeCADron 4 mg TAB) 40 mg ONCE PO 03/23/25 17:00 03/24/25 13:22 DC 03/23/25 17:27 40 MG Dextrose (D50w) 50 ml AD PRN IV HYPOGLYCEMIA PROTOCOL 03/21/25 16:00 04/20/25 15:59 Diphenhydramine HCl (BENAdryl INJ) 25 mg Q6H PRN IV SEVERE ITCHING/RASH 03/21/25 16:00 03/25/25 15:43 DC 03/25/25 12:09 25 MG Famotidine (Pepcid 20mg Vial) 20 mg BID PRN IV NAUSEA/VOMITING 03/21/25 16:00 03/21/25 15:51 DC Famotidine (Pepcid 20mg Vial) 20 mg DAILY IV 03/22/25 09:00 03/24/25 13:22 DC 03/24/25 10:23 20 MG Glucagon (Glucagon 1mg Kit) 1 mg AD PRN IM HYPOGLYCEMIA PROTOCOL 03/21/25 16:00 04/20/25 15:59 Guaifenesin/ Dextromethorphan (RobiTUSSin DM 200/20MG 10ML) 10 ml Q4H PRN PO COUGH 03/21/25 16:00 04/20/25 15:59 Haloperidol (Haldol) 0.5 mg Q8H PRN PO ANXIETY/AGITATION 03/25/25 16:30 04/24/25 16:29 Haloperidol Lactate (Haldol Inj) 2 mg Q4H PRN IV ANXIETY/AGITATION 03/25/25 11:00 03/25/25 15:43 DC 03/25/25 10:54 2 MG Heparin Sodium (Porcine) (HEParin 5,000 UNIT VIAL) 5,000 unit BID SQ 03/21/25 21:00 04/20/25 20:59 03/25/25 12:20 5,000 UNIT Hydralazine HCl (APRESOLine 20MG INJ) 10 mg Q6H PRN IV For:SBP above 160;DBP above 90 03/21/25 16:00 04/20/25 15:59 Insulin Human Regular (humuLIN R 100 UNIT/ML 3ML) INSULIN SLIDING SCAL... ACHS SQ 03/21/25 16:30 04/20/25 16:29 Ketorolac Tromethamine (toRADol) 15 mg Q8H PRN IV MODERATE PAIN (4-6) 03/21/25 16:00 03/23/25 16:59 DC 03/23/25 15:10 15 MG Lactated Ringer's 1,000 ml @ 100 mls/hr Q10H STAT IV 03/21/25 13:13 03/21/25 13:22 DC Lactulose (Constulose 20gm/ 30ml Udcup) 20 gm BID PRN PO CONSTIPATION 03/21/25 16:00 04/20/25 15:59 Magnesium Sulfate 50 ml @ 0 mls/hr PROTOCOL PRN IV other 03/21/25 16:00 04/20/25 15:59 03/25/25 12:10 25 MLS/HR Morphine Sulfate (morPHINE 2MG SYG) 1 mg Q4H PRN IVP SEVERE PAIN (7-10) 03/21/25 16:00 03/25/25 15:43 DC 03/25/25 01:45 1 MG Morphine Sulfate (morPHINE 2MG SYG) 2 mg ONCE STAT IVP 03/21/25 14:27 03/21/25 14:31 DC 03/21/25 14:46 2 MG Nitroglycerin (Nitrostat) 0.4 mg PROTOCOL PRN SL CHEST PAIN 03/21/25 16:00 04/20/25 15:59 Ondansetron HCl (zoFRAN 4MG INJ) 4 mg Q6H PRN IV NAUSEA/VOMITING 03/21/25 16:00 03/23/25 12:26 DC Ondansetron HCl (zoFRAN 4MG INJ) 4 mg Q6H PRN IVP NAUSEA/VOMITING 03/23/25 12:30 04/22/25 12:29 03/25/25 01:39 4 MG Oxycodone/ Acetaminophen (perCOCET) 1 tab Q6H PRN PO SEVERE PAIN (7-10) 03/21/25 16:00 03/22/25 08:52 DC Pantoprazole Sodium (PROTonix 40MG TAB) 40 mg DAILY PO 03/23/25 17:00 04/22/25 16:59 03/26/25 10:18 40 MG Pharmacy Profile Note (Pharmacy Communication) 1 each AD MISC 03/22/25 09:00 03/22/25 08:52 DC Pharmacy Profile Note (Pharmacy Communication) 1 each ONCE MISC 03/24/25 19:30 03/24/25 19:21 DC Piperacillin Sod/ Tazobactam Sod 50 ml @ 12.5 mls/hr [id number] IV 03/21/25 21:00 03/31/25 20:59 03/25/25 20:46 12.5 MLS/HR Potassium Chloride 100 ml @ 100 mls/hr AD PRN IV POTASSIUM PROTOCOL 03/22/25 18:00 04/21/25 17:59 Potassium Chloride (K-Dur 10meq Sr Tab) 10 meq AD PRN PO POTASSIUM PROTOCOL 03/24/25 13:30 04/21/25 18:29 03/26/25 10:18 10 MEQ Potassium Chloride (K-Dur/Klor-Con 20meq) 10 meq AD PRN PO POTASSIUM PROTOCOL 03/22/25 18:30 03/24/25 13:23 DC 03/23/25 11:15 10 MEQ Potassium Chloride (KCl 10% Elixir 20meq/15ml) 10 meq AD PRN PO POTASSIUM PROTOCOL 03/22/25 18:30 04/21/25 18:29 Sodium Chloride 1,000 ml @ 150 mls/hr Q6H40M IV 03/21/25 16:00 04/20/25 15:59 03/25/25 12:20 150 MLS/HR Thiamine HCl (Vitamin B-1) 100 mg DAILY IVP 03/23/25 13:30 04/22/25 13:29 03/25/25 12:09 100 MG Vitamin B Complex/ Vit C/Folic Acid (Nephrovite Tablet) 1 cap DAILY PO 03/23/25 09:00 04/22/25 08:59 03/26/25 10:18 1 CAP Zolpidem Tartrate (AmbIEN) 5 mg HS PRN PO INSOMNIA 03/21/25 16:00 04/20/25 15:59 DIAGNOSTICS / RADIOLOGY: [ ] ASSESSMENT: Hypercalcemia POA Right adrenal mass measuring 6 x 5.[address] abdomen/pelvis Retroperitoneal and mesenteric adenopathy suspicious for neoplastic process per CT abdomen/pelvis POA Recent lymph node biopsy 03/13/2025 Intractable abdominal pain POA Acute dehydration POA Failure to thrive POA Acute metabolic encephalopathy POA Severe malnutrition POA Acute kidney injury POA Uncontrolled hypertension POA Leukocytosis WBC 13.6 POA Multifactorial anemia POA Bilateral renal cysts as per CT abdomen/pelvis Chronic Problem: Uncontrolled diabetes mellitus type 2 with hypoglycemia POA Hyperlipidemia POA History of Prostate cancer POA GERD POA Coronary Artery Disease POA Morbid obesity POA History of COVID POA PLAN: Admitted to medical floor Hypercalcemia POA Right adrenal mass measuring 6 x 5.[address] abdomen/pelvis Retroperitoneal and mesenteric adenopathy suspicious for neoplastic process per CT abdomen/pelvis POA Recent lymph node biopsy 03/13/2025 Intractable abdominal pain POA secondary to retroperitoneal and mesenteric adenopathy. Hypercalcemia possibly secondary to underlying unknown malignancy Continue calcitonin and pamidronate Patient has first-degree AV block-possibly secondary to hypercalcemia: we will repeat EKG Oncology recommendations appreciated;Pending lymph node biopsy records from elsewhere Continue telemetry Failure to thrive POA Acute metabolic encephalopathy POA Severe malnutrition POA Acute kidney injury POA - prerenal etiology Acute dehydration POA Patient with acute delirium-treated with low dose IV haloperidol Patient with history of dysphagia, dry mouth, decreased appetite, weight loss Continue IV fluids FeNA less than1 : Nephrology on board We will be monitoring the labs Strict I/O chart Chest x-ray mild bilateral pulmonary infiltrate are seen may be related to mild pulmonary vascular congestion with possible superimposed pneumonitis-CT chest unremarkable Other: Supplemental 02 as needed BiPAP as necessary, for respiratory distress Titrate Fio2 to keep Spo2 > or = 90% DuoNeb�s and CPT as needed Maintain aspiration precautions at all times Vital signs per facility protocol Prokinetic agents and laxatives as needed Daily weights Avoid nephrotoxic agents Monitor electrolytes and replace as needed Goal urine output of 30mL/hr or 0.5mL/kg/hr Medications to be dosed according to renal function. Avoid contrast if possible Maintain blood glucose between 100-180 at all times. Insulin sliding scale for blood glucose management Hypoglycemia and hyperglycemia protocol in place Trend temperature, WBC and procalcitonin level Follow cultures, deescalate antibiotics as soon as possible. Panculture if new onset fever Monitor H&H. Keep Hgb > 7 Pressure ulcer prevention per facility protocol Specialty mattress as needed Treatment plan discussed with patient and family at the bedside Medications to be reconciled once obtained by patient and/or family and available to be reconciled in computer p.r.n. medication for pain nausea and vomiting Rim Turning Finisher for disposition Rehab: PT/OT GI: PPI DVT: SCD's Code Status: Full Resuscitation Disposition: TBD Prognosis: Guarded ATTESTATION BY PHYSICIAN I have seen and examined the patient. I reviewed the documentation, medical decision making, and treatment plan as noted by the resident provider above. I agree with the findings and plan of care. Jin Sweeney MD, ANCHU A MD March 26, 2025 12:24
[2025-03-26] MEDS: LACTULOSE 20 GM/30 ML UDCUP PO PRN (12:30)
[2025-03-26] MEDS: PoTASSium chl 10% ELIXIR 20MEQ 20 MEQ/15 ML UDCUP PO PRN (12:31)
--- NOTE | 2025-03-26 12:32 | NUR ---
MEDICATION ZOSYN NOT GIVEN DUE TO PT STILL REFUSING TO INSERT IV. FAMILY AT BEDSIDE, VERBALIZED UNDERSTANDING.
--- NOTE | 2025-03-26 12:40 | PN ---
GASTROENTEROLOGY PROGRESS NOTE Date of Visit: March 26, 2025 Time of Visit: 12:40 Events / Notes: [ ] Review of Systems: CONSTITUTIONAL: No malaise or change in sensation of wellbeing. ENMT: No rhinorrhea, otorrhea, sinus pain, ear ache. CARDIOVASCULAR: No angina, palpitations, orthopnea or paroxysmal dyspnea. RESPIRATORY: No SOB. GASTROINTESTINAL: No abdominal pain, nausea, vomiting, diarrhea, hematemesis, melena or change in the patient's habitual bowel movements consistency/number. GENITOURINARY: No dysuria, hematuria or change in bladder continence. MUSCULOSKELETAL: No new muscle pain or decrease in muscular strength. No new joint swelling, redness or tenderness. SKIN: No new rash. Physical Exam: GEN: Awake, alert, oriented in person, time and place, and in no acute distress. HEENT: No sinus tenderness. Tympanic membranes were not examined. No rhinorrhea. Oral pharyngeal mucosa is pink, moist and within normal limits. Neck is supple with no cervical lymphadenopathy, thyromegaly or JVD. CHEST: Inspection, palpation and percussion of the chest were unremarkable. Lung auscultation revealed normal breath sounds bilaterally. CARDIAC: PMI is within normal limits. Heart sounds are regular. Normal S1, S2. No gallop or murmur. ABD: Soft, non-tender and not distended. No peritoneal signs on palpation. No organomegaly. Normal bowel sounds. EXT: No cyanosis or clubbing. No edema. SKIN: Intact. No rashes. JOINTS: No evidence of synovitis or acute arthritis. NEURO: Alert and oriented to name, place and person. Cranial nerve examination is unremarkable. No focal motor deficits. Normal speech. Gait is normal. Strength is normal. Vital Signs (last 8hr) Date Time Temp Pulse Resp B/P (MAP) Pulse Ox O2 Delivery O2 Flow Rate FiO2 03/26/25 11:51 97.9 91 20 154/91 92 Room Air 03/26/25 08:06 97.3 73 18 137/52 99 Nasal Cannula 2.0 03/26/25 07:57 97.7 92 20 159/85 94 Room Air Laboratory: [ ] Laboratory: Test 03/26/25 11:24 03/26/25 08:49 03/25/25 04:08 03/24/25 22:05 Range/Units Whole Blood Glucose 106 70-110 MG/DL White Blood Count 8.7 4.8-10.8 K/uL Red Blood Count 3.73 L 4.50-6.20 MIL/uL Hemoglobin 11.0 L 14.0-18.0 g/dL Hematocrit 32.6 L 42-54 % Mean Corpuscular Volume 87.4 79-99 fL Mean Corpuscular Hemoglobin 29.5 27.0-33.0 pg Mean Corpuscular Hemoglobin Concent 33.7 32.0-36.0 g/dL Red Cell Distribution Width 13.9 11.0-15.5 % Platelet Count 218 130-400 K/uL Mean Platelet Volume 10.6 H 7.5-10.5 fL Immature Granulocyte % (Auto) 1.0 0-1 % Neutrophils (%) (Auto) 83.4 H 40.0-77.0 % Lymphocytes (%) (Auto) 7.4 L 21.0-51.0 % Monocytes (%) (Auto) 7.8 3.0-13.0 % Eosinophils (%) (Auto) 0.3 0.0-8.0 % Basophils (%) (Auto) 0.1 0.0-5.0 % Neutrophils # (Auto) 7.2 1.8-7.7 K/uL Lymphocytes # (Auto) 0.6 L 1.0-4.8 K/uL Monocytes # (Auto) 0.7 0.1-1.0 K/uL Eosinophils # (Auto) 0.03 0.00-0.70 K/uL Basophils # (Auto) 0.01 0.00-0.20 K/uL Absolute Immature Granulocyte (auto 0.09 0-1 K/uL Nucleated Red Blood Cells 0.0 0.0-0.19 % Sodium Level 143 136-145 mmol/L Potassium Level 3.3 L 3.5-5.1 mmol/L Chloride Level 110 101-111 mmol/L Carbon Dioxide Level 26 21-32 mmol/L Blood Urea Nitrogen 33 H 7-18 mg/dL Creatinine 1.7 H 0.5-1.3 mg/dL Glomerular Filtration Rate Calc 42 >90 mL/min Random Glucose 107 H 70-105 mg/dL Total Calcium 10.9 H 8.5-10.1 mg/dL Ionized Calcium 1.52 H 1.15-1.33 MMOL/L Phosphorus Level 1.8 L 2.5-4.9 mg/dL Magnesium Level 1.80 1.80-2.40 mg/dL Total Bilirubin 0.5 # 0.2-1.0 mg/dL Aspartate Amino Transf (AST/SGOT) 25 10-37 U/L Alanine Aminotransferase (ALT/SGPT) 37 12-78 U/L Alkaline Phosphatase 44 L 50-136 U/L Total Protein 5.6 L 6.0-8.3 g/dL Albumin 2.5 L 3.5-5.0 g/dL B-Type Natriuretic Peptide 290 H 0-100 pg/mL Current Medications Medications (Trade) Dose Ordered Sig/Katie Route PRN Reason Start Time Stop Time Status Last Admin Dose Admin Acetaminophen (TYLenol 325MG TAB) 650 mg Q4H PRN PO MILD PAIN (1-3) 03/21/25 16:00 04/20/25 15:59 Acetaminophen (TYLenol 325MG TAB) 650 mg Q6H PRN PO MILD PAIN (1-3) 03/21/25 16:00 03/21/25 15:51 DC Acetaminophen (TYLenol 325MG TAB) 650 mg Q6H PRN PO TEMPERATURE GREATER THAN 101.5 03/21/25 16:00 04/20/25 15:59 Al Hydroxide/Mg Hydroxide (MAALox PLUS 30ML) 30 ml Q6H PRN PO INDIGESTION 03/21/25 16:00 04/20/25 15:59 Allopurinol (ZYLOprim 300MG) 300 mg BID STAT PO 03/23/25 17:05 03/23/25 17:20 DC 03/23/25 17:27 300 MG Amlodipine Besylate (NorvASC 5MG TAB) 10 mg DAILY PO 03/25/25 09:00 04/24/25 08:59 03/26/25 10:18 10 MG Aspirin (Aspirin 81mg Chew Tab) 81 mg DAILY PO 03/25/25 09:00 04/24/25 08:59 03/26/25 10:18 81 MG Calcitonin (Miacalcin 400 Unit Inj) 400 units BID SQ 03/23/25 15:00 03/26/25 14:59 03/25/25 12:13 400 UNITS Dexamethasone (DeCADron 4 mg TAB) 40 mg ONCE PO 03/23/25 17:00 03/24/25 13:22 DC 03/23/25 17:27 40 MG Dextrose (D50w) 50 ml AD PRN IV HYPOGLYCEMIA PROTOCOL 03/21/25 16:00 04/20/25 15:59 Diphenhydramine HCl (BENAdryl INJ) 25 mg Q6H PRN IV SEVERE ITCHING/RASH 03/21/25 16:00 03/25/25 15:43 DC 03/25/25 12:09 25 MG Famotidine (Pepcid 20mg Vial) 20 mg BID PRN IV NAUSEA/VOMITING 03/21/25 16:00 03/21/25 15:51 DC Famotidine (Pepcid 20mg Vial) 20 mg DAILY IV 03/22/25 09:00 03/24/25 13:22 DC 03/24/25 10:23 20 MG Glucagon (Glucagon 1mg Kit) 1 mg AD PRN IM HYPOGLYCEMIA PROTOCOL 03/21/25 16:00 04/20/25 15:59 Guaifenesin/ Dextromethorphan (RobiTUSSin DM 200/20MG 10ML) 10 ml Q4H PRN PO COUGH 03/21/25 16:00 04/20/25 15:59 Haloperidol (Haldol) 0.5 mg Q8H PRN PO ANXIETY/AGITATION 03/25/25 16:30 04/24/25 16:29 Haloperidol Lactate (Haldol Inj) 2 mg Q4H PRN IV ANXIETY/AGITATION 03/25/25 11:00 03/25/25 15:43 DC 03/25/25 10:54 2 MG Heparin Sodium (Porcine) (HEParin 5,000 UNIT VIAL) 5,000 unit BID SQ 03/21/25 21:00 04/20/25 20:59 03/25/25 12:20 5,000 UNIT Hydralazine HCl (APRESOLine 20MG INJ) 10 mg Q6H PRN IV For:SBP above 160;DBP above 90 03/21/25 16:00 04/20/25 15:59 Insulin Human Regular (humuLIN R 100 UNIT/ML 3ML) INSULIN SLIDING SCAL... ACHS SQ 03/21/25 16:30 04/20/25 16:29 Ketorolac Tromethamine (toRADol) 15 mg Q8H PRN IV MODERATE PAIN (4-6) 03/21/25 16:00 03/23/25 16:59 DC 03/23/25 15:10 15 MG Lactated Ringer's 1,000 ml @ 100 mls/hr Q10H STAT IV 03/21/25 13:13 03/21/25 13:22 DC Lactulose (Constulose 20gm/ 30ml Udcup) 20 gm BID PRN PO CONSTIPATION 03/21/25 16:00 04/20/25 15:59 03/26/25 12:30 20 GM Magnesium Sulfate 50 ml @ 0 mls/hr PROTOCOL PRN IV other 03/21/25 16:00 04/20/25 15:59 03/25/25 12:10 25 MLS/HR Morphine Sulfate (morPHINE 2MG SYG) 1 mg Q4H PRN IVP SEVERE PAIN (7-10) 03/21/25 16:00 03/25/25 15:43 DC 03/25/25 01:45 1 MG Morphine Sulfate (morPHINE 2MG SYG) 2 mg ONCE STAT IVP 03/21/25 14:27 03/21/25 14:31 DC 03/21/25 14:46 2 MG Nitroglycerin (Nitrostat) 0.4 mg PROTOCOL PRN SL CHEST PAIN 03/21/25 16:00 04/20/25 15:59 Ondansetron HCl (zoFRAN 4MG INJ) 4 mg Q6H PRN IV NAUSEA/VOMITING 03/21/25 16:00 03/23/25 12:26 DC Ondansetron HCl (zoFRAN 4MG INJ) 4 mg Q6H PRN IVP NAUSEA/VOMITING 03/23/25 12:30 04/22/25 12:29 03/25/25 01:39 4 MG Oxycodone/ Acetaminophen (perCOCET) 1 tab Q6H PRN PO SEVERE PAIN (7-10) 03/21/25 16:00 03/22/25 08:52 DC Pantoprazole Sodium (PROTonix 40MG TAB) 40 mg DAILY PO 03/23/25 17:00 04/22/25 16:59 03/26/25 10:18 40 MG Pharmacy Profile Note (Pharmacy Communication) 1 each AD MISC 03/22/25 09:00 03/22/25 08:52 DC Pharmacy Profile Note (Pharmacy Communication) 1 each ONCE MISC 03/24/25 19:30 03/24/25 19:21 DC Piperacillin Sod/ Tazobactam Sod 50 ml @ 12.5 mls/hr [id number] IV 03/21/25 21:00 03/31/25 20:59 03/25/25 20:46 12.5 MLS/HR Potassium Chloride 100 ml @ 100 mls/hr AD PRN IV POTASSIUM PROTOCOL 03/22/25 18:00 04/21/25 17:59 Potassium Chloride (K-Dur 10meq Sr Tab) 10 meq AD PRN PO POTASSIUM PROTOCOL 03/24/25 13:30 04/21/25 18:29 03/26/25 10:18 10 MEQ Potassium Chloride (K-Dur/Klor-Con 20meq) 10 meq AD PRN PO POTASSIUM PROTOCOL 03/22/25 18:30 03/24/25 13:23 DC 03/23/25 11:15 10 MEQ Potassium Chloride (KCl 10% Elixir 20meq/15ml) 10 meq AD PRN PO POTASSIUM PROTOCOL 03/22/25 18:30 04/21/25 18:29 03/26/25 12:31 10 MEQ Sodium Chloride 1,000 ml @ 150 mls/hr Q6H40M IV 03/21/25 16:00 04/20/25 15:59 03/25/25 12:20 150 MLS/HR Thiamine HCl (Vitamin B-1) 100 mg DAILY IVP 03/23/25 13:30 04/22/25 13:29 03/25/25 12:09 100 MG Vitamin B Complex/ Vit C/Folic Acid (Nephrovite Tablet) 1 cap DAILY PO 03/23/25 09:00 04/22/25 08:59 03/26/25 10:18 1 CAP Zolpidem Tartrate (AmbIEN) 5 mg HS PRN PO INSOMNIA 03/21/25 16:00 04/20/25 15:59 Diagnostics / Radiology: [COPY/PASTE HERE IF NO REPORTS PLEASE DELETE SECTION] Assessment: [ ] Plan: No plan for further endoscopy Follow oncology recommendations AZALEA RICHARDSON [employer] March 26, 2025 12:40
--- NOTE | 2025-03-26 13:05 | PN ---
NEPHROLOGY PROGRESS NOTE Date/Time Patient Seen: March 26, 2025 SUBJECTIVE: This is a 74 years old male with a past medical history of hypertension, diabetes, cholesterol, GERD, prostate cancer with to, obstructive sleep apnea, COVID. He presented to the emergency department with a complaining of generalized body weakness, loss of appetite and lower abdominal pain. The patient was found to have adrenal mass, right adrenal mass. The patient has been followed by oncologist because of abdominal masses. The patient has bilateral renal cysts detected. He was noted with hypercalcemia and renal failure Renal function is improving He has received one dose of pamidronate and calcitonin. Calcium level today is 10.9 mg/dL Continues to be followed by Oncology, pending pathology results Nurse reports patient continue with altered mental status He is refusing medications He was seen in the medical floor Family at the bedside REVIEW OF SYSTEMS: Unable to obtain due to patient's status Vital Signs (last 8hr) Date Time Temp Pulse Resp B/P (MAP) Pulse Ox O2 Delivery O2 Flow Rate FiO2 03/23/25 07:59 98.1 102 20 150/91 95 Room Air 03/23/25 04:00 98.4 95 20 143/75 94 Room Air PHYSICAL EXAM: GENERAL: Lethargic, pale. No acute distress. Well-nourished. EYES: EOMI. Anicteric. HENT: Moist mucous membranes. No scleral icterus. No cervical lymphadenopathy. LUNGS: Clear to auscultation bilaterally. No accessory muscle use. CARDIOVASCULAR: Regular rate and rhythm. No murmur. No JVD. ABDOMEN: Soft, non-tender and non-distended. No palpable masses. EXTREMITIES: No edema. Non-tender. SKIN: No rashes or lesions. Warm. NEUROLOGIC: No focal neurological deficits. CN II-XII grossly intact, but not individually tested. PSYCHIATRIC: Cooperative. Appropriate mood and affect. Current Medications Medications (Trade) Dose Ordered Sig/Katie Route PRN Reason Start Time Stop Time Status Last Admin Dose Admin Acetaminophen (TYLenol 325MG TAB) 650 mg Q4H PRN PO MILD PAIN (1-3) 03/21/25 16:00 04/20/25 15:59 Acetaminophen (TYLenol 325MG TAB) 650 mg Q6H PRN PO MILD PAIN (1-3) 03/21/25 16:00 03/21/25 15:51 DC Acetaminophen (TYLenol 325MG TAB) 650 mg Q6H PRN PO TEMPERATURE GREATER THAN 101.5 03/21/25 16:00 04/20/25 15:59 Al Hydroxide/Mg Hydroxide (MAALox PLUS 30ML) 30 ml Q6H PRN PO INDIGESTION 03/21/25 16:00 04/20/25 15:59 Dextrose (D50w) 50 ml AD PRN IV HYPOGLYCEMIA PROTOCOL 03/21/25 16:00 04/20/25 15:59 Diphenhydramine HCl (BENAdryl INJ) 25 mg Q6H PRN IV SEVERE ITCHING/RASH 03/21/25 16:00 04/20/25 15:59 Famotidine (Pepcid 20mg Vial) 20 mg BID PRN IV NAUSEA/VOMITING 03/21/25 16:00 03/21/25 15:51 DC Famotidine (Pepcid 20mg Vial) 20 mg DAILY IV 03/22/25 09:00 04/21/25 08:59 03/23/25 09:47 20 MG Glucagon (Glucagon 1mg Kit) 1 mg AD PRN IM HYPOGLYCEMIA PROTOCOL 03/21/25 16:00 04/20/25 15:59 Guaifenesin/ Dextromethorphan (RobiTUSSin DM 200/20MG 10ML) 10 ml Q4H PRN PO COUGH 03/21/25 16:00 04/20/25 15:59 Heparin Sodium (Porcine) (HEParin 5,000 UNIT VIAL) 5,000 unit BID SQ 03/21/25 21:00 04/20/25 20:59 03/23/25 09:54 5,000 UNIT Hydralazine HCl (APRESOLine 20MG INJ) 10 mg Q6H PRN IV For:SBP above 160;DBP above 90 03/21/25 16:00 04/20/25 15:59 Insulin Human Regular (humuLIN R 100 UNIT/ML 3ML) INSULIN SLIDING SCAL... ACHS SQ 03/21/25 16:30 04/20/25 16:29 Ketorolac Tromethamine (toRADol) 15 mg Q8H PRN IV MODERATE PAIN (4-6) 03/21/25 16:00 03/26/25 15:59 03/23/25 04:02 15 MG Lactated Ringer's 1,000 ml @ 100 mls/hr Q10H STAT IV 03/21/25 13:13 03/21/25 13:22 DC Lactulose (Constulose 20gm/ 30ml Udcup) 20 gm BID PRN PO CONSTIPATION 03/21/25 16:00 04/20/25 15:59 Magnesium Sulfate 50 ml @ 0 mls/hr PROTOCOL PRN IV other 03/21/25 16:00 04/20/25 15:59 03/23/25 06:09 25 MLS/HR Morphine Sulfate (morPHINE 2MG SYG) 1 mg Q4H PRN IVP SEVERE PAIN (7-10) 03/21/25 16:00 03/28/25 15:59 Morphine Sulfate (morPHINE 2MG SYG) 2 mg ONCE STAT IVP 03/21/25 14:27 03/21/25 14:31 DC 03/21/25 14:46 2 MG Nitroglycerin (Nitrostat) 0.4 mg PROTOCOL PRN SL CHEST PAIN 03/21/25 16:00 04/20/25 15:59 Ondansetron HCl (zoFRAN 4MG INJ) 4 mg Q6H PRN IV NAUSEA/VOMITING 03/21/25 16:00 04/20/25 15:59 Oxycodone/ Acetaminophen (perCOCET) 1 tab Q6H PRN PO SEVERE PAIN (7-10) 03/21/25 16:00 03/22/25 08:52 DC Pharmacy Profile Note (Pharmacy Communication) 1 each AD MISC 03/22/25 09:00 03/22/25 08:52 DC Piperacillin Sod/ Tazobactam Sod 50 ml @ 12.5 mls/hr ZOSY8 IV 03/21/25 21:00 03/31/25 20:59 03/23/25 04:04 12.5 MLS/HR Potassium Chloride 100 ml @ 100 mls/hr AD PRN IV POTASSIUM PROTOCOL 03/22/25 18:00 04/21/25 17:59 Potassium Chloride (K-Dur/Klor-Con 20meq) 10 meq AD PRN PO POTASSIUM PROTOCOL 03/22/25 18:30 04/21/25 18:29 03/23/25 06:08 10 MEQ Potassium Chloride (KCl 10% Elixir 20meq/15ml) 10 meq AD PRN PO POTASSIUM PROTOCOL 03/22/25 18:30 04/21/25 18:29 Sodium Chloride 1,000 ml @ 125 mls/hr Q8H IV 03/21/25 16:00 04/20/25 15:59 03/23/25 03:57 125 MLS/HR Vitamin B Complex/ Vit C/Folic Acid (Nephrovite Tablet) 1 cap DAILY PO 03/23/25 09:00 04/22/25 08:59 03/23/25 09:47 1 CAP Zolpidem Tartrate (AmbIEN) 5 mg HS PRN PO INSOMNIA 03/21/25 16:00 04/20/25 15:59 LABORATORY: [ ] Hematology Labs: Test 03/26/25 08:49 Range/Units White Blood Count 8.7 4.8-10.8 K/uL Red Blood Count 3.73 L 4.50-6.20 MIL/uL Hemoglobin 11.0 L 14.0-18.0 g/dL Hematocrit 32.6 L 42-54 % Mean Corpuscular Volume 87.4 79-99 fL Mean Corpuscular Hemoglobin 29.5 27.0-33.0 pg Mean Corpuscular Hemoglobin Concent 33.7 32.0-36.0 g/dL Red Cell Distribution Width 13.9 11.0-15.5 % Platelet Count 218 130-400 K/uL Mean Platelet Volume 10.6 H 7.5-10.5 fL Immature Granulocyte % (Auto) 1.0 0-1 % Neutrophils (%) (Auto) 83.4 H 40.0-77.0 % Lymphocytes (%) (Auto) 7.4 L 21.0-51.0 % Monocytes (%) (Auto) 7.8 3.0-13.0 % Eosinophils (%) (Auto) 0.3 0.0-8.0 % Basophils (%) (Auto) 0.1 0.0-5.0 % Neutrophils # (Auto) 7.2 1.8-7.7 K/uL Lymphocytes # (Auto) 0.6 L 1.0-4.8 K/uL Monocytes # (Auto) 0.7 0.1-1.0 K/uL Eosinophils # (Auto) 0.03 0.00-0.70 K/uL Basophils # (Auto) 0.01 0.00-0.20 K/uL Absolute Immature Granulocyte (auto 0.09 0-1 K/uL Nucleated Red Blood Cells 0.0 0.0-0.19 % Chemistry Labs: Test 03/26/25 11:24 03/26/25 08:49 03/25/25 04:08 03/24/25 22:05 Range/Units Whole Blood Glucose 106 70-110 MG/DL Sodium Level 143 136-145 mmol/L Potassium Level 3.3 L 3.5-5.1 mmol/L Chloride Level 110 101-111 mmol/L Carbon Dioxide Level 26 21-32 mmol/L Blood Urea Nitrogen 33 H 7-18 mg/dL Creatinine 1.7 H 0.5-1.3 mg/dL Glomerular Filtration Rate Calc 42 >90 mL/min Random Glucose 107 H 70-105 mg/dL Total Calcium 10.9 H 8.5-10.1 mg/dL Ionized Calcium 1.52 H 1.15-1.33 MMOL/L Phosphorus Level 1.8 L 2.5-4.9 mg/dL Magnesium Level 1.80 1.80-2.40 mg/dL Total Bilirubin 0.5 # 0.2-1.0 mg/dL Aspartate Amino Transf (AST/SGOT) 25 10-37 U/L Alanine Aminotransferase (ALT/SGPT) 37 12-78 U/L Alkaline Phosphatase 44 L 50-136 U/L Total Protein 5.6 L 6.0-8.3 g/dL Albumin 2.5 L 3.5-5.0 g/dL B-Type Natriuretic Peptide 290 H 0-100 pg/mL DIAGNOSTICS / RADIOLOGY: REASON: ALTERED MENTAL STATUS ORDERING PHYSICIAN: LENNY RAM MD PROCEDURE: HEAD WO - CT HEAD/BRAIN W/O CONTRAST CT HEAD/BRAIN W/O CONTRAST HISTORY: Altered mental status COMPARISON: None TECHNIQUE: Multiple sequential axial images of the head were obtained from the base of the skull through vertex. Patient was not given contrast through intravenous route. FINDINGS: The ventricles and extraventricular CSF spaces are dilated consistent with cerebral atrophy. Nonspecific white matter changes seen. There is no midline shift, mass effect or herniation. No acute intracranial bleed is seen. Visualized portion of the paranasal sinuses are grossly within normal limits. IMPRESSION: 1. No acute intracranial bleed is seen. 2. Atrophy with white matter changes. CT was performed with one or more following dose reduction techniques: automated exposure control, adjustment of the mA and kv according to patient's size, or use of a iterative reconstruction technique. DICTATED BY: NARAYAN OLSEN MD DATE: 03/23/25 1334 REASON: SOB , HYPERCALCEMIA, H/O PROSTATE CA ORDERING PHYSICIAN: LILO REYES MD PROCEDURE: PULM VQ - NM PULMONARY/LUNG VQ SCAN NM PULMONARY/LUNG VQ SCAN HISTORY: Shortness of breath COMPARISON: None TECHNIQUE: Ventilation study was performed with 5 mCi of Xenon gas through inhalation route. Perfusion lung imaging study was performed with 5 mCi of technetium macroaggregated through intravenous route. FINDINGS: There is no evidence of segmental or subsegmental perfusion defect. Nonsegmental perfusion defects are also present. IMPRESSION: 1. Low probability for pulmonary embolus. DICTATED BY: NARAYAN OLSEN MD DATE: 03/23/25 0019 REASON: HYPERCALCEMIA, LUNG INFILTRATES ON CXR ORDERING PHYSICIAN: LILO REYES MD PROCEDURE: CHEST WO - CT CHEST W/O CONTRAST CT CHEST W/O CONTRAST HISTORY: Hypercalcemia COMPARISON: 03/21/2005 TECHNIQUE: Multiple sequential axial images of the chest were obtained from the thoracic inlet through upper abdomen. Patient was not given contrast through intravenous route. FINDINGS: Tiny bilateral pleural effusions are seen. There are mild interstitial fibrosis. Coronary arterial calcifications are seen. There is retroperitoneal adenopathy There is no evidence of pneumothorax. There are normal size mediastinal and hilar lymph nodes. The heart is not enlarged. Degenerative changes of the thoracolumbar spine are present. There is right adrenal mass not completely well visualized. IMPRESSION: 1. Tiny bilateral pleural effusions. Mild interstitial fibrosis. Right adrenal mass. CT was performed with one or more following dose reduction techniques: automated exposure control, adjustment of the mA and kv according to patient's size, or use of a iterative reconstruction technique. DICTATED BY: NARAYAN OLSEN MD DATE: 03/22/25 190 REASON: chf ORDERING PHYSICIAN: IGNACIO GONZALEZ APRN PROCEDURE: ECHO CMP - ECHO 2-D COMPLETE APPROVED REPORT EXAM: Two-dimensional and M-mode echocardiogram with Doppler and color Doppler. INDICATION ICD: Congetive heart failure 2D Dimensions RVDd 3.4 cm LVEF(%) 76.2 (>50%) LVED Vol(simp.) 68.0 mL IVSd 1.1 (0.7-1.1cm) FS(%) 45 % LVES Vol(simp.) 27.0 mL LVDd 4.4 (3.8-5.6cm) LA (2D) 4.0 (1.6-4.0cm) LVEF(%, simp.) 60 % PWd 1.7 (0.7-1.1cm) Ao Root(2D) 3.4 (2.0-3.7cm) LA ESV INDEX (BP) 16.43 mL/m2 LVDs 2.4 (2.5-4.0cm) LVOT diam 2.4 (1.8-2.4cm) IVC diam 2.5 cm Deformation Strain Apical 4 -13.4 % Apical 2 -10.9 % Apical 3 -18.5 % Global Strain -14.3 % M-Mode Dimensions EPSS 1.0 cm LA (MM) 5.1 (1.6-4.0cm) Ao Root(MM) 3.5 (2.0-3.7cm) Aortic Valve AoV Vmax 1.4 m/s Ao Peak GR 8.2 mmHg LVOT Vmax 1.1 m/s AoV VTI 0.2 m Ao Mean GR 5.3 mmHg LVOT VTI 0.15 m JOEY (VMAX) 3.40 cm2 JOEY (VTI) 3.4 cm2 Mitral Valve MV E Vmax 110.9 cm/s DECEL Time 113 ms MV A Vmax 54.7 cm/s E/A ratio 2.0 TDI E/E' Medial 13.8 E/E' Lateral 13.8 Lateral E' Peak V 8.02 cm/s Pulmonary Valve PV Vmax 1.4 m/s PV VTI 0.19 m PV Mean GR 3.8 mmHg PV Peak GR 7.9 mmHg Tricuspid Valve RAP (EST) 8 mmHg RVSP 8.0 mmHg Left Ventricle The left ventricle is normal size. Hyperdynamic left ventricular wall motion noted. No regional wall motion abnormalities noted. There is moderate left ventricular wall thickness. LVEF is 60-65%. The LV diastolic function was unable to be assessed due to atrial arrhythmia. Right Ventricle The right ventricle is normal size. There is mild right ventricular wall thickness. Right ventricular systolic function could not be assessed. Atria The left atrium size is normal. The right atrium size is normal. Aortic Valve The aortic valve appears to open well. No aortic regurgitation is present. There is no aortic valvular stenosis. Mitral Valve Mitral valve is not well visualized. There is no mitral valve regurgitation noted. There is no mitral valve stenosis. Tricuspid Valve The tricuspid valve leaflets appear normal. There is trace of tricuspid valve regurgitation noted. Pulmonic Valve Pulmonic valve is not well visualized. There is no pulmonic valvular regurgitation. Great Vessels The aortic root is normal in size. The IVC is normal in size and collapses <50% with inspiration. Pericardium Epircardial fat noted. Other Information Quality : Technically difficult challenging study due to body habitus Conclusion LVEF is 60-65%. Hyperdynamic left ventricular wall motion noted. No regional wall motion abnormalities noted. The right ventricle is normal size. The aortic root is normal in size. DICTATED BY: MAISHA HOLLOWAY MD DATE: 03/22/25 0710 REASON: chest pain ORDERING PHYSICIAN: JYOTHI MERCHANT DO PROCEDURE: CXR1VW - CHEST 1VW CHEST 1VW HISTORY: Chest pain COMPARISON: None FINDINGS: A frontal projection of the chest was obtained. Mild bilateral pulmonary infiltrates are seen may be related to mild pulmonary vascular congestion with possible superimposed pneumonitis. The heart is borderline enlarged. Degenerative changes are seen. No evidence of aortic calcification is seen. IMPRESSION: 1. Mild bilateral pulmonary infiltrates are seen may be related to mild pulmonary vascular congestion with possible superimposed pneumonitis. DICTATED BY: NARAYAN OLSEN MD DATE: 03/21/25 1434 REASON: Abdominal Pain ORDERING PHYSICIAN: JYOTHI MERCHANT DO PROCEDURE: ABD PEL W - CT ABDOMEN/PELVIS W/CONTRAST CT ABDOMEN/PELVIS W/CONTRAST HISTORY: Abdominal pain COMPARISON: 10/11/2012 TECHNIQUE: Multiple sequential axial images of the abdomen and pelvis were obtained from the dome of the diaphragm through symphysis pubis. Patient was not given contrast through intravenous route. Oral contrast was not given. FINDINGS: No pleural effusion is seen bilaterally. There is no evidence of parenchymal disease or pulmonary nodule of the visualized lower lungs. Degenerative changes of the thoracolumbar spine are present. The heart is not enlarged. Coronary artery calcifications are seen. Gallbladder is distended. Liver is enlarged measuring 18 cm. There is left renal cyst measuring 10 cm. There is roughening and cyst measures 6.3 cm. There is right adrenal mass measuring 6 x 5.4 cm. There are extensive retroperitoneal adenopathy and mesenteric adenopathy. Neoplastic process is suspected. There are perinephric nodular densities bilaterally. The liver, spleen, adrenal glands and pancreas are unremarkable. There is no evidence of hydronephrosis bilaterally. No evidence of renal stone is seen. Fecal material is seen in the colon. There are normal size retroperitoneal and mesenteric lymph nodes. No ascites is seen. Atherosclerotic changes are present. Pelvic sidewalls are symmetric bilaterally. Bladder is poorly distended. There is left inguinal hernia with fat content. IMPRESSION: 1. Right adrenal mass measuring 6 x 5.4 cm. 2. Retroperitoneal and mesenteric adenopathy suspicious for neoplastic process. Nodular densities are seen bilaterally. Bilateral renal cysts. 3. Distended gallbladder. CT was performed with one or more following dose reduction techniques: automated exposure control, adjustment of the mA and kv according to patient's size, or use of a iterative reconstruction technique. DICTATED BY: NARAYAN OLSEN MD DATE: 03/21/25 1411 ASSESSMENT: Hypercalcemia Right adrenal mass measuring 6 x 5.[address] abdomen/pelvis Retroperitoneal and mesenteric adenopathy suspicious for neoplastic process per CT abdomen/pelvis POARecent lymph node biopsy 03/13/2025 Intractable abdominal pain POA Acute dehydration POA Failure to thrive POA Acute metabolic encephalopathy POA Severe malnutrition POA Acute kidney injury POA Uncontrolled hypertension POA Leukocytosis WBC 13.6 POA Multifactorial anemia POA Bilateral renal cysts as per CT abdomen/pelvis Uncontrolled diabetes mellitus type 2 Hyperlipidemia POA History of Prostate cancer POA GERD POA Coronary Artery Disease POA Morbid obesity POA PLAN: Labs, diagnostic, radiologic exams reviewed and interpreted by myself and supervising physician. We have reviewed external records in detail Pending pathology results Require close monitoring of renal function and electrolytes Order CBC, CMP, ionized calcium, uric acid, and electrolytes in am BiPAP as necessary, for respiratory distress Monitor blood pressure adjust medication doses as needed Avoid hypotensive episodes May use Dilaudid 0.5 mg IV every 6 hours as needed for severe pain Monitor blood sugars Strict intake, output, and daily weight should be monitored Please renally adjust medications Avoid nephrotoxic and nonsteroidal drugs Avoid contrast if possible Will continue to monitor renal function, anemia, electrolytes Treatment plan discussed with patient Questions were answered We have discussed with the other team physicians in detail about the care plan We will continue to monitor the patient closely ATTESTATION BY PHYSICIAN I have seen and examined the patient. I reviewed the documentation, medical decision making, and treatment plan as noted by the mid-level provider above. I agree with the findings and plan of care. LELAND BAEZ MD, [facility] March 26, 2025 13:05
[2025-03-26 13:13] LABS: IGA (IFE) 154 mg/dL (61-437); IGG (IMMUNOFIXATION) 778 mg/dL (603-1613); IGM (IMMUNOFIXATION) 49 mg/dL (15-143)
[2025-03-26 14:12] LABS: ALBUMIN (PEP) 3.1 g/dL (2.9-4.4)
--- NOTE | 2025-03-26 15:25 | NUR ---
FAMILY( DAUGHTERS) SPOKE TO DR. RIVERA OVER THE PHONE REGARDING PLAN OF CARE.
--- NOTE | 2025-03-26 15:45 | NUR ---
Nutritional f/u Note: Chart, meds, and labs Reviewed. Pt continues to show poor oral intake <25% and AMS. Current labs suggest hypercalcemia total Ca 10.9, Ionized ca 1.52. elevated bun/crea 33/1.7. Pt has been refusing PO meds, vit b complex and thiamine. Nutritional concerns: inadequate oral intake, severe malnutrition, GI intolerance, refusal of medications, and functional decline. Recommend: -Thiamine 100mg IV x 5-7days -If unable to meet needs in next 24hrs orally evaluate for enteral nutrition NGT vs PEG if GI tract functional and safe -Evaluate swallowing status and cognitive capacity before TF -RD to provide further recommendations based on clinical progress. -Monitor feeding tolerance, %, wt, and labs -If No BM >3days consider bowel stimulant. - Please notify RD if additional nutrition concerns arise. Addendum: 03/26/25 at [address] Amended: Links added.
[2025-03-26] MEDS: HALOPERIDOL 1 MG TABLET PO PRN (20:18)
[2025-03-26] MEDS: acetaMINOPHEN 325 MG TAB PO PRN (20:18)
[2025-03-26 20:59] LABS: CREATININE 1.7 mg/dL (0.5-1.3); POTASSIUM 3.4 mmol/L (3.5-5.1)
[2025-03-27] VITALS: BP 144/66; PULSE 88; RESP 19; TEMP 97.6
[2025-03-27 04:00] VITALS: BP 157/50; PULSE 99; RESP 19; TEMP 98.1
[2025-03-27 05:33] LABS: HEMATOCRIT 32.6 % (42-54); MEAN CORPUSCULAR HEMOGLOBIN 29.7 pg (27.0-33.0); MEAN CORPUSCULAR HGB CONC 34.4 g/dL (32.0-36.0); MEAN CORPUSCULAR VOLUME 86.5 fL (79-99); RED BLOOD CELL COUNT(AUTO) 3.77 MIL/uL (4.50-6.20); WHITE BLOOD COUNT (AUTO) 7.6 K/uL (4.8-10.8)
[2025-03-27 06:11] LABS: ALBUMIN 2.5 g/dL (3.5-5.0); BILIRUBIN,TOTAL 0.9 mg/dL (0.2-1.0); CREATININE 1.4 mg/dL (0.5-1.3); PHOSPHORUS 1.4 mg/dL (2.5-4.9); POTASSIUM 3.5 mmol/L (3.5-5.1); TOTAL PROTEIN, SERUM 5.5 g/dL (6.0-8.3)
--- NOTE | 2025-03-27 07:14 | PN ---
[facility] PROGRESS NOTE Date of Service: March 27, 2025 Time of Service: 07:13 SUBJECTIVE: 74 years old male with a past medical history of hypertension, diabetes, cholesterol, GERD, prostate cancer with TURP(2008 with normal subsequent PSA levels), obstructive sleep apnea, severe COVID infection, presented to emergency department with complaints of generalized body weakness, loss of appetite and lower abdominal pain since December 2024. He was recently admitted to [facility]. During hospitalization it was found that patient had bilateral renal masses versus cyst, right adrenal mass. 03/13/2025 CTA was performed which showed an adrenal mass, ?lymphadenopathy and a lymph node biopsy was performed . On 03/14/2025 he underwent colonoscopy which was supposedly negative. Patient left against medical advice from the above said hospital . The patient he has been experiencing loss of appetite, dysphagia, dryness of mouth, decrease in body weight, occasional shortness of breath, in creased lethargy since December of this year. As per surgical pathology report of the biopsy from [facility] "Diffuse groups of malignant cells are identified with fibrosis and lymphoid tissue. They are arranged into small nests. There is a high nuclear systolic plasma thick ratio. Hyperchromatic nuclei and large nuclei bolus. The infiltrated fibrosis stoma shows mucinoid changes. The lymphoid tissue appear mature. Possible for immuno peroxidase CD45. Immunoperoxidase epithelial markers markers CK7 and CK20 are negative. Lung marker TTF one and prostate PSA are negative. Neuroendocrine markers chromogranin and synaptophysin are also negative. Proliferative markers Ki-67 is positive . The biopsy will be submitted to reference lab([place]) for consultation. An additional report will follow. Specimen source lymph nodes biopsy" At the time of presentation:vital signs temperature 98.8� pulse 80 respiration 18 blood pressure 130/65. Patient is on room air saturating at 97%. Labs at the time of presentation: WBC 13.6 hemoglobin 13.7 hematocrit 40.7 platelets 287. Sodium 136 potassium 3.6 CO2 30 BUN 22 creatinine 1.6 GFR 46 random glucose 115 lactic 2.2 total calcium 16.3 bilirubin 1.0 AST 42 ALT 64 CK 64 troponin 3.4 lipase 12 procalcitonin negative lactic acid repeated 1.7. CT abdomen/pelvis showed right adrenal mass measuring 6 x 5.4 cm. Retroperitoneal and mesenteric adenopathy suspicious for neoplastic process. Nodular density are seen bilaterally. Bilateral renal cyst. Distended gal lbladder. Chest x-ray showed mild bilateral pulmonary infiltrate are seen may be related to bilateral pulmonary vascular congestion with a possible superimposed pneumonitis. We will admit him for further evaluation and management. 03/22/2025: Patient is seen resting in his room. He appeared drowsy, but is arousable on verbal stimulation, alert oriented x3 and is perceiving and answering questions adequately. He Stated that he feels very tired. His calcium levels remain elevated. We will do PTH level to rule out hyperparathyroidism, vitamin-D25 hydroxy level to rule out hypervitaminosis D, [id number] dihydroxy level to rule out sarcoidosis, parathyroid related peptide. We will check PSA levels, TSH levels. He is being treated with calcitonin and reduced doses of pamidronate given his renal insufficiency. Oncology recommendations appreciated. Nephrology on board. Plan is to monitor calcium levels, keep patient in telemetry. If all the tests are negative, we will consider workup for multiple myeloma. 03/23/25 patient was seen and examined. Case discussed with RN and family by the bedside. He is hallucinating and confused he was calcium levels remain elevated. Nephrology ordered calcitonin he is continuing with IV fluids. 03/24/25 patient was seen and examined. Case discussed with the RN and family by the bedside. He has hallucination is slightly better but he is still confused. Calcium level is 13.2. Phosphorus is one. He has been treated appropriately. Nephrology and Oncology are following the patient. We will continue to follow the labs 03/25/2025: Patient seen in room-confused and hallucinating. Patient stated th at slight are jets are approaching the hospital and he is being targeted. He was treated with IV haloperidol time dose and his mental status is improving. His calcium is down to 11.5. He is not on calcitonin or pamidronate. Magnesium is being replaced. Pending recommendations from Oncology. 03.26.25: Patient is seen in the room-confused and hallucinating with lucid intervals. His mental state is better compared to yesterday as per the family members. As per RN he was wandering outside at night and was given single short of haloperidol 5 mg. His calcium his 10.9 today-improving. Discussed in details with the family members(his daughters) that the delirium might be secondary to malignant hypercalcemia versus organic pathology of brain not limited to Metastasis. They requested MRI brain but we will defer now and order as per Oncology recommendations. Pending discharge recommendations from Oncology. 5.7.25: Patient is seen in room - mental status and cognition better compares to yesterday .He has pulled his IV lines yesterday . Zosyn is stopped ; given patient has staph capitis bacteremia in one blood culture- will repeat second blood cultures and continue oral antibiotics.His calcium has improved to 10.6 today . Kidney function improving . As per Oncology, lymph node biopsy test results has been sent to [facility] for molecular studies and final confirmation. patient will be getting MRI brain and nuclear medicine bone scan today. Possible discharge tomorrow and the patient is required to follow up at the oncology office. REVIEW OF SYSTEMS CONSTITUTIONAL: Denies fevers, chills, or night sweats. unintentional weight loss reported. NEUROLOGICAL: Denies headache, amaurosis fugax, motor weakness, sensory deficit, vertigo/spinning sensation, gait abnormalities, or tremors. ENT: No hearing loss, otalgia, otorrhea, rhinitis, rhinorrhea, hoarseness, or sore throat. CARDIOVASCULAR: Denies any exertional angina, dyspnea on exertion, orthopnea, paroxysmal nocturnal dyspnea, palpitations, life-threatening arrhythmias, claudication. PULMONARY: Denies any shortness of breath, cough, phlegm/sputum, hemoptysis, pleuritic chest pain. SLEEP: Denies morning headaches, daytime somnolence or napping. Denies difficulty falling asleep, staying asleep, waking from sleep. Denies knowledge of snoring. Patient complains of constant weakness/sleepiness GASTROINTESTINAL: Patient complains of dry mouth and difficulty to swallow at times Denies nausea, vomiting, pyrosis, early satiety, diarrhea, constipation, or changes in stool consistency or caliber. Denies coffee-ground emesis, hematemesis, hematochezia, or melanotic stools. Patient complains of abdominal pain GENITOURINARY: Denies frequency, urgency, nocturia, hematuria or incontinence (Storage/Irritative symptoms.) Low urinary stream, straining to void, urinary intermittency or hesitancy, splitting of the voiding stream, terminal dribbling. ENDOCRINOLOGIC: Denies polyuria, polydipsia, polyphagia or heat/cold intolerances. HEMATOLOGIC: Denies thrombophilia/previous clots, or coagulopathy/bleeding disorders. ONCOLOGIC: Patient has a history of prostate cancer status post TURP DERMATOLOGIC: Denies rashes or pruritus. PSYCHIATRIC: Denies any suicidal or homicidal ideation. Denies hallucinations. PHYSICAL EXAM GENERAL APPEARANCE: Patient appears lethargic The patient is awake, alert, and oriented, in no acute cardiopulmonary distress. NEUROLOGICAL: Cranial nerves II-XII grossly intact. Motor is 5/5 in bilateral upper and lower extremities proximal to distal. No sensory deficits. HEENT: Face is symmetric. Pupils are equal and reactive. Extraocular movements are intact. Dry oral mucosa dry lips NECK: Supple. No JVD. No thyromegaly. No submental, submandibular, pre- /postauricular, occipital or supraclavicular lymphadenopathy. CHEST: Normal chest expansion. No Telemetry. LUNGS: Absence of any rales, rhonchi or any wheezing. CARDIOVASCULAR: Regular. S1 and S2 normal. No appreciable rubs, murmurs or gallops. ABDOMEN: Soft, tender on left upper quadrant mildly distended. There is no rebound, voluntary guarding, or rigidity. : Deferred. No Gonzáles. EXTREMITIES: Non-edematous and not cyanotic. No clubbing. Good capillary refill. SKIN: No skin breakdown. Vital Signs (last 8hr) Date Time Temp Pulse Resp B/P (MAP) Pulse Ox O2 Delivery O2 Flow Rate FiO2 03/27/25 04:00 98.1 99 19 157/50 92 Room Air 03/27/25 00:00 97.5 88 19 144/66 93 Room Air LABS: Laboratory: Test 03/27/25 04:48 03/27/25 04:47 03/26/25 08:49 Range/Units White Blood Count 7.6 4.8-10.8 K/uL Red Blood Count 3.77 L 4.50-6.20 MIL/uL Hemoglobin 11.2 L 14.0-18.0 g/dL Hematocrit 32.6 L 42-54 % Mean Corpuscular Volume 86.5 79-99 fL Mean Corpuscular Hemoglobin 29.7 27.0-33.0 pg Mean Corpuscular Hemoglobin Concent 34.4 32.0-36.0 g/dL Red Cell Distribution Width 14.0 11.0-15.5 % Platelet Count 237 130-400 K/uL Mean Platelet Volume 10.5 7.5-10.5 fL Nucleated Red Blood Cells 0.0 0.0-0.19 % Sodium Level 142 136-145 mmol/L Potassium Level 3.5 3.5-5.1 mmol/L Chloride Level 109 101-111 mmol/L Carbon Dioxide Level 24 21-32 mmol/L Blood Urea Nitrogen 26 H 7-18 mg/dL Creatinine 1.4 H 0.5-1.3 mg/dL Glomerular Filtration Rate Calc 53 >90 mL/min Random Glucose 109 H 70-105 mg/dL Total Calcium 10.6 H 8.5-10.1 mg/dL Ionized Calcium 1.47 H 1.15-1.33 MMOL/L Phosphorus Level 1.4 L 2.5-4.9 mg/dL Total Bilirubin 0.9 0.2-1.0 mg/dL Aspartate Amino Transf (AST/SGOT) 21 10-37 U/L Alanine Aminotransferase (ALT/SGPT) 30 12-78 U/L Alkaline Phosphatase 52 50-136 U/L Total Protein 5.5 L 6.0-8.3 g/dL Albumin 2.5 L 3.5-5.0 g/dL Whole Blood Glucose 117 H 70-110 MG/DL Immature Granulocyte % (Auto) 1.0 0-1 % Neutrophils (%) (Auto) 83.4 H 40.0-77.0 % Lymphocytes (%) (Auto) 7.4 L 21.0-51.0 % Monocytes (%) (Auto) 7.8 3.0-13.0 % Eosinophils (%) (Auto) 0.3 0.0-8.0 % Basophils (%) (Auto) 0.1 0.0-5.0 % Neutrophils # (Auto) 7.2 1.8-7.7 K/uL Lymphocytes # (Auto) 0.6 L 1.0-4.8 K/uL Monocytes # (Auto) 0.7 0.1-1.0 K/uL Eosinophils # (Auto) 0.03 0.00-0.70 K/uL Basophils # (Auto) 0.01 0.00-0.20 K/uL Absolute Immature Granulocyte (auto 0.09 0-1 K/uL Magnesium Level 1.80 1.80-2.40 mg/dL Current Medications Medications (Trade) Dose Ordered Sig/Katie Route PRN Reason Start Time Stop Time Status Last Admin Dose Admin Acetaminophen (TYLenol 325MG TAB) 650 mg Q4H PRN PO MILD PAIN (1-3) 03/21/25 16:00 04/20/25 15:59 03/27/25 02:00 650 MG Acetaminophen (TYLenol 325MG TAB) 650 mg Q6H PRN PO MILD PAIN (1-3) 03/21/25 16:00 03/21/25 15:51 DC Acetaminophen (TYLenol 325MG TAB) 650 mg Q6H PRN PO TEMPERATURE GREATER THAN 101.5 03/21/25 16:00 04/20/25 15:59 Al Hydroxide/Mg Hydroxide (MAALox PLUS 30ML) 30 ml Q6H PRN PO INDIGESTION 03/21/25 16:00 04/20/25 15:59 Allopurinol (ZYLOprim 300MG) 300 mg BID STAT PO 03/23/25 17:05 03/23/25 17:20 DC 03/23/25 17:27 300 MG Amlodipine Besylate (NorvASC 5MG TAB) 10 mg DAILY PO 03/25/25 09:00 04/24/25 08:59 03/26/25 10:18 10 MG Aspirin (Aspirin 81mg Chew Tab) 81 mg DAILY PO 03/25/25 09:00 04/24/25 08:59 03/26/25 10:18 81 MG Calcitonin (Miacalcin 400 Unit Inj) 400 units BID SQ 03/23/25 15:00 03/26/25 14:59 DC 03/25/25 12:13 400 UNITS Dexamethasone (DeCADron 4 mg TAB) 40 mg ONCE PO 03/23/25 17:00 03/24/25 13:22 DC 03/23/25 17:27 40 MG Dextrose (D50w) 50 ml AD PRN IV HYPOGLYCEMIA PROTOCOL 03/21/25 16:00 04/20/25 15:59 Diphenhydramine HCl (BENAdryl INJ) 25 mg Q6H PRN IV SEVERE ITCHING/RASH 03/21/25 16:00 03/25/25 15:43 DC 03/25/25 12:09 25 MG Famotidine (Pepcid 20mg Vial) 20 mg BID PRN IV NAUSEA/VOMITING 03/21/25 16:00 03/21/25 15:51 DC Famotidine (Pepcid 20mg Vial) 20 mg DAILY IV 03/22/25 09:00 03/24/25 13:22 DC 03/24/25 10:23 20 MG Glucagon (Glucagon 1mg Kit) 1 mg AD PRN IM HYPOGLYCEMIA PROTOCOL 03/21/25 16:00 04/20/25 15:59 Guaifenesin/ Dextromethorphan (RobiTUSSin DM 200/20MG 10ML) 10 ml Q4H PRN PO COUGH 03/21/25 16:00 04/20/25 15:59 Haloperidol (Haldol) 0.5 mg Q8H PRN PO ANXIETY/AGITATION 03/25/25 16:30 04/24/25 16:29 03/26/25 20:18 0.5 MG Haloperidol Lactate (Haldol Inj) 2 mg Q4H PRN IV ANXIETY/AGITATION 03/25/25 11:00 03/25/25 15:43 DC 03/25/25 10:54 2 MG Heparin Sodium (Porcine) (HEParin 5,000 UNIT VIAL) 5,000 unit BID SQ 03/21/25 21:00 04/20/25 20:59 03/25/25 12:20 5,000 UNIT Hydralazine HCl (APRESOLine 20MG INJ) 10 mg Q6H PRN IV For:SBP above 160;DBP above 90 03/21/25 16:00 04/20/25 15:59 Insulin Human Regular (humuLIN R 100 UNIT/ML 3ML) INSULIN SLIDING SCAL... ACHS SQ 03/21/25 16:30 04/20/25 16:29 Ketorolac Tromethamine (toRADol) 15 mg Q8H PRN IV MODERATE PAIN (4-6) 03/21/25 16:00 03/23/25 16:59 DC 03/23/25 15:10 15 MG Lactated Ringer's 1,000 ml @ 100 mls/hr Q10H STAT IV 03/21/25 13:13 03/21/25 13:22 DC Lactulose (Constulose 20gm/ 30ml Udcup) 20 gm BID PRN PO CONSTIPATION 03/21/25 16:00 04/20/25 15:59 03/26/25 12:30 20 GM Magnesium Sulfate 50 ml @ 0 mls/hr PROTOCOL PRN IV other 03/21/25 16:00 04/20/25 15:59 5/5/25 12:10 25 MLS/HR Morphine Sulfate (morPHINE 2MG SYG) 1 mg Q4H PRN IVP SEVERE PAIN (7-10) 03/21/25 16:00 03/25/25 15:43 DC 03/25/25 01:45 1 MG Morphine Sulfate (morPHINE 2MG SYG) 2 mg ONCE STAT IVP 03/21/25 14:27 03/21/25 14:31 DC 03/21/25 14:46 2 MG Nitroglycerin (Nitrostat) 0.4 mg PROTOCOL PRN SL CHEST PAIN 03/21/25 16:00 04/20/25 15:59 Ondansetron HCl (zoFRAN 4MG INJ) 4 mg Q6H PRN IV NAUSEA/VOMITING 03/21/25 16:00 03/23/25 12:26 DC Ondansetron HCl (zoFRAN 4MG INJ) 4 mg Q6H PRN IVP NAUSEA/VOMITING 03/23/25 12:30 04/22/25 12:29 03/25/25 01:39 4 MG Oxycodone/ Acetaminophen (perCOCET) 1 tab Q6H PRN PO SEVERE PAIN (7-10) 03/21/25 16:00 03/22/25 08:52 DC Pantoprazole Sodium (PROTonix 40MG TAB) 40 mg DAILY PO 03/23/25 17:00 04/22/25 16:59 03/26/25 10:18 40 MG Pharmacy Profile Note (Pharmacy Communication) 1 each AD MISC 03/22/25 09:00 03/22/25 08:52 DC Pharmacy Profile Note (Pharmacy Communication) 1 each ONCE MISC 03/24/25 19:30 03/24/25 19:21 DC Piperacillin Sod/ Tazobactam Sod 50 ml @ 12.5 mls/hr [id number] IV 03/21/25 21:00 03/26/25 17:49 DC 03/25/25 20:46 12.5 MLS/HR Potassium Chloride 100 ml @ 100 mls/hr AD PRN IV POTASSIUM PROTOCOL 03/22/25 18:00 04/21/25 17:59 Potassium Chloride (K-Dur 10meq Sr Tab) 10 meq AD PRN PO POTASSIUM PROTOCOL 03/24/25 13:30 04/21/25 18:29 03/26/25 18:59 10 MEQ Potassium Chloride (K-Dur/Klor-Con 20meq) 10 meq AD PRN PO POTASSIUM PROTOCOL 03/22/25 18:30 03/24/25 13:23 DC 03/23/25 11:15 10 MEQ Potassium Chloride (KCl 10% Elixir 20meq/15ml) 10 meq AD PRN PO POTASSIUM PROTOCOL 03/22/25 18:30 04/21/25 18:29 03/26/25 12:31 10 MEQ Sodium Chloride 1,000 ml @ 150 mls/hr Q6H40M IV 03/21/25 16:00 04/20/25 15:59 03/25/25 12:20 150 MLS/HR Thiamine HCl (Vitamin B-1) 100 mg DAILY IVP 03/23/25 13:30 04/22/25 13:29 03/25/25 12:09 100 MG Vitamin B Complex/ Vit C/Folic Acid (Nephrovite Tablet) 1 cap DAILY PO 03/23/25 09:00 04/22/25 08:59 03/26/25 10:18 1 CAP Zolpidem Tartrate (AmbIEN) 5 mg HS PRN PO INSOMNIA 03/21/25 16:00 04/20/25 15:59 DIAGNOSTICS / RADIOLOGY: [ ] ASSESSMENT: Malignant Hypercalcemia POA Right adrenal mass measuring 6 x 5.[address] abdomen/pelvis Retroperitoneal and mesenteric adenopathy suspicious for neoplastic process per CT abdomen/pelvis POA Recent lymph node biopsy 03/13/2025 Intractable abdominal pain POA Acute dehydration POA Failure to thrive POA Acute metabolic encephalopathy POA Severe malnutrition POA Acute kidney injury POA Uncontrolled hypertension POA Leukocytosis WBC 13.6 POA Multifactorial anemia POA Bilateral renal cysts as per CT abdomen/pelvis Chronic Problem: Uncontrolled diabetes mellitus type 2 with hypoglycemia POA Hyperlipidemia POA History of Prostate cancer POA GERD POA Coronary Artery Disease POA Morbid obesity POA History of COVID POA PLAN: Admitted to medical floor Hypercalcemia POA Right adrenal mass measuring 6 x 5.[address] abdomen/pelvis Retroperitoneal and mesenteric adenopathy suspicious for neoplastic process per CT abdomen/pelvis POA Recent lymph node biopsy 03/13/2025 Intractable abdominal pain POA secondary to retroperitoneal and mesenteric adenopathy. Hypercalcemia possibly secondary to underlying unknown malignancy Status post therapy with calcitonin and pamidronate Patient has first-degree AV block-possibly secondary to hypercalcemia: we will repeat EKG Oncology recommendations appreciated;Pending lymph node biopsy review records from elsewhere Continue telemetry Failure to thrive POA Acute metabolic encephalopathy POA Severe malnutrition POA Acute kidney injury POA - prerenal etiology Acute dehydration POA Patient with acute delirium-treated with low dose IV haloperidol Patient with history of dysphagia, dry mouth, decreased appetite, weight loss Continue IV fluids FeNA less than1 : Nephrology on board We will be monitoring the labs Strict I/O chart Leukocytosis WBC 13.6 POA Staph capitis bacteremia ,POA Leukocytosis secondary to dexa No sepsis , no source of infection identified . Tachycardia secondary to dehydration and reflex to Metoprolol discontinuation Chest x-ray mild bilateral pulmonary infiltrate are seen may be related to mild pulmonary vascular congestion with possible superimposed pneumonitis-CT chest unremarkable Repeat blood culture pending Other: Supplemental 02 as needed BiPAP as necessary, for respiratory distress Titrate Fio2 to keep Spo2 > or = 90% DuoNeb�s and CPT as needed Maintain aspiration precautions at all times Vital signs per facility protocol Prokinetic agents and laxatives as needed Daily weights Avoid nephrotoxic agents Monitor electrolytes and replace as needed Goal urine output of 30mL/hr or 0.5mL/kg/hr Medications to be dosed according to renal function. Avoid contrast if possible Maintain blood glucose between 100-180 at all times. Insulin sliding scale for blood glucose management Hypoglycemia and hyperglycemia protocol in place Trend temperature, WBC and procalcitonin level Follow cultures, deescalate antibiotics as soon as possible. Panculture if new onset fever Monitor H&H. Keep Hgb > 7 Pressure ulcer prevention per facility protocol Specialty mattress as needed Treatment plan discussed with patient and family at the bedside Medications to be reconciled once obtained by patient and/or family and available to be reconciled in computer p.r.n. medication for pain nausea and vomiting Valve Pipe Irrigator for disposition Rehab: PT/OT GI: PPI DVT: SCD's Code Status: Full Resuscitation Disposition: TBD Prognosis: Guarded ATTESTATION BY PHYSICIAN I have seen and examined the patient. I reviewed the documentation, medical decision making, and treatment plan as noted by the resident provider above. I agree with the findings and plan of care. Jin Sweeney MD, ANCHU A MD March 27, 2025 07:14
[2025-03-27 07:15] VITALS: BP 119/74; PULSE 96; RESP 19; TEMP 97.8
[2025-03-27 08:00] VITALS: O2SAT 91
--- NOTE | 2025-03-27 08:41 | PN ---
LOCATION: 415. SUBJECTIVE: The patient is a little bit more lucid today. He is awake, alert but still has 1-1 sitter. The family was able to get the report from the [employer] ([employer] I myself have not seen it and they read the whole report to me. Their thinking was that it probably is metastatic bladder cancer. We do not have the real confirmation of that. I have sent the test myself to [facility] and we are awaiting final confirmation. Also, there was no molecular profiling done and I recommended that be done as well. I talked to the 2 daughters by speaker phone last night at length and explained the situation. PHYSICAL EXAMINATION: GENERAL: Shows an older man. VITAL SIGNS: Blood pressure 119/74, pulse 96 and respirations 19. HEENT: Benign. CHEST: Clear. ABDOMEN: Soft. EXTREMITIES: Show no edema. NEUROLOGIC: Alert and oriented IMPRESSION: * Malignant hypercalcemia. * Metastatic cancer stage IV, suspect origin * Renal failure * Hypercalcemia, calcium down to 10.6 PLAN: I recommend getting nuclear medicine bone scan and MRI of the brain before he goes home. If we can get that done, he can probably go home tomorrow and follow up in the office. He will need a PET scan in the office. We need this molecular profiling. I did talk about treatment options with him. TID: [id number] RECEIPT: [id number]
[2025-03-27 09:10] LABS: CREATININE 1.4 mg/dL (0.5-1.3); POTASSIUM 3.2 mmol/L (3.5-5.1)
[2025-03-27] MEDS: metOPROLol sucCINATE 50 MG TAB.SR.24H PO SCH (09:33)
--- NOTE | 2025-03-27 11:43 | PN ---
GASTROENTEROLOGY PROGRESS NOTE Date of Visit: March 27, 2025 Time of Visit: 11:42 Events / Notes: [ ] Review of Systems: CONSTITUTIONAL: No malaise or change in sensation of wellbeing. ENMT: No rhinorrhea, otorrhea, sinus pain, ear ache. CARDIOVASCULAR: No angina, palpitations, orthopnea or paroxysmal dyspnea. RESPIRATORY: No SOB. GASTROINTESTINAL: No abdominal pain, nausea, vomiting, diarrhea, hematemesis, melena or change in the patient's habitual bowel movements consistency/number. GENITOURINARY: No dysuria, hematuria or change in bladder continence. MUSCULOSKELETAL: No new muscle pain or decrease in muscular strength. No new joint swelling, redness or tenderness. SKIN: No new rash. Physical Exam: GEN: Awake, alert, oriented in person, time and place, and in no acute distress. HEENT: No sinus tenderness. Tympanic membranes were not examined. No rhinorrhea. Oral pharyngeal mucosa is pink, moist and within normal limits. Neck is supple with no cervical lymphadenopathy, thyromegaly or JVD. CHEST: Inspection, palpation and percussion of the chest were unremarkable. Lung auscultation revealed normal breath sounds bilaterally. CARDIAC: PMI is within normal limits. Heart sounds are regular. Normal S1, S2. No gallop or murmur. ABD: Soft, non-tender and not distended. No peritoneal signs on palpation. No organomegaly. Normal bowel sounds. EXT: No cyanosis or clubbing. No edema. SKIN: Intact. No rashes. JOINTS: No evidence of synovitis or acute arthritis. NEURO: Alert and oriented to name, place and person. Cranial nerve examination is unremarkable. No focal motor deficits. Normal speech. Gait is normal. Strength is normal. Vital Signs (last 8hr) Date Time Temp Pulse Resp B/P (MAP) Pulse Ox O2 Delivery O2 Flow Rate FiO2 03/27/25 07:15 97.9 96 19 119/74 95 Room Air 21 03/27/25 04:00 98.1 99 19 157/50 92 Room Air Laboratory: [ ] Laboratory: Test 03/27/25 08:44 03/27/25 04:48 03/27/25 04:47 03/26/25 08:49 Range/Units Sodium Level 144 136-145 mmol/L Potassium Level 3.2 L 3.5-5.1 mmol/L Chloride Level 111 101-111 mmol/L Carbon Dioxide Level 25 21-32 mmol/L Blood Urea Nitrogen 26 H 7-18 mg/dL Creatinine 1.4 H 0.5-1.3 mg/dL Glomerular Filtration Rate Calc 53 >90 mL/min Random Glucose 112 H 70-105 mg/dL Total Calcium 10.8 H 8.5-10.1 mg/dL White Blood Count 7.6 4.8-10.8 K/uL Red Blood Count 3.77 L 4.50-6.20 MIL/uL Hemoglobin 11.2 L 14.0-18.0 g/dL Hematocrit 32.6 L 42-54 % Mean Corpuscular Volume 86.5 79-99 fL Mean Corpuscular Hemoglobin 29.7 27.0-33.0 pg Mean Corpuscular Hemoglobin Concent 34.4 32.0-36.0 g/dL Red Cell Distribution Width 14.0 11.0-15.5 % Platelet Count 237 130-400 K/uL Mean Platelet Volume 10.5 7.5-10.5 fL Nucleated Red Blood Cells 0.0 0.0-0.19 % Ionized Calcium 1.47 H 1.15-1.33 MMOL/L Phosphorus Level 1.4 L 2.5-4.9 mg/dL Total Bilirubin 0.9 0.2-1.0 mg/dL Aspartate Amino Transf (AST/SGOT) 21 10-37 U/L Alanine Aminotransferase (ALT/SGPT) 30 12-78 U/L Alkaline Phosphatase 52 50-136 U/L Total Protein 5.5 L 6.0-8.3 g/dL Albumin 2.5 L 3.5-5.0 g/dL Whole Blood Glucose 117 H 70-110 MG/DL Immature Granulocyte % (Auto) 1.0 0-1 % Neutrophils (%) (Auto) 83.4 H 40.0-77.0 % Lymphocytes (%) (Auto) 7.4 L 21.0-51.0 % Monocytes (%) (Auto) 7.8 3.0-13.0 % Eosinophils (%) (Auto) 0.3 0.0-8.0 % Basophils (%) (Auto) 0.1 0.0-5.0 % Neutrophils # (Auto) 7.2 1.8-7.7 K/uL Lymphocytes # (Auto) 0.6 L 1.0-4.8 K/uL Monocytes # (Auto) 0.7 0.1-1.0 K/uL Eosinophils # (Auto) 0.03 0.00-0.70 K/uL Basophils # (Auto) 0.01 0.00-0.20 K/uL Absolute Immature Granulocyte (auto 0.09 0-1 K/uL Magnesium Level 1.80 1.80-2.40 mg/dL Current Medications Medications (Trade) Dose Ordered Sig/Katie Route PRN Reason Start Time Stop Time Status Last Admin Dose Admin Acetaminophen (TYLenol 325MG TAB) 650 mg Q4H PRN PO MILD PAIN (1-3) 03/21/25 16:00 04/20/25 15:59 03/27/25 07:44 650 MG Acetaminophen (TYLenol 325MG TAB) 650 mg Q6H PRN PO MILD PAIN (1-3) 03/21/25 16:00 03/21/25 15:51 DC Acetaminophen (TYLenol 325MG TAB) 650 mg Q6H PRN PO TEMPERATURE GREATER THAN 101.5 03/21/25 16:00 04/20/25 15:59 Al Hydroxide/Mg Hydroxide (MAALox PLUS 30ML) 30 ml Q6H PRN PO INDIGESTION 03/21/25 16:00 04/20/25 15:59 Allopurinol (ZYLOprim 300MG) 300 mg BID STAT PO 03/23/25 17:05 03/23/25 17:20 DC 03/23/25 17:27 300 MG Amlodipine Besylate (NorvASC 5MG TAB) 10 mg DAILY PO 03/25/25 09:00 04/24/25 08:59 03/27/25 09:34 10 MG Aspirin (Aspirin 81mg Chew Tab) 81 mg DAILY PO 03/25/25 09:00 04/24/25 08:59 03/27/25 09:34 81 MG Calcitonin (Miacalcin 400 Unit Inj) 400 units BID SQ 03/23/25 15:00 03/26/25 14:59 DC 03/25/25 12:13 400 UNITS Dexamethasone (DeCADron 4 mg TAB) 40 mg ONCE PO 03/23/25 17:00 03/24/25 13:22 DC 03/23/25 17:27 40 MG Dextrose (D50w) 50 ml AD PRN IV HYPOGLYCEMIA PROTOCOL 03/21/25 16:00 04/20/25 15:59 Diphenhydramine HCl (BENAdryl INJ) 25 mg Q6H PRN IV SEVERE ITCHING/RASH 03/21/25 16:00 03/25/25 15:43 DC 03/25/25 12:09 25 MG Famotidine (Pepcid 20mg Vial) 20 mg BID PRN IV NAUSEA/VOMITING 03/21/25 16:00 03/21/25 15:51 DC Famotidine (Pepcid 20mg Vial) 20 mg DAILY IV 03/22/25 09:00 03/24/25 13:22 DC 03/24/25 10:23 20 MG Glucagon (Glucagon 1mg Kit) 1 mg AD PRN IM HYPOGLYCEMIA PROTOCOL 03/21/25 16:00 04/20/25 15:59 Guaifenesin/ Dextromethorphan (RobiTUSSin DM 200/20MG 10ML) 10 ml Q4H PRN PO COUGH 03/21/25 16:00 04/20/25 15:59 Haloperidol (Haldol) 0.5 mg Q8H PRN PO ANXIETY/AGITATION 03/25/25 16:30 04/24/25 16:29 03/26/25 20:18 0.5 MG Haloperidol Lactate (Haldol Inj) 2 mg Q4H PRN IV ANXIETY/AGITATION 03/25/25 11:00 03/25/25 15:43 DC 03/25/25 10:54 2 MG Heparin Sodium (Porcine) (HEParin 5,000 UNIT VIAL) 5,000 unit BID SQ 03/21/25 21:00 04/20/25 20:59 03/27/25 09:42 5,000 UNIT Hydralazine HCl (APRESOLine 20MG INJ) 10 mg Q6H PRN IV For:SBP above 160;DBP above 90 03/21/25 16:00 04/20/25 15:59 Insulin Human Regular (humuLIN R 100 UNIT/ML 3ML) INSULIN SLIDING SCAL... ACHS SQ 03/21/25 16:30 04/20/25 16:29 Ketorolac Tromethamine (toRADol) 15 mg Q8H PRN IV MODERATE PAIN (4-6) 03/21/25 16:00 03/23/25 16:59 DC 03/23/25 15:10 15 MG Lactated Ringer's 1,000 ml @ 100 mls/hr Q10H STAT IV 03/21/25 13:13 03/21/25 13:22 DC Lactulose (Constulose 20gm/ 30ml Udcup) 20 gm BID PRN PO CONSTIPATION 03/21/25 16:00 04/20/25 15:59 03/26/25 12:30 20 GM Magnesium Sulfate 50 ml @ 0 mls/hr PROTOCOL PRN IV other 03/21/25 16:00 04/20/25 15:59 03/25/25 12:10 25 MLS/HR Metoprolol Succinate (TopROL XL) 50 mg DAILY PO 03/27/25 09:00 04/26/25 08:59 03/27/25 09:33 50 MG Morphine Sulfate (morPHINE 2MG SYG) 1 mg Q4H PRN IVP SEVERE PAIN (7-10) 03/21/25 16:00 03/25/25 15:43 DC 03/25/25 01:45 1 MG Morphine Sulfate (morPHINE 2MG SYG) 2 mg ONCE STAT IVP 03/21/25 14:27 03/21/25 14:31 DC 03/21/25 14:46 2 MG Nitroglycerin (Nitrostat) 0.4 mg PROTOCOL PRN SL CHEST PAIN 03/21/25 16:00 04/20/25 15:59 Ondansetron HCl (zoFRAN 4MG INJ) 4 mg Q6H PRN IV NAUSEA/VOMITING 03/21/25 16:00 03/23/25 12:26 DC Ondansetron HCl (zoFRAN 4MG INJ) 4 mg Q6H PRN IVP NAUSEA/VOMITING 03/23/25 12:30 04/22/25 12:29 03/25/25 01:39 4 MG Oxycodone/ Acetaminophen (perCOCET) 1 tab Q6H PRN PO SEVERE PAIN (7-10) 03/21/25 16:00 03/22/25 08:52 DC Pantoprazole Sodium (PROTonix 40MG TAB) 40 mg DAILY PO 03/23/25 17:00 04/22/25 16:59 03/27/25 09:33 40 MG Pharmacy Profile Note (Pharmacy Communication) 1 each AD MISC 03/22/25 09:00 03/22/25 08:52 DC Pharmacy Profile Note (Pharmacy Communication) 1 each ONCE MISC 03/24/25 19:30 03/24/25 19:21 DC Piperacillin Sod/ Tazobactam Sod 50 ml @ 12.5 mls/hr [id number] IV 03/21/25 21:00 03/26/25 17:49 DC 03/25/25 20:46 12.5 MLS/HR Potassium Chloride 100 ml @ 100 mls/hr AD PRN IV POTASSIUM PROTOCOL 03/22/25 18:00 04/21/25 17:59 Potassium Chloride (K-Dur 10meq Sr Tab) 10 meq AD PRN PO POTASSIUM PROTOCOL 03/24/25 13:30 04/21/25 18:29 03/26/25 18:59 10 MEQ Potassium Chloride (K-Dur/Klor-Con 20meq) 10 meq AD PRN PO POTASSIUM PROTOCOL 03/22/25 18:30 03/24/25 13:23 DC 03/23/25 11:15 10 MEQ Potassium Chloride (KCl 10% Elixir 20meq/15ml) 10 meq AD PRN PO POTASSIUM PROTOCOL 03/22/25 18:30 04/21/25 18:29 03/26/25 12:31 10 MEQ Sodium Chloride 1,000 ml @ 150 mls/hr Q6H40M IV 03/21/25 16:00 04/20/25 15:59 03/25/25 12:20 150 MLS/HR Thiamine HCl (Vitamin B-1) 100 mg DAILY IVP 03/23/25 13:30 04/22/25 13:29 03/25/25 12:09 100 MG Vitamin B Complex/ Vit C/Folic Acid (Nephrovite Tablet) 1 cap DAILY PO 03/23/25 09:00 04/22/25 08:59 03/27/25 09:32 1 CAP Zolpidem Tartrate (AmbIEN) 5 mg HS PRN PO INSOMNIA 03/21/25 16:00 04/20/25 15:59 Diagnostics / Radiology: [COPY/PASTE HERE IF NO REPORTS PLEASE DELETE SECTION] Assessment: [ ] Plan: No plan for further endoscopy Follow oncology recommendations AZALEA RICHARDSON MEDICAL TECHNOLOGIST PRN March 27, 2025 11:42
[2025-03-27 12:00] VITALS: BP 122/76; PULSE 121; RESP 19; TEMP 97.6
--- NOTE | 2025-03-27 13:24 | PN ---
NEPHROLOGY PROGRESS NOTE Date/Time Patient Seen: March 27, 2025 SUBJECTIVE: This is a 74 years old male with a past medical history of hypertension, diabetes, cholesterol, GERD, prostate cancer with to, obstructive sleep apnea, COVID. He presented to the emergency department with a complaining of generalized body weakness, loss of appetite and lower abdominal pain. The patient was found to have adrenal mass, right adrenal mass. The patient has been followed by oncologist because of abdominal masses. The patient has bilateral renal cysts detected. He was noted with hypercalcemia and renal failure Renal function is improving He has received one dose of pamidronate and calcitonin. Hypercalcemia is improving. He continues on calcitonin. Continues to be followed by Oncology, pending pathology results Pending MRI of the brain and bone scan Continues on gentle IV hydration Nurse reports patient continue with altered mental status He was seen in the medical floor Family at the bedside REVIEW OF SYSTEMS: Unable to obtain due to patient's status Vital Signs (last 8hr) Date Time Temp Pulse Resp B/P (MAP) Pulse Ox O2 Delivery O2 Flow Rate FiO2 03/23/25 07:59 98.1 102 20 150/91 95 Room Air 03/23/25 04:00 98.4 95 20 143/75 94 Room Air PHYSICAL EXAM: GENERAL: Lethargic, pale. No acute distress. Well-nourished. EYES: EOMI. Anicteric. HENT: Moist mucous membranes. No scleral icterus. No cervical lymphadenopathy. LUNGS: Clear to auscultation bilaterally. No accessory muscle use. CARDIOVASCULAR: Regular rate and rhythm. No murmur. No JVD. ABDOMEN: Soft, non-tender and non-distended. No palpable masses. EXTREMITIES: No edema. Non-tender. SKIN: No rashes or lesions. Warm. NEUROLOGIC: No focal neurological deficits. CN II-XII grossly intact, but not individually tested. PSYCHIATRIC: Cooperative. Appropriate mood and affect. Current Medications Medications (Trade) Dose Ordered Sig/Katie Route PRN Reason Start Time Stop Time Status Last Admin Dose Admin Acetaminophen (TYLenol 325MG TAB) 650 mg Q4H PRN PO MILD PAIN (1-3) 03/21/25 16:00 04/20/25 15:59 Acetaminophen (TYLenol 325MG TAB) 650 mg Q6H PRN PO MILD PAIN (1-3) 03/21/25 16:00 03/21/25 15:51 DC Acetaminophen (TYLenol 325MG TAB) 650 mg Q6H PRN PO TEMPERATURE GREATER THAN 101.5 03/21/25 16:00 04/20/25 15:59 Al Hydroxide/Mg Hydroxide (MAALox PLUS 30ML) 30 ml Q6H PRN PO INDIGESTION 03/21/25 16:00 04/20/25 15:59 Dextrose (D50w) 50 ml AD PRN IV HYPOGLYCEMIA PROTOCOL 03/21/25 16:00 04/20/25 15:59 Diphenhydramine HCl (BENAdryl INJ) 25 mg Q6H PRN IV SEVERE ITCHING/RASH 03/21/25 16:00 04/20/25 15:59 Famotidine (Pepcid 20mg Vial) 20 mg BID PRN IV NAUSEA/VOMITING 03/21/25 16:00 03/21/25 15:51 DC Famotidine (Pepcid 20mg Vial) 20 mg DAILY IV 03/22/25 09:00 04/21/25 08:59 03/23/25 09:47 20 MG Glucagon (Glucagon 1mg Kit) 1 mg AD PRN IM HYPOGLYCEMIA PROTOCOL 03/21/25 16:00 04/20/25 15:59 Guaifenesin/ Dextromethorphan (RobiTUSSin DM 200/20MG 10ML) 10 ml Q4H PRN PO COUGH 03/21/25 16:00 04/20/25 15:59 Heparin Sodium (Porcine) (HEParin 5,000 UNIT VIAL) 5,000 unit BID SQ 03/21/25 21:00 04/20/25 20:59 03/23/25 09:54 5,000 UNIT Hydralazine HCl (APRESOLine 20MG INJ) 10 mg Q6H PRN IV For:SBP above 160;DBP above 90 03/21/25 16:00 04/20/25 15:59 Insulin Human Regular (humuLIN R 100 UNIT/ML 3ML) INSULIN SLIDING SCAL... ACHS SQ 03/21/25 16:30 04/20/25 16:29 Ketorolac Tromethamine (toRADol) 15 mg Q8H PRN IV MODERATE PAIN (4-6) 03/21/25 16:00 03/26/25 15:59 03/23/25 04:02 15 MG Lactated Ringer's 1,000 ml @ 100 mls/hr Q10H STAT IV 03/21/25 13:13 03/21/25 13:22 DC Lactulose (Constulose 20gm/ 30ml Udcup) 20 gm BID PRN PO CONSTIPATION 03/21/25 16:00 04/20/25 15:59 Magnesium Sulfate 50 ml @ 0 mls/hr PROTOCOL PRN IV other 03/21/25 16:00 04/20/25 15:59 03/23/25 06:09 25 MLS/HR Morphine Sulfate (morPHINE 2MG SYG) 1 mg Q4H PRN IVP SEVERE PAIN (7-10) 03/21/25 16:00 03/28/25 15:59 Morphine Sulfate (morPHINE 2MG SYG) 2 mg ONCE STAT IVP 03/21/25 14:27 03/21/25 14:31 DC 03/21/25 14:46 2 MG Nitroglycerin (Nitrostat) 0.4 mg PROTOCOL PRN SL CHEST PAIN 03/21/25 16:00 04/20/25 15:59 Ondansetron HCl (zoFRAN 4MG INJ) 4 mg Q6H PRN IV NAUSEA/VOMITING 03/21/25 16:00 04/20/25 15:59 Oxycodone/ Acetaminophen (perCOCET) 1 tab Q6H PRN PO SEVERE PAIN (7-10) 03/21/25 16:00 03/22/25 08:52 DC Pharmacy Profile Note (Pharmacy Communication) 1 each AD MISC 03/22/25 09:00 03/22/25 08:52 DC Piperacillin Sod/ Tazobactam Sod 50 ml @ 12.5 mls/hr ZOSY8 IV 03/21/25 21:00 03/31/25 20:59 03/23/25 04:04 12.5 MLS/HR Potassium Chloride 100 ml @ 100 mls/hr AD PRN IV POTASSIUM PROTOCOL 03/22/25 18:00 04/21/25 17:59 Potassium Chloride (K-Dur/Klor-Con 20meq) 10 meq AD PRN PO POTASSIUM PROTOCOL 03/22/25 18:30 04/21/25 18:29 03/23/25 06:08 10 MEQ Potassium Chloride (KCl 10% Elixir 20meq/15ml) 10 meq AD PRN PO POTASSIUM PROTOCOL 03/22/25 18:30 04/21/25 18:29 Sodium Chloride 1,000 ml @ 125 mls/hr Q8H IV 03/21/25 16:00 04/20/25 15:59 03/23/25 03:57 125 MLS/HR Vitamin B Complex/ Vit C/Folic Acid (Nephrovite Tablet) 1 cap DAILY PO 03/23/25 09:00 04/22/25 08:59 03/23/25 09:47 1 CAP Zolpidem Tartrate (AmbIEN) 5 mg HS PRN PO INSOMNIA 03/21/25 16:00 04/20/25 15:59 LABORATORY: [ ] Hematology Labs: Test 03/27/25 04:48 03/26/25 08:49 Range/Units White Blood Count 7.6 4.8-10.8 K/uL Red Blood Count 3.77 L 4.50-6.20 MIL/uL Hemoglobin 11.2 L 14.0-18.0 g/dL Hematocrit 32.6 L 42-54 % Mean Corpuscular Volume 86.5 79-99 fL Mean Corpuscular Hemoglobin 29.7 27.0-33.0 pg Mean Corpuscular Hemoglobin Concent 34.4 32.0-36.0 g/dL Red Cell Distribution Width 14.0 11.0-15.5 % Platelet Count 237 130-400 K/uL Mean Platelet Volume 10.5 7.5-10.5 fL Nucleated Red Blood Cells 0.0 0.0-0.19 % Immature Granulocyte % (Auto) 1.0 0-1 % Neutrophils (%) (Auto) 83.4 H 40.0-77.0 % Lymphocytes (%) (Auto) 7.4 L 21.0-51.0 % Monocytes (%) (Auto) 7.8 3.0-13.0 % Eosinophils (%) (Auto) 0.3 0.0-8.0 % Basophils (%) (Auto) 0.1 0.0-5.0 % Neutrophils # (Auto) 7.2 1.8-7.7 K/uL Lymphocytes # (Auto) 0.6 L 1.0-4.8 K/uL Monocytes # (Auto) 0.7 0.1-1.0 K/uL Eosinophils # (Auto) 0.03 0.00-0.70 K/uL Basophils # (Auto) 0.01 0.00-0.20 K/uL Absolute Immature Granulocyte (auto 0.09 0-1 K/uL Chemistry Labs: Test 03/27/25 08:44 03/27/25 04:48 03/27/25 04:47 03/26/25 08:49 Range/Units Sodium Level 144 136-145 mmol/L Potassium Level 3.2 L 3.5-5.1 mmol/L Chloride Level 111 101-111 mmol/L Carbon Dioxide Level 25 21-32 mmol/L Blood Urea Nitrogen 26 H 7-18 mg/dL Creatinine 1.4 H 0.5-1.3 mg/dL Glomerular Filtration Rate Calc 53 >90 mL/min Random Glucose 112 H 70-105 mg/dL Total Calcium 10.8 H 8.5-10.1 mg/dL Ionized Calcium 1.47 H 1.15-1.33 MMOL/L Phosphorus Level 1.4 L 2.5-4.9 mg/dL Total Bilirubin 0.9 0.2-1.0 mg/dL Aspartate Amino Transf (AST/SGOT) 21 10-37 U/L Alanine Aminotransferase (ALT/SGPT) 30 12-78 U/L Alkaline Phosphatase 52 50-136 U/L Total Protein 5.5 L 6.0-8.3 g/dL Albumin 2.5 L 3.5-5.0 g/dL Whole Blood Glucose 117 H 70-110 MG/DL Magnesium Level 1.80 1.80-2.40 mg/dL DIAGNOSTICS / RADIOLOGY: REASON: ALTERED MENTAL STATUS ORDERING PHYSICIAN: LENNY RAM MD PROCEDURE: HEAD WO - CT HEAD/BRAIN W/O CONTRAST CT HEAD/BRAIN W/O CONTRAST HISTORY: Altered mental status COMPARISON: None TECHNIQUE: Multiple sequential axial images of the head were obtained from the base of the skull through vertex. Patient was not given contrast through intravenous route. FINDINGS: The ventricles and extraventricular CSF spaces are dilated consistent with cerebral atrophy. Nonspecific white matter changes seen. There is no midline shift, mass effect or herniation. No acute intracranial bleed is seen. Visualized portion of the paranasal sinuses are grossly within normal limits. IMPRESSION: 1. No acute intracranial bleed is seen. 2. Atrophy with white matter changes. CT was performed with one or more following dose reduction techniques: automated exposure control, adjustment of the mA and kv according to patient's size, or use of a iterative reconstruction technique. DICTATED BY: NARAYAN OLSEN MD DATE: 03/23/25 1334 REASON: SOB , HYPERCALCEMIA, H/O PROSTATE CA ORDERING PHYSICIAN: LILO REYES MD PROCEDURE: PULM VQ - NM PULMONARY/LUNG VQ SCAN NM PULMONARY/LUNG VQ SCAN HISTORY: Shortness of breath COMPARISON: None TECHNIQUE: Ventilation study was performed with 5 mCi of Xenon gas through inhalation route. Perfusion lung imaging study was performed with 5 mCi of technetium macroaggregated through intravenous route. FINDINGS: There is no evidence of segmental or subsegmental perfusion defect. Nonsegmental perfusion defects are also present. IMPRESSION: 1. Low probability for pulmonary embolus. DICTATED BY: NARAYAN OLSEN MD DATE: 03/23/25 0019 REASON: HYPERCALCEMIA, LUNG INFILTRATES ON CXR ORDERING PHYSICIAN: LILO REYES MD PROCEDURE: CHEST WO - CT CHEST W/O CONTRAST CT CHEST W/O CONTRAST HISTORY: Hypercalcemia COMPARISON: 03/21/2005 TECHNIQUE: Multiple sequential axial images of the chest were obtained from the thoracic inlet through upper abdomen. Patient was not given contrast through intravenous route. FINDINGS: Tiny bilateral pleural effusions are seen. There are mild interstitial fibrosis. Coronary arterial calcifications are seen. There is retroperitoneal adenopathy There is no evidence of pneumothorax. There are normal size mediastinal and hilar lymph nodes. The heart is not enlarged. Degenerative changes of the thoracolumbar spine are present. There is right adrenal mass not completely well visualized. IMPRESSION: 1. Tiny bilateral pleural effusions. Mild interstitial fibrosis. Right adrenal mass. CT was performed with one or more following dose reduction techniques: automated exposure control, adjustment of the mA and kv according to patient's size, or use of a iterative reconstruction technique. DICTATED BY: NARAYAN OLSEN MD DATE: 03/22/25 190 REASON: chf ORDERING PHYSICIAN: IGNACIO GONZALEZ APRN PROCEDURE: ECHO CMP - ECHO 2-D COMPLETE APPROVED REPORT EXAM: Two-dimensional and M-mode echocardiogram with Doppler and color Doppler. INDICATION ICD: Congetive heart failure 2D Dimensions RVDd 3.4 cm LVEF(%) 76.2 (>50%) LVED Vol(simp.) 68.0 mL IVSd 1.1 (0.7-1.1cm) FS(%) 45 % LVES Vol(simp.) 27.0 mL LVDd 4.4 (3.8-5.6cm) LA (2D) 4.0 (1.6-4.0cm) LVEF(%, simp.) 60 % PWd 1.7 (0.7-1.1cm) Ao Root(2D) 3.4 (2.0-3.7cm) LA ESV INDEX (BP) 16.43 mL/m2 LVDs 2.4 (2.5-4.0cm) LVOT diam 2.4 (1.8-2.4cm) IVC diam 2.5 cm Deformation Strain Apical 4 -13.4 % Apical 2 -10.9 % Apical 3 -18.5 % Global Strain -14.3 % M-Mode Dimensions EPSS 1.0 cm LA (MM) 5.1 (1.6-4.0cm) Ao Root(MM) 3.5 (2.0-3.7cm) Aortic Valve AoV Vmax 1.4 m/s Ao Peak GR 8.2 mmHg LVOT Vmax 1.1 m/s AoV VTI 0.2 m Ao Mean GR 5.3 mmHg LVOT VTI 0.15 m JOEY (VMAX) 3.40 cm2 JOEY (VTI) 3.4 cm2 Mitral Valve MV E Vmax 110.9 cm/s DECEL Time 113 ms MV A Vmax 54.7 cm/s E/A ratio 2.0 TDI E/E' Medial 13.8 E/E' Lateral 13.8 Lateral E' Peak V 8.02 cm/s Pulmonary Valve PV Vmax 1.4 m/s PV VTI 0.19 m PV Mean GR 3.8 mmHg PV Peak GR 7.9 mmHg Tricuspid Valve RAP (EST) 8 mmHg RVSP 8.0 mmHg Left Ventricle The left ventricle is normal size. Hyperdynamic left ventricular wall motion noted. No regional wall motion abnormalities noted. There is moderate left ventricular wall thickness. LVEF is 60-65%. The LV diastolic function was unable to be assessed due to atrial arrhythmia. Right Ventricle The right ventricle is normal size. There is mild right ventricular wall thickness. Right ventricular systolic function could not be assessed. Atria The left atrium size is normal. The right atrium size is normal. Aortic Valve The aortic valve appears to open well. No aortic regurgitation is present. There is no aortic valvular stenosis. Mitral Valve Mitral valve is not well visualized. There is no mitral valve regurgitation noted. There is no mitral valve stenosis. Tricuspid Valve The tricuspid valve leaflets appear normal. There is trace of tricuspid valve regurgitation noted. Pulmonic Valve Pulmonic valve is not well visualized. There is no pulmonic valvular regurgitation. Great Vessels The aortic root is normal in size. The IVC is normal in size and collapses <50% with inspiration. Pericardium Epircardial fat noted. Other Information Quality : Technically difficult challenging study due to body habitus Conclusion LVEF is 60-65%. Hyperdynamic left ventricular wall motion noted. No regional wall motion abnormalities noted. The right ventricle is normal size. The aortic root is normal in size. DICTATED BY: MAISHA HOLLOWAY MD DATE: 03/22/25 0710 REASON: chest pain ORDERING PHYSICIAN: JYOTHI MERCHANT DO PROCEDURE: CXR1VW - CHEST 1VW CHEST 1VW HISTORY: Chest pain COMPARISON: None FINDINGS: A frontal projection of the chest was obtained. Mild bilateral pulmonary infiltrates are seen may be related to mild pulmonary vascular congestion with possible superimposed pneumonitis. The heart is borderline enlarged. Degenerative changes are seen. No evidence of aortic calcification is seen. IMPRESSION: 1. Mild bilateral pulmonary infiltrates are seen may be related to mild pulmonary vascular congestion with possible superimposed pneumonitis. DICTATED BY: NARAYAN OLSEN MD DATE: 03/21/25 1434 REASON: Abdominal Pain ORDERING PHYSICIAN: JYOTHI MERCHANT DO PROCEDURE: ABD PEL W - CT ABDOMEN/PELVIS W/CONTRAST CT ABDOMEN/PELVIS W/CONTRAST HISTORY: Abdominal pain COMPARISON: 10/11/2012 TECHNIQUE: Multiple sequential axial images of the abdomen and pelvis were obtained from the dome of the diaphragm through symphysis pubis. Patient was not given contrast through intravenous route. Oral contrast was not given. FINDINGS: No pleural effusion is seen bilaterally. There is no evidence of parenchymal disease or pulmonary nodule of the visualized lower lungs. Degenerative changes of the thoracolumbar spine are present. The heart is not enlarged. Coronary artery calcifications are seen. Gallbladder is distended. Liver is enlarged measuring 18 cm. There is left renal cyst measuring 10 cm. There is roughening and cyst measures 6.3 cm. There is right adrenal mass measuring 6 x 5.4 cm. There are extensive retroperitoneal adenopathy and mesenteric adenopathy. Neoplastic process is suspected. There are perinephric nodular densities bilaterally. The liver, spleen, adrenal glands and pancreas are unremarkable. There is no evidence of hydronephrosis bilaterally. No evidence of renal stone is seen. Fecal material is seen in the colon. There are normal size retroperitoneal and mesenteric lymph nodes. No ascites is seen. Atherosclerotic changes are present. Pelvic sidewalls are symmetric bilaterally. Bladder is poorly distended. There is left inguinal hernia with fat content. IMPRESSION: 1. Right adrenal mass measuring 6 x 5.4 cm. 2. Retroperitoneal and mesenteric adenopathy suspicious for neoplastic process. Nodular densities are seen bilaterally. Bilateral renal cysts. 3. Distended gallbladder. CT was performed with one or more following dose reduction techniques: automated exposure control, adjustment of the mA and kv according to patient's size, or use of a iterative reconstruction technique. DICTATED BY: NARAYAN OLSEN MD DATE: 03/21/25 1411 ASSESSMENT: Hypercalcemia Right adrenal mass measuring 6 x 5.[address] abdomen/pelvis Retroperitoneal and mesenteric adenopathy suspicious for neoplastic process per CT abdomen/pelvis POARecent lymph node biopsy 03/13/2025 Intractable abdominal pain POA Acute dehydration POA Failure to thrive POA Acute metabolic encephalopathy POA Severe malnutrition POA Acute kidney injury POA Uncontrolled hypertension POA Leukocytosis WBC 13.6 POA Multifactorial anemia POA Bilateral renal cysts as per CT abdomen/pelvis Uncontrolled diabetes mellitus type 2 Hyperlipidemia POA History of Prostate cancer POA GERD POA Coronary Artery Disease POA Morbid obesity POA PLAN: Labs, diagnostic, radiologic exams reviewed and interpreted by myself and supervising physician. We have reviewed external records in detail Calcitonin may be discontinued IV fluid rate has been modified. Pending pathology results Require close monitoring of renal function and electrolytes Order CBC, CMP, and electrolytes in am BiPAP as necessary, for respiratory distress Monitor blood pressure adjust medication doses as needed Avoid hypotensive episodes May use Dilaudid 0.5 mg IV every 6 hours as needed for severe pain Monitor blood sugars Strict intake, output, and daily weight should be monitored Please renally adjust medications Avoid nephrotoxic and nonsteroidal drugs Avoid contrast if possible Will continue to monitor renal function, anemia, electrolytes Treatment plan discussed with patient Questions were answered We have discussed with the other team physicians in detail about the care plan We will continue to monitor the patient closely ATTESTATION BY PHYSICIAN I have seen and examined the patient. I reviewed the documentation, medical d ecision making, and treatment plan as noted by the mid-level provider above. I agree with the findings and plan of care. LELAND BAEZ MD, [facility] March 27, 2025 13:23
--- NOTE | 2025-03-27 16:09 | NUR ---
PATIENT STILL IN PROCEDURE
--- NOTE | 2025-03-27 16:34 | HMCIMG ---
Exam Type: MRI OF THE BRAIN WITH AND WITHOUT GADOLINIUM TECHNIQUE: The examination is done with diffusion sequences, FLAIR axial sequence, axial and sagittal T1, axial and coronal [id number] T2 sequences, and apparent diffusion sequence. IV contrast was used. FINDINGS: CSF spaces are preserved. Ventricular spaces are preserved as well. Multiple punctate and patchy foci of increased signal T2-weighted FLAIR images scattered diffusely throughout the deep white matter centrum semiovale and coronal radiata on the T2-weighted FLAIR images. No similar-appearing focus present within the deep white matter of the cerebellum or brainstem. consistent with chronic small vessel ischemic changes. No acute intra-or extra-axial fluid collections are seen. There is no mass effect or shift of midline structures. Diffusion-weighted sequences demonstrate no evidence of acute pathology. Specifically, there is no evidence of acute TIA or stroke. The pituitary gland is unremarkable. The stalk is midline and the sella turcica shows no significant abnormalities. \par The signal intensity of the skull base and the marrow of the actual bony structures of the skull are unremarkable. The acoustic canals show no significant abnormalities. The orbits and the eye globes are preserved. The paranasal sinuses are clear. After contrast administration, there is no abnormal enhancement. IMPRESSION: 1. MILD CHRONIC SMALL VESSEL ISCHEMIC CHANGES. NO ACUTE INFARCTS OR ISCHEMIC EVENTS NOTED AT THIS TIME.
[2025-03-27] MEDS ORDERED: GADOTERATE MEGLUMINE 10 MMOL/20 ML VIAL IV ONE (16:35)
--- NOTE | 2025-03-27 16:37 | NUR ---
PATIENT ARRIVED FROM BOPROCEDURE Addendum: 03/27/25 at 1638 by ALECIA VIVAS RN RN PATIENT ARRIVED FROM BONE SCAN AND MRI PROCEDURES
--- NOTE | 2025-03-27 16:44 | HMCIMG ---
Exam Type: NM BONE SCAN WHOLE BODY Clinical Information: BONE MATASTISIS Comparison: None RADIOPHARMACEUTICAL: Intravenous administration of 27 mCi of Tc-99m MDP . TECHNIQUE: Three-hour delayed anterior and posterior whole-body and upper extremities and lateral views of the skull and posterior obliques of the thorax were obtained. The distal humeri, the elbows, and the proximal and mid forearms are incompletely included in the films. FINDINGS: There is adequate, homogenous, and symmetric radiopharmaceutical uptake through out the axial and appendicular skeleton . The renal uptake is abnormal. Patchy punctate areas of uptake are noted throughout both kidneys, mostly replaced in the normally homogeneous distribution throughout renal parenchyma. Upon correlation with recent CT abdomen pelvis March 21, 2025, it is noted that the kidneys contain multiple simple cysts. The cysts themselves are not showing the uptake. The uptake, bladder, is probably noted within the remaining areas of viable renal parenchyma, dose not involved with simple cysts. In addition, review of the prior CT demonstrates what may represent a complex cyst or neoplastic lesion of the right renal upper pole measuring 6.2 cm. IMPRESSION: No evidence of bony metastatic disease. Abnormal function of the kidneys with patchy uptake as noted above. Also, possible space occupying lesion, not a simple cyst, of the right renal upper pole medial aspect. A malignant renal lesion must be entertained.
[2025-03-27 18:24] LABS: APPEARANCE,URINE CLEAR (CLEAR); BILIRUBIN,URINE NEGATIVE (NEGATIVE); COLOR,URINE YELLOW (YELLOW); GLUCOSE, URINE (UA) NEGATIVE (NEGATIVE); KETONES,URINE NEGATIVE (NEGATIVE); LEUKOCYTE ESTERASE ,URINE NEGATIVE Leu/uL (NEGATIVE); NITRATE,URINE NEGATIVE (NEGATIVE); PROTEIN,URINE 70 mg/dL (NEGATIVE); UROBILINOGEN,URINE 0.2 mg/dL (0.2-1.0)
[2025-03-27 18:26] LABS: ADD UA MICROSCOPIC YES
[2025-03-27 18:28] LABS: MUCUS,URINE RARE LPF (None Seen)
[2025-03-27 20:00] VITALS: BP 139/76; PULSE 73; RESP 18; TEMP 98.4; O2SAT 97
[2025-03-27] MEDS: HYDROcodone/APAP 5/325 1 TAB TABLET PO PRN (20:54)
[2025-03-27 21:36] LABS: CREATININE 1.6 mg/dL (0.5-1.3); POTASSIUM 3.5 mmol/L (3.5-5.1)
[2025-03-28] VITALS: BP 131/62; PULSE 76; RESP 18; TEMP 98
[2025-03-28 04:00] VITALS: BP 147/85; PULSE 82; RESP 20; TEMP 97.7
[2025-03-28 05:13] LABS: HEMATOCRIT 31.9 % (42-54); MEAN CORPUSCULAR HEMOGLOBIN 29.9 pg (27.0-33.0); MEAN CORPUSCULAR HGB CONC 34.5 g/dL (32.0-36.0); MEAN CORPUSCULAR VOLUME 86.7 fL (79-99); RED BLOOD CELL COUNT(AUTO) 3.68 MIL/uL (4.50-6.20); RED CELL DISTRIBUTION WIDTH 13.9 % (11.0-15.5); WHITE BLOOD COUNT (AUTO) 7.8 K/uL (4.8-10.8)
[2025-03-28 05:35] LABS: ALBUMIN 2.5 g/dL (3.5-5.0); BILIRUBIN,TOTAL 0.7 mg/dL (0.2-1.0); CREATININE 1.4 mg/dL (0.5-1.3); PHOSPHORUS 1.4 mg/dL (2.5-4.9); POTASSIUM 3.3 mmol/L (3.5-5.1); TOTAL PROTEIN, SERUM 5.5 g/dL (6.0-8.3)
[2025-03-28] MEDS ORDERED: acetaMINOPHEN WITH coDEINE 1 TAB TAB PO PRN (06:30)
[2025-03-28] MEDS: cePHALexin 500 MG CAPSULE PO SCH (06:35)
--- NOTE | 2025-03-28 07:18 | DS ---
Discharge Summary Hospital Course Summary: 74 years old male with a past medical history of hypertension, diabetes, cholesterol, GERD, prostate cancer with TURP(2008 with normal subsequent PSA levels), obstructive sleep apnea, severe COVID infection, presented to emergency department with complaints of generalized body weakness, loss of appetite and lower abdominal pain since December 2024. He was recently admitted to [facility]. During hospitalization it was found that patient had bilateral renal masses versus cyst, right adrenal mass. 03/13/2025 CTA was performed which showed an adrenal mass, ?lymphadenopathy and a lymph node biopsy was performed . On 03/14/2025 he underwent colonoscopy which was supposedly negative. Patient left against medical advice from the above said hospital . The patient he has been experiencing loss of appetite, dysphagia, dryness of mouth, decrease in body weight, occasional shortness of breath, increased lethargy since December of this year. As per surgical pathology report of the biopsy from [facility] "Diffuse groups of malignant cells are identified with fibrosis and lymphoid tissue. They are arranged into small nests. There is a high nuclear systolic plasma thick ratio. Hyperchromatic nuclei and large nuclei bolus. The infiltrated fibrosis stoma shows mucinoid changes. The lymphoid tissue appear mature. Possible for immuno peroxidase CD45. Immunoperoxidase epithelial markers markers CK7 and CK20 are negative. Lung marker TTF one and prostate PSA are negative. Neuroendocrine markers chromogranin and synaptophysin are also negative. Proliferative markers Ki-67 is positive . The biopsy will be submitted to reference lab([place]) for consultation. An additional report will follow. Specimen source lymph nodes biopsy" At the time of presentation:vital signs temperature 98.8� pulse 80 respiration 18 blood pressure 130/65. Patient is on room air saturating at 97%. Labs at the time of presentation: WBC 13.6 hemoglobin 13.7 hematocrit 40.7 platelets 287. Sodium 136 potassium 3.6 CO2 30 BUN 22 creatinine 1.6 GFR 46 random glucose 115 lactic 2.2 total calcium 16.3 bilirubin 1.0 AST 42 ALT 64 CK 64 troponin 3.4 lipase 12 procalcitonin negative lactic acid repeated 1.7. CT abdomen/pelvis showed right adrenal mass measuring 6 x 5.4 cm. Retroperitone al and mesenteric adenopathy suspicious for neoplastic process. Nodular density are seen bilaterally. Bilateral renal cyst. Distended gallbladder. Chest x- ray showed mild bilateral pulmonary infiltrate are seen may be related to bilateral pulmonary vascular congestion with a possible superimposed pneumonitis. We will admit him for further evaluation and management. 03/22/2025: Patient is seen resting in his room. He appeared drowsy, but is arousable on verbal stimulation, alert oriented x3 and is perceiving and answering questions adequately. He Stated that he feels very tired. His calcium levels remain elevated. We will do PTH level to rule out hyperparathyroidism, vitamin-D25 hydroxy level to rule out hypervitaminosis D, [id number] dihydroxy level to rule out sarcoidosis, parathyroid related peptide. We will check PSA levels, TSH levels. He is being treated with calcitonin and reduced doses of pamidronate given his renal insufficiency. Oncology recommendations appreciated. Nephrology on board. Plan is to monitor calcium levels, keep patient in telemetry. If all the tests are negative, we will consider workup for multiple myeloma. 03/23/25 patient was seen and examined. Case discussed with RN and family by the bedside. He is hallucinating and confused he was calcium levels remain elevated. Nephrology ordered calcitonin he is continuing with IV fluids. 03/24/25 patient was seen and examined. Case discussed with the RN and family by the bedside. He has hallucination is slightly better but he is still confused. Calcium level is 13.2. Phosphorus is one. He has been treated appropriately. Nephrology and Oncology are following the patient. We will continue to follow the labs 03/25/2025: Patient seen in room-confused and hallucinating. Patient stated that slight are jets are approaching the hospital and he is being targeted. He was treated with IV haloperidol time dose and his mental status is improving. His calcium is down to 11.5. He is not on calcitonin or pamidronate. Magnesium is being replaced. Pending recommendations from Oncology. 5.6.25: Patient is seen in the room-confused and hallucinating with lucid intervals. His mental state is better compared to yesterday as per the family members. As per RN he was wandering outside at night and was given single short of haloperidol 5 mg. His calcium his 10.9 today-improving. Discussed in details with the family members(his daughters) that the delirium might be secondary to malignant hypercalcemia versus organic pathology of brain not limited to Metastasis. They requested MRI brain but we will defer now and order as per Oncology recommendations. Pending discharge recommendations from Oncology. 5.7.25: Patient is seen in room - mental status and cognition better compares to yesterday .He has pulled his IV lines yesterday . Zosyn is stopped ; given patient has staph capitis bacteremia in one blood culture- will repeat blood cultures and continue oral antibiotics.His calcium has improved to 10.6 today . Kidney function improving . As per Oncology, lymph node biopsy test results has been sent to [facility] for molecular studies and final confirmation. patient w ill be getting MRI brain and nuclear medicine bone scan today. Possible discharge tomorrow and the patient is required to follow up at the oncology office. 8.25: Patient is clinically stable at the time of discharge. His calcium levels are 10.3. He is back to his baseline .Creatinine is 1.4 and GFR 53. As per Oncology, Patient is required to follow up at oncology office after d ischarge for further work up including PET scan . Patient is also required to follow up with primary care doctor as outpatient to monitor calcium and renal function. Lifestyle Consultant(s): GASTROENTEROLOGY CONSULTATION NOTE Date of Consultation: March 21, 2025 Time of Consultation: 20:41 History of Present Illness: This is a 74-year-old male with past medical history of hypertension, diabetes, hyperlipidemia, GERD, prostate cancer, obstructive sleep apnea, COVID who presented due to generalized body weakness, poor appetite and lower abdominal pain. [facility] [place] and found to have bilateral renal masses versus cysts with right ad renal mass. On 03/13/2025 a CTA performed revealing adrenal mass and biopsy was done of the lymph nodes. 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 On 03/14/2025 he underwent a colonoscopy by Dr. Caraballo which revealed only internal hemorrhoids. Pathology from lymph node biopsy: -Metastatic undifferentiated malignant neoplasm within lymphoid and fibrous tissue. -The few groups of malignant cells are identified within fibrous and lymphoid tissue. There are arranged into small nests. There is a high nuclear cytoplasmic ratio,, hyperchromatic nucleus and large nucleolus. The infiltrated fibrous stroma shows mucinoid changes. The lymphoid tissue appear mature positive for immunoperoxidase CD45. Immunoperoxidase epithelial markers markers CK7 and CK20 are negative. Lung marker TTF-1 and prostate PSA are negative. Neuroendocrine markers chromogranin and synaptophysin are also negative. Proliferative marker Ki-67 is positive with a moderate to high activity Review of Systems: CONSTITUTIONAL: No malaise or change in sensation of wellbeing. ENMT: No rhinorrhea, otorrhea, sinus pain, ear ache. CARDIOVASCULAR: No angina, palpitations, orthopnea or paroxysmal dyspnea. RESPIRATORY: No SOB. GASTROINTESTINAL: No abdominal pain, nausea, vomiting, diarrhea, hematemesis, melena or change in the patient's habitual bowel movements consistency/number. GENITOURINARY: No dysuria, hematuria or change in bladder continence. MUSCULOSKELETAL: No new muscle pain or decrease in muscular strength. No new joint swelling, redness or tenderness. SKIN: No new rash. Past Medical History: [ ] Past Surgical History: [ ] Past Social History: [ ] Family History: [ ] Coded Allergies: No Known Drug Allergies (Verified Adverse Reaction, Unknown, 05/22/20) Physical Exam: GEN: Awake, alert, oriented in person, time and place, and in no acute distress. HEENT: No sinus tenderness. Tympanic membranes were not examined. No rhinorrhea. Oral pharyngeal mucosa is pink, moist and within normal limits. Neck is supple with no cervical lymphadenopathy, thyromegaly or JVD. CHEST: Inspection, palpation and percussion of the chest were unremarkable. Lung auscultation revealed normal breath sounds bilaterally. CARDIAC: PMI is within normal limits. Heart sounds are regular. Normal S1, S2. No gallop or murmur. ABD: Soft, non-tender and not distended. No peritoneal signs on palpation. No organomegaly. Normal bowel sounds. EXT: No cyanosis or clubbing. No edema. SKIN: Intact. No rashes. JOINTS: No evidence of synovitis or acute arthritis. NEURO: Alert and oriented to name, place and person. Cranial nerve examination is unremarkable. No focal motor deficits. Normal speech. Gait is normal. Strength is normal. Vital Sign (Last 24 Hours) 03/21/25 03/21/25 12:40 17:28 Temp 98.8 Pulse 80 Resp 18 B/P (MAP) 130/65 Pulse Ox 97 O2 Delivery Room Air* O2 Flow Rate 0 FiO2 21 Laboratory: [ ] Laboratory: Test 03/21/25 19:29 03/21/25 17:57 03/21/25 16:47 03/21/25 16:10 Range/Units Whole Blood Glucose 98 70-110 MG/DL Urine Color LIGHT-YELLOW YELLOW Urine Appearance CLEAR CLEAR Urine pH 5.5 5.0-8.0 Urine Specific [place] 1.032 H 1.001-1.031 Urine Protein 30 H NEGATIVE mg/dL Urine Glucose (UA) NEGATIVE NEGATIVE mg/dL Urine Ketones NEGATIVE NEGATIVE mg/dL Urine Occult Blood NEGATIVE NEGATIVE Urine Nitrate NEGATIVE NEGATIVE Urine Bilirubin NEGATIVE NEGATIVE mg/dL Urine Urobilinogen 0.2 0.2-1.0 mg/dL Urine Leukocyte Esterase NEGATIVE NEGATIVE Kai/uL Urine RBC 2-5 H 0-1 /HPF Urine WBC 6-10 H 0-1 /HPF Urine Squamous Epithelial Cells RARE 0-2 /HPF Urine Bacteria RARE None Seen /HPF Lactic Acid Level 1.7 0.8-2.5 mmol/L Influenza Type A Antigen Negative For Type A NEGATIVE Influenza Type B Antigen Negative For Type B NEGATIVE SARS-CoV-2 Antigen (Rapid) PRESUMPTIVE NEGATIVE NEGATIVE Test 03/21/25 12:54 Range/Units White Blood Count 13.6 H 4.8-10.8 K/uL Red Blood Count 4.65 4.50-6.20 MIL/uL Hemoglobin 13.7 L 14.0-18.0 g/dL Hematocrit 40.7 L 42-54 % Mean Corpuscular Volume 87.5 79-99 fL Mean Corpuscular Hemoglobin 29.5 27.0-33.0 pg Mean Corpuscular Hemoglobin Concent 33.7 32.0-36.0 g/dL Red Cell Distribution Width 13.7 11.0-15.5 % Platelet Count 287 130-400 K/uL Mean Platelet Volume 10.6 H 7.5-10.5 fL Immature Granulocyte % (Auto) 0.5 0-1 % Neutrophils (%) (Auto) 79.4 H 40.0-77.0 % Lymphocytes (%) (Auto) 10.5 L 21.0-51.0 % Monocytes (%) (Auto) 7.7 3.0-13.0 % Eosinophils (%) (Auto) 1.7 0.0-8.0 % Basophils (%) (Auto) 0.2 0.0-5.0 % Neutrophils # (Auto) 10.8 H 1.8-7.7 K/uL Lymphocytes # (Auto) 1.4 1.0-4.8 K/uL Monocytes # (Auto) 1.0 0.1-1.0 K/uL Eosinophils # (Auto) 0.23 0.00-0.70 K/uL Basophils # (Auto) 0.03 0.00-0.20 K/uL Absolute Immature Granulocyte (auto 0.07 0-1 K/uL Nucleated Red Blood Cells 0.0 0.0-0.19 % Sodium Level 136 136-145 mmol/L Potassium Level 3.6 3.5-5.1 mmol/L Chloride Level 100 L 101-111 mmol/L Carbon Dioxide Level 30 21-32 mmol/L Blood Urea Nitrogen 22 H 7-18 mg/dL Creatinine 1.6 H 0.5-1.3 mg/dL Glomerular Filtration Rate Calc 46 >90 mL/min Random Glucose 115 H 70-105 mg/dL Total Calcium 16.3 *H 8.5-10.1 mg/dL Total Bilirubin 1.0 0.2-1.0 mg/dL Aspartate Amino Transf (AST/SGOT) 42 H 10-37 U/L Alanine Aminotransferase (ALT/SGPT) 64 12-78 U/L Alkaline Phosphatase 72 50-136 U/L Total Creatine Kinase 64 # 21-232 U/L Troponin I High Sensitivity 73 4-75 ng/L Total Protein 7.3 6.0-8.3 g/dL Albumin 3.4 L 3.5-5.0 g/dL Lipase 12 L 16-77 U/L Procalcitonin 0.27 0.05-0.5 ng/mL Current Medications Medications (Trade) Dose Ordered Sig/Katie Route PRN Reason Start Time Stop Time Status Last Admin Dose Admin Acetaminophen (TYLenol 325MG TAB) 650 mg Q4H PRN PO MILD PAIN (1-3) 03/21/25 16:00 04/20/25 15:59 Acetaminophen (TYLenol 325MG TAB) 650 mg Q6H PRN PO MILD PAIN (1-3) 03/21/25 16:00 03/21/25 15:51 DC Acetaminophen (TYLenol 325MG TAB) 650 mg Q6H PRN PO TEMPERATURE GREATER THAN 101.5 03/21/25 16:00 04/20/25 15:59 Al Hydroxide/Mg Hydroxide (MAALox PLUS 30ML) 30 ml Q6H PRN PO INDIGESTION 03/21/25 16:00 04/20/25 15:59 Dextrose (D50w) 50 ml AD PRN IV HYPOGLYCEMIA PROTOCOL 03/21/25 16:00 04/20/25 15:59 Diphenhydramine HCl (BENAdryl INJ) 25 mg Q6H PRN IV SEVERE ITCHING/RASH 03/21/25 16:00 04/20/25 15:59 Famotidine (Pepcid 20mg Vial) 20 mg BID PRN IV NAUSEA/VOMITING 03/21/25 16:00 03/21/25 15:51 DC Famotidine (Pepcid 20mg Vial) 20 mg DAILY IV 03/22/25 09:00 04/21/25 08:59 Glucagon (Glucagon 1mg Kit) 1 mg AD PRN IM HYPOGLYCEMIA PROTOCOL 03/21/25 16:00 04/20/25 15:59 Guaifenesin/ Dextromethorphan (RobiTUSSin DM 200/20MG 10ML) 10 ml Q4H PRN PO COUGH 03/21/25 16:00 04/20/25 15:59 Heparin Sodium (Porcine) (HEParin 5,000 UNIT VIAL) 5,000 unit BID SQ 03/21/25 21:00 04/20/25 20:59 Hydralazine HCl (APRESOLine 20MG INJ) 10 mg Q6H PRN IV For:SBP above 160;DBP above 90 03/21/25 16:00 04/20/25 15:59 Insulin Human Regular (humuLIN R 100 UNIT/ML 3ML) INSULIN SLIDING SCAL... ACHS SQ 03/21/25 16:30 04/20/25 16:29 Ketorolac Tromethamine (toRADol) 15 mg Q8H PRN IV MODERATE PAIN (4-6) 03/21/25 16:00 03/26/25 15:59 03/21/25 19:36 15 MG Lactated Ringer's 1,000 ml @ 100 mls/hr Q10H STAT IV 03/21/25 13:13 03/21/25 13:22 DC Lactulose (Constulose 20gm/ 30ml Udcup) 20 gm BID PRN PO CONSTIPATION 03/21/25 16:00 04/20/25 15:59 Magnesium Sulfate 50 ml @ 0 mls/hr PROTOCOL PRN IV other 03/21/25 16:00 04/20/25 15:59 Morphine Sulfate (morPHINE 2MG SYG) 1 mg Q4H PRN IVP SEVERE PAIN (7-10) 03/21/25 16:00 03/28/25 15:59 Morphine Sulfate (morPHINE 2MG SYG) 2 mg ONCE STAT IVP 03/21/25 14:27 03/21/25 14:31 DC 03/21/25 14:46 2 MG Nitroglycerin (Nitrostat) 0.4 mg PROTOCOL PRN SL CHEST PAIN 03/21/25 16:00 04/20/25 15:59 Ondansetron HCl (zoFRAN 4MG INJ) 4 mg Q6H PRN IV NAUSEA/VOMITING 03/21/25 16:00 04/20/25 15:59 Oxycodone/ Acetaminophen (perCOCET) 1 tab Q6H PRN PO SEVERE PAIN (7-10) 03/21/25 16:00 03/28/25 15:59 Piperacillin Sod/ Tazobactam Sod 50 ml @ 12.5 mls/hr ZOSY8 IV 03/21/25 21:00 03/31/25 20:59 Sodium Chloride 1,000 ml @ 100 mls/hr Q10H IV 03/21/25 16:00 04/20/25 15:59 03/21/25 16:36 100 MLS/HR Zolpidem Tartrate (AmbIEN) 5 mg HS PRN PO INSOMNIA 03/21/25 16:00 04/20/25 15:59 Diagnostics / Radiology: [COPY/PASTE HERE IF NO REPORTS PLEASE DELETE SECTION] Assessment: [ ] Plan: No plan for further endoscopy Follow oncology recommendations AZALEA RICHARDSON [employer]PARTMENT SUPERVISOR March 21, 2025 20:41 Electronically Signed by: Electronically Co-Signed by: REASON FOR REFERRAL: Second opinion about metastatic cancer. HISTORY OF PRESENT ILLNESS: A 74-year-old male with hypertension, diabetes, high cholesterol, prostate cancer and COPD, [facility] and abdominal pain. He had a CT scan that apparently showed adrenal metastasis. He had a CT-guided biopsy that showed some kind of malignancy. He had all kinds of tests he said over 7-8 days, colonoscopy and other tests. I do not know what was done, I have no records, but he left against medical advice because he felt like they were not taking care of him. He came to this hospital for second opinion to get his disease under control. I do not have any path report verbally that it was malignant, but what it was is unknown to me and nothing is available to me at the moment. Obviously, that is going to be critical. I did review what I know thus far with him and tell him, I will come back and see him once I get everything together pathologically. PAST MEDICAL HISTORY: Hypertension, hyperlipidemia, COVID, diabetes, adrenal metastasis, kidney cyst, GERD, coronary artery disease, hyperlipidemia, and obesity. PAST SURGICAL HISTORY: He has had colonoscopy and CT-guided biopsy. MEDICATIONS: See intake sheet. ALLERGIES: None known. FAMILY HISTORY: Negative for malignancy. SOCIAL HISTORY: He lives with his family. He does not smoke or drink. He did smoke up to 16 years ago. REVIEW OF SYSTEMS: HEENT: Negative. CARDIOVASCULAR: No chest pain, palpitations, or PND. PULMONARY: Have a cough. GASTROINTESTINAL: ____ for abdominal pain. GENITOURINARY: Hematuria. NEUROLOGIC: Weakness and sleepiness. PHYSICAL EXAMINATION: GENERAL: Shows an older man. VITAL SIGNS: Blood pressure 130/65, pulse 80, respirations 20. HEENT: Benign. CHEST: Clear. ABDOMEN: Soft. EXTREMITIES: Show no edema. NEUROLOGIC: Awake and oriented. LABORATORY DATA: Lab reviewed. IMAGING STUDIES: He had a CT here, which showed a right adrenal mass, 6 x 5 cm, retroperitoneal nodes. IMPRESSION: Some kind of adrenal cancer, metastatic, stage 4. I do not have the pathology as number of differentials, distended gallbladder, prostate cancer. Other problems as listed. PLAN: I told him the curry is going to be the pathology and also get him on nutritional support. I agree with your IV fluids and supportive care. Dietitian to see. I will come back and see him. I will go to [facility] myself, get the pathology and come back. TID: [id number] RECEIPT: [id number] Electronically Signed by: BENITO RIVERA MD03/24/25 1119 Electronically Co-Signed by: REASON FOR CONSULTATION: Renal failure, electrolyte problem. HISTORY OF PRESENT ILLNESS: The patient is admitted from the Emergency Room. The patient has underlying diabetes, hypertension, hyperlipidemia, and prostate cancer. The patient has underlying weakness, complaining of abdominal pain. The patient mass was found, right adrenal mass. The patient apparently was getting workup in [facility] for these things. The patient has been followed by oncologist because of abdominal masses. The patient has bilateral renal cysts detected. PAST MEDICAL HISTORY: Diabetes, hypertension, hyperlipidemia, COVID infection, right adrenal mass, renal cyst, GERD, coronary artery disease, hyperlipidemia, BPH, and obesity. PAST SURGICAL HISTORY: Lymph node biopsy, colonoscopy reported. SOCIAL HISTORY: No smoking, alcohol now. Quit smoking several years back. No drug abuse. FAMILY HISTORY: Not pertinent. ALLERGIES: No allergies. REVIEW OF SYSTEMS: CONSTITUTIONAL: Has weakness. No fevers, chills, or rigors. HEENT: With no headache, oral ulcer, sore throat, or difficulty swallowing. No new vision complaints. RESPIRATORY: No cough, expectoration, hemoptysis, or pleuritic pain. CARDIOVASCULAR: Has no orthopnea or PND. GASTROINTESTINAL: Negative for nausea, vomiting, or diarrhea reported. GENITOURINARY: Negative for dysuria or hematuria. DERMATOLOGIC: No rashes, pruritus, or skin lesion. NEUROLOGIC: No seizure or syncope. ENDOCRINE: No polyuria, polydipsia, or polyphagia. PSYCHIATRIC: Negative for anxiety or depression at this time. PHYSICAL EXAMINATION: GENERAL: Lying in bed. VITAL SIGNS: Blood pressure is 130/65, pulse is 80, respiratory rate is 80, afebrile. HEENT: Head is atraumatic, normocephalic. Pupils are round and reactive. Sclerae are anicteric. Conjunctivae are not pale. Oral mucosa is not dry. NECK: Without masses or bruits. Thyroid is palpable. Neck has no bruits. CHEST: Shows equal thoracic percussion note being resonant in all areas. CARDIAC: Regular rhythm. No rub, no S3 or S4, no parasternal heave. ABDOMEN: No guarding, tenderness. Bowel sounds are normoactive. No free fluid. EXTREMITIES: With no edema and no cyanosis or clubbing. BACK: No tenderness or back deformities. LYMPHATIC: With no lymph node swelling in neck or axillary area. LABORATORY DATA: Labs have been reviewed in detail. Hemoglobin is 12.4, hematocrit is 36. Low potassium of 3.2 and old records have been reviewed. Serologies are reviewed. COVID is negative. Influenza negative. Urine has shown mild proteinuria. We have reviewed the calcium level, is high up to 15.1. PTH is low up to 5.2. IMAGING STUDIES: Reviewed personally. Chest CT has been done with no acute findings, with mild interstitial infiltrate and pleural effusion. Echocardiogram has shown normal ejection fraction of 60-65% and old records have been reviewed. [facility] records have been reviewed. On CT scan, right adrenal mass is there. There is some lymphadenopathy present. There are renal cysts detected bilateral. Old records have been reviewed. We have discussed with the team members and imaging studies are personally reviewed. PROBLEMS: * The patient has acute renal failure. * Severe hypercalcemia. * Right adrenal mass with retroperitoneal lymph nodes and mesenteric lymph nodes. * The patient has abdominal pain. * Encephalopathy. * Hypertension. * Diabetes with possibly nephropathy. * Polycystic bilateral renal cyst disease. * Anemia. * The patient has multiple other comorbidities as described above. The patient is critically ill. PLAN: * This patient is being admitted and the patient's plan will be, I have reviewed the labs, x-rays, imaging studies, and echocardiogram personally, interpreted. * The patient will get IV hydration with possibly normal saline. * Has been given pamidronate and calcitonin. * Calcium levels should be closely monitored. * Oncology evaluation is in progress. * Nonsteroidal drug to be avoided. Doses of medicine to be adjusted. * IV Dilaudid 0.5 mg q. 6 can be used for pain. * The patient will continue with supportive care. Continue follow up on renal function. Urine output to be monitored. Intake, output, weight to be monitored. Please avoid contrast and nonsteroidal drug. The patient can get PTH-related peptide, as well as vitamin D level and ionized calcium. We will be following up on renal function, electrolytes, and overall status. Previous records, external records, [facility] records have been reviewed and I will suggest to have a closely monitor on all these issues. Condition is critical and guarded. Thank you for this patient. TID: [id number] RECEIPT: [id number] Electronically Signed by: LELAND BAEZ MD03/23/25 1732 Electronically Co-Signed by: Procedure(s): RUN DATE: 03/25/25 [facility] PAGE 1 RUN TIME: [id number] [address] Department of Laboratories CLIA # [id number] Speech Scientist: Leisa Godinez DO Specimen Report PATIENT: PAVEL SOLOMON ACCT: [id number] LOC: [facility] U: [id number] AGE/SX: 74/M ROOM: 303 RE03/21/[address]: AAMIR WILLIAMSON MD : 1950 BED: 1 DIS: STATUS: ADM IN TLOC: -- SPEC: [id number] VENUS: 03/21/25 STATUS: COMP REQ: [id number] RECD: 03/21/[address] [facility] [address]: IGNACIO GONZALEZ APRN SOURCE: BLOOD ENTR: 03/22/25-[address] [facility] [address]: PATRICIO GLASS MD [facility]: BLOOD INESSA GARCIA TODD D MD WORTH, RYAN E DO ORDERED: AERO ID & SENS Procedure Result Javed Date-Time --- --------- AEROBIC ID & SENSITIVITIES Final 03/25/25-54 [facility] DESCRIPTION: DAY 1: GRAM POSITIVE COCCI IN CLUSTERS COAGULASE NEGATIVE STAPHYLOCOCCUS IDENTIFICATION AND SENSITIVITY TO FOLLOW AEROBIC BOTTLE DAY 2: SLOW-GROWER; RESULTS PENDING STAPHYLOCOCCUS CAPITUS-capitus STAPHYLOCO M.I.C. RX --------- ---- ERYTHROMYCIN 2 I GENTAMICIN <=4 S LEVOFLOXACIN <=1 S VANCOMYCIN <=0.5 S OXACILLIN SUDEEP <=0.25 S RIFAMPIN <=1 S PENICILLIN <=0.03 S TRIMETHOPRIM/SUFLAMETHOXAZOLE <=0.5/9.5 S @ [facility] Test Performed at: [facility] [address], [place], [place] Medical Academic Vice President: Dallin De La Fuente D.O. END OF REPORT RUN DATE: 03/26/25 [facility] PAGE 1 RUN TIME: 1903 [address] [address], [place] [address] Department of Laboratories [facility] # [id number] Speech Scientist: Leisa Godinez DO Specimen Report PATIENT: PAVEL SOLOMON ACCT: [id number] LOC: 4C U: [id number] AGE/SX: 74/M ROOM: [facility] RE03/21/[address]: AAMIR WILLIAMSON MD : 1950 BED: 1 DIS: STATUS: ADM IN TLOC: SPEC: [id number] VENUS: 03/21/25 STATUS: COMP REQ: [id number] RECD: 03/21/[address] [facility] [address]: IGNACIO GONZALEZ APRN SOURCE: BLOOD ENTR: 03/21/25-[address] [facility] [address]: PATRICIO GLASS MD [facility] INESSA GARCIA TODD D MD WORTH, RYAN E DO ORDERED: BLOOD CULTURE COMMENTS: What is the Source? BLOOD Procedure Result Javed Date-Time BLOOD CULT Final 03/26/25-1904 NO GROWTH AFTER 5 DAYS PROCEDURE: ABD PEL W - CT ABDOMEN/PELVIS W/CONTRAST CT ABDOMEN/PELVIS W/CONTRAST HISTORY: Abdominal pain COMPARISON: 10/11/2012 TECHNIQUE: Multiple sequential axial images of the abdomen and pelvis were obtained from the dome of the diaphragm through symphysis pubis. Patient was not given contrast through intravenous route. Oral contrast was not given. FINDINGS: No pleural effusion is seen bilaterally. There is no evidence of parenchymal disease or pulmonary nodule of the visualized lower lungs. Degenerative changes of the thoracolumbar spine are present. The heart is not enlarged. Coronary artery calcifications are seen. Gallbladder is distended. Liver is enlarged measuring 18 cm. There is left renal cyst measuring 10 cm. There is roughening and cyst measures 6.3 cm. There is right adrenal mass measuring 6 x 5.4 cm. There are extensive retroperitoneal adenopathy and mesenteric adenopathy. Neoplastic process is suspected. There are perinephric nodular densities bilaterally. The liver, spleen, adrenal glands and pancreas are unremarkable. There is no evidence of hydronephrosis bilaterally. No evidence of renal stone is seen. Fecal material is seen in the colon. There are normal size retroperitoneal and mesenteric lymph nodes. No ascites is seen. Atherosclerotic changes are present. Pelvic sidewalls are symmetric bilaterally. Bladder is poorly distended. There is left inguinal hernia with fat content. IMPRESSION: 1. Right adrenal mass measuring 6 x 5.4 cm. 2. Retroperitoneal and mesenteric adenopathy suspicious for neoplastic process. Nodular densities are seen bilaterally. Bilateral renal cysts. 3. Distended gallbladder. CT was performed with one or more following dose reduction techniques: automated exposure control, adjustment of the mA and kv according to patient's size, or use of a iterative reconstruction technique. DICTATED BY: NARAYAN OLSEN MD DATE: 03/21/251410 ELECTRONICALLY SIGNED BY: NARAYAN OLSEN MD DATE: 03/21/251416 PROCEDURE: ECHO [facility] - ECHO 2-D COMPLETE APPROVED REPORT EXAM: Two-dimensional and M-mode echocardiogram with Doppler and color Doppler. INDICATION ICD: Congetive heart failure 2D Dimensions RVDd 3.4 cm LVEF(%) 76.2 (>50%) LVED Vol(simp.) 68.0 mL IVSd 1.1 (0.7-1.1cm) FS(%) 45 % LVES Vol(simp.) 27.0 mL LVDd 4.4 (3.8-5.6cm) LA (2D) 4.0 (1.6-4.0cm) LVEF(%, simp.) 60 % PWd 1.7 (0.7-1.1cm) Ao Root(2D) 3.4 (2.0-3.7cm) LA ESV INDEX (BP) 16.43 mL/m2 LVDs 2.4 (2.5-4.0cm) LVOT diam 2.4 (1.8-2.4cm) IVC diam 2.5 cm Deformation Strain Apical 4 -13.4 % Apical 2 -10.9 % Apical 3 -18.5 % Global Strain -14.3 % M-Mode Dimensions EPSS 1.0 cm LA (MM) 5.1 (1.6-4.0cm) Ao Root(MM) 3.5 (2.0-3.7cm) Aortic Valve AoV Vmax 1.4 m/s Ao Peak GR 8.2 mmHg LVOT Vmax 1.1 m/s AoV VTI 0.2 m Ao Mean GR 5.3 mmHg LVOT VTI 0.15 m JOEY (VMAX) 3.40 cm2 JOEY (VTI) 3.4 cm2 Mitral Valve MV E Vmax 110.9 cm/s DECEL Time 113 ms MV A Vmax 54.7 cm/s E/A ratio 2.0 TDI E/E' Medial 13.8 E/E' Lateral 13.8 Lateral E' Peak V 8.02 cm/s Pulmonary Valve PV Vmax 1.4 m/s PV VTI 0.19 m PV Mean GR 3.8 mmHg PV Peak GR 7.9 mmHg Tricuspid Valve RAP (EST) 8 mmHg RVSP 8.0 mmHg Left Ventricle The left ventricle is normal size. Hyperdynamic left ventricular wall motion noted. No regional wall motion abnormalities noted. There is moderate left ventricular wall thickness. LVEF is 60-65%. The LV diastolic function was unable to be assessed due to atrial arrhythmia. Right Ventricle The right ventricle is normal size. There is mild right ventricular wall thickness. Right ventricular systolic function could not be assessed. Atria The left atrium size is normal. The right atrium size is normal. Aortic Valve The aortic valve appears to open well. No aortic regurgitation is present. There is no aortic valvular stenosis. Mitral Valve Mitral valve is not well visualized. There is no mitral valve regurgitation noted. There is no mitral valve stenosis. Tricuspid Valve The tricuspid valve leaflets appear normal. There is trace of tricuspid valve regurgitation noted. Pulmonic Valve Pulmonic valve is not well visualized. There is no pulmonic valvular regurgitation. Great Vessels The aortic root is normal in size. The IVC is normal in size and collapses <50% with inspiration. Pericardium Epircardial fat noted. Other Information Quality : Technically difficult challenging study due to body habitus Conclusion LVEF is 60-65%. Hyperdynamic left ventricular wall motion noted. No regional wall motion abnormalities noted. The right ventricle is normal size. The aortic root is normal in size. DICTATED BY: MAISHA HOLLOWAY MD DATE: 03/22/25 0710 ELECTRONICALLY SIGNED BY: MAISHA HOLLOWAY MD DATE: 03/22/25 1440 PROCEDURE: CHEST WO - CT CHEST W/O CONTRAST CT CHEST W/O CONTRAST HISTORY: Hypercalcemia COMPARISON: 03/21/2005 TECHNIQUE: Multiple sequential axial images of the chest were obtained from the thoracic inlet through upper abdomen. Patient was not given contrast through intravenous route. FINDINGS: Tiny bilateral pleural effusions are seen. There are mild interstitial fibrosis. Coronary arterial calcifications are seen. There is retroperitoneal adenopathy There is no evidence of pneumothorax. There are normal size mediastinal and hilar lymph nodes. The heart is not enlarged. Degenerative changes of the thoracolumbar spine are present. There is right adrenal mass not completely well visualized. IMPRESSION: 1. Tiny bilateral pleural effusions. Mild interstitial fibrosis. Right adrenal mass. CT was performed with one or more following dose reduction techniques: automated exposure control, adjustment of the mA and kv according to patient's size, or use of a iterative reconstruction technique. DICTATED BY: NARAYAN OLSEN MD DATE: 03/22/25 190 ELECTRONICALLY SIGNED BY: NARAYAN OLSEN MD DATE: 03/26/25 0715 PROCEDURE: PULM VQ - NM PULMONARY/LUNG VQ SCAN NM PULMONARY/LUNG VQ SCAN HISTORY: Shortness of breath COMPARISON: None TECHNIQUE: Ventilation study was performed with 5 mCi of Xenon gas through inhalation route. Perfusion lung imaging study was performed with 5 mCi of technetium macroaggregated through intravenous route. FINDINGS: There is no evidence of segmental or subsegmental perfusion defect. Nonsegmental perfusion defects are also present. IMPRESSION: 1. Low probability for pulmonary embolus. DICTATED BY: NARAYAN OLSEN MD DATE: 03/23/25 0019 ELECTRONICALLY SIGNED BY: NARAYAN OLSEN MD DATE: 03/26/25 0740 PROCEDURE: HEAD WO - CT HEAD/BRAIN W/O CONTRAST CT HEAD/BRAIN W/O CONTRAST HISTORY: Altered mental status COMPARISON: None TECHNIQUE: Multiple sequential axial images of the head were obtained from the base of the skull through vertex. Patient was not given contrast through intravenous route. FINDINGS: The ventricles and extraventricular CSF spaces are dilated consistent with cerebral atrophy. Nonspecific white matter changes seen. There is no midline shift, mass effect or herniation. No acute intracranial bleed is seen. Visualized portion of the paranasal sinuses are grossly within normal limits. IMPRESSION: 1. No acute intracranial bleed is seen. 2. Atrophy with white matter changes. CT was performed with one or more following dose reduction techniques: automated exposure control, adjustment of the mA and kv according to patient's size, or use of a iterative reconstruction technique. DICTATED BY: NARAYAN OLSEN MD DATE: 03/23/25 1334 ELECTRONICALLY SIGNED BY: NARAYAN OLSEN MD DATE: 03/26/25 0756 PROCEDURE: BONE WBD - NM BONE SCAN WHOLE BODY Exam Type: NM BONE SCAN WHOLE BODY Clinical Information: BONE MATASTISIS Comparison: None RADIOPHARMACEUTICAL: Intravenous administration of 27 mCi of Tc-99m MDP . TECHNIQUE: Three-hour delayed anterior and posterior whole-body and upper extremities and lateral views of the skull and posterior obliques of the thorax were obtained. The distal humeri, the elbows, and the proximal and mid forearms are incompletely included in the films. FINDINGS: There is adequate, homogenous, and symmetric radiopharmaceutical uptake through out the axial and appendicular skeleton . The renal uptake is abnormal. Patchy punctate areas of uptake are noted throughout both kidneys, mostly replaced in the normally homogeneous distribution throughout renal parenchyma. Upon correlation with recent CT abdomen pelvis March 21, 2025, it is noted that the kidneys contain multiple simple cysts. The cysts themselves are not showing the uptake. The uptake, bladder, is probably noted within the remaining areas of viable renal parenchyma, dose not involved with simple cysts. In addition, review of the prior CT demonstrates what may represent a complex cyst or neoplastic lesion of the right renal upper pole measuring 6.2 cm. IMPRESSION: No evidence of bony metastatic disease. Abnormal function of the kidneys with patchy uptake as noted above. Also, possible space occupying lesion, not a simple cyst, of the right renal upper pole medial aspect. A malignant renal lesion must be entertained. DICTATED BY: LEILANI CANO MD DATE: 03/27/25 1640 ELECTRONICALLY SIGNED BY: LEILANI CANO MD DATE: 03/27/25 1644 PROCEDURE: BRAIN WWO - MR BRAIN WWO CON Exam Type: MRI OF THE BRAIN WITH AND WITHOUT GADOLINIUM TECHNIQUE: The examination is done with diffusion sequences, FLAIR axial sequence, axial and sagittal T1, axial and coronal [id number] T2 sequences, and apparent diffusion sequence. IV contrast was used. FINDINGS: CSF spaces are preserved. Ventricular spaces are preserved as well. Multiple punctate and patchy foci of increased signal T2-weighted FLAIR images scattered diffusely throughout the deep white matter centrum semiovale and coronal radiata on the T2-weighted FLAIR images. No similar-appearing focus present within the deep white matter of the cerebellum or brainstem. consistent with chronic small vessel ischemic changes. No acute intra-or extra-axial fluid collections are seen. There is no mass effect or shift of midline structures. Diffusion-weighted sequences demonstrate no evidence of acute pathology. Specifically, there is no evidence of acute TIA or stroke. The pituitary gland is unremarkable. The stalk is midline and the sella turcica shows no significant abnormalities. \\par The signal intensity of the skull base and the marrow of the actual bony structures of the skull are unremarkable. The acoustic canals show no significant abnormalities. The orbits and the eye globes are preserved. The paranasal sinuses are clear. After contrast administration, there is no abnormal enhancement. IMPRESSION: 1. MILD CHRONIC SMALL VESSEL ISCHEMIC CHANGES. NO ACUTE INFARCTS OR ISCHEMIC EVENTS NOTED AT THIS TIME. 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 Metastatic cancer stage IV, suspect origin, POA Right adrenal mass measuring 6 x 5.[address] abdomen/pelvis Retroperitoneal and mesenteric adenopathy suspicious for neoplastic process per CT abdomen/pelvis POA Recent lymph node biopsy 03/13/2025 Intractable abdominal pain POA Acute dehydration POA Failure to thrive POA Acute metabolic encephalopathy POA Severe malnutrition POA Acute kidney injury POA Uncontrolled hypertension POA Leukocytosis WBC 13.6 POA Sirs with organ dysfunction ruled in, POA Bacteremia, POA- resolved Multifactorial anemia POA Bilateral renal cysts as per CT abdomen/pelvis Chronic Problem: Uncontrolled diabetes mellitus type 2 with hypoglycemia POA Hyperlipidemia POA History of Prostate cancer POA GERD POA Coronary Artery Disease POA Morbid obesity POA History of COVID POA ASSESSMENT : Malignant Hypercalcemia POA Metastatic cancer stage IV, suspect origin Right adrenal mass measuring 6 x 5.[address] abdomen/pelvis Retroperitoneal and mesenteric adenopathy suspicious for neoplastic process per CT abdomen/pelvis POA Recent lymph node biopsy 03/13/2025 elsewhere Intractable abdominal pain POA secondary to renal vs adrenal mass and retroperitoneal and mesenteric adenopathy. Hypercalcemia possibly secondary to underlying unknown malignancy Status post therapy with calcitonin and pamidronate Patient has first-degree AV block-possibly secondary to hypercalcemia: repeat EKG showed persistent prolonged OH interval . Ca 10.3 at the time of discharge .Will not recommend calcium lowering therapy at this time as it can cause hypocalcemia . MRI brain and bone scan ruled out brain and bone metastasis at this time . Follow up with oncology as outpatient . Follow up with primary care doctor in 2 to 3 days to monitor calcium and renal function . Acute metabolic encephalopathy POA secondary to hypercalcemia Severe malnutrition POA Acute kidney injury POA - prerenal etiology Acute dehydration POA Patient with acute delirium-treated with low dose IV haloperidol-mental status back to baseline . Patient with history of dysphagia, dry mouth, decreased appetite, weight loss Continue IV fluids FeNA less than1 :indicating prerenal etiology Adequate hydration is recommended . SIRS with organ dysfunction , POA Leukocytosis WBC 13.6 POA Staph capitis bacteremia ,POA -resolved Leukocytosis secondary to dexa No sepsis . Tachycardia secondary to dehydration and reflex to Metoprolol discontinuation Chest x-ray mild bilateral pulmonary infiltrate are seen may be related to mild pulmonary vascular congestion with possible superimposed pneumonitis-CT chest unremarkable Repeat blood culture negative . Patient to continue cephalexin for 7 days Other: Continue physical therapy Adequate hydration Stopped HCTZ, allopurinol ( hypercalcemia and renal dysfunction ).Repeat uric acid as outpatient and continue Allopurinol as per the PCP recommendations . Stopped Enalapril (reported medication-duplicate med) Metoprolol dose reduced to 50 mg . Discharge Instructions: DATE OF ADMISSION: 03.21.25 DATE OF DISCHARGE: 03.28.25 DISPOSITION: home CONDITION: Medically stable CONSULTANTS: Oncology. Nephrology ,Gastroenterology FOLLOW UP APPOINTMENTS: Follow up with your primary care doctor in 2 to 3 days . Follow up with your oncology as out patient PROCEDURES: NA IMAGING: report attached to summary MICROBIOLOGY: report attached to summary HOME MEDICATIONS: see med rec NEW MEDICATIONS: See medication reconciliation EMERGENCY INSTRUCTIONS: The patient was instructed to present to the nearest Emergency department or call 911 once their symptoms will return or worsen. Home Medications: Reported Medications Aspirin (ASPIRIN 81MG CHEW TAB) 81 Mg Tab.chew, 1 TAB PO DAILY for 30 Days, #30 TAB 0 Refills 03/21/25 Metformin HCl (Metformin HCl) 500 Mg Tablet, 1 TAB PO BID for 30 Days, #60 TAB 0 Refills 03/21/25 Pioglitazone HCl (Pioglitazone HCl) 30 Mg Tablet, 1 TAB PO DAILY for 30 Days, #30 TAB 0 Refills 03/21/25 Amlodipine Besylate (Amlodipine Besylate) 10 Mg Tablet, 10 MG PO DAILY for 30 Days, #30 TAB 0 Refills 03/21/25 Metoprolol Succinate (Metoprolol Succinate) 100 Mg Tab.er.24h, 100 MG PO AM, TAB 03/21/25 Valsartan (Valsartan) 160 Mg Tablet, 1 TAB PO DAILY for 30 Days, #30 TAB 0 Refills 03/21/25 Atorvastatin Calcium (LIPITOR) 20 Mg Tab, 20 MG PO HS, TAB 05/30/20 Omeprazole (Omeprazole) 20 Mg Tab.rap.dr, 20 MG PO DAILY 05/30/20 Enalapril Maleate (Enalapril Maleate) 20 Mg Tablet, 20 MG PO BID, TAB 05/30/20 Allopurinol (Allopurinol) 300 Mg Tablet, 300 MG PO DAILY, TAB 05/30/20 Hydrochlorothiazide (Hydrochlorothiazide) 12.5 Mg Tablet, 12.5 MG PO DAILY, TAB 05/30/20 Time spent arranging discharge: 31-60 minutes ATTESTATION BY PHYSICIAN I have seen and examined the patient. I reviewed the documentation, medical decision making, and treatment plan as noted by the resident provider above. I agree with the findings and plan of care. Jin Sweeney MD, ANCHU A MD March 28, 2025 07:18
--- NOTE | 2025-03-28 07:29 | PN ---
GASTROENTEROLOGY PROGRESS NOTE Date of Visit: March 28, 2025 Time of Visit: 07:28 Events / Notes: [ ] Review of Systems: CONSTITUTIONAL: No malaise or change in sensation of wellbeing. ENMT: No rhinorrhea, otorrhea, sinus pain, ear ache. CARDIOVASCULAR: No angina, palpitations, orthopnea or paroxysmal dyspnea. RESPIRATORY: No SOB. GASTROINTESTINAL: No abdominal pain, nausea, vomiting, diarrhea, hematemesis, melena or change in the patient's habitual bowel movements consistency/number. GENITOURINARY: No dysuria, hematuria or change in bladder continence. MUSCULOSKELETAL: No new muscle pain or decrease in muscular strength. No new joint swelling, redness or tenderness. SKIN: No new rash. Physical Exam: GEN: Awake, alert, oriented in person, time and place, and in no acute distress. HEENT: No sinus tenderness. Tympanic membranes were not examined. No rhinorrhea. Oral pharyngeal mucosa is pink, moist and within normal limits. Neck is supple with no cervical lymphadenopathy, thyromegaly or JVD. CHEST: Inspection, palpation and percussion of the chest were unremarkable. Lung auscultation revealed normal breath sounds bilaterally. CARDIAC: PMI is within normal limits. Heart sounds are regular. Normal S1, S2. No gallop or murmur. ABD: Soft, non-tender and not distended. No peritoneal signs on palpation. No organomegaly. Normal bowel sounds. EXT: No cyanosis or clubbing. No edema. SKIN: Intact. No rashes. JOINTS: No evidence of synovitis or acute arthritis. NEURO: Alert and oriented to name, place and person. Cranial nerve examination is unremarkable. No focal motor deficits. Normal speech. Gait is normal. Strength is normal. Vital Signs (last 8hr) Date Time Temp Pulse Resp B/P (MAP) Pulse Ox O2 Delivery O2 Flow Rate FiO2 03/28/25 04:00 97.7 82 20 147/85 94 Room Air 03/28/25 00:00 98.1 76 18 131/62 94 Room Air 21 Laboratory: [ ] Laboratory: Test 03/28/25 05:45 03/28/25 04:58 03/27/25 18:13 03/27/25 04:48 Range/Units Whole Blood Glucose 121 H 70-110 MG/DL White Blood Count 7.8 4.8-10.8 K/uL Red Blood Count 3.68 L 4.50-6.20 MIL/uL Hemoglobin 11.0 L 14.0-18.0 g/dL Hematocrit 31.9 L 42-54 % Mean Corpuscular Volume 86.7 79-99 fL Mean Corpuscular Hemoglobin 29.9 27.0-33.0 pg Mean Corpuscular Hemoglobin Concent 34.5 32.0-36.0 g/dL Red Cell Distribution Width 13.9 11.0-15.5 % Platelet Count 224 130-400 K/uL Mean Platelet Volume 10.3 7.5-10.5 fL Nucleated Red Blood Cells 0.0 0.0-0.19 % Sodium Level 141 136-145 mmol/L Potassium Level 3.3 L 3.5-5.1 mmol/L Chloride Level 108 101-111 mmol/L Carbon Dioxide Level 23 21-32 mmol/L Blood Urea Nitrogen 23 H 7-18 mg/dL Creatinine 1.4 H 0.5-1.3 mg/dL Glomerular Filtration Rate Calc 53 >90 mL/min Random Glucose 117 H 70-105 mg/dL Lactic Acid Level 1.4 0.8-2.5 mmol/L Total Calcium 10.3 H 8.5-10.1 mg/dL Phosphorus Level 1.4 L 2.5-4.9 mg/dL Total Bilirubin 0.7 0.2-1.0 mg/dL Aspartate Amino Transf (AST/SGOT) 25 10-37 U/L Alanine Aminotransferase (ALT/SGPT) 30 12-78 U/L Alkaline Phosphatase 51 50-136 U/L C-Reactive Protein, Quantitative 11.40 H 0.5-3.0 mg/L Total Protein 5.5 L 6.0-8.3 g/dL Albumin 2.5 L 3.5-5.0 g/dL Urine Color YELLOW YELLOW Urine Appearance CLEAR CLEAR Urine pH 6.0 5.0-8.0 Urine Specific [place] 1.022 1.001-1.031 Urine Protein 70 H NEGATIVE mg/dL Urine Glucose (UA) NEGATIVE NEGATIVE mg/dL Urine Ketones NEGATIVE NEGATIVE mg/dL Urine Occult Blood +- (TRACE) H NEGATIVE Urine Nitrate NEGATIVE NEGATIVE Urine Bilirubin NEGATIVE NEGATIVE mg/dL Urine Urobilinogen 0.2 0.2-1.0 mg/dL Urine Leukocyte Esterase NEGATIVE NEGATIVE Kai/uL Urine RBC 11-25 H 0-1 /HPF Urine WBC 2-5 H 0-1 /HPF Urine Bacteria None None Seen /HPF Urine Hyaline Casts 2-5 H 0-1 /LPF /LPF Ionized Calcium 1.47 H 1.15-1.33 MMOL/L Test 03/26/25 08:49 Range/Units Immature Granulocyte % (Auto) 1.0 0-1 % Neutrophils (%) (Auto) 83.4 H 40.0-77.0 % Lymphocytes (%) (Auto) 7.4 L 21.0-51.0 % Monocytes (%) (Auto) 7.8 3.0-13.0 % Eosinophils (%) (Auto) 0.3 0.0-8.0 % Basophils (%) (Auto) 0.1 0.0-5.0 % Neutrophils # (Auto) 7.2 1.8-7.7 K/uL Lymphocytes # (Auto) 0.6 L 1.0-4.8 K/uL Monocytes # (Auto) 0.7 0.1-1.0 K/uL Eosinophils # (Auto) 0.03 0.00-0.70 K/uL Basophils # (Auto) 0.01 0.00-0.20 K/uL Absolute Immature Granulocyte (auto 0.09 0-1 K/uL Magnesium Level 1.80 1.80-2.40 mg/dL Current Medications Medications (Trade) Dose Ordered Sig/Katie Route PRN Reason Start Time Stop Time Status Last Admin Dose Admin Acetaminophen (TYLenol 325MG TAB) 650 mg Q4H PRN PO MILD PAIN (1-3) 03/21/25 16:00 04/20/25 15:59 03/27/25 07:44 650 MG Acetaminophen (TYLenol 325MG TAB) 650 mg Q6H PRN PO MILD PAIN (1-3) 03/21/25 16:00 03/21/25 15:51 DC Acetaminophen (TYLenol 325MG TAB) 650 mg Q6H PRN PO TEMPERATURE GREATER THAN 101.5 03/21/25 16:00 04/20/25 15:59 Acetaminophen/ Codeine Phosphate (TYLenol-coDEINE TAB) 1 tab Q6H PRN PO MODERATE PAIN (4-6) 03/28/25 06:30 04/27/25 06:29 Acetaminophen/ Hydrocodone Bitart (NORco 5/325MG) 1 tab Q8H PRN PO MODERATE PAIN (4-6) 03/27/25 12:30 03/28/25 06:24 DC 03/27/25 20:54 1 TAB Al Hydroxide/Mg Hydroxide (MAALox PLUS 30ML) 30 ml Q6H PRN PO INDIGESTION 03/21/25 16:00 04/20/25 15:59 Allopurinol (ZYLOprim 300MG) 300 mg BID STAT PO 03/23/25 17:05 03/23/25 17:20 DC 03/23/25 17:27 300 MG Amlodipine Besylate (NorvASC 5MG TAB) 10 mg DAILY PO 03/25/25 09:00 04/24/25 08:59 03/27/25 09:34 10 MG Aspirin (Aspirin 81mg Chew Tab) 81 mg DAILY PO 03/25/25 09:00 04/24/25 08:59 03/27/25 09:34 81 MG Calcitonin (Miacalcin 400 Unit Inj) 400 units BID SQ 03/23/25 15:00 03/26/25 14:59 DC 03/25/25 12:13 400 UNITS Cephalexin (Keflex 500 MG CAPS) 500 mg Q12H PO 03/28/25 06:30 04/04/25 23:00 03/28/25 06:35 500 MG Dexamethasone (DeCADron 4 mg TAB) 40 mg ONCE PO 03/23/25 17:00 03/24/25 13:22 DC 03/23/25 17:27 40 MG Dextrose (D50w) 50 ml AD PRN IV HYPOGLYCEMIA PROTOCOL 03/21/25 16:00 04/20/25 15:59 Diphenhydramine HCl (BENAdryl INJ) 25 mg Q6H PRN IV SEVERE ITCHING/RASH 03/21/25 16:00 03/25/25 15:43 DC 03/25/25 12:09 25 MG Famotidine (Pepcid 20mg Vial) 20 mg BID PRN IV NAUSEA/VOMITING 03/21/25 16:00 03/21/25 15:51 DC Famotidine (Pepcid 20mg Vial) 20 mg DAILY IV 03/22/25 09:00 03/24/25 13:22 DC 03/24/25 10:23 20 MG Glucagon (Glucagon 1mg Kit) 1 mg AD PRN IM HYPOGLYCEMIA PROTOCOL 03/21/25 16:00 04/20/25 15:59 Guaifenesin/ Dextromethorphan (RobiTUSSin DM 200/20MG 10ML) 10 ml Q4H PRN PO COUGH 03/21/25 16:00 04/20/25 15:59 Haloperidol (Haldol) 0.5 mg Q8H PRN PO ANXIETY/AGITATION 03/25/25 16:30 04/24/25 16:29 03/26/25 20:18 0.5 MG Haloperidol Lactate (Haldol Inj) 2 mg Q4H PRN IV ANXIETY/AGITATION 03/25/25 11:00 03/25/25 15:43 DC 03/25/25 10:54 2 MG Heparin Sodium (Porcine) (HEParin 5,000 UNIT VIAL) 5,000 unit BID SQ 03/21/25 21:00 04/20/25 20:59 03/27/25 20:53 5,000 UNIT Hydralazine HCl (APRESOLine 20MG INJ) 10 mg Q6H PRN IV For:SBP above 160;DBP above 90 03/21/25 16:00 04/20/25 15:59 Insulin Human Regular (humuLIN R 100 UNIT/ML 3ML) INSULIN SLIDING SCAL... ACHS SQ 03/21/25 16:30 04/20/25 16:29 Ketorolac Tromethamine (toRADol) 15 mg Q8H PRN IV MODERATE PAIN (4-6) 03/21/25 16:00 03/23/25 16:59 DC 03/23/25 15:10 15 MG Lactated Ringer's 1,000 ml @ 100 mls/hr Q10H STAT IV 03/21/25 13:13 03/21/25 13:22 DC Lactulose (Constulose 20gm/ 30ml Udcup) 20 gm BID PRN PO CONSTIPATION 03/21/25 16:00 04/20/25 15:59 03/26/25 12:30 20 GM Magnesium Sulfate 50 ml @ 0 mls/hr PROTOCOL PRN IV other 03/21/25 16:00 04/20/25 15:59 03/25/25 12:10 25 MLS/HR Metoprolol Succinate (TopROL XL) 50 mg DAILY PO 03/27/25 09:00 04/26/25 08:59 03/27/25 09:33 50 MG Morphine Sulfate (morPHINE 2MG SYG) 1 mg Q4H PRN IVP SEVERE PAIN (7-10) 03/21/25 16:00 03/25/25 15:43 DC 03/25/25 01:45 1 MG Morphine Sulfate (morPHINE 2MG SYG) 2 mg ONCE STAT IVP 03/21/25 14:27 03/21/25 14:31 DC 03/21/25 14:46 2 MG Nitroglycerin (Nitrostat) 0.4 mg PROTOCOL PRN SL CHEST PAIN 03/21/25 16:00 04/20/25 15:59 Ondansetron HCl (zoFRAN 4MG INJ) 4 mg Q6H PRN IV NAUSEA/VOMITING 03/21/25 16:00 03/23/25 12:26 DC Ondansetron HCl (zoFRAN 4MG INJ) 4 mg Q6H PRN IVP NAUSEA/VOMITING 03/23/25 12:30 04/22/25 12:29 03/25/25 01:39 4 MG Oxycodone/ Acetaminophen (perCOCET) 1 tab Q6H PRN PO SEVERE PAIN (7-10) 03/21/25 16:00 03/22/25 08:52 DC Pantoprazole Sodium (PROTonix 40MG TAB) 40 mg DAILY PO 03/23/25 17:00 04/22/25 16:59 03/27/25 09:33 40 MG Pharmacy Profile Note (Pharmacy Communication) 1 each AD MISC 03/22/25 09:00 03/22/25 08:52 DC Pharmacy Profile Note (Pharmacy Communication) 1 each ONCE MISC 03/24/25 19:30 03/24/25 19:21 DC Piperacillin Sod/ Tazobactam Sod 50 ml @ 12.5 mls/hr ZOSY8 IV 03/21/25 21:00 03/26/25 17:49 DC 03/25/25 20:46 12.5 MLS/HR Potassium Chloride 100 ml @ 100 mls/hr AD PRN IV POTASSIUM PROTOCOL 03/22/25 18:00 04/21/25 17:59 Potassium Chloride (K-Dur 10meq Sr Tab) 10 meq AD PRN PO POTASSIUM PROTOCOL 03/24/25 13:30 04/21/25 18:29 03/28/25 06:56 10 MEQ Potassium Chloride (K-Dur/Klor-Con 20meq) 10 meq AD PRN PO POTASSIUM PROTOCOL 03/22/25 18:30 03/24/25 13:23 DC 03/23/25 11:15 10 MEQ Potassium Chloride (KCl 10% Elixir 20meq/15ml) 10 meq AD PRN PO POTASSIUM PROTOCOL 03/22/25 18:30 04/21/25 18:29 03/26/25 12:31 10 MEQ Sodium Chloride 1,000 ml @ 100 mls/hr Q10H IV 03/21/25 16:00 04/20/25 15:59 03/28/25 03:19 100 MLS/HR Thiamine HCl (Vitamin B-1) 100 mg DAILY IVP 03/23/25 13:30 04/22/25 13:29 03/27/25 12:45 100 MG Vitamin B Complex/ Vit C/Folic Acid (Nephrovite Tablet) 1 cap DAILY PO 03/23/25 09:00 04/22/25 08:59 03/27/25 09:32 1 CAP Zolpidem Tartrate (AmbIEN) 5 mg HS PRN PO INSOMNIA 03/21/25 16:00 04/20/25 15:59 Diagnostics / Radiology: [COPY/PASTE HERE IF NO REPORTS PLEASE DELETE SECTION] Assessment: [ ] Plan: No plan for further endoscopy Follow oncology recommendations Continue GI prophylaxis Advance diet as tolerated Avoid NSAIDs Antireflux measures Monitor H&H and transfuse as needed Call with questions, concerns or change in clinical status Patient to follow-up at clinic post discharge Thank you for this consult AZALEA RICHARDSON [facility] ADMINISTRATOR March 28, 2025 07:29
[2025-03-28] MEDS ORDERED: METO-391 PO (07:37)
[2025-03-28] MEDS ORDERED: CEPH500C2 PO (07:37)
[2025-03-28] MEDS ORDERED: LACT-441 PO (07:39)
[2025-03-28 08:00] VITALS: O2SAT 96
[2025-03-28 08:03] VITALS: BP 140/91; PULSE 66; RESP 20; TEMP 98.3
--- NOTE | 2025-03-28 10:18 | PN ---
LOCATION: 415. SUBJECTIVE: The patient remained stable overnight. MRI of the brain just showed atherosclerosis, no mets. Bone scan was negative, no mets. 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 PLAN: The patient can be discharged home today in my opinion. Follow up in the clinic on Tuesday. with him, his daughter, his , and the patient. They agree with that plan. He will need oral pain medicine and we can manage the calcium in the office. We will see him back Tuesday at 10. TID: [id number] RECEIPT: [id number]
[2025-03-28 12:00] VITALS: BP 148/79; PULSE 100; RESP 20; TEMP 98.9
--- NOTE | 2025-03-28 13:18 | NUR ---
DC PLAN TRIGGER FOR MD LIST. GIVEN TO NURSE TO GIVE TO PATIENT DURING DISCHARGE INFORMATION. Addendum: 03/28/25 at 1322 by SHORTY MURILLO RN CM Amended: Links added.
== END 2025-03-28 13:00 | disposition home or self-care (01) | DRG 698 ==
LOC: EDH 12:38 → EDHIP 15:31 → 3BH 22:42 → 3AH 03-22 00:25 → 4CH 03-25 17:48
PROVIDERS: ADMIT Internal Medicine; ATTEND Internal Medicine
DX: N28.89 Other specified disorders of kidney and ureter (principal); E43 Unspecified severe protein-calorie malnutrition; G93.41 Metabolic encephalopathy; R65.11 Systemic inflammatory response syndrome (SIRS) of non-infectious origin with acute organ dysfunction; C74.90 Malignant neoplasm of unspecified part of unspecified adrenal gland; E86.0 Dehydration; N17.9 Acute kidney failure, unspecified; E83.52 Hypercalcemia; C61 Malignant neoplasm of prostate; D64.9 Anemia, unspecified; D72.829 Elevated white blood cell count, unspecified; E11.65 Type 2 diabetes mellitus with hyperglycemia; E66.01 Morbid (severe) obesity due to excess calories; I25.10 Atherosclerotic heart disease of native coronary artery without angina pectoris; K21.9 Gastro-esophageal reflux disease without esophagitis; R62.7 Adult failure to thrive; E11.649 Type 2 diabetes mellitus with hypoglycemia without coma; C67.9 Malignant neoplasm of bladder, unspecified; E78.00 Pure hypercholesterolemia, unspecified; R59.0 Localized enlarged lymph nodes; I44.0 Atrioventricular block, first degree; I50.9 Heart failure, unspecified; N40.0 Benign prostatic hyperplasia without lower urinary tract symptoms; N28.1 Cyst of kidney, acquired; K82.8 Other specified diseases of gallbladder; K64.8 Other hemorrhoids; J44.9 Chronic obstructive pulmonary disease, unspecified; Z53.29 Procedure and treatment not carried out because of patient's decision for other reasons; Z85.46 Personal history of malignant neoplasm of prostate; Z87.891 Personal history of nicotine dependence; Z86.16 Personal history of COVID-19; Z68.39 Body mass index [BMI] 39.0-39.9, adult
CPT/HCPCS: 36415; 36600; 70450; 70553; 71045; 71250; 74177; 78306; 78582; 80048; 80051; 80053; 80076; 81001; 82140; 82306; 82330; 82397; 82550; 82570; 82652; 82803; 82948; 83036; 83521; 83605; 83690; 83735; 83880; 83935; 83970; 84100; 84145; 84153; 84155; 84156; 84165; 84166; 84443; 84484; 84550; 85025; 85027; 85610; 86140; 86334; 87040; 87086; 87186; 87426; 87804; 92610; 93005; 93306; 93356; 96361; 96374; 99285; A9503; A9540; A9558; G0378; J0630; J1200; J1630; J1644; J1885; J1938; J2270; J2405; J2430; J2543; J3411; J3475; J3490; J7030; J7040; J8540; Q9967; A9575